=== PATIENT | male | born 1965 | race African-American/Black ===

== ENCOUNTER 2017-02-01 15:14 | Emergency (ER) | payer MEDICAID, SELFPAY | END 2017-02-01 17:58 | disposition home or self-care (01) | PROVIDERS: Emergency Provider Emergency Medicine; Family Provider Emergency Medicine; Visit Provider Emergency Medicine | DX: M12.811 Other specific arthropathies, not elsewhere classified, right shoulder (principal); E11.649 Type 2 diabetes mellitus with hypoglycemia without coma; Z79.4 Long term (current) use of insulin; I10 Essential (primary) hypertension; E78.5 Hyperlipidemia, unspecified; Z79.82 Long term (current) use of aspirin; F41.8 Other specified anxiety disorders | CPT/HCPCS: 73030; 99283 ==

== ENCOUNTER 2017-02-15 13:24 | Emergency (ER) | payer MEDICAID, SELFPAY ==
[2017-02-15 13:26] VITALS: BP 135/84; PULSE 83; RESP 18; TEMP 36.8; O2SAT 94; BMI 31.6
--- NOTE | 2017-02-15 13:28 | XR_ITS ---
XR chest portable HISTORY: ITS.REASON: weakness ORDERING PHYSICIAN: Mildred Durán MD PATIENT AGE: 51 years COMPARISON: 11/20/2016 FINDINGS: The cardiomediastinal silhouette and pulmonary vascularity are within normal limits. The lungs are clear without infiltrates, suspicious nodules, or pleural effusions. No acute bony abnormalities. IMPRESSION: Negative chest, no acute finding
--- NOTE | 2017-02-15 13:35 | HMH.EDGENADL ---
ED Disposition Clinical Impression: High blood sugar Disposition: Home, Self-Care Condition on Discharge: Good Instructions: DI for Hyperglycemia -- Adult Additional Instructions: Encourage fluids, see Dr. Rodríguez in one day for follow up. Continue insulin. - Critical Care Critical Care Time: No Attestation: On , the high probability of a clinically significant, sudden or life threatening deterioration of the following system(s) required my full and direct attention, intervention and personal management. The time I documented below is in addition to time spent performing reported procedures but includes the following listed in this critical care notation. Medical Decision Making Vital Signs: 02/15/17 13:26 02/15/17 14:28 Temperature 98.2 F Temperature Source Oral Pulse Rate [Right Brachial] 83 74 Respiratory Rate 18 18 Blood Pressure [Right Arm] 135/84 145/87 Blood Pressure Mean [Right Arm] 101 106 Blood Pressure Source [Right Arm] Automatic Cuff Automatic Cuff Blood Pressure Position [Right Arm] Supine Sitting 02 Sat by Pulse Oximetry 94 L 93 L Oxygen Delivery Method Room Air Room Air - Lab Data Lab results reviewed: Yes: I reviewed the patient's lab results. Lab Results 02/15/17 13:30: WBC 10.8, RBC 4.88, Hgb 14.7, Hct 44.3, MCV 90.8, MCH 30.2, MCHC 33.2, RDW 12.8, Plt Count 257, MPV 9.5, Neut % (Auto) 51.2, Lymph % (Auto) 35.1, [place] % (Auto) 4.7, Eos % (Auto) 8.3, Baso % (Auto) 0.6, Neut # (Auto) 5.5, Lymph # (Auto) 3.8, [place] # (Auto) 0.5, Eos # (Auto) 0.9 H, Baso # (Auto) 0.1 02/15/17 13:30: Sodium 138, Potassium 4.5, Chloride 103, Carbon Dioxide 25, Anion Gap 14.5, BUN 23 H, Creatinine 1.75 H, Estimated Creat Clear 76, Estimated GFR 41 L, Est GFR ( Amer) 50 L, Glucose 446 H*, Calcium 8.5, Total Bilirubin 0.3, AST 13 L, ALT 30, Alkaline Phosphatase 105, Troponin I < 0.02, Total Protein 7.1, Albumin 3.7, Globulin 3.4 H, Albumin/Globulin Ratio 1.1 02/15/17 13:30: Influenza Type A Ag Negative, Influenza Type B Ag Negative 02/15/17 13:47: Lactic Acid 1.4 Result diagrams: 02/15/17 13:30 02/15/17 13:30 Orders (Tests/Meds): ED MEDICATIONS Discontinued Medications Generic Name Dose Route Start Last Admin Trade Name Gerhard PRN Reason Stop Dose Admin Acetaminophen 650 mg 02/15/17 13:49 02/15/17 13:54 Acetaminophen 325mg Tab PO 02/15/17 13:50 650 mg ONCE ONE Administration Sodium Chloride 1,000 mls @ 999 mls/hr 02/15/17 13:30 02/15/17 13:56 Sod Chloride 0.9% 1000ml Bag IV 02/15/17 14:30 999 mls/hr .Q1H1M ADEN Administration ORDERS Category Date Time Status Urinalysis and Microscopic Stat Lab 02/15/17 13:28 Ordered - Radiology Data #1 Image(s): Chest Image Reviewed: Yes I reviewed the patient's radiology results, Yes I have reviewed radiologist's interpretation Preliminary Findings: Normal/NAD, No Infiltrates Seen - Clem Inquiry Pt receiving controlled substance: No General Adult HPI - General Stated complaint: dizzy, high blood sugar - History of Present Illness HPI narrative: Patient states that his blood sugar has been high over the past several days. No fever or vomiting. He did take his insulin this morning, but did not eat secondary to elevated blood sugar. He also thought his blood pressure was elevated at home on his home blood pressure cuff, but on EMS arrival they noted his blood pressure to be normal. He has felt a little bit dizzy since his blood sugar was elevated. He denies any unilateral neurological symptoms or headache. Cough or chest pain. No calf pain or shortness of breath. - Related Data Home Medications Medication Instructions Recorded Confirmed Amlodipine Besylate [Norvasc 10mg 10 mg PO DAILY 02/15/17 02/15/17 tablet] Aspirin [Aspirin 81mg chewable 81 mg PO DAILY 02/15/17 02/15/17 tab] Atorvastatin Calcium [Atorvastatin 40 mg PO DAILY 02/15/17 02/15/17 40mg Tab] Benztropine Mesylate
--- NOTE | 2017-02-15 13:38 | ED_ITS ---
ED Disposition Clinical Impression: High blood sugar Disposition: Home, Self-Care Condition on Discharge: Good Instructions: DI for Hyperglycemia -- Adult Additional Instructions: Encourage fluids, see Dr. Rodríguez in one day for follow up. Continue insulin. - Critical Care Critical Care Time: No Attestation: On , the high probability of a clinically significant, sudden or life threatening deterioration of the following system(s) required my full and direct attention, intervention and personal management. The time I documented below is in addition to time spent performing reported procedures but includes the following listed in this critical care notation. Medical Decision Making Vital Signs: 02/15/17 13:26 02/15/17 14:28 Temperature 98.2 F Temperature Source Oral Pulse Rate [Right Brachial] 83 74 Respiratory Rate 18 18 Blood Pressure [Right Arm] 135/84 145/87 Blood Pressure Mean [Right Arm] 101 106 Blood Pressure Source [Right Arm] Automatic Cuff Automatic Cuff Blood Pressure Position [Right Arm] Supine Sitting 02 Sat by Pulse Oximetry 94 L 93 L Oxygen Delivery Method Room Air Room Air - Lab Data Lab results reviewed: Yes: I reviewed the patient's lab results. Lab Results 02/15/17 13:30: WBC 10.8, RBC 4.88, Hgb 14.7, Hct 44.3, MCV 90.8, MCH 30.2, MCHC 33.2, RDW 12.8, Plt Count 257, MPV 9.5, Neut % (Auto) 51.2, Lymph % (Auto) 35.1, [place] % (Auto) 4.7, Eos % (Auto) 8.3, Baso % (Auto) 0.6, Neut # (Auto) 5.5 , Lymph # (Auto) 3.8, [place] # (Auto) 0.5, Eos # (Auto) 0.9 H, Baso # (Auto) 0.1 02/15/17 13:30: Sodium 138, Potassium 4.5, Chloride 103, Carbon Dioxide 25, Anion Gap 14.5, BUN 23 H, Creatinine 1.75 H, Estimated Creat Clear 76, Estimated GFR 41 L, Est GFR ( Amer) 50 L, Glucose 446 H*, Calcium 8.5, Total Bilirubin 0.3, AST 13 L, ALT 30, Alkaline Phosphatase 105, Troponin I < 0.02, Total Protein 7.1, Albumin 3.7, Globulin 3.4 H, Albumin/Globulin Ratio 1.1 02/15/17 13:30: Influenza Type A Ag Negative, Influenza Type B Ag Negative 02/15/17 13:47: Lactic Acid 1.4 Result diagrams: 02/15/17 13:30 02/15/17 13:30 Orders (Tests/Meds): ED MEDICATIONS Discontinued Medications Generic Name Dose Route Start Last Admin Trade Name Gerhard PRN Reason Stop Dose Admin Acetaminophen 650 mg 02/15/17 13:49 02/15/17 13:54 Acetaminophen 325mg Tab PO 02/15/17 13:50 650 mg ONCE ONE Administration Sodium Chloride 1,000 mls @ 999 mls/hr 02/15/17 13:30 02/15/17 13:56 Sod Chloride 0.9% 1000ml Bag IV 02/15/17 14:30 999 mls/hr .Q1H1M ADEN Administration ORDERS Category Date Time Status Urinalysis and Microscopic Stat Lab 02/15/17 13:28 Ordered - Radiology Data #1 Image(s): Chest Image Reviewed: Yes I reviewed the patient's radiology results, Yes I have reviewed radiologist's interpretation Preliminary Findings: Normal/NAD, No Infiltrates Seen - Clem Inquiry Pt receiving controlled substance: No General Adult HPI - General Stated complaint: dizzy, high blood sugar - History of Present Illness HPI narrative: Patient states that his blood sugar has been high over the past several days. No fever or vomiting. He did take his insulin this morning, but did not eat secondary to elevated blood sugar. He also thought his blood pressure was elevated at home on his home blood pre
[2017-02-15 13:59] LABS: Basophils # 0.1 K/mm3 (0-0.2); Basophils % 0.6 % (0.1-2.0); Eosinophils # 0.9 K/mm3 (0.0-0.4); Eosinophils % 8.3 % (0.1-12.0); Hematocrit 44.3 % (42.0-52.0); Hemoglobin 14.7 g/dL (14.1-18.0); Lymphocytes # 3.8 K/mm3 (0.7-4.5); Lymphocytes % 35.1 K/mm3 (10-50); Mean Corpuscular HGB Conc 33.2 g/dL (31.8-35.4); Mean Corpuscular Hemoglobin 30.2 pg (27.0-31.2); Mean Corpuscular Volume 90.8 fl (80-94); Mean Platelet Volume 9.5 fl (7.4-10.4); Monocytes # 0.5 K/mm3 (0.1-1.0); Monocytes % 4.7 % (1.7-9.3); Neutrophils # 5.5 K/mm3 (1.8-7.8); Neutrophils % 51.2 % (37.0-80.0); Platelet Count 257 K/mm3 (142-424); Red Blood Count 4.88 M/mm3 (4.60-6.20); Red Cell Distribution Width 12.8 % (11.5-17.5); White Blood Count 10.8 K/mm3 (4.8-10.8)
--- NOTE | 2017-02-15 14:00 | PC.NURSE ---
iv est be ems
[2017-02-15 14:18] LABS: Troponin I < 0.02 ng/ml (0.00-0.06)
[2017-02-15 14:19] LABS: Lactic Acid 1.4 mmol/L (0.4-2.0)
[2017-02-15 14:23] LABS: Alanine Aminotransferase 30 U/L (12-78); Albumin Level 3.7 gm/dL (3.4-5.0); Albumin/Globulin Ratio 1.1 (1.1-1.8); Alkaline Phosphatase 105 U/L (46-116); Anion Gap 14.5 mEq/L (5-15); Aspartate Amino Transferase 13 U/L (15-37); Bilirubin,Total 0.3 mg/dL (0.2-1.0); Blood Urea Nitrogen 23 mg/dL (7-18); Calcium 8.5 mg/dL (8.5-10.1); Carbon Dioxide 25 mmol/L (21.0-32.0); Chloride 103 mmol/L (98-107); Creatinine Clearance Estimated 76 mL/min (0-300); Creatinine,Serum 1.75 mg/dL (0.70-1.30); Estimated Glomerular Filt Rate 41 ml/min (>60); GFR (African American) 50 ML/MIN (>60); Globulin 3.4 gm/dl (1.3-3.2); Potassium 4.5 mmoL/L (3.5-5.1); Sodium 138 mmol/L (136-145); Total Protein,Serum 7.1 gm/dL (6.4-8.2)
[2017-02-15 14:28] VITALS: BP 145/87; PULSE 74; RESP 18; O2SAT 93
[2017-02-15 14:28] LABS: Glucose 446 mg/dL (74-106)
--- NOTE | 2017-02-15 14:58 | PC.NURSE ---
DR DAVISON NOTIFIED OF BLOOD GLUCOSE OF 446, CALLED FROM LAB AT 14:40
--- NOTE | 2017-02-15 14:58 | PC.NURSE ---
PT IS ATTEMPTING TO PROVIDE UA SAMPLE AT THIS TIME
[2017-02-15 15:17] VITALS: BP 128/86; PULSE 84; RESP 20; TEMP 37; O2SAT 97
[2017-02-15 15:23] LABS: Appearance,Urine SL CLOUDY (Clear); Blood, Urine Negative (Negative); Color,Urine YELLOW (Yellow); Glucose,Urine (UA) 3+ (Negative); Ketones,Urine Negative (Negative); Leukocyte Esterase,Urine Negative (Negative); Microscopic, Urine URINE MICROSCOPIC (MICROSCOPIC); Nitrate,Urine Negative (Negative); PH,Urine 5.5 (5.0-8.5); Protein,Urine Negative (Negative); Specific Gravity, Urine 1.015 (1.005-1.030); Urobilinogen,Urine 0.2 EU/dl (0.2)
[2017-02-15 15:41] LABS: Bilirubin,Urine 1+ (Negative)
[2017-02-15 15:50] VITALS: BP 134/80; PULSE 78; RESP 14; TEMP 36.9; O2SAT 98
[2017-02-15 15:52] LABS: Bacteria,Urine Trace /lpf; Squamous Epithelial Cell,Urine Occasional #/hpf (0-5); WBC,Urine Occasional #/hpf (0-3)
== END 2017-02-15 15:52 | disposition home or self-care (01) ==
PROVIDERS: Emergency Provider Emergency Medicine; Family Provider Emergency Medicine; PCP Emergency Medicine
DX: R73.9 Hyperglycemia, unspecified (principal); Z79.82 Long term (current) use of aspirin; Z79.4 Long term (current) use of insulin; Z79.899 Other long term (current) drug therapy
CPT/HCPCS: 71045; 80053; 81001; 83605; 84484; 85025; 87275; 87276; 93005; 93041; 96365; 99284

== ENCOUNTER → 2017-07-06 10:20 | Outpatient (CLI) | payer MEDICAID, SELFPAY ==
--- NOTE | 2017-07-06 10:22 | XR_ITS ---
XR shoulder RT min 2V HISTORY: ITS.REASON: right shoulder pain ORDERING PHYSICIAN: Curtis Deshpande MD PATIENT AGE: 51 years Comparison: 02/01/2017 FINDINGS: Osteoarthritic changes are present at the acromioclavicular joint and glenohumeral joint with hypertrophic changes of the AC joint and with mild subacromial stenosis overall not significant changed. No fracture or dislocation. 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
== END ==
PROVIDERS: PCP Emergency Medicine; Visit Provider Orthopaedic Surgery
DX: M75.01 Adhesive capsulitis of right shoulder (principal)
CPT/HCPCS: 73030

== ENCOUNTER → 2018-04-18 10:58 | Outpatient (CLI) | payer MEDICAID, SELFPAY ==
--- NOTE | 2018-04-18 11:02 | NM_ITS ---
History and Indications: Hypertension, diabetes, chest pain Procedure: Patient received a 0.4 mg of intravenous Lexiscan, resting heart rate was 74 bpm resting blood pressure 145/89, with Lexiscan maximum heart rate achieved was 94 bpm which is less than 85% of the maximum predicted heart rate and a blood pressure was 128/76. With Lexiscan patient denied any symptoms. Electrocardiogram: Resting electrocardiogram showed sinus rhythm, with Lexiscan less than 1.[address] segment depression noted from the baseline EKG. Occasional premature ventricular complexes seen. The EKG portion of the Lexiscan Myoview is nondiagnostic. Cardiac stress and resting SPECT images: Stress and resting SPECT images were obtained using technetium 99 Myoview 31.5 mCi stress and 10.8 mCi at rest. Gated SPECT further analysis of segmental wall motion and calculation of the ejection fraction also done. Cardiac stress and the suspect images show mild fixed defect in the inferior wall with normal contractility gated SPECT is likely secondary to soft tissue attenuation, no reversible ischemia seen. Computer derived ejection fraction 53% with no regional wall motion abnormality, right ventricle is normal size and contractility. Conclusion: 1. The EKG portion of the Lexiscan Myoview is nondiagnostic. 2. No scintigraphic evidence of reversible ischemia seen, computer derived ejection fraction 53% with no regional wall motion abnormality, right ventricle is normal size and contractility. 3. Normal Lexiscan Myoview study.
--- NOTE | 2018-04-18 12:04 | CA_ITS ---
PROCEDURE: 2-D M-mode and color Doppler study INDICATIONS FOR THE TEST: Chest pain X COPD Heart Murmur Tobacco Smoking Palpitations Fatigue Syncope Edema HypertensionXDiabetes MellitusX Rheumatic Fever SOB DOEXObesityXHyperlipidemia Family History HD Additional History CVA PATIENT INFORMATION HEIGHT: 73 WEIGHT:255 GENDER: Male B/P:117/72 2-D/M-MODE INTERPRETATION: 2-D MEASUREMENTS OBSERVED VALUES IN CMS Right Ventricular Dimension (RVDd) 2.8 Interventricular Septum (Thickness)(IVsd) 1.6 Left Ventricular Internal Dimensions(LVIDd) 4.2 Left Ventricular Posterior Wall (Thickness)(LVPWd) 1.8 Aortic Root 3.6 Aortic Cusp Separation 1.2 Left Atrial Dimensions (LAD) 3.8 2D 1. Left atrium is mildly enlarged, left ventricle is normal size, mild concentric left ventricular hypertrophy, visually estimated ejection fraction of 55% with no regional wall motion abnormality. 2. The right atrium and right ventricle are mildly enlarged with normal contractility. 3. The aortic valve is minimally thickened and fibrosed. 4. The mitral and tricuspid valve leaflets are grossly normal. 5. The pulmonic valve is poorly visualized. 6. No significant pericardial effusion noted. DOPPLER INTERROGATION: Doppler interrogation of the aortic, mitral and tricuspid valvular presence of mild mitral and tricuspid regurgitation, tricuspid regurgitation jet velocity is inadequate for calculation of the right ventricular systolic pressure, grade 1 diastolic dysfunction seen with tissue Doppler evidence of raised left atrial pressure. CONCLUSION: 1. Mildly enlarged left atrium, normal left ventricular size, mild concentric left ventricular hypertrophy, visually estimated ejection fraction 55% with no regional wall motion abnormality, grade 1 diastolic dysfunction seen with tissue Doppler evidence of raised left atrial pressure. 2. Mildly enlarged right ventricle with normal contractility. 3. Mild mitral and tricuspid regurgitation. 4. No significant pericardial effusion noted
--- NOTE | 2018-04-18 13:09 | HMH.ITSHM ---
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 []AMLODIPINE ASA ATORVASTATIN BENZTROPINE CARVEDILOL GABAPENTIN HUMILIN METFORMIN LISINOPRIL HALDOL OLANZAPINE SERTRALINE TAMSULOSIN TRAMADOL
== END ==
PROVIDERS: PCP Emergency Medicine; Visit Provider Internal Medicine
DX: R07.89 Other chest pain (principal); R06.09 Other forms of dyspnea; E11.8 Type 2 diabetes mellitus with unspecified complications; I10 Essential (primary) hypertension; I63.9 Cerebral infarction, unspecified; R42 Dizziness and giddiness; R55 Syncope and collapse; R94.31 Abnormal electrocardiogram [ECG] [EKG]; Z79.4 Long term (current) use of insulin
CPT/HCPCS: 78452; 93017; 93306; A9502; J2785

== ENCOUNTER → 2018-05-04 12:40 | Outpatient (CLI) | payer MEDICAID, SELFPAY ==
--- NOTE | 2018-05-04 12:43 | XR_ITS ---
XR hand RT min 3V HISTORY: ITS.REASON: right hand pain ORDERING PHYSICIAN: Curtis Deshpande MD PATIENT AGE: 52 years COMPARISON: None FINDINGS: No fracture or dislocation. No lytic or blastic change. There is normal mineralization.. The joint spaces are well-preserved. No significant degenerative/arthritic changes. No erosive changes evident.. IMPRESSION: Negative, no acute finding
== END ==
PROVIDERS: PCP Emergency Medicine; Visit Provider Orthopaedic Surgery
DX: M79.641 Pain in right hand (principal)
CPT/HCPCS: 73130

== ENCOUNTER 2018-05-04 14:14 | Outpatient (RCR) | payer MEDICAID, SELFPAY | END 2018-05-04 14:30 | disposition home or self-care (01) | LOC: OT 14:14 | PROVIDERS: Visit Provider Orthopaedic Surgery | DX: G56.01 Carpal tunnel syndrome, right upper limb (principal) | CPT/HCPCS: 97760 ==

== ENCOUNTER → 2018-06-19 10:33 | Outpatient (POV) | payer MEDICAID, SELFPAY | PROVIDERS: Visit Provider Specialist | DX: R20.2 Paresthesia of skin (principal) | CPT/HCPCS: 95886; 95910 ==

== ENCOUNTER → 2018-09-11 13:10 | Outpatient (CLI) | payer MEDICAID, SELFPAY ==
[2018-09-11 13:28] LABS: Basophils % 0.4 % (0.1-2.0); Eosinophils # 0.5 K/mm3 (0.0-0.4); Eosinophils % 4.8 % (0.1-12.0); Hematocrit 39.2 % (42.0-52.0); Hemoglobin 12.5 g/dL (14.1-18.0); Lymphocytes # 3.2 K/mm3 (0.7-4.5); Lymphocytes % 29.3 % (10-50); Mean Corpuscular Hemoglobin 28.2 pg (27.0-31.2); Mean Corpuscular Volume 88.3 fl (80-94); Mean Platelet Volume 8.5 fl (7.4-10.4); Monocytes # 0.5 K/mm3 (0.1-1.0); Monocytes % 4.7 % (1.7-9.3); Neutrophils # 6.6 K/mm3 (1.8-7.8); Neutrophils % 60.9 % (37.0-80.0); Platelet Count 325 K/mm3 (142-424); Red Blood Count 4.44 M/mm3 (4.60-6.20); Red Cell Distribution Width 14.5 % (11.5-17.5); White Blood Count 10.8 K/mm3 (4.8-10.8)
--- NOTE | 2018-09-11 13:29 | XR_ITS ---
XR elbow RT min 3V Ordering Physician: Curtis Deshpande MD Patient Age: 52 years: Male HISTORY: ITS.REASON: UNABLE TO EXTEND RT ARM,SURGERY 09/21 Unable to extend extremity. TECHNIQUE: 3 views right elbow COMPARISON : None FINDINGS The osseous structures intact. The joint spaces well-maintained. There is some early hypertrophic changes of coronoid process affecting mild degenerative changes. Upper normal prominence of anterior fat pad. IMPRESSION: Negative right elbow. No acute findings.
--- NOTE | 2018-09-11 13:29 | XR_ITS ---
XR chest 2V HISTORY: Nonsmoker. ITS.REASON: HTN, ORDERING PHYSICIAN: Curtis Deshpande MD PATIENT AGE: 52 years Technique: PA and lateral chest. COMPARISON: February 2017 PCXR & December 2017 PA and lateral chest FINDINGS: The lungs well expanded and clear with nothing definitely acute. Mild basilar atelectasis but overall improvement versus 1999 1815 CXR The cardiomediastinal silhouette and pulmonary vascularity are within normal limits. The lungs are clear without infiltrates, suspicious nodules, or pleural effusions. No acute bony abnormalities. IMPRESSION: Nothing definitely acute. No significant interval change.
[2018-09-11 14:47] LABS: Anion Gap 14.1 mEq/L (5-15); Blood Urea Nitrogen 13 mg/dL (7-18); Calcium 8.8 mg/dL (8.5-10.1); Carbon Dioxide 26 mmol/L (21.0-32.0); Chloride 106 mmol/L (98-107); Creatinine,Serum 1.01 mg/dL (0.70-1.30); Estimated Glomerular Filt Rate 77 ml/min (>60); GFR (African American) 93 ML/MIN (>60); Glucose 161 mg/dL (74-106); Potassium 4.1 mmoL/L (3.5-5.1); Sodium 142 mmol/L (136-145)
[2018-09-11 16:23] LABS: Hemoglobin A1C 7.5 % (0.0-7.0)
== END ==
PROVIDERS: Visit Provider Orthopaedic Surgery
DX: Z01.818 Encounter for other preprocedural examination (principal)
CPT/HCPCS: 36415; 71046; 73080; 80048; 83036; 85025; 93005

== ENCOUNTER 2019-01-21 13:31 | Inpatient (IN) ==
--- NOTE | 2019-01-21 13:10 | Emergency Department Note ---
ED Disposition Clinical Impression: Chest pain Disposition: Admitted as Observation Condition on Discharge: Serious Time of Disposition: 15:12 - Critical Care Critical Care Time: No Attestation: On , the high probability of a clinically significant, sudden or life threatening deterioration of the following system(s) required my full and direct attention, intervention and personal management. The time I documented below is in addition to time spent performing reported procedures but includes the foll owing listed in this critical care notation. Medical Decision Making - Medical Records Medical records reviewed: Yes: I reviewed the patient's medical records. - Clem Inquiry Pt receiving controlled substance: No Vital Signs: 01/21/19 13:03 01/21/19 13:04 Temperature 98.3 F Temperature Source Oral Pulse Rate [Right Brachial] 81 Pulse Rate [Right Radial] 78 Respiratory Rate 16 Blood Pressure [Right Arm] 95/62 L 95/62 L Blood Pressure Mean [Right Arm] 73 73 Blood Pressure Source [Right Arm] Automatic Cuff Blood Pressure Position [Right Arm] Sitting 02 Sat by Pulse Oximetry 97 Oxygen Delivery Method Nasal Cannula Oxygen Flow Rate (LPM) 2 - Lab Data Lab results reviewed: Yes: I reviewed the patient's lab results. Lab Results 01/21/19 12:58: WBC 11.6 H, RBC 4.31 L, Hgb 12.8 L, Hct 39.7 L, MCV 92.0, MCH 29.7, MCHC 32.3, RDW 13.9, Plt Count 249, MPV 8.7, Neut % (Auto) 56.5, Lymph % (Auto) 33.7, [place] % (Auto) 5.1, Eos % (Auto) 4.4, Baso % (Auto) 0.3, Neut # (Auto) 6.5, Lymph # (Auto) 3.9, [place] # (Auto) 0.6, Eos # (Auto) 0.5 H, Baso # (Auto) 0.0 01/21/19 12:58: Sodium 141, Potassium 4.9, Chloride 103, Carbon Dioxide 26, Anion Gap 16.9 H, BUN 37 H, Creatinine 2.17 H, Estimated Creat Clear 65, Estimated GFR 32 L, Est GFR ( Amer) 39 L, Glucose 128 H, Calcium 9.4, T roponin I < 0.02 Result diagrams: 01/21/19 12:58 01/21/19 12:58 Orders (Tests/Meds): ORDERS Category Date Time Status Troponin I Q3H Lab 01/21/19 16:15 Ordered Troponin I Q3H Lab 01/21/19 19:15 Ordered - Radiology Data #1 Image(s): Chest Image Reviewed: Yes I reviewed the patient's radiology results, Yes I reviewed the patient's radiology image Preliminary Findings: Normal/NAD - CT Data CT Scan: Head Time Received: 15:[address] Reviewed: Yes: I have viewed the radiologist's interpretation Preliminary Findings: Normal/NAD - ECG Data Tracing #1 Normal sinus rhythm at a rate of 82 bpm. ECG initial impression date: 01/21/19 ECG initial impression time: 12:59 ECG normal with no acute: arrhythmias, ischemia, conduction abnormalities, chamber hypertrophy Normal Sinus Rhythm: Yes Chest Pain HPI - General Chief Complaint: Chest Pain Stated Complaint: CP Time Seen by Provider: 01/21/19 13:31 Mode of Arrival: EMS Source of Information: Patient, EMS - History of Present Illness MD complaint: chest pain indicative of cardiac Onset (ago): hour(s) (1) Duration: constant, now resolved Activity at onset: during rest Pain location: substernal Severity: moderate Quality: aching Exacerbating factors: nothing Associated symptoms: nausea Risk Factors for CAD: Hypertension, Diabetes Treatments prior to or on arrival for Cardiac Chest Pain: aspirin, nitroglycerin - Related Data Home Medications Medication Instructions Recorded Confirmed Amlodipine Besylate [Norvasc 10mg 10 mg PO DAILY 02/15/17 01/01/19 tablet] Aspirin [Aspirin 81mg chewable 81 mg PO DAILY 02/15/17 01/01/19 tab] Atorvastatin Calcium [Atorvastatin 40 mg PO HS 02/15/17 01/01/19 40mg Tab] Benztropine Mesylate 0.5 mg PO BID 02/15/17 01/01/19 Gabapentin [Neurontin 300mg 300 mg PO TID 02/15/17 01/01/19 capsule] Ibuprofen [Ibuprofen 600mg Tab] 600 mg PO Q6HP PRN 02/15/17 01/01/19 OLANZapine [Zyprexa Zydis] 20 mg PO DAILY 02/15/17 01/01/19 Polyethylene Glycol 3350 [Miralax 17 gm PO DAILY 02/15/17 01/01/19 17gm Packet] Sertraline HCl [Zoloft 100mg 150 mg PO DAILY 02/15/17 01/01/19 tablet] Tamsulosin HCl [Flomax 0.4mg 0.4 mg PO DAILY 02/15/17 01/01/19 capsule] Tramadol HCl [Ultram 50mg 50 mg PO BID 02/15/17 01/01/19 tablet] carvediloL [Coreg 25mg Tablet] 25 mg PO BID 02/15/17 01/01/19 Finasteride [Proscar 5mg Tablet] 5 mg PO DAILY 12/21/17 01/01/19 Metformin HCl [Fortamet] 1,000 mg PO BID 12/21/17 01/01/19 haloperidol 5 mg tablet 5 mg PO TID tab 04/04/18 01/01/19 lisinopril 10 mg tablet 20 mg PO DAILY tab 04/04/18 01/01/19 insulin NPH-regular 70-30 U-100 55 unit SQ BID ml 07/07/18 01/01/19 insulin 100 unit/mL subcutaneous pen Previous Rx's Medication Instructions Recorded lancets See Dose Instructions .ROUTE 11/22/18 .MEDSUPPLY #100 each furosemide 40 mg tablet 40 mg PO DAILY #30 tab 12/04/18 Allergies Allergy/AdvReac Type Severity Reaction Status Date / Time No Known Allergies Allergy Verified 01/01/19 10:00 [facility] History - Hepatitis A Screen Drug use history?: No Attestation statement:: This patient has been screened for Hepatitis A risk factors. I have reviewed the patient's past medical history: Yes Medical History: Reports:: Cerebrovascular Accident, Diabetes Mellitus Type 2, Hypertension, Seizures, Transient Ischemic Attacks (TIA) Denies:: Cancer, Diabetes Mellitus Type 1, Internal Pacemaker, MRSA Other Medical History: Reports: Other. Denies: Blood Transfusion Reaction Comment: bipolar, schizophrenia with paranoia, obesity, chronic pain, PTSD, right sided weakness post CVA Other Surgeries: Yes: No Previous Surgery, Other. No: Pacemaker Amputation: No Fractures: No - Social History Smoking Status: Never smoker Alcohol Intake: never Substance Use Type: denies use Occupational Status: unemployed, disabled Housing: residential Household Members: other Family Hx:: Hyperlipidemia, Hypertension, Coronary Artery Disease Comment: Mother-CAD@78 ROS Obtained: Yes Systems reviewed as appropriate & no additional complaints - Constitutional Constitutional: Reports fatigue, Reports malaise - Eyes Eyes: Reports system reviewed and no additional complaints, except as docu - ENT Ears, Nose, Mouth, and Throat: Reports system reviewed and no additional complaints, except as docu - Cardiovascular Cardiovascular: Reports chest pain, Reports dyspnea - Respiratory Respiratory: Yes dyspnea - Gastrointestinal Gastrointestingal: Reports: system reviewed and no additional complaints, except as docu - Genitourinary Male Genitourinary: Reports system reviewed and no additional complaints, except as docu - Musculoskeletal Musculoskeletal: Reports system reviewed and no additional complaints, except as docu - Integumentary/Breasts Skin/Breast: Reports system reviewed and no additional complaints, except as docu - Neurologic Neurologic: Reports system reviewed and no additional complaints, except as docu - Endocrine Endocrine: Reports system reviewed and no additional complaints, except as docu - Hematologic/Lymphatic Henatologic/Lymphatic: Reports system reviewed and no additional complaints, except as docu - Allergic/Immunologic Allergic/Immunologic: Reports system reviewed and no additional complaints, except as docu Physical Exam - General General appearance: alert, in no apparent distress - Head Head exam: atraumatic, normocephalic, normal inspection - Eye Eye exam: Present: normal appearance, PERRL, EOMI - ENT ENT exam: Present: normal exam, normal oropharynx, mucous membranes moist, normal external ear exam - Neck Neck exam: Present: normal inspection, full ROM, trachea midline. Absent: meningismus, lymphadenopathy - Chest Chest inspection: Present: normal inspection, symmetric chest wall rise. Absent: tenderness - Respiratory Respiratory exam: Present: normal lung sounds bilaterally. Absent: respiratory distress - Cardiovascular Cardiovascular exam: Present: regular rate, normal rhythm, normal heart sounds. Absent: JVD - Abdominal Exam Abdominal exam: Present: soft, normal bowel sounds. Absent: distention, tenderness, guarding - Extremities Exam Extremities exam: Present: normal inspection, full ROM, normal capillary refill. Absent: calf tenderness - Back Exam Back exam: Present: normal inspection. Absent: tenderness - Neurological Exam Neurological exam: Present: alert, oriented X3, CN II-XII intact. Absent: motor sensory deficit - Psychiatric Psychiatric exam: Present: normal affect, normal mood - Skin Skin exam: Present: warm, dry, intact, normal color
[2019-01-21 13:30] LABS: Basophils % 0.3 % (0.1-2.0); Eosinophils # 0.5 K/mm3 (0.0-0.4); Eosinophils % 4.4 % (0.1-12.0); Hematocrit 39.7 % (42.0-52.0); Hemoglobin 12.8 g/dL (14.1-18.0); Lymphocytes # 3.9 K/mm3 (0.7-4.5); Lymphocytes % 33.7 % (10-50); Mean Corpuscular HGB Conc 32.3 g/dL (31.8-35.4); Mean Platelet Volume 8.7 fl (7.4-10.4); Monocytes # 0.6 K/mm3 (0.1-1.0); Monocytes % 5.1 % (1.7-9.3); Neutrophils # 6.5 K/mm3 (1.8-7.8); Neutrophils % 56.5 % (37.0-80.0); Platelet Count 249 K/mm3 (142-424); Red Blood Count 4.31 M/mm3 (4.60-6.20); Red Cell Distribution Width 13.9 % (11.5-17.5); White Blood Count 11.6 K/mm3 (4.8-10.8)
[2019-01-21 13:46] LABS: Anion Gap 16.9 mEq/L (5-15); Blood Urea Nitrogen 37 mg/dL (7-18); Calcium 9.4 mg/dL (8.5-10.1); Carbon Dioxide 26 mmol/L (21.0-32.0); Chloride 103 mmol/L (98-107); Glucose 128 mg/dL (74-106); Sodium 141 mmol/L (136-145)
[2019-01-22 06:50] LABS: Albumin Level 3.3 gm/dL (3.4-5.0); Albumin/Globulin Ratio 0.9 (1.1-1.8); Anion Gap 15.8 mEq/L (5-15); Bilirubin,Total 0.2 mg/dL (0.2-1.0); Calcium 8.8 mg/dL (8.5-10.1); Chol/HDL Ratio 4.6 (1-3.5); Globulin 3.7 gm/dl (1.3-3.2); Phosphorous 4.6 mg/dL (2.4-4.9)
[2019-01-22 07:20] LABS: Basophils % 0.3 % (0.1-2.0); Eosinophils # 0.5 K/mm3 (0.0-0.4); Eosinophils % 4.9 % (0.1-12.0); Hematocrit 36.6 % (42.0-52.0); Hemoglobin 12.1 g/dL (14.1-18.0); Lymphocytes # 3.7 K/mm3 (0.7-4.5); Lymphocytes % 34.5 % (10-50); Mean Corpuscular Volume 89.9 fl (80-94); Mean Platelet Volume 8.7 fl (7.4-10.4); Monocytes # 0.5 K/mm3 (0.1-1.0); Monocytes % 4.6 % (1.7-9.3); Neutrophils # 5.9 K/mm3 (1.8-7.8); Neutrophils % 55.7 % (37.0-80.0); Platelet Count 226 K/mm3 (142-424); Red Blood Count 4.08 M/mm3 (4.60-6.20); Red Cell Distribution Width 13.7 % (11.5-17.5); White Blood Count 10.6 K/mm3 (4.8-10.8)
--- NOTE | 2019-01-22 07:20 | Pharmacy Consult Notes ---
[facility] Pharmacy VTE Monitoring - Patient Demographics Admission date: 01/21/19 Report Date: 01/22/19 Time: 07:20 Allergies/Adverse Reactions: Patient Allergies No Known Allergies Allergy (Verified 01/21/19 18:12) Height: 1.85 m Weight: 114.929 kg Patient Problems: Current Active Problems Chest pain (Acute) - VTE Risk Labs: VTE Related Lab Results Hgb 12.8 g/dL (14.1-18.0) L 01/21/19 12:58 Hct 39.7 % (42.0-52.0) L 01/21/19 12:58 Plt Count 249 K/mm3 (142-424) 01/21/19 12:58 BUN 33 mg/dL (7-18) H 01/22/19 05:44 Creatinine 1.64 mg/dL (0.70-1.30) H D 01/22/19 05:44 Estimated Creat Clear 84 mL/min (50-200) 01/22/19 05:44 Was VTE Risk Assessment Performed: Yes VTE Score: 3 VTE Risk Level: Low Risk - Prophylaxis VTE Prophylaxis Ordered?: Yes Types of VTE Prophylaxis: TEDS Knee High Location of Applied Device: Bilateral Lower Extremeties - VTE Diagnosis Confirmed Treatment or plan recommended: Continue Current Treatment
--- NOTE | 2019-01-22 07:54 | Consult Report ---
History of Present Illness Consult date: 01/22/19 Requesting physician: Robbin Rodríguez Consult reason: chest pain Chief complaint: chest pain, dizziness/weakness Additional Medical History:: 1. DM 2. ?CAD A. LHC at per pt about 4-5 yrs ago, results unknown but pt doesn't think any stent was placed B. Echocardiogram, 04/2018, normal ejection fraction with no significant valvular heart disease. Mild right heart enlargement with normal contractility. C. Lexiscan Myoview, 04/2018, no ischemia with EF 53% 3. History of CVA x5, per patient 4. Hypertension 5. Hyperlipidemia History of present illness: 53-year-old black male resident of [facility] presented to the hospital ER for evaluation of chest pressure with exertion and weakness/dizziness with falling episodes over the last 2 weeks. Patient has a history of previous strokes and is not reliable historian. He was seen in our office earlier this year for chest pain with work-up including Lexiscan Myoview and echocardiogram, both unremarkable. Troponins normal this admission with EKG sinus and no acute changes. Cardiology consulted for evaluation and recommendations. [facility] History Medical History: Reports:: Cerebrovascular Accident, Diabetes Mellitus Type 2, Hyperlipidemia, Hypertension, Seizures, Transient Ischemic Attacks (TIA) Denies:: Cancer, Diabetes Mellitus Type 1, Internal Pacemaker, MRSA *Have you ever received a pneumonia vaccine?: No *Have you received a flu vaccine this season?: No Other Medical History: Reports: Other. Denies: Blood Transfusion Reaction Other Surgeries: Yes: No Previous Surgery, Other. No: Pacemaker Amputation: No Fractures: No - *Social History Educational Level: Completed High School Smoking Status: Never smoker Alcohol Intake: never Substance Use Type: denies use *Occupational Status:: unemployed, disabled Housing: assisted living facility Household Members: other *Travel in the last 8 weeks: None Family Hx:: Hyperlipidemia, Hypertension, Coronary Artery Disease Meds Home Medications Medication Instructions Recorded Confirmed Type Amlodipine Besylate [Norvasc 10mg 10 mg PO DAILY 02/15/17 01/21/19 History tablet] Aspirin [Aspirin 81mg chewable 81 mg PO DAILY 02/15/17 01/21/19 History tab] Atorvastatin Calcium [Atorvastatin 40 mg PO HS 02/15/17 01/21/19 History 40mg Tab] Benztropine Mesylate 0.5 mg PO BID 02/15/17 01/21/19 History Gabapentin [Neurontin 300mg 300 mg PO TID 02/15/17 01/21/19 History capsule] Ibuprofen [Ibuprofen 600mg Tab] 600 mg PO Q6HP PRN 02/15/17 01/21/19 History OLANZapine [Zyprexa Zydis] 20 mg PO DAILY 02/15/17 01/21/19 History Polyethylene Glycol 3350 [Miralax 17 gm PO DAILY 02/15/17 01/21/19 History 17gm Packet] Sertraline HCl [Zoloft 100mg 150 mg PO DAILY 02/15/17 01/21/19 History tablet] Tamsulosin HCl [Flomax 0.4mg 0.4 mg PO DAILY 02/15/17 01/21/19 History capsule] Tramadol HCl [Ultram 50mg 50 mg PO BID 02/15/17 01/21/19 History tablet] carvediloL [Coreg 25mg Tablet] 25 mg PO BID 02/15/17 01/21/19 History Finasteride [Proscar 5mg Tablet] 5 mg PO DAILY 12/21/17 01/21/19 History Metformin HCl [Fortamet] 1,000 mg PO BID 12/21/17 01/21/19 History haloperidol 5 mg tablet 5 mg PO TID tab 04/04/18 01/21/19 History lisinopril 10 mg tablet 20 mg PO DAILY tab 04/04/18 01/21/19 History insulin NPH-regular 70-30 U-100 50 unit SQ HS ml 07/07/18 01/21/19 History insulin 100 unit/mL subcutaneous pen Furosemide [Furosemide 40MG tAB] 40 mg PO DAILY 01/21/19 01/21/19 History Insulin NPH Hum/Reg Insulin Hm 40 unit SQ AC 01/21/19 01/21/19 History [Humulin 70/30 Kwikpen] Allergies Allergy/AdvReac Type Severity Reaction Status Date / Time No Known Allergies Allergy Verified 01/21/19 18:12 Review of Systems - Review of Systems Review of systems:: pertinent systems reviewed and negative unless documented below - *Cardiovascular Reports chest pain - *Respiratory Denies shortness of breath - *Gastrointestinal Denies loose stools, Denies nausea, Denies vomiting - *Musculoskeletal Denies joint pain, Denies back pain - *Neurologic Reports dizziness, Reports weakness Exam Vital signs and Labs for Last 24 Hours: Temp Pulse Resp BP Pulse Ox 98.3 F 81 18 130/82 96 01/22/19 04:00 01/22/19 04:00 01/22/19 04:00 01/22/19 04:00 01/22/19 04:00 Laboratory Results - last 24 hr 01/21/19 12:58: WBC 11.6 H, RBC 4.31 L, Hgb 12.8 L, Hct 39.7 L, MCV 92.0, MCH 29.7, MCHC 32.3, RDW 13.9, Plt Count 249, MPV 8.7, Neut % (Auto) 56.5, Lymph % (Auto) 33.7, [place] % (Auto) 5.1, Eos % (Auto) 4.4, Baso % (Auto) 0.3, Neut # (Auto) 6.5, Lymph # (Auto) 3.9, Trinity # (Auto) 0.6, Eos # (Auto) 0.5 H, Baso # (Auto) 0.0 01/21/19 12:58: Sodium 141, Potassium 4.9, Chloride 103, Carbon Dioxide 26, Anion Gap 16.9 H, BUN 37 H, Creatinine 2.17 H, Estimated Creat Clear 65, Estimated GFR 32 L, Est GFR ( Amer) 39 L, Glucose 128 H, Calcium 9.4, Troponin I < 0.02 01/21/19 16:52: POC Glucose 109 01/21/19 18:34: Troponin I < 0.02 01/21/19 20:31: POC Glucose 158 H 01/22/19 00:35: Troponin I < 0.02 01/22/19 05:44: WBC 10.6, RBC 4.08 L, Hgb 12.1 L, Hct 36.6 L, MCV 89.9, MCH 29.7, MCHC 33.0, RDW 13.7, Plt Count 226, MPV 8.7, Neut % (Auto) 55.7, Lymph % (Auto) 34.5, Trinity % (Auto) 4.6, Eos % (Auto) 4.9, Baso % (Auto) 0.3, Neut # (Auto) 5.9, Lymph # (Auto) 3.7, Trinity # (Auto) 0.5, Eos # (Auto) 0.5 H, Baso # (Auto) 0.0 01/22/19 05:44: Sodium 141, Potassium 4.8, Chloride 104, Carbon Dioxide 26, Anion Gap 15.8 H, BUN 33 H, Creatinine 1.64 H D, Estimated Creat Clear 84, Estimated GFR 44 L, Est GFR ( Amer) 53 L D, Glucose 151 H, Calcium 8.8, Phosphorus 4.6, Magnesium 1.6, Total Bilirubin 0.2, AST 5 L, ALT 18, Alkaline Phosphatase 115, Total Protein 7.0, Albumin 3.3 L, Globulin 3.7 H, Albumin/Globulin Ratio 0.9 L, Triglycerides 195, Cholesterol 123 L, LDL Cholesterol 57, VLDL Cholesterol 39, HDL Cholesterol 27, Cholesterol/HDL Ratio 4.6 H I & O for Last 24 hours: Intake & Output 01/19/19 01/20/19 01/21/19 01/22/19 11:59 11:59 11:59 11:59 Intake Total 1398 / 1398 Balance 1398 / 1398 Weight 253 lb 6 oz - *Routine HEENT Exam Head: Present: normocephalic Eye: Present: EOMI, PERRL ENT: Present: mucous membranes moist - *Routine Neck Exam Present: supple. Absent: JVD, carotid bruit - *Routine Respiratory Exam Present: CTA bilaterally. Absent: accessory muscle use, rales, rhonchi, wheezes - *Routine Cardiovascular Exam Present: RRR. Absent: murmur, gallop, rubs - *Routine Abdominal Exam Present: soft. Absent: tenderness, distended, guarding - *Routine Extremities Exam Absent: edema, calf tenderness - *Routine Neurological Exam Present: alert, oriented X3, moving all extremities Assessment and Plan (1) Chest pain Current visit: Yes Status: Acute Qualifiers: Category: Medical Code(s): R07.9 - Chest pain, unspecified (2) Dizziness Current visit: No Status: Acute Category: Medical Code(s): R42 - Dizziness and giddiness (3) DM (diabetes mellitus) Current visit: No Status: Chronic Qualifiers: Diabetes mellitus type: type 2 Diabetes mellitus ferry terminal supervisor insulin use: with ferry terminal supervisor use Diabetes mellitus complication status: without complication Qualified Code(s): E11.9 - Type 2 diabetes mellitus without complications; Z79.4 - ferry terminal supervisor (current) use of insulin Category: Medical Code(s): E11.9 - Type 2 diabetes mellitus without complications (4) HLD (hyperlipidemia) Current visit: No Status: Chronic Qualifiers: Hyperlipidemia type: mixed hyperlipidemia Qualified Code(s): E78.2 - Mixed hyperlipidemia Category: Medical Code(s): E78.5 - Hyperlipidemia, unspecified (5) HTN (hypertension) Current visit: No Status: Chronic Qualifiers: Hypertension type: essential hypertension Qualified Code(s): I10 - Essential (primary) hypertension Category: Medical Code(s): I10 - Essential (primary) hypertension - Assessment and plan all Dx Assessment and Plan for all problems:: 1. Diabetic with history of prior CVA x5 now with complaint of chest pain, pressure and weakness with falling. Despite stress test earlier this year showing no ischemia, patient has a high pretest likelihood for coronary artery disease and possible balanced ischemia on stress test giving a false impression of a negative stress test. With patient's complaint of weakness and chest discomfort, would recommend proceeding with left heart catheterization today. 2. CKD stage III, improved to stage II with IV fluids. 3. Diabetes mellitus, managed per Dr. Rodríguez 4. Further recommendations to follow pending above results.
--- NOTE | 2019-01-22 08:52 | History & Physical Report ---
*Admission Date: 01/21/19 *Chief complaint: chest pain *History of present illness: this pt had episode of chest pain at assisted - pt was seen in the ed and admitted for card eval- chest pain, dizziness/weakness Additional Medical History:: 1. DM 2. ?CAD A. LHC at per pt about 4-5 yrs ago, results unknown but pt doesn't think any stent was placed B. Echocardiogram, 04/2018, normal ejection fraction with no significant valvular heart disease. Mild right heart enlargement with normal contractility. C. Lexiscan Myoview, 04/2018, no ischemia with EF 53% 3. History of CVA x5, per patient 4. Hypertension 5. Hyperlipidemia History of present illness: 53-year-old black male resident of [facility] presented to the hospital ER for evaluation of chest pressure with exertion and weakness/dizziness with falling episodes over the last 2 weeks. Patient has a history of previous strokes and is not reliable historian. He was seen in our office earlier this year for chest pain with work-up including Lexiscan Myoview and echocardiogram, both unremarkable. Troponins normal this admission with EKG sinus and no acute changes. Cardiology consulted for evaluation and recommendations. pt had neg ct head in the ed- Diabetic with history of prior CVA x5 now with complaint of chest pain, pressure and weakness with falling. Despite stress test earlier this year showing no ischemia, patient has a high pretest likelihood for coronary artery disease and possible balanced ischemia on stress test giving a false impression of a negative stress test. With patient's complaint of weakness and chest discomfort, would recommend proceeding with left heart catheterization today. 2. CKD stage III, improved to stage II with IV fluids. 3. Diabetes mellitus, managed per Dr. Rodríguez 4. Further recommendations to follow pending above results. [facility] History I have reviewed the patient's past medical history: Yes Medical History: Reports:: Cerebrovascular Accident, Diabetes Mellitus Type 2, Hyperlipidemia, Hypertension, Seizures, Transient Ischemic Attacks (TIA) Denies:: Cancer, Diabetes Mellitus Type 1, Internal Pacemaker, MRSA *Have you ever received a pneumonia vaccine?: No *Have you received a flu vaccine this season?: No Other Medical History: Reports: Other. Denies: Blood Transfusion Reaction Other Surgeries: Yes: No Previous Surgery, Other. No: Pacemaker Amputation: No Fractures: No - *Social History Educational Level: Completed High School Smoking Status: Never smoker Alcohol Intake: never Substance Use Type: denies use *Occupational Status:: unemployed, disabled Housing: assisted living facility Household Members: other *Travel in the last 8 weeks: None Family Hx:: Hyperlipidemia, Hypertension, Coronary Artery Disease Review of Systems - Review of Systems Review of systems:: pertinent systems reviewed and negative unless documented below - Constitutional Denies fever(s) - Eyes Denies change in vision - ENT Denies sore throat - *Cardiovascular Reports chest pain at rest, Reports shortness of breath, Reports radiating jaw, neck or arm pain - *Respiratory Denies cough - *Gastrointestinal Denies abdominal pain - *Genitourinary Denies blood in urine - *Musculoskeletal Denies joint pain - Integumentary/Breasts Denies rash - *Neurologic Reports tingling/numbness/burning sensations, Reports dizziness, Reports weakness - Psychiatric Reports anxiety Meds Home Medications Medication Instructions Recorded Confirmed Type Amlodipine Besylate [Norvasc 10mg 10 mg PO DAILY 02/15/17 01/21/19 History tablet] Aspirin [Aspirin 81mg chewable 81 mg PO DAILY 02/15/17 01/21/19 History tab] Atorvastatin Calcium [Atorvastatin 40 mg PO HS 02/15/17 01/21/19 History 40mg Tab] Gabapentin [Neurontin 300mg 300 mg PO TID 02/15/17 01/21/19 History capsule] Ibuprofen [Ibuprofen 600mg Tab] 600 mg PO Q6HP PRN 02/15/17 01/21/19 History OLANZapine [Zyprexa Zydis] 20 mg PO DAILY 02/15/17 01/21/19 History Polyethylene Glycol 3350 [Miralax 17 gm PO DAILY 02/15/17 01/21/19 History 17gm Packet] Sertraline HCl [Zoloft 100mg 150 mg PO DAILY 02/15/17 01/21/19 History tablet] Tamsulosin HCl [Flomax 0.4mg 0.4 mg PO DAILY 02/15/17 01/21/19 History capsule] Tramadol HCl [Ultram 50mg 50 mg PO BID 02/15/17 01/21/19 History tablet] carvediloL [Coreg 25mg Tablet] 25 mg PO BID 02/15/17 01/21/19 History Finasteride [Proscar 5mg Tablet] 5 mg PO DAILY 12/21/17 01/21/19 History Metformin HCl [Fortamet] 1,000 mg PO BID 12/21/17 01/21/19 History haloperidol 5 mg tablet 5 mg PO TID tab 04/04/18 01/21/19 History insulin NPH-regular 70-30 U-100 50 unit SQ HS ml 07/07/18 01/21/19 History insulin 100 unit/mL subcutaneous pen Furosemide [Furosemide 40MG tAB] 40 mg PO DAILY 01/21/19 01/21/19 History Insulin NPH Hum/Reg Insulin Hm 40 unit SQ DAILY 01/21/19 01/22/19 History [Humulin 70/30 Kwikpen] Benztropine Mesylate 0.5 mg PO BID 01/22/19 01/22/19 History lisinopriL [Lisinopril 20mg Tab] 20 mg PO DAILY 01/22/19 01/22/19 History Allergies Allergy/AdvReac Type Severity Reaction Status Date / Time No Known Allergies Allergy Verified 01/21/19 18:12 Exam Vital signs and Labs for Last 24 Hours: Temp Pulse Resp BP Pulse Ox 97.5 F L 73 19 109/68 L 90 L 01/22/19 08:01 01/22/19 08:01 01/22/19 08:01 01/22/19 08:01 01/22/19 08:01 Laboratory Results - last 24 hr 01/21/19 12:58: WBC 11.6 H, RBC 4.31 L, Hgb 12.8 L, Hct 39.7 L, MCV 92.0, MCH 29.7, MCHC 32.3, RDW 13.9, Plt Count 249, MPV 8.7, Neut % (Auto) 56.5, Lymph % (Auto) 33.7, [place] % (Auto) 5.1, Eos % (Auto) 4.4, Baso % (Auto) 0.3, Neut # (Auto) 6.5, Lymph # (Auto) 3.9, [place]man # (Auto) 0.6, Eos # (Auto) 0.5 H, Baso # (Auto) 0.0 01/21/19 12:58: Sodium 141, Potassium 4.9, Chloride 103, Carbon Dioxide 26, Anion Gap 16.9 H, BUN 37 H, Creatinine 2.17 H, Estimated Creat Clear 65, Estimated GFR 32 L, Est GFR ( Amer) 39 L, Glucose 128 H, Calcium 9.4, Troponin I < 0.02 01/21/19 16:52: POC Glucose 109 01/21/19 18:34: Troponin I < 0.02 01/21/19 20:31: POC Glucose 158 H 01/22/19 00:35: Troponin I < 0.02 01/22/19 05:44: WBC 10.6, RBC 4.08 L, Hgb 12.1 L, Hct 36.6 L, MCV 89.9, MCH 29.7, MCHC 33.0, RDW 13.7, Plt Count 226, MPV 8.7, Neut % (Auto) 55.7, Lymph % (Auto) 34.5, Bowman % (Auto) 4.6, Eos % (Auto) 4.9, Baso % (Auto) 0.3, Neut # (Auto) 5.9, Lymph # (Auto) 3.7, Bowman # (Auto) 0.5, Eos # (Auto) 0.5 H, Baso # (Auto) 0.0 01/22/19 05:44: Sodium 141, Potassium 4.8, Chloride 104, Carbon Dioxide 26, Anion Gap 15.8 H, BUN 33 H, Creatinine 1.64 H D, Estimated Creat Clear 84, Estimated GFR 44 L, Est GFR ( Amer) 53 L D, Glucose 151 H, Calcium 8.8, Phosphorus 4.6, Magnesium 1.6, Total Bilirubin 0.2, AST 5 L, ALT 18, Alkaline Phosphatase 115, Total Protein 7.0, Albumin 3.3 L, Globulin 3.7 H, Albumin/Globulin Ratio 0.9 L, Triglycerides 195, Cholesterol 123 L, LDL Cholesterol 57, VLDL Cholesterol 39, HDL Cholesterol 27, Cholesterol/HDL Ratio 4.6 H I & O for Last 24 hours: Intake & Output 01/19/19 01/20/19 01/21/19 01/22/19 11:59 11:59 11:59 11:59 Intake Total 1398 / 1398 Balance 1398 / 1398 Weight 253 lb 6 oz - Constitutional no acute distress, obese - *Routine HEENT Exam Head: Present: normocephalic Eye: Present: EOMI, PERRL. Absent: conjunctival icterus ENT: Present: mucous membranes dry - *Routine Neck Exam Present: supple. Absent: JVD - *Routine Respiratory Exam Present: decreased breath sounds - *Routine Cardiovascular Exam Present: RRR, murmur, S4 - *Routine Abdominal Exam Present: soft - *Routine Extremities Exam Absent: calf tenderness - *Routine Skin Exam Present: intact - *Routine Neurological Exam Present: alert, CN II-XII intact - Routine Psychiatric Exam Present: normal affect Assessment and Plan (1) Chest pain Current visit: Yes Status: Acute Qualifiers: Category: Medical Code(s): R07.9 - Chest pain, unspecified (2) Dizziness Current visit: No Status: Acute Category: Medical Code(s): R42 - Dizziness and giddiness (3) DM (diabetes mellitus) Current visit: No Status: Chronic Qualifiers: Diabetes mellitus type: type 2 Diabetes mellitus terminal superintendent insulin use: with terminal superintendent use Diabetes mellitus complication status: without complication Qualified Code(s): E11.9 - Type 2 diabetes mellitus without complications; Z79.4 - [facility] (current) use of insulin Category: Medical Code(s): E11.9 - Type 2 diabetes mellitus without complications (4) HLD (hyperlipidemia) Current visit: No Status: Chronic Qualifiers: Hyperlipidemia type: mixed hyperlipidemia Qualified Code(s): E78.2 - Mixed hyperlipidemia Category: Medical Code(s): E78.5 - Hyperlipidemia, unspecified (5) HTN (hypertension) Current visit: No Status: Chronic Qualifiers: Hypertension type: essential hypertension Qualified Code(s): I10 - Essential (primary) hypertension Category: Medical Code(s): I10 - Essential (primary) hypertension (6) Obesity (BMI 30.0-34.9) Current visit: Yes Status: Acute Category: Medical Code(s): E66.9 - Obesity, unspecified (7) Renal insufficiency Current visit: Yes Status: Acute Category: Medical Code(s): N28.9 - Disorder of kidney and ureter, unspecified
--- NOTE | 2019-01-22 16:57 | Electrocardiograph Report ---
APPROVED REPORT Exam: Resting ECG HR:82 bpm ECG Measurements Heart Rate 82 AXES AL 180 P 43 QRSd 96 QRS 57 QT 364 T72 QTc 425 <Conclusion> Normal sinus rhythm Normal ECG Electronically signed by : Barrie Smith, 01/22/2019 16:56:31
--- NOTE | 2019-01-22 20:53 | Cardiology Report ---
APPROVED REPORT EXAM: Comprehensive 2D, Doppler, and color-flow Echocardiogram Bridge Attacher: Hiral Costello RVT Ht: 6 ft 1 in Wt: 253lbs BSA: 2.38 BP: 95/62 mmHg Indications: Chest Pain, CVA x 5, Diabetes, Obesity, Hypertension 2D Dimensions LVOT 1.66 cm (M/F) 1.5-2.5 M-Mode Dimensions LA Diam 4.20 cm (1.9-4.0)LVDd 4.06 cm (3.5-5.7) Ao Diam 3.20 cm (2.0-3.7)LVDs 1.89 cm (3.5-5.7) AV Cusp 1.70 cm (1.5-2.6)IVSd 1.45 cm (0.6-1.1) PWd 1.01 cm (0.6-1.1)EF (Teich) 84.80% FS 53.40% EDV (Teich) 72.50 mL ESV (Teich) 11.00 mL LV Diastology E/A Ratio 0.72 Mitral Valve MV A Velocity 59.00 (40-130 cm/s) Left Ventricle Technically difficult study because of the patient fact in poor acoustic windows Left atrium is mildly enlarged, left ventricle is normal size, preserved left ventricular systolic function, visually estimated ejection fraction 55 to 60% with no regional wall motion abnormality, diastolic parameters are inconclusive. Right Ventricle Right atrium and right ventricular mildly enlarged with normal contractility. Aortic Valve Aortic valve is thickened and calcified leaflet chordae display mobility. Mitral Valve Mitral valve grossly normal, there is mild mitral regurgitation. Tricuspid Valve Tricuspid valve is grossly normal, there is mild tricuspid regurgitation. Pulmonic Valve Pulmonic valve is poorly visualized. Great Vessels Aortic root is normal size. Pericardium No significant pericardial effusion noted. Conclusion 1. Technically difficult study because of the patient fact in poor acoustic windows, repeat study with Definity contrast is recommended. 2. Normal left ventricular size, mild concentric left ventricular hypertrophy, visually estimated ejection fraction 55 to 60% with no regional wall motion abnormality, there is late peaking systolic velocity seen in the left ventricular outflow tract, raising the concerns for presence of dynamic obstruction. There is no obvious systolic anterior motion of the mitral valve leaflets seen. 3. Mild mitral and tricuspid regurgitation. 4. If clinically indicated repeat study with better technique is recommended. Electronically signed by : Cuco Bryant, 01/22/2019 20:53:15
[2019-01-23 06:03] LABS: Basophils % 0.3 % (0.1-2.0); Eosinophils # 0.7 K/mm3 (0.0-0.4); Eosinophils % 5.1 % (0.1-12.0); Hematocrit 37.2 % (42.0-52.0); Lymphocytes # 2.9 K/mm3 (0.7-4.5); Lymphocytes % 22.3 % (10-50); Mean Corpuscular HGB Conc 32.3 g/dL (31.8-35.4); Mean Corpuscular Volume 90.1 fl (80-94); Mean Platelet Volume 9.4 fl (7.4-10.4); Monocytes # 0.7 K/mm3 (0.1-1.0); Monocytes % 5.2 % (1.7-9.3); Neutrophils # 8.8 K/mm3 (1.8-7.8); Neutrophils % 67.1 % (37.0-80.0); Platelet Count 234 K/mm3 (142-424); Red Blood Count 4.13 M/mm3 (4.60-6.20); Red Cell Distribution Width 13.6 % (11.5-17.5); White Blood Count 13.1 K/mm3 (4.8-10.8)
[2019-01-23 06:09] LABS: Anion Gap 14.7 mEq/L (5-15); Calcium 8.8 mg/dL (8.5-10.1)
--- NOTE | 2019-01-23 08:37 | Progress Note ---
Subjective Date: 01/23/19 Time: 08:33 Principal diagnosis: abdominal pain, vomiting Interval history: 53 yo BM in bed in NAD. Points to upper abdominal areas when asked about pain. Relates vomiting after eating breakfast this AM. States he had a BM since admission. Relates small chest pain but abdominal pain is worse. Exam Vital signs and Labs for Last 24 Hours: Temp Pulse Resp BP Pulse Ox 98.3 F 99 H 23 138/89 92 L 01/23/19 08:00 01/23/19 08:00 01/23/19 08:00 01/23/19 08:00 01/23/19 08:00 Laboratory Results - last 24 hr 01/22/19 05:59: POC Glucose 153 H 01/22/19 11:39: POC Glucose 200 H 01/22/19 16:17: POC Glucose 177 H 01/22/19 20:06: POC Glucose 182 H 01/23/19 05:50: POC Glucose 54 L 01/23/19 05:55: WBC 13.1 H, RBC 4.13 L, Hgb 12.0 L, Hct 37.2 L, MCV 90.1, MCH 29.1, MCHC 32.3, RDW 13.6, Plt Count 234, MPV 9.4, Neut % (Auto) 67.1, Lymph % (Auto) 22.3, [place] % (Auto) 5.2, Eos % (Auto) 5.1, Baso % (Auto) 0.3, Neut # (Auto) 8.8 H, Lymph # (Auto) 2.9, [place] # (Auto) 0.7, Eos # (Auto) 0.7 H, Baso # (Auto) 0.0 01/23/19 05:55: Sodium 142, Potassium 4.7, Chloride 106, Carbon Dioxide 26, Anion Gap 14.7, BUN 26 H, Creatinine 1.42 H, Estimated Creat Clear 97, Estimated GFR 52 L, Est GFR ( Amer) 63, Glucose 53 L, Calcium 8.8 01/23/19 06:09: POC Glucose 66 L 01/23/19 06:33: POC Glucose 76 I & O for Last 24 hours: Intake & Output 01/20/19 01/21/19 01/22/19 01/23/19 11:59 11:59 11:59 11:59 Intake Total 1398 / 1398 1304 / 1304 Output Total 0 / 0 Balance 1398 / 1398 1304 / 1304 Weight 253 lb 6 oz 254 lb 8 oz - *Routine Respiratory Exam Present: crackles. Absent: accessory muscle use, rales, rhonchi, wheezes - *Routine Cardiovascular Exam Present: RRR, murmur. Absent: gallop, rubs - *Routine Extremities Exam Absent: edema, calf tenderness - *Routine Neurological Exam Present: alert, oriented X3, moving all extremities Progress Note: A&P (1) Chest pain Status: Acute Current Visit: Yes (2) Dizziness Status: Acute Current Visit: No (3) DM (diabetes mellitus) Status: Chronic Current Visit: No (4) HLD (hyperlipidemia) Status: Chronic Current Visit: No (5) HTN (hypertension) Status: Chronic Current Visit: No (6) Obesity (BMI 30.0-34.9) Status: Acute Current Visit: Yes (7) Renal insufficiency Status: Acute Current Visit: Yes (8) Abdominal pain Status: Acute Current Visit: Yes (9) Vomiting Status: Acute Current Visit: Yes Assessment and Plan for All Diagnoses:: 1. CAD and HHD by cardiac cath, switched amlodipine to verapamil SR 120 mg daily. Continue ASA 81 mg daily, atorvastatin 40 mg daily, coreg 25 mg BID, lisinopril 20 mg daily and lasix 40 mg daily. Cardiac status stable for discharge. 2. Abdominal pain, defer to PCP
--- NOTE | 2019-01-23 09:45 | Progress Note ---
Internal Medicine - PN: Subj *Date: 01/23/19 *Time: 11:54 Interval history: 53 YOM sitting up in bed, he reports he has upper Abd pain and emesis after breakfast, he denies CP or SOA. He is encourgaed to be OOB. Exam Vital signs and Labs for Last 24 Hours: Temp Pulse Resp BP Pulse Ox 98.3 F 99 H 23 138/89 92 L 01/23/19 08:00 01/23/19 08:00 01/23/19 08:00 01/23/19 08:00 01/23/19 08:00 Laboratory Results - last 24 hr 01/22/19 11:39: POC Glucose 200 H 01/22/19 16:17: POC Glucose 177 H 01/22/19 20:06: POC Glucose 182 H 01/23/19 05:50: POC Glucose 54 L 01/23/19 05:55: WBC 13.1 H, RBC 4.13 L, Hgb 12.0 L, Hct 37.2 L, MCV 90.1, MCH 29.1, MCHC 32.3, RDW 13.6, Plt Count 234, MPV 9.4, Neut % (Auto) 67.1, Lymph % (Auto) 22.3, [place] % (Auto) 5.2, Eos % (Auto) 5.1, Baso % (Auto) 0.3, Neut # (Auto) 8.8 H, Lymph # (Auto) 2.9, [place] # (Auto) 0.7, Eos # (Auto) 0.7 H, Baso # (Auto) 0.0 01/23/19 05:55: Sodium 142, Potassium 4.7, Chloride 106, Carbon Dioxide 26, Anion Gap 14.7, BUN 26 H, Creatinine 1.42 H, Estimated Creat Clear 97, Estimated GFR 52 L, Est GFR ( Amer) 63, Glucose 53 L, Calcium 8.8 01/23/19 06:09: POC Glucose 66 L 01/23/19 06:33: POC Glucose 76 01/23/19 09:07: POC Glucose 141 H I & O for Last 24 hours: Intake & Output 01/20/19 01/21/19 01/22/19 01/23/19 23:59 23:59 23:59 23:59 Intake Total 620 / 860 1325 / 1325 757 / 757 Output Total 0 / 0 Balance 620 / 860 1325 / 1325 757 / 757 Weight 251 lb 1 oz 253 lb 6 oz 254 lb 8 oz - Constitutional no acute distress - *Routine HEENT Exam Head: Present: normocephalic, atraumatic. Absent: tenderness of temporal artery Eye: Present: EOMI, PERRL, normal accommodation. Absent: conjunctival icterus ENT: Present: mucous membranes dry. Absent: septal deviation - *Routine Neck Exam Present: full ROM, trachea midline. Absent: JVD, tracheal deviation - *Routine Respiratory Exam Present: crackles. Absent: accessory muscle use - *Routine Cardiovascular Exam Present: RRR, murmur - *Routine Abdominal Exam Present: soft, tenderness - Routine Back/Spine/Pelvis Exam Back/Spine: Present: full ROM. Absent: CVA tenderness - *Routine Skin Exam Present: intact. Absent: cyanosis - *Routine Neurological Exam Present: alert, oriented X3, CN II-XII intact. Absent: motor deficit, altered mental status - Routine Psychiatric Exam Present: normal affect. Absent: auditory hallucinations, visual hallucinations Assessment and Plan (1) Chest pain Current visit: Yes Status: Acute Qualifiers: Category: Medical Code(s): R07.9 - Chest pain, unspecified (2) Dizziness Current visit: No Status: Acute Category: Medical Code(s): R42 - Dizziness and giddiness (3) DM (diabetes mellitus) Current visit: No Status: Chronic Qualifiers: Diabetes mellitus type: type 2 Diabetes mellitus longterm insulin use: with oysterman use Diabetes mellitus complication status: without complication Qualified Code(s): E11.9 - Type 2 diabetes mellitus without complications; Z79.4 - alf (current) use of insulin Category: Medical Code(s): E11.9 - Type 2 diabetes mellitus without complications (4) HLD (hyperlipidemia) Current visit: No Status: Chronic Qualifiers: Hyperlipidemia type: mixed hyperlipidemia Qualified Code(s): E78.2 - Mixed hyperlipidemia Category: Medical Code(s): E78.5 - Hyperlipidemia, unspecified (5) HTN (hypertension) Current visit: No Status: Chronic Qualifiers: Hypertension type: essential hypertension Qualified Code(s): I10 - Essential (primary) hypertension Category: Medical Code(s): I10 - Essential (primary) hypertension (6) Obesity (BMI 30.0-34.9) Current visit: Yes Status: Acute Category: Medical Code(s): E66.9 - Obesity, unspecified (7) Renal insufficiency Current visit: Yes Status: Acute Category: Medical Code(s): N28.9 - Disorder of kidney and ureter, unspecified (8) Abdominal pain Current visit: Yes Status: Acute Category: Medical Code(s): R10.9 - Unspecified abdominal pain (9) Vomiting Current visit: Yes Status: Acute Category: Medical Code(s): R11.10 - Vomiting, unspecified - Assessment and plan all Dx Assessment and Plan for all problems:: Rounded w/ Dr. Rodríguez, all orders per Dr. Rodríguez 1. Abd CT 2. GB US Cards has seen and rec: 1. CAD and HHD by cardiac cath, switched amlodipine to verapamil SR 120 mg daily. Continue ASA 81 mg daily, atorvastatin 40 mg daily, coreg 25 mg BID, lisinopril 20 mg daily and lasix 40 mg daily. Cardiac status stable for discharge. 2. Abdominal pain, defer to PCP
[2019-01-23 17:11] LABS: Basophils % 0.3 % (0.1-2.0); Eosinophils # 0.4 K/mm3 (0.0-0.4); Eosinophils % 4.4 % (0.1-12.0); Hematocrit 33.8 % (42.0-52.0); Lymphocytes # 2.1 K/mm3 (0.7-4.5); Lymphocytes % 21.1 % (10-50); Mean Corpuscular HGB Conc 32.5 g/dL (31.8-35.4); Mean Corpuscular Volume 91.1 fl (80-94); Mean Platelet Volume 9.2 fl (7.4-10.4); Monocytes # 0.5 K/mm3 (0.1-1.0); Monocytes % 4.9 % (1.7-9.3); Neutrophils # 6.8 K/mm3 (1.8-7.8); Neutrophils % 69.4 % (37.0-80.0); Platelet Count 199 K/mm3 (142-424); Red Blood Count 3.72 M/mm3 (4.60-6.20); Red Cell Distribution Width 13.6 % (11.5-17.5); White Blood Count 9.8 K/mm3 (4.8-10.8)
[2019-01-23 17:15] LABS: Anion Gap 12.9 mEq/L (5-15); Calcium 8.3 mg/dL (8.5-10.1)
[2019-01-23 17:27] LABS: Microscopic, Urine URINE MICROSCOPIC (MICROSCOPIC)
[2019-01-23 17:28] LABS: Appearance,Urine CLEAR (Clear); Bilirubin,Urine Negative (Negative); Blood, Urine Negative (Negative); Color,Urine YELLOW (Yellow); Glucose,Urine (UA) Negative (Negative); Ketones,Urine Negative (Negative); Leukocyte Esterase,Urine Negative (Negative); Protein,Urine Negative (Negative); Specific Gravity, Urine 1.015 (1.005-1.030); Urobilinogen,Urine 0.2 EU/dl (0.2)
--- NOTE | 2019-01-23 17:54 | Electrocardiograph Report ---
APPROVED REPORT Exam: Resting ECG HR:78 bpm ECG Measurements Heart Rate 78 AXES OH 178 P 39 QRSd 98 QRS 34 QT 360 T74 QTc 410 <Conclusion> Normal sinus rhythm Normal ECG Electronically signed by : Barrie Smith, 01/23/2019 17:54:20
[2019-01-23 18:00] LABS: Bacteria,Urine Trace /lpf
--- NOTE | 2019-01-24 14:52 | Consult Report ---
*Admission Date: 01/21/19 *Reason for consult:: Incomplete bladder emptying *History of present illness: Patient is a 53-year-old black male with a history of BPH. He is a resident of [facility] and came to the hospital on January 21 with chest pressure and weakness, dizziness and syncope over the last couple of weeks. CT scan showed some moderate bladder distention. Nickerson catheter was placed but postvoid residual not available. I saw the patient about a year and a half ago in the office and his postvoid residual at that time noted to be 298 cc. He had been on tamsulosin at that time and finasteride was added have not seen him back for reevaluation. Patient states some baseline urinary slowing and starting and stopping. Review of his CT scan shows a moderate bladder distention and modera te constipation. His prostate does not appear to be enlarged. Looking back at the previous CT scan in 2018 his bladder appeared without evidence of distention. It is possible that at the time of CT scan the patient had a full bladder. 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 He has underwent cardiac work-up and is set for discharge today. His creatinine on admission was 2.1 and this improved to 1.7 with Nickerson management. His Nickerson catheter was removed several hours ago and he is able to void per the nursing staff. He states some occasional urinary urgency with an occasional leakage. He has not had a bowel movement since he has been in the hospital. He also has a history of diabetes. Urinalysis January 23 was normal. [facility] History Medical History: Reports:: Cerebrovascular Accident, Diabetes Mellitus Type 2, Hyperlipidemia, Hypertension, Seizures, Transient Ischemic Attacks (TIA) Denies:: Cancer, Diabetes Mellitus Type 1, Internal Pacemaker, MRSA *Have you ever received a pneumonia vaccine?: No *Have you received a flu vaccine this season?: No Other Medical History: Reports: Other. Denies: Blood Transfusion Reaction Other Surgeries: Yes: No Previous Surgery, Other. No: Pacemaker Amputation: No Fractures: No - *Social History Educational Level: Completed High School Smoking Status: Never smoker Alcohol Intake: never Substance Use Type: denies use *Occupational Status:: unemployed, disabled Housing: assisted living facility Household Members: other *Travel in the last 8 weeks: None Family Hx:: Hyperlipidemia, Hypertension, Coronary Artery Disease Review of Systems - Review of Systems Review of systems:: pertinent systems reviewed and negative unless documented below - *Neurologic Reports tingling/numbness/burning sensations, Reports dizziness, Reports weakness Meds Home Medications Medication Instructions Recorded Confirmed Type Amlodipine Besylate [Norvasc 10mg 10 mg PO DAILY 02/15/17 01/21/19 History tablet] Aspirin [Aspirin 81mg chewable 81 mg PO DAILY 02/15/17 01/21/19 History tab] Atorvastatin Calcium [Atorvastatin 40 mg PO HS 02/15/17 01/21/19 History 40mg Tab] Gabapentin [Neurontin 300mg 300 mg PO TID 02/15/17 01/21/19 History capsule] Ibuprofen [Ibuprofen 600mg Tab] 600 mg PO Q6HP PRN 02/15/17 01/21/19 History OLANZapine [Zyprexa Zydis] 20 mg PO DAILY 02/15/17 01/21/19 History Polyethylene Glycol 3350 [Miralax 17 gm PO DAILY 02/15/17 01/21/19 History 17gm Packet] Sertraline HCl [Zoloft 100mg 150 mg PO DAILY 02/15/17 01/21/19 History tablet] Tamsulosin HCl [Flomax 0.4mg 0.4 mg PO DAILY 02/15/17 01/21/19 History capsule] Tramadol HCl [Ultram 50mg 50 mg PO BID 02/15/17 01/21/19 History tablet] carvediloL [Coreg 25mg Tablet] 25 mg PO BID 02/15/17 01/21/19 History Finasteride [Proscar 5mg Tablet] 5 mg PO DAILY 12/21/17 01/21/19 History Metformin HCl [Fortamet] 1,000 mg PO BID 12/21/17 01/21/19 History haloperidol 5 mg tablet 5 mg PO TID tab 04/04/18 01/21/19 History insulin NPH-regular 70-30 U-100 50 unit SQ HS ml 07/07/18 01/21/19 History insulin 100 unit/mL subcutaneous pen Furosemide [Furosemide 40MG tAB] 40 mg PO DAILY 01/21/19 01/21/19 History Insulin NPH Hum/Reg Insulin Hm 40 unit SQ DAILY 01/21/19 01/22/19 History [Humulin 70/30 Kwikpen] Benztropine Mesylate 0.5 mg PO BID 01/22/19 01/22/19 History lisinopriL [Lisinopril 20mg Tab] 20 mg PO DAILY 01/22/19 01/22/19 History Allergies Allergy/AdvReac Type Severity Reaction Status Date / Time No Known Allergies Allergy Verified 01/21/19 18:12 Exam Vital signs and Labs for Last 24 Hours: Temp Pulse Resp BP Pulse Ox 98.7 F 85 14 116/70 95 01/24/19 12:00 01/24/19 13:52 01/24/19 12:00 01/24/19 12:00 01/24/19 12:00 Laboratory Results - last 24 hr 01/23/19 05:39: POC Glucose 49 L* 01/23/19 16:09: POC Glucose < 40 L* 01/23/19 16:14: Random Glucose 293 H 01/23/19 16:23: POC Glucose 136 H 01/23/19 16:37: POC Glucose 101 01/23/19 17:00: WBC 9.8 D, RBC 3.72 L, Hgb 11.0 L, Hct 33.8 L, MCV 91.1, MCH 29.5, MCHC 32.5, RDW 13.6, Plt Count 199, MPV 9.2, Neut % (Auto) 69.4, Lymph % (Auto) 21.1, [place] % (Auto) 4.9, Eos % (Auto) 4.4, Baso % (Auto) 0.3, Neut # (Au to) 6.8, Lymph # (Auto) 2.1, [place] # (Auto) 0.5, Eos # (Auto) 0.4, Baso # (Auto) 0.0 01/23/19 17:00: Sodium 142, Potassium 4.9, Chloride 109 H, Carbon Dioxide 25, Anion Gap 12.9, BUN 26 H, Creatinine 1.72 H D, Estimated Creat Clear 80, Estimated GFR 42 L, Est GFR ( Amer) 50 L D, Glucose 98 D, Calcium 8.3 L 01/23/19 17:00: Lactate 1.5 01/23/19 17:15: Urine Color Yellow, Urine Appearance Clear, Urine pH 6.0, Ur Specific [place] 1.015, Urine Protein Negative, Urine Glucose (UA) Negative, Urine Ketones Negative, Urine Blood Negative, Urine Nitrate Negative, Urine Bi lirubin Negative, Urine Urobilinogen 0.2, Ur Leukocyte Esterase Negative, Urine Bacteria Trace 01/23/19 17:22: POC Glucose 70 01/23/19 17:41: POC Glucose 78 01/23/19 20:26: POC Glucose 64 L 01/23/19 20:28: POC Glucose 58 L 01/23/19 20:45: POC Glucose 92 01/23/19 21:07: POC Glucose 88 01/23/19 23:01: POC Glucose 157 H 01/24/19 02:16: POC Glucose 199 H 01/24/19 05:23: POC Glucose 147 H 01/24/19 11:03: POC Glucose 252 H I & O for Last 24 hours: Intake & Output 01/21/19 01/22/19 01/23/19 01/24/19 23:59 23:59 23:59 23:59 Intake Total 620 / 860 1325 / 1325 5107 / 5107 1496 / 1496 Output Total 0 / 0 2049 / 2049 1400 / 1400 Balance 620 / 860 1325 / 1325 3057 / 3057 96 / 96 Weight 113.88 kg 114.929 kg 115.439 kg 118.047 kg Internal Medicine - CN: Reslt - Labs CBC & Chem 7: 01/23/19 17:00 01/23/19 17:00 Labs: Short CBC 01/23/19 Range/Units 17:00 WBC 9.8 D (4.8-10.8) K/mm3 Hgb 11.0 L (14.1-18.0) g/dL Hct 33.8 L (42.0-52.0) % Plt Count 199 (142-424) K/mm3 BMP 01/23/19 17:00 Sodium 142 Potassium 4.9 Chloride 109 H Carbon Dioxide 25 BUN 26 H Creatinine 1.72 H D Glucose 98 D Calcium 8.3 L Urine 01/23/19 Range/Units 17:15 Urine Color Yellow (Yellow) Urine Appearance Clear (Clear) Urine pH 6.0 (5.0-8.5) Ur Specific [place] 1.015 (1.005-1.030) Urine Protein Negative (Negative) Urine Glucose (UA) Negative (Negative) Assessment and Plan (1) Chest pain Current visit: Yes Status: Acute Qualifiers: Category: Medical Code(s): R07.9 - Chest pain, unspecified (2) Dizziness Current visit: No Status: Acute Category: Medical Code(s): R42 - Dizziness and giddiness (3) DM (diabetes mellitus) Current visit: No Status: Chronic Qualifiers: Diabetes mellitus type: type 2 Diabetes mellitus termite exterminator helper insulin use: with termite exterminator helper use Diabetes mellitus complication status: without complication Qualified Code(s): E11.9 - Type 2 diabetes mellitus without complications; Z79.4 - terminal make up operator (current) use of insulin Category: Medical Code(s): E11.9 - Type 2 diabetes mellitus without complications (4) HLD (hyperlipidemia) Current visit: No Status: Chronic Qualifiers: Hyperlipidemia type: mixed hyperlipidemia Qualified Code(s): E78.2 - Mixed hyperlipidemia Category: Medical Code(s): E78.5 - Hyperlipidemia, unspecified (5) HTN (hypertension) Current visit: No Status: Chronic Qualifiers: Hypertension type: essential hypertension Qualified Code(s): I10 - Essential (primary) hypertension Category: Medical Code(s): I10 - Essential (primary) hypertension (6) Obesity (BMI 30.0-34.9) Current visit: Yes Status: Acute Category: Medical Code(s): E66.9 - Obesity, unspecified (7) Renal insufficiency Current visit: Yes Status: Acute Category: Medical Code(s): N28.9 - D isorder of kidney and ureter, unspecified (8) Abdominal pain Current visit: Yes Status: Acute Category: Medical Code(s): R10.9 - Unspecified abdominal pain (9) Vomiting Current visit: Yes Status: Acute Category: Medical Code(s): R11.10 - Vomiting, unspecified (10) Incomplete bladder emptying Current visit: Yes Status: Acute Category: Medical Code(s): R33.9 - Retention of urine, unspecified 53-year-old black male with history of BPH. Recent CT scan show some moderate bladder distention. He has been on tamsulosin and finasteride for a year and a half. Previous bladder scan indicated a residual of 298 cc. He does have some urinary slowing and stopping and starting symptoms. His Nickerson catheter was removed several hours ago and he has been able to void. Recommend obtaining a bladder scan after his next void and documenting residual. It is possible that the CT scan was performed at the time the patient had a full bladder. He did have some associated constipation noted on the CT scan and has not had a bowel movement by report since he is been here. He is on polyethylene glycol [place] [facility] but has not been on it here. Discussed with nursing staff giving him a laxative and starting him back on his MiraLAX. Constipation can contribute to incomplete bladder emptying. The nurse reports he may go home later today that is okay as long as his residuals less than 300 cc. He is here tomorrow I will check on him.
--- NOTE | 2019-01-24 16:28 | Progress Note ---
Internal Medicine - PN: Subj *Date: 01/24/19 *Time: 08:00 Interval history: doing better with ambulation - urinary retention Exam Vital signs and Labs for Last 24 Hours: Temp Pulse Resp BP Pulse Ox 97.8 F 75 20 123/73 93 L 01/24/19 16:00 01/24/19 16:00 01/24/19 16:00 01/24/19 16:00 01/24/19 16:00 Laboratory Results - last 24 hr 01/23/19 05:39: POC Glucose 49 L* 01/23/19 16:09: POC Glucose < 40 L* 01/23/19 16:14: Random Glucose 293 H 01/23/19 16:23: POC Glucose 136 H 01/23/19 16:37: POC Glucose 101 01/23/19 17:00: WBC 9.8 D, RBC 3.72 L, Hgb 11.0 L, Hct 33.8 L, MCV 91.1, MCH 29.5, MCHC 32.5, RDW 13.6, Plt Count 199, MPV 9.2, Neut % (Auto) 69.4, Lymph % (Auto) 21.1, [place] % (Auto) 4.9, Eos % (Auto) 4.4, Baso % (Auto) 0.3, Neut # (Auto) 6.8, Lymph # (Auto) 2.1, [place] # (Auto) 0.5, Eos # (Auto) 0.4, Baso # (Auto) 0.0 01/23/19 17:00: Sodium 142, Potassium 4.9, Chloride 109 H, Carbon Dioxide 25, Anion Gap 12.9, BUN 26 H, Creatinine 1.72 H D, Estimated Creat Clear 80, Estimated GFR 42 L, Est GFR ( Amer) 50 L D, Glucose 98 D, Calcium 8.3 L 01/23/19 17:00: Lactate 1.5 01/23/19 17:15: Urine Color Yellow, Urine Appearance Clear, Urine pH 6.0, Ur Specific [place] 1.015, Urine Protein Negative, Urine Glucose (UA) Negative, Urine Ketones Negative, Urine Blood Negative, Urine Nitrate Negative, Urine Bilirubin Negative, Urine Urobilinogen 0.2, Ur Leukocyte Esterase Negative, Urine Bacteria Trace 01/23/19 17:22: POC Glucose 70 01/23/19 17:41: POC Glucose 78 01/23/19 20:26: POC Glucose 64 L 01/23/19 20:28: POC Glucose 58 L 01/23/19 20:45: POC Glucose 92 01/23/19 21:07: POC Glucose 88 01/23/19 23:01: POC Glucose 157 H 01/24/19 02:16: POC Glucose 199 H 01/24/19 05:23: POC Glucose 147 H 01/24/19 11:03: POC Glucose 252 H I & O for Last 24 hours: Intake & Output 01/22/19 01/23/19 01/24/19 01/25/19 11:59 11:59 11:59 11:59 Intake Total 1398 / 1398 1304 / 1304 5606 / 5606 240 / 240 Output Total 0 / 0 3450 / 3450 Balance 1398 / 1398 1304 / 1304 2156 / 2156 240 / 240 Weight 253 lb 6 oz 254 lb 8 oz 260 lb 4 oz - Constitutional no acute distress, obese - *Routine HEENT Exam Head: Present: hematoma Eye: Present: EOMI, PERRL ENT: Present: mucous membranes dry - *Routine Neck Exam Absent: JVD - *Routine Respiratory Exam Present: CTA bilaterally - *Routine Cardiovascular Exam Present: RRR, murmur - *Routine Abdominal Exam Present: soft - *Routine Extremities Exam Absent: calf tenderness - *Routine Skin Exam Present: intact - *Routine Neurological Exam Present: alert, CN II-XII intact. Absent: motor deficit - Routine Psychiatric Exam Absent: good insight Assessment and Plan (1) Chest pain Current visit: Yes Status: Acute Qualifiers: Category: Medical Code(s): R07.9 - Chest pain, unspecified (2) Dizziness Current visit: No Status: Acute Category: Medical Code(s): R42 - Dizziness and giddiness (3) DM (diabetes mellitus) Current visit: No Status: Chronic Qualifiers: Diabetes mellitus type: type 2 Diabetes mellitus terminal gauger insulin use: with care home use Diabetes mellitus complication status: without complication Qualified Code(s): E11.9 - Type 2 diabetes mellitus without complications; Z79.4 - assistant terminal manager (current) use of insulin Category: Medical Code(s): E11.9 - Type 2 diabetes mellitus without complications (4) HLD (hyperlipidemia) Current visit: No Status: Chronic Qualifiers: Hyperlipidemia type: mixed hyperlipidemia Qualified Code(s): E78.2 - Mixed hyperlipidemia Category: Medical Code(s): E78.5 - Hyperlipidemia, unspecified (5) HTN (hypertension) Current visit: No Status: Chronic Qualifiers: Hypertension type: essential hypertension Qualified Code(s): I10 - Essential (primary) hypertension Category: Medical Code(s): I10 - Essential (primary) hypertension (6) Obesity (BMI 30.0-34.9) Current visit: Yes Status: Acute Category: Medical Code(s): E66.9 - Obesity, unspecified (7) Renal insufficiency Current visit: Yes Status: Acute Category: Medical Code(s): N28.9 - Disorder of kidney and ureter, unspecified (8) Abdominal pain Current visit: Yes Status: Acute Category: Medical Code(s): R10.9 - Unspecified abdominal pain (9) Vomiting Current visit: Yes Status: Acute Category: Medical Code(s): R11.10 - Vomiting, unspecified (10) Incomplete bladder emptying Current visit: Yes Status: Acute Category: Medical Code(s): R33.9 - Reten tion of urine, unspecified (11) Urinary retention Current visit: Yes Status: Acute Category: Medical Code(s): R33.9 - Retention of urine, unspecified
[2019-01-25 07:25] LABS: Basophils % 0.2 % (0.1-2.0); Eosinophils # 0.5 K/mm3 (0.0-0.4); Eosinophils % 5.4 % (0.1-12.0); Hematocrit 31.7 % (42.0-52.0); Hemoglobin 10.3 g/dL (14.1-18.0); Lymphocytes # 2.8 K/mm3 (0.7-4.5); Lymphocytes % 32.6 % (10-50); Mean Corpuscular HGB Conc 32.3 g/dL (31.8-35.4); Mean Corpuscular Volume 91.5 fl (80-94); Mean Platelet Volume 8.6 fl (7.4-10.4); Monocytes # 0.5 K/mm3 (0.1-1.0); Monocytes % 5.7 % (1.7-9.3); Neutrophils # 4.8 K/mm3 (1.8-7.8); Neutrophils % 56.2 % (37.0-80.0); Platelet Count 190 K/mm3 (142-424); Red Blood Count 3.47 M/mm3 (4.60-6.20); Red Cell Distribution Width 13.7 % (11.5-17.5); White Blood Count 8.5 K/mm3 (4.8-10.8)
[2019-01-25 07:45] LABS: Anion Gap 13.4 mEq/L (5-15); Calcium 7.7 mg/dL (8.5-10.1)
--- NOTE | 2019-01-25 14:26 | Progress Note ---
Internal Medicine - PN: Subj *Date: 01/25/19 *Time: 14:21 Interval history: Patient denies any problems overnight. Nickerson catheter was replaced yesterday after bladder scan showed a 600 cc residual. The nurse reports that there was over 600 cc out after the Nickerson was replaced. Nickerson was again removed today and patient has voided over 700 cc and a repeat bladder scan shows an 842 cc residual. Exam Vital signs and Labs for Last 24 Hours: Temp Pulse Resp BP Pulse Ox 98.4 F 88 18 126/93 H 96 01/25/19 12:00 01/25/19 12:00 01/25/19 12:00 01/25/19 12:00 01/25/19 12:00 Laboratory Results - last 24 hr 01/24/19 16:39: POC Glucose 157 H 01/24/19 20:42: POC Glucose 154 H 01/25/19 06:15: POC Glucose 182 H 01/25/19 07:17: WBC 8.5, RBC 3.47 L, Hgb 10.3 L, Hct 31.7 L, MCV 91.5, MCH 29.6, MCHC 32.3, RDW 13.7, Plt Count 190, MPV 8.6, Neut % (Auto) 56.2, Lymph % (Auto) 32.6, [place] % (Auto) 5.7, Eos % (Auto) 5.4, Baso % (Auto) 0.2, Neut # (Auto) 4.8, Lymph # (Auto) 2.8, [place] # (Auto) 0.5, Eos # (Auto) 0.5 H, Baso # (Auto) 0.0 01/25/19 07:17: Sodium 142, Potassium 4.4, Chloride 109 H, Carbon Dioxide 24, Anion Gap 13.4, BUN 18 D, Creatinine 1.51 H, Estimated Creat Clear 95, Estimated GFR 48 L, Est GFR ( Amer) 59, Glucose 168 H, Calcium 7.7 L 01/25/19 11:32: POC Glucose 161 H I & O for Last 24 hours: Intake & Output 01/22/19 01/23/19 01/24/19 01/25/19 23:59 23:59 23:59 23:59 Intake Total 1325 / 1325 5257 / 5257 2971 / 3211 1605 / 1605 Output Total 0 / 0 2049 900 / 900 Balance 1325 / 1325 3207 / 3207 971 / 1211 705 / 705 Weight 114.929 kg 115.439 kg 118.047 kg 119.777 kg Narrative: Obese black male in no apparent distress Pupils equal round react light Neck symmetric Head normocephalic Normal respiratory effort Abdomen obese non-tender Alert and oriented x3 Assessment and Plan (1) Chest pain Current visit: Yes Status: Acute Qualifiers: Category: Medical Code(s): R07.9 - Chest pain, unspecified (2) Dizziness Current visit: No Status: Acute Category: Medical Code(s): R42 - Dizziness and giddiness (3) DM (diabetes mellitus) Current visit: No Status: Chronic Qualifiers: Diabetes mellitus type: type 2 Diabetes mellitus supervisor long goods insulin use: with supervisor long goods use Diabetes mellitus complication status: without complication Qualified Code(s): E11.9 - Type 2 diabetes mellitus without complications; Z79.4 - snf (current) use of insulin Category: Medical Code(s): E11.9 - Type 2 diabetes mellitus without complications (4) HLD (hyperlipidemia) Current visit: No Status: Chronic Qualifiers: Hyperlipidemia type: mixed hyperlipidemia Qualified Code(s): E78.2 - Mixed hyperlipidemia Category: Medical Code(s): E78.5 - Hyperlipidemia, unspecified (5) HTN (hypertension) Current visit: No Status: Chronic Qualifiers: Hypertension type: essential hypertension Qualified Code(s): I10 - Essential (primary) hypertension Category: Medical Code(s): I10 - Essential (primary) hypertension (6) Obesity (BMI 30.0-34.9) Current visit: Yes Status: Acute Category: Medical Code(s): E66.9 - Obesity, unspecified (7) Renal insufficiency Current visit: Yes Status: Acute Category: Medical Code(s): N28.9 - Disorder of kidney and ureter, unspecified (8) Abdominal pain Current visit: Yes Status: Acute Category: Medical Code(s): R10.9 - Unspecified abdominal pain (9) Vomiting Current visit: Yes Status: Acute Category: Medical Code(s): R11.10 - Vomiting, unspecified (10) Incomplete bladder emptying Current visit: Yes Status: Acute Category: Medical Code(s): R33.9 - Retention of urine, unspecified (11) Urinary retention Current visit: Yes Status: Acute Category: Medical Code(s): R33.9 - Retention of urine, unspecified Nickerson removed earlier today and patient has voided over 700 cc yet bladder scan indicates a residual of 842 cc. Recommend the patient a Nickerson catheter replaced may go home with the Nickerson return to my office next week for a voiding trial. He is to continue the Zosyn.
--- NOTE | 2019-01-25 18:59 | Progress Note ---
Internal Medicine - PN: Subj *Date: 01/25/19 *Time: 08:10 Interval history: 53 YOM in bed, awakens to verbal stimuli. He denies any CP, SOA, or Abd pain during night. F/C drng clr yellow uring. Exam Vital signs and Labs for Last 24 Hours: Temp Pulse Resp BP Pulse Ox 98.5 F 79 20 137/80 95 01/25/19 16:00 01/25/19 16:00 01/25/19 16:00 01/25/19 16:00 01/25/19 16:00 Laboratory Results - last 24 hr 01/24/19 20:42: POC Glucose 154 H 01/25/19 06:15: POC Glucose 182 H 01/25/19 07:17: WBC 8.5, RBC 3.47 L, Hgb 10.3 L, Hct 31.7 L, MCV 91.5, MCH 29.6, MCHC 32.3, RDW 13.7, Plt Count 190, MPV 8.6, Neut % (Auto) 56.2, Lymph % (Auto) 32.6, [place] % (Auto) 5.7, Eos % (Auto) 5.4, Baso % (Auto) 0.2, Neut # (Auto) 4.8, Lymph # (Auto) 2.8, [place] # (Auto) 0.5, Eos # (Auto) 0.5 H, Baso # (Auto) 0.0 01/25/19 07:17: Sodium 142, Potassium 4.4, Chloride 109 H, Carbon Dioxide 24, Anion Gap 13.4, BUN 18 D, Creatinine 1.51 H, Estimated Creat Clear 95, Estimated GFR 48 L, Est GFR ( Amer) 59, Glucose 168 H, Calcium 7.7 L 01/25/19 11:32: POC Glucose 161 H 01/25/19 16:39: POC Glucose 160 H I & O for Last 24 hours: Intake & Output 01/22/19 01/23/19 01/24/19 01/25/19 23:59 23:59 23:59 23:59 Intake Total 1325 / 1325 5257 / 5257 2971 / 3211 1605 / 1605 Output Total 0 / 0 2049 / 2049 1999 / 1999 1460 / 1460 Balance 1325 / 1325 3207 / 3207 971 / 1211 145 / 145 Weight 253 lb 6 oz 254 lb 8 oz 260 lb 3.985 oz 264 lb 1 oz Microbiology Reports for the Last 24 Hours: Microbiology 01/23/19 17:00 Blood Blood Culture - Preliminary NO GROWTH AFTER 48 HOURS 01/23/19 17:00 Blood Blood Culture - Preliminary NO GROWTH AFTER 48 HOURS - Constitutional no acute distress - *Routine HEENT Exam Head: Present: normocephalic, atraumatic. Absent: tenderness of temporal artery Eye: Present: EOMI, PERRL, normal accommodation. Absent: conjunctival icterus, periorbital tenderness ENT: Present: mucous membranes dry. Absent: sinus tenderness - *Routine Neck Exam Present: full ROM, trachea midline. Absent: JVD, tracheal deviation - *Routine Respiratory Exam Present: accessory muscle use, CTA bilaterally - *Routine Cardiovascular Exam Present: RRR, murmur - *Routine Abdominal Exam Present: soft, normoactive bowel sounds. Absent: tenderness, firm - *Routine Extremities Exam Present: full ROM, pulses intact. Absent: calf tenderness - Routine Back/Spine/Pelvis Exam Back/Spine: Present: full ROM. Absent: CVA tenderness - *Routine Skin Exam Present: intact. Absent: cyanosis, erythema - *Routine Neurological Exam Present: alert, CN II-XII intact. Absent: pronator drift, hemineglect - Routine Psychiatric Exam Present: normal affect. 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 Diabetes mellitus complication status: without complication Qualified Code(s): E11.9 - Type 2 diabetes mellitus without complications; Z79.4 - salvage determiner (current) use of insulin Category: Medical Code(s): E11.9 - Type 2 diabetes mellitus without complications (4) HLD (hyperlipidemia) Current visit: No Status: Chronic Qualifiers: Hyperlipidemia type: mixed hyperlipidemia Qualified Code(s): E78.2 - Mixed hyperlipidemia Category: Medical Code(s): E78.5 - Hyperlipidemia, unspecified (5) HTN (hypertension) Current visit: No Status: Chronic Qualifiers: Hypertension type: essential hypertension Qualified Code(s): I10 - Essential (primary) hypertension Category: Medical Code(s): I10 - Essential (primary) hypertension (6) Obesity (BMI 30.0-34.9) Current visit: Yes Status: Acute Category: Medical Code(s): E66.9 - Obesity, unspecified (7) Renal insufficiency Current visit: Yes Status: Acute Category: Medical Code(s): N28.9 - Disorder of kidney and ureter, unspecified (8) Abdominal pain Current visit: Yes Status: Acute Category: Medical Code(s): R10.9 - Uns pecified abdominal pain (9) Vomiting Current visit: Yes Status: Acute Category: Medical Code(s): R11.10 - Vomiting, unspecified (10) Incomplete bladder emptying Current visit: Yes Status: Acute Category: Medical Code(s): R33.9 - Retention of urine, unspecified (11) Urinary retention Current visit: Yes Status: Acute Category: Medical Code(s): R33.9 - Retention of urine, unspecified - Assessment and plan all Dx Assessment and Plan for all problems:: Rounded w/ Dr. Rodríguez, all orders per Dr. Rodríguez 1. D/C F/C and record PVR 2. Up in chair for meals and ambulating freq Urology seen and recommends: Nickerson removed earlier today and patient has voided over 700 cc yet bladder scan indicates a residual of 842 cc. Recommend the patient a Nickerson catheter replaced may go home with the Nickerson return to my office next week for a voiding trial. He is to continue the Zosyn (Per Dr. Morrow).
[2019-01-26 06:37] LABS: Anion Gap 15.2 mEq/L (5-15); Calcium 8.3 mg/dL (8.5-10.1)
[2019-01-26 06:38] LABS: Basophils % 0.3 % (0.1-2.0); Eosinophils # 0.5 K/mm3 (0.0-0.4); Eosinophils % 5.4 % (0.1-12.0); Hematocrit 32.8 % (42.0-52.0); Hemoglobin 10.8 g/dL (14.1-18.0); Lymphocytes # 2.6 K/mm3 (0.7-4.5); Lymphocytes % 27.3 % (10-50); Mean Corpuscular HGB Conc 32.8 g/dL (31.8-35.4); Mean Corpuscular Volume 89.9 fl (80-94); Monocytes # 0.5 K/mm3 (0.1-1.0); Monocytes % 5.2 % (1.7-9.3); Neutrophils # 5.8 K/mm3 (1.8-7.8); Platelet Count 212 K/mm3 (142-424); Red Blood Count 3.65 M/mm3 (4.60-6.20); Red Cell Distribution Width 13.6 % (11.5-17.5); White Blood Count 9.4 K/mm3 (4.8-10.8)
--- NOTE | 2019-01-26 09:13 | Discharge Summary ---
General - General Admission date:: 01/23/19 Discharge date: 01/26/19 HPI HPI: this pt had episode of chest pain at detention - pt was seen in the ed and admitted for card eval- chest pain, dizziness/weakness Additional Medical History:: 1. DM 2. ?CAD A. LHC at per pt about 4-5 yrs ago, results unknown but pt doesn't think any stent was placed B. Echocardiogram, 04/2018, normal ejection fraction with no significant valvular heart disease. Mild right heart enlargement with normal contractility. C. Lexiscan Myoview, 04/2018, no ischemia with EF 53% 3. History of CVA x5, per patient 4. Hypertension 5. Hyperlipidemia History of present illness: 53-year-old black male resident of [facility] presented to the hospital ER for evaluation of chest pressure with exertion and weakness/dizziness with falling episodes over the last 2 weeks. Patient has a history of previous strokes and is not reliable historian. He was seen in our office earlier this year for chest pain with work-up including Lexiscan Myoview and echocardiogram, both unremarkable. Troponins normal this admission with EKG sinus and no acute changes. Cardiology consulted for evaluation and recommendations. pt had neg ct head in the ed- Diabetic with history of prior CVA x5 now with complaint of chest pain, pressure and weakness with falling. Despite stress test earlier this year showing no ischemia, patient has a high pretest likelihood for coronary artery disease and possible balanced ischemia on stress test giving a false impression of a negative stress test. With patient's complaint of weakness and chest discomfort, would recommend proceeding with left heart catheterization today. 2. CKD stage III, improved to stage II with IV fluids. 3. Diabetes mellitus, managed per Dr. Rodríguez 4. Further recommendations to follow pending above results. Hospital Course Hospital Course: gallbladder us:IMPRESSION: Negative gallbladder ultrasound. No stones evident. Fatty liver ct abd/pelvis:IMPRESSION: 1. Bilateral lower lobe consolidation and/or atelectatic change with trace right effusion 2. Mild thickening of the distal esophagus nonspecific. 3. Thickening of the distal sigmoid colon and rectum which could be due to nondistention or proctocolitis 4. Distended urinary bladder. Urinary bladder extends to the level of the umbilicus measuring 18 cm cephalad caudad 5. Mild amount of retained colonic feces of the colon echo:Conclusion 1. Technically difficult study because of the patient fact in poor acoustic windows, repeat study with Definity contrast is recommended. 2. Normal left ventricular size, mild concentric left ventricular hypertrophy, visually estimated ejection fraction 55 to 60% with no regional wall motion abnormality, there is late peaking systolic velocity seen in the left ventricular outflow tract, raising the concerns for presence of dynamic obstruction. There is no obvious systolic anterior motion of the mitral valve leaflets seen. 3. Mild mitral and tricuspid regurgitation. 4. If clinically indicated repeat study with better technique is recommended. Chest x-ray and CT of the head with no acute findings. Patient will be discharged back to personal longterm today Nickerson will be removed with monitoring output. Follow-up with [place] in 1 week Follow-up with Dr. Del Rio in 1 week We will continue Levaquin for 5 more days Patient is to be out of bed Continue bowel regiment Objective Vital signs: Temp Pulse Resp BP Pulse Ox 97.6 F 77 17 173/88 H 96 01/26/19 08:00 01/26/19 08:00 01/26/19 08:00 01/26/19 08:00 01/26/19 08:00 no acute distress, chronically ill appearing - *Routine HEENT Exam Head: Present: normocephalic Eye: Present: PERRL ENT: Present: mucous membranes moist - *Routine Respiratory Exam Present: CTA bilaterally - *Routine Cardiovascular Exam Present: RRR - *Routine Abdominal Exam Present: soft, normoactive bowel sounds. Absent: tenderness - *Routine Extremities Exam Present: full ROM - *Routine Skin Exam Present: intact - *Routine Neurological Exam Present: alert, oriented X3 - Routine Psychiatric Exam Present: normal affect Results Labs on day of discharge: Labs from last 24 hours 01/26/19 01/26/19 01/26/19 05:52 05:52 05:39 WBC 9.4 RBC 3.65 L Hgb 10.8 L Hct 32.8 L MCV 89.9 MCH 29.5 MCHC 32.8 RDW 13.6 Plt Count 212 MPV 9.0 Neut % (Auto) 62.0 Lymph % (Auto) 27.3 [place] % (Auto) 5.2 Eos % (Auto) 5.4 Baso % (Auto) 0.3 Neut # (Auto) 5.8 Lymph # (Auto) 2.6 [place] # (Auto) 0.5 Eos # (Auto) 0.5 H Baso # (Auto) 0.0 Sodium 141 Potassium 4.2 Chloride 107 Carbon Dioxide 23 Anion Gap 15.2 H BUN 18 Creatinine 1.50 H Estimated Creat Clear 94 Estimated GFR 49 L Est GFR ( Amer) 59 Glucose 170 H POC Glucose 166 H Calcium 8.3 L 01/25/19 01/25/19 01/25/19 19:52 16:39 11:32 WBC RBC Hgb Hct MCV MCH MCHC RDW Plt Count MPV Neut % (Auto) Lymph % (Auto) [place] % (Auto) Eos % (Auto) Baso % (Auto) Neut # (Auto) Lymph # (Auto) [place] # (Auto) Eos # (Auto) Baso # (Auto) Sodium Potassium Chloride Carbon Dioxide Anion Gap BUN Creatinine Estimated Creat Clear Estimated GFR Est GFR ( Amer) Glucose POC Glucose 153 H 160 H 161 H Calcium Preliminary micro results at discharge 01/23/19 17:00 Blood Culture - Preliminary Blood NO GROWTH AFTER 48 HOURS 01/23/19 17:00 Blood Culture - Preliminary Blood NO GROWTH AFTER 48 HOURS - Additional Comments Rounded with Dr. Rodríguez all orders per Anne We will DC Nickerson and monitor while at personal longterm DS: Diagnosis - Discharge Diagnosis (1) Chest pain Status: Acute (2) Dizziness Status: Acute (3) DM (diabetes mellitus) Status: Chronic (4) HLD (hyperlipidemia) Status: Chronic (5) HTN (hypertension) Status: Chronic (6) Obesity (BMI 30.0-34.9) Status: Acute (7) Renal insufficiency Status: Acute (8) Abdominal pain Status: Acute (9) Vomiting Status: Acute (10) Incomplete bladder emptying Status: Acute (11) Urinary retention Status: Acute Discharge Plan - Patient Discharge Instructions ACTIVITY: Continue current activity DIET: continue same diet Patient Instructions: Cardiac Catheterization, DI for Cardiac Catheterization, Acute Renal Failure, DI for Surgical Site Infection, DI for Chest Pain, DI for Dizziness-Nonvertigo, Catheter-Associated Urinary Tract Infection - Follow up Plan Follow up with: Robbin Rodríguez MD [Primary Care Provider] - Keagan Del Rio MD [Staff Physician] - 02/02/19 10:30 am Vignesh Morrow MD [Staff Physician] - 1 week Disposition: Home, Self-[facility] Medications: Home Medications Medication Instructions Recorded Confirmed Type Amlodipine Besylate [Norvasc 10mg 10 mg PO DAILY 02/15/17 01/21/19 History tablet] Aspirin [Aspirin 81mg chewable 81 mg PO DAILY 02/15/17 01/21/19 History tab] Atorvastatin Calcium [Atorvastatin 40 mg PO HS 02/15/17 01/21/19 History 40mg Tab] Gabapentin [Neurontin 300mg 300 mg PO TID 02/15/17 01/21/19 History capsule] Ibuprofen [Ibuprofen 600mg 600 mg PO Q6HP PRN 02/15/17 01/21/19 History Tablet] OLANZapine [Zyprexa Zydis] 20 mg PO DAILY 02/15/17 01/21/19 History Polyethylene Glycol 3350 [Miralax 17 gm PO DAILY 02/15/17 01/21/19 History 17gm Packet] Sertraline HCl [Zoloft 100mg 150 mg PO DAILY 02/15/17 01/21/19 History tablet] Tamsulosin HCl [Flomax 0.4mg 0.4 mg PO DAILY 02/15/17 01/21/19 History capsule] Tramadol HCl [Ultram 50mg 50 mg PO BID 02/15/17 01/21/19 History tablet] carvediloL [Coreg 25mg Tablet] 25 mg PO BID 02/15/17 01/21/19 History Finasteride [Proscar 5mg Tablet] 5 mg PO DAILY 12/21/17 01/21/19 History Metformin HCl [Fortamet] 1,000 mg PO BID 12/21/17 01/21/19 History haloperidol 5 mg tablet 5 mg PO TID tab 04/04/18 01/21/19 History insulin NPH-regular 70-30 U-100 50 unit SQ HS ml 07/07/18 01/21/19 History insulin 100 unit/mL subcutaneous pen Furosemide [Furosemide 40MG tAB] 40 mg PO DAILY 01/21/19 01/21/19 History Insulin NPH Hum/Reg Insulin Hm 40 unit SQ DAILY 01/21/19 01/22/19 History [Humulin 70/30 Kwikpen] Benztropine Mesylate 0.5 mg PO BID 01/22/19 01/22/19 History lisinopriL [Lisinopril 20mg Tab] 20 mg PO DAILY 01/22/19 01/22/19 History levoFLOXacin [Levaquin 750mg 750 mg PO 1100 5 Days #5 tab 01/26/19 Rx tablet] Prescriptions/Medication Reconciliation: New levoFLOXacin [Levaquin 750mg tablet] 750 mg PO 1100 5 Days #5 tab Continued haloperidol 5 mg tablet 5 mg PO TID tab insulin NPH-regular 70-30 U-100 insulin 100 unit/mL subcutaneous pen 50 unit SQ HS ml Polyethylene Glycol 3350 [Miralax 17gm Packet] 17 gm PO DAILY Aspirin [Aspirin 81mg chewable tab] 81 mg PO DAILY carvediloL [Coreg 25mg Tablet] 25 mg PO BID Metformin HCl [Fortamet] 1,000 mg PO BID Finasteride [Proscar 5mg Tablet] 5 mg PO DAILY Insulin NPH Hum/Reg Insulin Hm [Humulin 70/30 Kwikpen] 40 unit SQ DAILY Benztropine Mesylate 0.5 mg PO BID Ibuprofen [Ibuprofen 600mg Tablet] 600 mg PO Q6HP PRN PRN Reason: Pain Amlodipine Besylate [Norvasc 10mg tablet] 10 mg PO DAILY Atorvastatin Calcium [Atorvastatin 40mg Tab] 40 mg PO HS Gabapentin [Neurontin 300mg capsule] 300 mg PO TID OLANZapine [Zyprexa Zydis] 20 mg PO DAILY Sertraline HCl [Zoloft 100mg tablet] 150 mg PO DAILY Tamsulosin HCl [Flomax 0.4mg capsule] 0.4 mg PO DAILY Tramadol HCl [Ultram 50mg tablet] 50 mg PO BID Furosemide [Furosemide 40MG tAB] 40 mg PO DAILY lisinopriL [Lisinopril 20mg Tab] 20 mg PO DAILY - Problem Reconciliation Problems Reviewed?: Yes
== END 2019-01-26 11:46 | disposition home or self-care (01) | DRG 287 ==
LOC: ER 13:31 → 2ND 13:31 → OBSVTOIN 16:27 → INTOOBSV 16:27 → 2ND 16:28
PROVIDERS: ADMIT Family Medicine; ATTEND Emergency Medicine
CPT/HCPCS: 36415; 70450; 71010; 71045; 74176; 76705; 80048; 80053; 80061; 81001; 82947; 82962; 83605; 83690; 83735; 84100; 84484; 85025; 87040; 93005; 93306; 93458; 94761; 97161; 97166; 99152; 99285; C1725; C1769; G0378; J1644; J1956; J2405; Q9967

== ENCOUNTER → 2019-02-02 10:26 | Outpatient (CLI) | payer MEDICAID, SELFPAY ==
[2019-02-02 12:28] LABS: Prostate Specific Ag Screen 0.1 ng/mL (0.0-4.0)
== END ==
PROVIDERS: Visit Provider Urology
DX: Z12.5 Encounter for screening for malignant neoplasm of prostate (principal); R33.9 Retention of urine, unspecified
CPT/HCPCS: 36415; G0103

== ENCOUNTER → 2019-03-06 19:09 | Outpatient (CLI) | payer MEDICAID, SELFPAY | PROVIDERS: PCP Emergency Medicine; Visit Provider Nurse Practitioner Family | DX: I10 Essential (primary) hypertension (principal); R06.83 Snoring; R07.9 Chest pain, unspecified; G47.33 Obstructive sleep apnea (adult) (pediatric) | CPT/HCPCS: 95810 ==

== ENCOUNTER 2019-07-02 14:05 | Inpatient (IN) | payer MEDICAID, SELFPAY ==
[2019-07-02] VITALS (16 sets, daily range): BP systolic 128–187; BP diastolic 75–101; PULSE 70–100; RESP 18–20; TEMP 36.7–38.4; O2SAT 79–100; BMI 34.0; BMI 34.2
--- NOTE | 2019-07-02 12:40 | ECG_ITS ---
APPROVED REPORT Exam: Resting ECG HR:99 bpm ECG Measurements Heart Rate 99 AXES AL 170 P 31 QRSd 94 QRS 31 QT 382 T 76 QTc 490 <Conclusion> Normal sinus rhythm Possible Left atrial enlargement Consider Lateral Ischemia Prolonged QT Abnormal ECG Electronically signed by : Barrie Smith, 07/03/2019 08:41:40
--- NOTE | 2019-07-02 12:45 | PC.NURSE ---
PT GIVEN SUBLINGUAL NITRO SPRAY IN ROUTE WITH EMS. PT REFUSED ASA IN ROUTE AND UPON ARRIVAL TO ED.
--- NOTE | 2019-07-02 12:48 | XR_ITS ---
PROCEDURE: XR CHEST PORTABLE Patient Age:53Y CLINICAL HISTORY: Chest Pain Portable slightly rotated AP CXR. COMPARISON: CT ANGIO CHEST from 02/06/2019 XR CHEST PORTABLE from 02/06/2019 XR CHEST 2V from 04/03/2019 CT CHEST WO CON from 07/02/2019 FINDINGS: Portable CXR. Slightly rotated to the left. Although not indicated on CXR, most likely upright Low lung volumes diaphragm only down to the anterior 4th rib on right. This crowds markings bilaterally but slight hazy appearance at the right base reflects overlapping ribs vascular structures and in and I believe mild bibasilar atelectasis, right greater than left. Today's CT supports most likely atelectasis The patient has had relatively poor inspiration on other chest films but vascularity appears similar no overt CHF of central vascularity upper normal likely accentuated by the less than optimal inspiration. . Heart:. Borderline-mild cardiomegaly with slight left ventricular configuration. May reflect hypertension park police leads are in place. Chest wall unremarkable. No pleural effusions IMPRESSION: 1. Low lung volumes, Suboptimal inspiration crowds markings bilateral 2. Bibasilar atelectasis most evident right lung base.. Although difficult to totally exclude scant infiltrate, favor atelectasis here based on today's CT appearance 3.Mild cardiomegaly. Stable/upper normal pulmonary vascularity likely accentuated by the less than expansion Dictated by: Douglas Shirley MD 07/02/2019 14:52 Electronically signed by Douglas Shirley MD in [place] 07/02/2019 14:52
--- NOTE | 2019-07-02 12:53 | CT_ITS ---
PROCEDURE: CT CHEST WO CON Patient Age:53Y CLINICAL INDICATION: SOB Chest Pain. 53-year-old COMPARISON: XR CHEST PORTABLE from 02/06/2019 XR CHEST 2V from 04/03/2019 XR CHEST PORTABLE from 07/02/2019 TECHNIQUE: No IV contrast utilized-. Normal creatinine 1.2; BUN 13 however no IV contrast order with this exam Helical axial images obtained with sagittal and coronal reformats. All CT scans at the facility use one or more dose reduction, viz: automated exposure control, ma/kV adjustment per patient size (including targeted exams where dose is matched to indication, i.e. head), or iterative reconstruction technique. FINDINGS: No IV contrast utilized- this decreases sensitivity particular in regards to evaluation of vascular structures. LUNGs: Bilateral dependent atelectasis most evident at dependent lower lobes and towards posterior sulcus. RLL more so than left.. Of this feature but is slightly more pronounced today than on January 2019 CT chest. Difficult to totally exclude minor early infiltrate the posterior RLL but I strongly favor merely viewing atelectasis a particularly noting the crowding of vascular markings associated and posterior lung bases. The today's P CXR and as well as this CT supervisor tan room view on suggest low lung volume as well, suboptimal inspiration.. There is also what is most likely minimal atelectasis just above the left hemidiaphragm at lingula as well Most likely benign tiny right Lung areas of density/nodules but. Small 4.5 area of nodularity RML axial image 38 appears similar to previous study and can be followed.. There is also a small flat benign appearing the nodule/density along the minor fissure axial image 36 no Airways: Central airways with borderline wall thickening.. Pulmonary vascularity upper normal this may be accentuated by the supine position and and suboptimal inspiration No pleural effusion. No pneumothorax. No pleural findings of significance . Mediastinum. No hilar or mediastinal adenopathy of significance overall no significant change. HEART: Scant coronary artery calcification.. Borderline/-mild cardiomegaly no pericardial effusion unremarkable. Normal heart size. No significant pericardial effusion. MEDIASTINAL AND HILAR STRUCTURES: No mediastinal or hilar mass evident. No dominant adenopathy. Vascular.. Stable appearance aorta no aneurysm. Lack of contrast prohibits evaluation of internal aspects of pulmonary artery and aorta BONY STRUCTURES: No acute bony abnormalities apparent. T-spine ribs intact UPPER ABDOMEN: The of moderate to generous stool throughout the visualized portions of large bowel b Streak artifact upper abdomen limits resolution.. Gallbladder unremarkable and visualized visualized portions of liver spleen and pancreas unremarkable on this noncontrast study. IMPRESSION: 1.Lower lung volumes with suboptimal inspiration. This crowds and mildly accentuates markings bilaterally 2.Bilateral dependent atelectasis-most evident at posterior lower lobes. Right > the left Strongly favor atelectasis; consider but doubt minor infiltrate here at posterior RLL No consolidation. No good evidence of pneumonia 3.. Mild cardiomegaly . Pulmonary vascularity upper normal to borderline increased. This appearance in part due to the low lung volume, but you may want consider checking BNP . no pleural effusions 4. Small vague stable lung nodules right lung appear benign and not of significant concern. Follow-up in 12-18 months adequate No IV contrast requested or utilized, thus cannot further evaluate vessels Dictated by: Douglas Shirley MD 07/02/2019 14:40 El
--- NOTE | 2019-07-02 12:58 | PC.NURSE ---
Rad at bedside
--- NOTE | 2019-07-02 13:05 | PC.NURSE ---
Pt to rad for CT.
--- NOTE | 2019-07-02 13:07 | PC.NURSE ---
PT TO CT
[2019-07-02 13:08] LABS: Chloride 103 mmol/L (98-107); Sodium 139 mmol/L (136-145)
[2019-07-02 13:09] LABS: Potassium 3.7 mmoL/L (3.5-5.1)
[2019-07-02 13:11] LABS: Blood Urea Nitrogen 13 mg/dl (9-20); Creatinine Clearance Estimated 116 mL/min (50-200); Estimated Glomerular Filt Rate 63 ml/min (>60); GFR (African American) 76 ML/MIN (>60)
[2019-07-02 13:12] LABS: Anion Gap 18.7 mEq/L (5-15); Calcium 9.6 mg/dl (8.4-10.2); Carbon Dioxide 21 mmol/L (22.0-30.0); Glucose 181 mg/dl (74-100)
[2019-07-02 13:16] LABS: Basophils # 0.2 K/mm3 (0-0.2); Basophils % 2.2 % (0.1-2.0); Eosinophils # 0.1 K/mm3 (0.0-0.4); Eosinophils % 1.2 % (0.1-12.0); Hematocrit 39.1 % (42.0-52.0); Lymphocytes # 1.8 K/mm3 (0.7-4.5); Mean Corpuscular HGB Conc 33.1 g/dL (31.8-35.4); Mean Corpuscular Hemoglobin 29.4 pg (27.0-31.2); Mean Corpuscular Volume 88.8 fl (80-94); Monocytes # 0.9 K/mm3 (0.1-1.0); Monocytes % 8.8 % (1.7-9.3); Neutrophils # 7.6 K/mm3 (1.8-7.8); Neutrophils % 70.8 % (37.0-80.0); Platelet Count 247 K/mm3 (142-424); Red Blood Count 4.41 M/mm3 (4.60-6.20); Red Cell Distribution Width 14.6 % (11.5-17.5); White Blood Count 10.7 K/mm3 (4.8-10.8)
[2019-07-02 13:26] LABS: Troponin I 0.01 ng/ml (0.00-0.034)
--- NOTE | 2019-07-02 13:27 | PC.NURSE ---
Pt returned from rad.
--- NOTE | 2019-07-02 13:28 | PC.NURSE ---
Lab at bedside collecting cultures and lactic
[2019-07-02 13:51] LABS: Adenovirus,PCR Not Detected (NotDetected); Bordetella Pertussis Not Detected (NotDetected); Chlamydophila Pneumoniae, PCR Not Detected (NotDetected); Coronavirus 229E Not Detected (NotDetected); Coronavirus NL63 Not Detected (NotDetected); Coronavirus OC43 Not Detected (NotDetected); Coronovirus HKU1,PCR Not Detected (NotDetected); Human Metapneumovirus Not Detected (NotDetected); Influenza A, PCR Not Detected (NotDetected); Influenza AH1, 2009 Not Detected (NotDetected); Influenza AH1, PCR Not Detected (NotDetected); Influenza AH3,PCR Not Detected (NotDetected); Influenza B, PCR Not Detected (NotDetected); Mycoplasma Pneumoniae, PCR Not Detected (NotDected); Parainfluenza 1, PCR Not Detected (NotDetected); Parainfluenza 2, PCR Not Detected (NotDetected); Parainfluenza 3, PCR Not Detected (NotDetected); Parainfluenza 4, PCR Not Detected (NotDetected); Respiratory Syncytial Virus Not Detected (NotDetected); Rhinovirus/Enterovirus Not Detected (NotDetected)
[2019-07-02 14:04] LABS: Lactic Acid 2.2 mmol/L (0.7-2.1)
--- NOTE | 2019-07-02 15:13 | HMH.EDCP ---
ED Disposition Clinical Impression: Costalchondritis, Sepsis, COVID-19 virus detected, Viral pneumonia, HTN (hypertension), DM (diabetes mellitus), SOB (shortness of breath) Disposition: Admitted As Inpatient Condition on Discharge: Good - Critical Care Critical Care Time: No Attestation: On 07/02/19, the high probability of a clinically significant, sudden or life threatening deterioration of the following system(s) required my full and direct attention, intervention and personal management. The time I documented below is in addition to time spent performing reported procedures but includes the following listed in this critical care notation. Medical Decision Making - Medical Records Medical records reviewed: Yes: I reviewed the patient's medical records. - Clem Inquiry Pt receiving controlled substance: No Vital Signs: 07/02/19 12:40 07/02/19 13:05 07/02/19 13:34 Temperature 101.1 F H Temperature Source Oral Pulse Rate [Right Radial] 100 H 97 H 94 H Respiratory Rate 18 Blood Pressure [Right Arm] 148/77 H 145/75 H 139/98 H Blood Pressure Mean [Right Arm] 100 98 111 Blood Pressure Source [Right Arm] Automatic Cuff Automatic Cuff Automatic Cuff Blood Pressure Position [Right Arm] Sitting Supine Sitting 02 Sat by Pulse Oximetry 89 L 93 L 93 L Oxygen Delivery Method Room Air Nasal Cannula Nasal Cannula Oxygen Flow Rate (LPM) 2 2 07/02/19 14:15 07/02/19 15:08 Temperature Temperature Source Pulse Rate [Right Radial] 90 88 Respiratory Rate 18 Blood Pressure [Right Arm] 174/95 H 187/100 H Blood Pressure Mean [Right Arm] 121 129 Blood Pressure Source [Right Arm] Automatic Cuff Blood Pressure Position [Right Arm] Supine Sitting 02 Sat by Pulse Oximetry 100 99 Oxygen Delivery Method Nasal Cannula Oxygen Flow Rate (LPM) 2 - Lab Data Lab results reviewed: Yes: I reviewed the patient's lab results. Lab Results 07/02/19 12:35: WBC 10.7, RBC 4.41 L, Hgb 13.0 L, Hct 39.1 L, MCV 88.8, MCH 29.4, MCHC 33.1, RDW 14.6, Plt Count 247, MPV 9.0, Neut % (Auto) 70.8, Lymph % (Auto) 17.0, [place] % (Auto) 8.8, Eos % (Auto) 1.2, Baso % (Auto) 2.2 H, Neut # (Auto) 7.6, Lymph # (Auto) 1.8, [place] # (Auto) 0.9, Eos # (Auto) 0.1, Baso # (Auto) 0.2 07/02/19 12:35: Sodium 139, Potassium 3.7, Chloride 103, Carbon Dioxide 21 L, Anion Gap 18.7 H, BUN 13, Creatinine 1.20, Estimated Creat Clear 116, Estimated GFR 63, Est GFR ( Amer) 76, Glucose 181 H, Calcium 9.6, Troponin I 0.01 07/02/19 13:33: Chlamy pneumoniae PCR Not detected, Adenovirus (PCR) Not detected, B. pertussis DNA (PCR) Not detected, Coronavirus OC43 (PCR) Not detected, Coronavirus HKU1 (PCR) Not detected, Coronavirus 229E (PCR) Not detected, COVID-19 PCR Detected A, Coronavirus NL63 (PCR) Not detected, Human Metapneumovir PCR Not detected, Influenza A (H1) PCR Not detected, Influ A (H1N1/09) PCR Not detected, Influenza A (H3) PCR Not detected, Influenza Type A (PCR) Not detected, Influenza Type B (PCR) Not detected, M. pneumoniae (PCR) Not detected, Parainfluenza 1 (PCR) Not detected, Parainfluenza 2 (PCR) Not detected, Parainfluenza 3 (PCR) Not detected, Parainfluenza 4 (PCR) Not detected, RSV (PCR) Not detected, Entero/Rhino (PCR) Not detected 07/02/19 13:41: Lactate 2.2 H Result diagrams: 07/02/19 12:35 07/02/19 12:35 Orders (Tests/Meds): ORDERS Category Date Time Status Troponin I Q3H Lab 07/02/19 16:00 Ordered Troponin I Q3H Lab 07/02/19 19:00 Ordered Blood Culture Stat Micro 07/02/19 13:41 Received - CT Data CT Scan: Chest Time Received: 15:13 Preliminary Findings: Abnormal (The radiologist did not comment on it but this patient has classic groundglass appearance to both lungs indicative of a viral pneumonia specifically to SARS-CoV-2 virus.) - ECG Data Tracing #1 I reviewed this ECG and interpreted as documented below: Normal Sinus Rhythm: Yes - Tissue Perfus/Sepsis Re-Eval Sepsis Re-Evaluation Performed: Yes Date Performed:
[2019-07-02 15:33] LABS: Coronavirus 19, PCR Detected (NotDetected)
[2019-07-02 16:47] LABS: Troponin I 0.03 ng/ml (0.00-0.034)
[2019-07-02 17:47] LABS: Reflex Lactic Add Lactic Reflex
[2019-07-02 18:57] LABS: Lactic Acid Follow Up (RFLX 1) 0.7 mmol/L (0.7-2.1)
[2019-07-02 18:57] LABS: Microscopic, Urine URINE MICROSCOPIC (MICROSCOPIC)
[2019-07-02 19:03] LABS: Appearance,Urine CLEAR (Clear); Bilirubin,Urine Negative (Negative); Blood, Urine Negative (Negative); Color,Urine YELLOW (Yellow); Glucose,Urine (UA) TRACE (Negative); Ketones,Urine Negative (Negative); Leukocyte Esterase,Urine Negative (Negative); Nitrate,Urine Negative (Negative); PH,Urine 6.5 (5.0-8.5); Protein,Urine Negative (Negative); Specific Gravity, Urine 1.015 (1.005-1.030)
--- NOTE | 2019-07-02 19:06 | PC.NURSE ---
Patient is not in a weigh bed and is too drowsy to stand or answer questions after receiving diluadid in the ER for pain. Passed on to Yolande Cabrera RN that I wasnt able to obtain patients weight, she states she will attempt to when patient is more alert and able to stand
[2019-07-02 19:09] LABS: Troponin I 0.04 ng/ml (0.00-0.034)
[2019-07-02 19:10] LABS: Bacteria,Urine Trace /lpf; WBC,Urine Occasional #/hpf (0-3)
[2019-07-02 20:34] LABS: POC Glucose,Bedside 178 (70-110)
--- NOTE | 2019-07-02 20:42 | PC.NURSE ---
He opens his eyes and will follow voice with his eyes but is non-verbal at this time. He is drowsy. Unable to follow commands. Being turned and repositioned. Oral care provided. Continues in 2LPM n/c.
--- NOTE | 2019-07-02 23:59 | PC.NURSE ---
He is more alert at this time. Speech is clear and appropriate. Oral care provided. Turned to his right side. He was able to take medication and drink fluids at this time.
[2019-07-03] VITALS (10 sets, daily range): BP systolic 119–176; BP diastolic 81–105; PULSE 60–90; RESP 18–22; TEMP 37.2–38.6; O2SAT 88–96; BMI 34.2
--- NOTE | 2019-07-03 03:33 | PC.NURSE ---
He is A&OX4. Continues in contact and airborne precautions. He has a non-productive cough and reports a sore throat. He received PRN medication for a fever. He is now following commands and is able to turn himself in bed.
[2019-07-03 04:36] LABS: POC Glucose,Bedside 172 (70-110)
[2019-07-03 06:42] LABS: MANUAL DIFFERENTIAL MANUAL DIFFERENTIAL (MANUAL DIFF)
--- NOTE | 2019-07-03 06:46 | SW/DCPLANNER ---
PATIENT ADMITTED TO [facility] FROM [facility] WITH A DIAGNOSIS OF COVID19... PATIENT WILL NEED DISCHARGE PLANNING ONCE MEDICALLY READY FOR A DISPOSITION FROM [facility].. WILL KEEP IN CONTACT WITH PATIENTS PERSONAL SNF TO SEE IF HE IS GOING TO BE ABLE TO RETURN BACK THERE ONCE MEDICALLY READY TO DO SO.... DISPOSITION UNCERTAIN....
[2019-07-03 06:50] LABS: Basophils # 0.2 K/mm3 (0-0.2); Basophils % 2.8 % (0.1-2.0); Eosinophils # 0.1 K/mm3 (0.0-0.4); Eosinophils % 0.9 % (0.1-12.0); Hemoglobin 13.3 g/dL (14.1-18.0); Lymphocytes # 1.4 K/mm3 (0.7-4.5); Lymphocytes % 17.1 % (10-50); Mean Corpuscular HGB Conc 34.2 g/dL (31.8-35.4); Mean Corpuscular Hemoglobin 29.7 pg (27.0-31.2); Neutrophils # 5.3 K/mm3 (1.8-7.8); Neutrophils % 67.2 % (37.0-80.0); Platelet Count 175 K/mm3 (142-424); Red Blood Count 4.48 M/mm3 (4.60-6.20); Red Cell Distribution Width 14.7 % (11.5-17.5)
--- NOTE | 2019-07-03 08:40 | PC.NURSE ---
RN aware of elevated temp.
[2019-07-03 08:58] LABS: POC Glucose,Bedside 181 (70-110)
[2019-07-03 09:50] LABS: Lymphocytes % 21 % (10-50); Monocytes % 11 % (2-9); Neutrophils % 68 % (42-76); Platelet Estimate Normal; RBC Morphology Normal; Total Cells Counted 100
[2019-07-03 10:12] LABS: Chloride 101 mmol/L (98-107); Potassium 3.9 mmoL/L (3.5-5.1); Sodium 137 mmol/L (136-145)
[2019-07-03 10:15] LABS: Alanine Aminotransferase 37 U/L (12-78); Albumin Level 3.9 g/dl (3.5-5.0); Albumin/Globulin Ratio 1.2 (1.1-1.8); Alkaline Phosphatase 139 U/L (38-126); Anion Gap 12.9 mEq/L (5-15); Aspartate Amino Transferase 43 U/L (17-59); Bilirubin,Total 0.7 mg/dl (0.2-1.3); Blood Urea Nitrogen 14 mg/dl (9-20); Calcium 8.8 mg/dl (8.4-10.2); Carbon Dioxide 27 mmol/L (22.0-30.0); Creatinine Clearance Estimated 128 mL/min (50-200); Estimated Glomerular Filt Rate 70 ml/min (>60); GFR (African American) 84 ML/MIN (>60); Globulin 3.3 g/dL (1.3-3.2); Glucose 185 mg/dl (74-100); Total Protein,Serum 7.2 g/dl (6.3-8.2)
--- NOTE | 2019-07-03 10:23 | HMH.HP ---
*Admission Date: 07/02/19 *Chief complaint: Chest Pain *History of present illness: 53-year-old pleasant gentleman presents the ED from [facility] with a one-week history of general malaise, arthralgias, sore throat, slight headache, a subjective and objective fever with a T-max of 102.5 here in the ED his fever is 101.1, a nonproductive cough and mild shortness of breath. She was also complaining about left-sided chest pain as well. Patient states that he does not have a cardiac history. Patient also states that he has really not been exposed to anyone outside the facility even though he can walk to the store but he said states to me that he has not left the facility in over 10 days. Patient also states that he feels a lot of shakes and chills presently and has an overwhelming sense of feeling bad. Patient does have several comorbidities that include uncontrolled diabetes mellitus type 2, hyperlipidemia, hypertension, patient denies any smoking but he does have a smoking history. Patient also denies any illicit drug use. Patient does have an underlying mood disorder not otherwise specified. He is on olanzapine and Haldol. Also patient does have elevated body temperature at 101.1 and a heart rate at 101 presently and this work-up thus far he does meet 2 of the sirs criteria (Per Dr. Rivera) 07/02/19 CXR: IMPRESSION: 1. Low lung volumes, Suboptimal inspiration crowds markings bilateral 2. Bibasilar atelectasis most evident right lung base.. Although difficult to totally exclude scant infiltrate, favor atelectasis here based on today's CT appearance 3.Mild cardiomegaly. Stable/upper normal pulmonary vascularity likely accentuated by the less than expansion Dictated by: Dr. Shirley, 07/02/[address]: IMPRESSION: 1.Lower lung volumes with suboptimal inspiration. This crowds and mildly accentuates markings bilaterally 2.Bilateral dependent atelectasis-most evident at posterior lower lobes. Right > the left Strongly favor atelectasis; consider but doubt minor infiltrate here at posterior RLL No consolidation. No good evidence of pneumonia 3.. Mild cardiomegaly . Pulmonary vascularity upper normal to borderline increased. This appearance in part due to the low lung volume, but you may want consider checking BNP . no pleural effusions 4. Small vague stable lung nodules right lung appear benign and not of significant concern. Follow-up in 12-18 months adequate No IV contrast requested or utilized, thus cannot further evaluate vessels Dictated by: Dr. Shirley, Patient is positive for COVID-19, virus panel negative, Trop NEG x 3. [facility] History Medical History: Reports:: Cancer, Coronary Artery Disease, Cerebrovascular Accident, Diabetes Mellitus Type 1, Hyperlipidemia, Hypertension, Internal Pacemaker, Kidney Stones, MRSA, Seizures, Transient Ischemic Attacks (TIA) Denies:: Diabetes Mellitus Type 2 *Have you ever received a pneumonia vaccine?: Yes *Have you received a flu vaccine this season?: Yes Other Medical History: Reports: Anemia, Arthritis, Blood Transfusion Reaction, Other Other Surgeries: Yes: No Previous Surgery, Cardiac Catheterization, Pacemaker, Other Amputation: No Fractures: No - *Social History Smoking Status: Never smoker Alcohol Intake: never Substance Use Type: denies use *Occupational Status:: disabled Housing: assisted living facility Household Members: other *Travel in the last 8 weeks: None Family Hx:: Unable to obtain Review of Systems - Constitutional Reports fever(s), Reports lack of energy - *Cardiovascular Reports chest pain, Reports chest pain at rest, Reports shortness of breath - *Respiratory Reports cough, Reports shortness of breath - *Gastrointestinal Denies abdominal pain, Denies loose stools - *Genitourinary Denies difficulty urinating - Integumentary/Breasts Denies yellowing of the skin, Denies new lesions - Hematologic/Ly
--- NOTE | 2019-07-03 11:24 | HMH.PHAINT ---
HOME MEDICATION RECONCILIATION COMPLETED USING LIST FROM [facility]
--- NOTE | 2019-07-03 11:35 | HMH.PHAVTE ---
[facility] Pharmacy VTE Monitoring - Patient Demographics Admission date: 07/02/19 Report Date: 07/03/19 Time: 11:35 Allergies/Adverse Reactions: Patient Allergies No Known Allergies Allergy (Verified 04/13/19 11:58) Height: 1.85 m Weight: 117.934 kg Patient Problems: Current Active Problems Costalchondritis (Acute) Sepsis (Acute) COVID-19 virus detected (Acute) Viral pneumonia (Acute) SOB (shortness of breath) (Chronic) DM (diabetes mellitus) (Chronic) HTN (hypertension) (Chronic) - VTE Risk Labs: VTE Related Lab Results Hgb 13.3 g/dL (14.1-18.0) L 07/03/19 06:00 Hct 39.0 % (42.0-52.0) L 07/03/19 06:00 Plt Count 175 K/mm3 (142-424) D 07/03/19 06:00 BUN 14 mg/dl (9-20) 07/03/19 09:30 Creatinine 1.10 mg/dl (0.66-1.25) 07/03/19 09:30 Estimated Creat Clear 128 mL/min (50-200) 07/03/19 09:30 Was VTE Risk Assessment Performed: Yes VTE Score: 3 VTE Risk Level: Low Risk Clinical Trial Participant: No - Prophylaxis VTE Prophylaxis Ordered?: Yes Types of VTE Prophylaxis: TEDS Knee High, Pharmacological Pharmacologic Type: Enoxaparin
--- NOTE | 2019-07-03 11:57 | PC.NURSE ---
RN aware of elevated bp.
[2019-07-03 12:32] LABS: POC Glucose,Bedside 185 (70-110)
[2019-07-03 17:18] LABS: POC Glucose,Bedside 88 (70-110)
[2019-07-03 20:47] LABS: POC Glucose,Bedside 88 (70-110)
[2019-07-04] VITALS (10 sets, daily range): BP systolic 144–182; BP diastolic 87–96; PULSE 67–80; RESP 16–24; TEMP 36.8–37.6; O2SAT 91–97; BMI 34.4
[2019-07-04 06:24] LABS: POC Glucose,Bedside 87 (70-110)
[2019-07-04 06:33] LABS: Chloride 103 mmol/L (98-107); Sodium 140 mmol/L (136-145)
[2019-07-04 06:34] LABS: Potassium 3.7 mmoL/L (3.5-5.1)
[2019-07-04 06:37] LABS: Anion Gap 11.7 mEq/L (5-15); Blood Urea Nitrogen 15 mg/dl (9-20); Calcium 8.9 mg/dl (8.4-10.2); Carbon Dioxide 29 mmol/L (22.0-30.0); Creatinine Clearance Estimated 128 mL/min (50-200); Estimated Glomerular Filt Rate 70 ml/min (>60); GFR (African American) 84 ML/MIN (>60); Glucose 85 mg/dl (74-100)
--- NOTE | 2019-07-04 06:46 | PC.NURSE ---
shift summary, temp has remained between 99.0 and 100.5, intermittent dry cough, on 2L NC with sats mid 90's, new IV started, previous IV discontinued. has been incontinent this shift, and has reported body aches.
[2019-07-04 07:05] LABS: Basophils # 0.3 K/mm3 (0-0.2); Basophils % 3.6 % (0.1-2.0); Eosinophils # 0.1 K/mm3 (0.0-0.4); Eosinophils % 1.3 % (0.1-12.0); Hematocrit 36.8 % (42.0-52.0); Hemoglobin 12.4 g/dL (14.1-18.0); Lymphocytes % 29.5 % (10-50); Mean Corpuscular HGB Conc 33.8 g/dL (31.8-35.4); Mean Corpuscular Hemoglobin 29.5 pg (27.0-31.2); Mean Corpuscular Volume 87.2 fl (80-94); Monocytes # 0.6 K/mm3 (0.1-1.0); Neutrophils # 3.9 K/mm3 (1.8-7.8); Neutrophils % 56.6 % (37.0-80.0); Platelet Count 181 K/mm3 (142-424); Red Blood Count 4.22 M/mm3 (4.60-6.20); Red Cell Distribution Width 14.7 % (11.5-17.5); White Blood Count 6.8 K/mm3 (4.8-10.8)
--- NOTE | 2019-07-04 09:04 | HMH.ACPN2 ---
Internal Medicine - PN: Subj *Date: 07/04/19 *Time: 09:04 Interval history: 53-year-old male patient sitting up in bed, reports he does feel a little better today compared to yesterday. Oxygen saturation 92% on 1 L per nasal cannula, temperature 100.2 overnight Exam Vital signs and Labs for Last 24 Hours: Temp Pulse Resp BP Pulse Ox 99.4 F 74 20 182/94 H 92 L 07/04/19 07:53 07/04/19 07:53 07/04/19 07:53 07/04/19 07:53 07/04/19 07:53 Laboratory Results - last 24 hr 07/03/19 06:00: Total Counted 100, Neutrophils % (Manual) 68, Lymphocytes % (Manual) 21, Monocytes % (Manual) 11 H, Platelet Estimate Normal, RBC Morphology Normal 07/03/19 09:30: Sodium 137, Potassium 3.9, Chloride 101, Carbon Dioxide 27 D, Anion Gap 12.9, BUN 14, Creatinine 1.10, Estimated Creat Clear 128, Estimated GFR 70, Est GFR ( Amer) 84, Glucose 185 H, Calcium 8.8, Total Bilirubin 0.7, AST 43, ALT 37, Alkaline Phosphatase 139 H, Total Protein 7.2, Albumin 3.9, Globulin 3.3 H, Albumin/Globulin Ratio 1.2 07/03/19 12:18: POC Glucose 185 H 07/03/19 17:09: POC Glucose 88 07/03/19 20:24: POC Glucose 88 07/04/19 05:18: POC Glucose 87 07/04/19 06:00: WBC 6.8, RBC 4.22 L, Hgb 12.4 L, Hct 36.8 L, MCV 87.2, MCH 29.5, MCHC 33.8, RDW 14.7, Plt Count 181, MPV 9.0, Neut % (Auto) 56.6, Lymph % (Auto) 29.5, [place] % (Auto) 9.0, Eos % (Auto) 1.3, Baso % (Auto) 3.6 H, Neut # (Auto) 3.9, Lymph # (Auto) 2.0, [place] # (Auto) 0.6, Eos # (Auto) 0.1, Baso # (Auto) 0.3 H 07/04/19 06:00: Sodium 140, Potassium 3.7, Chloride 103, Carbon Dioxide 29, Anion Gap 11.7, BUN 15, Creatinine 1.10, Estimated Creat Clear 128, Estimated GFR 70, Est GFR ( Amer) 84, Glucose 85 D, Calcium 8.9 I & O for Last 24 hours: Intake & Output 07/01/19 07/02/19 07/03/19 07/04/19 23:59 23:59 23:59 23:59 Intake Total 960 / 960 120 / 120 Output Total 850 / 850 Balance 110 / 110 120 / 120 Weight 260 lb 260 lb - Constitutional no acute distress - *Routine HEENT Exam Head: Present: normocephalic ENT: Present: mucous membranes dry - *Routine Neck Exam Present: full ROM, trachea midline. Absent: JVD, tracheal deviation - *Routine Respiratory Exam Present: rhonchi - *Routine Cardiovascular Exam Present: RRR, murmur - *Routine Abdominal Exam Present: soft, normoactive bowel sounds, distended. Absent: tenderness - *Routine Extremities Exam Present: pulses intact. Absent: cyanosis - *Routine Skin Exam Present: intact. Absent: jaundice - *Routine Neurological Exam Present: alert - Routine Psychiatric Exam Present: normal affect Assessment and Plan (1) COVID-19 virus detected Current visit: Yes Status: Acute Category: Medical Code(s): U07.1 - COVID-19 (2) Costalchondritis Current visit: Yes Status: Acute Category: Medical Code(s): M94.0 - Chondrocostal junction syndrome [Tietze] (3) Sepsis Current visit: Yes Status: Acute Category: Medical Code(s): A41.9 - Sepsis, unspecified organism (4) Viral pneumonia Current visit: Yes Status: Acute Category: Medical Code(s): J12.9 - Viral pneumonia, unspecified (5) DM (diabetes mellitus) Current visit: Yes Status: Chronic Qualifiers: Category: Medical Code(s): E11.9 - Type 2 diabetes mellitus without complications (6) HTN (hypertension) Current visit: Yes Status: Chronic Qualifiers: Category: Medical Code(s): I10 - Essential (primary) hypertension (7) SOB (shortness of breath) Current visit: Yes Status: Chronic Category: Medical Code(s): R06.02 - Shortness of breath (8) Chest pain Current visit: No Status: Acute Qualifiers: Category: Medical Code(s): R07.9 - Chest pain, unspecified - Assessment and plan all Dx Assessment and Plan for all problems:: Rounded with Dr. Rodríguez, all orders per Dr. Rodríguez
--- NOTE | 2019-07-04 13:18 | PC.NURSE ---
PT IS RESTING IN BED. PT'S ONLY COMPLAINT IS ( MY LEGS ARE REALLY RESTLESS). PT STATES HE FEELS BETTER TODAY THAN YESTERDAY. TOLERATED SITTING UP ON THE SOB FOR LUNCH. SKIN C/D/I. O2 SATURATION HAS MAINTAINED IN THE LOW 90'S ON 1 L NC. PT HAS BEEN DRINKING WELL BUT STATES HE STILL DOESN'T HAVE MUCH OF AN APPETITE. ALERT AND ORIENTED X4. NSR ON TELEMETRY. WILL CONTINUE TO MONITOR.
[2019-07-05] VITALS (10 sets, daily range): BP systolic 120–177; BP diastolic 78–100; PULSE 60–80; RESP 16–22; TEMP 36.7–37.6; O2SAT 87–95; BMI 31.8
--- NOTE | 2019-07-05 06:45 | PC.NURSE ---
All care provided by BRADLEY Salcido was supervised by Shaheed Yepez RN. Pt is in Airborne & Contact precautions with eye protection and all staff has maintained proper PPE t/o shift.
--- NOTE | 2019-07-05 06:45 | PC.NURSE ---
Pt has rested at intervals this shift. Pt turns self and has walked in room a few times. Pt can be slightly unsteady at times, staff assist x1 or SBA. Pt on 1L per NC with sats 91-96% this shift. Room air sat was 87%. Lungs CTA, pt denies any SOB or dyspnea. Total bed bath given to pt and full linen changed. ABD is soft, non-tender with active bowel sounds and last BM was on previous shift. TEDs refused but pt is on lovenox for VTE prophylaxis. Pt has been incontinent at times of bladder and so attends was placed on pt. VSS, call light within reach and will continue to monitor.
[2019-07-05 06:48] LABS: Basophils # 0.2 K/mm3 (0-0.2); Basophils % 2.6 % (0.1-2.0); Eosinophils # 0.1 K/mm3 (0.0-0.4); Eosinophils % 1.4 % (0.1-12.0); Hematocrit 39.8 % (42.0-52.0); Hemoglobin 13.3 g/dL (14.1-18.0); Mean Corpuscular HGB Conc 33.4 g/dL (31.8-35.4); Mean Corpuscular Hemoglobin 29.3 pg (27.0-31.2); Monocytes # 0.4 K/mm3 (0.1-1.0); Monocytes % 6.3 % (1.7-9.3); Neutrophils # 4.3 K/mm3 (1.8-7.8); Neutrophils % 60.8 % (37.0-80.0); Platelet Count 194 K/mm3 (142-424); Red Blood Count 4.53 M/mm3 (4.60-6.20); Red Cell Distribution Width 14.7 % (11.5-17.5); White Blood Count 7.1 K/mm3 (4.8-10.8)
[2019-07-05 06:57] LABS: Anion Gap 11.5 mEq/L (5-15); Blood Urea Nitrogen 14 mg/dl (9-20); Carbon Dioxide 29 mmol/L (22.0-30.0); Chloride 103 mmol/L (98-107); Creatinine Clearance Estimated 130 mL/min (50-200); Estimated Glomerular Filt Rate 78 ml/min (>60); GFR (African American) 94 ML/MIN (>60); Glucose 67 mg/dl (74-100); Potassium 3.5 mmoL/L (3.5-5.1); Sodium 140 mmol/L (136-145)
--- NOTE | 2019-07-05 08:51 | HMH.ACPN2 ---
Internal Medicine - PN: Subj *Date: 07/05/19 *Time: 08:51 Interval history: Sitting up in bed states c/o cp Exam Vital signs and Labs for Last 24 Hours: Temp Pulse Resp BP Pulse Ox 99.1 F 73 18 177/90 H 93 L 07/05/19 08:00 07/05/19 08:00 07/05/19 08:00 07/05/19 08:00 07/05/19 08:00 Laboratory Results - last 24 hr 07/05/19 05:55: WBC 7.1, RBC 4.53 L, Hgb 13.3 L, Hct 39.8 L, MCV 88.0, MCH 29.3, MCHC 33.4, RDW 14.7, Plt Count 194, MPV 9.0, Neut % (Auto) 60.8, Lymph % (Auto) 29.0, [place] % (Auto) 6.3, Eos % (Auto) 1.4, Baso % (Auto) 2.6 H, Neut # (Auto) 4.3, Lymph # (Auto) 2.0, [place] # (Auto) 0.4, Eos # (Auto) 0.1, Baso # (Auto) 0.2 07/05/19 05:55: Sodium 140, Potassium 3.5, Chloride 103, Carbon Dioxide 29, Anion Gap 11.5, BUN 14, Creatinine 1.00, Estimated Creat Clear 130, Estimated GFR 78, Est GFR ( Amer) 94, Glucose 67 L D, Calcium 9.0 I & O for Last 24 hours: Intake & Output 07/02/19 07/03/19 07/04/19 07/05/19 11:59 11:59 11:59 11:59 Intake Total 490 / 490 600 / 600 930 / 930 Output Total 250 / 250 600 / 600 500 / 500 Balance 240 / 240 0 / 0 430 / 430 Weight 260 lb 240 lb 1.75 oz Microbiology Reports for the Last 24 Hours: Microbiology 07/02/19 13:41 Blood Blood Culture - Preliminary NO GROWTH AFTER 48 HOURS 07/02/19 13:41 Blood Blood Culture - Preliminary NO GROWTH AFTER 48 HOURS - Constitutional no acute distress - *Routine HEENT Exam Head: Present: normocephalic Eye: Present: PERRL ENT: Present: mucous membranes moist - *Routine Neck Exam Present: supple. Absent: lymphadenopathy - *Routine Respiratory Exam Present: CTA bilaterally - *Routine Cardiovascular Exam Present: RRR - *Routine Abdominal Exam Present: soft, normoactive bowel sounds. Absent: tenderness - *Routine Extremities Exam Present: normal capillary refill. Absent: cyanosis, clubbing, edema - *Routine Skin Exam Present: warm. Absent: rash - *Routine Neurological Exam Present: alert, oriented X3 - Routine Psychiatric Exam Present: normal affect Assessment and Plan (1) COVID-19 virus detected Current visit: Yes Status: Acute Category: Medical Code(s): U07.1 - COVID-19 (2) Costalchondritis Current visit: Yes Status: Acute Category: Medical Code(s): M94.0 - Chondrocostal junction syndrome [Tietze] (3) Sepsis Current visit: Yes Status: Acute Category: Medical Code(s): A41.9 - Sepsis, unspecified organism (4) Viral pneumonia Current visit: Yes Status: Acute Category: Medical Code(s): J12.9 - Viral pneumonia, unspecified (5) DM (diabetes mellitus) Current visit: Yes Status: Chronic Qualifiers: Category: Medical Code(s): E11.9 - Type 2 diabetes mellitus without complications (6) HTN (hypertension) Current visit: Yes Status: Chronic Qualifiers: Category: Medical Code(s): I10 - Essential (primary) hypertension (7) SOB (shortness of breath) Current visit: Yes Status: Chronic Category: Medical Code(s): R06.02 - Shortness of breath (8) Chest pain Current visit: No Status: Acute Qualifiers: Category: Medical Code(s): R07.9 - Chest pain, unspecified - Assessment and plan all Dx Assessment and Plan for all problems:: Rounded with Dr. Rodríguez all orders per Anne
--- NOTE | 2019-07-05 09:25 | PC.NURSE ---
held morning insulin. patient glucose was 67 currently 97 but not wishing to eat much.
--- NOTE | 2019-07-05 10:57 | CA_ITS ---
APPROVED REPORT EXAM: Comprehensive 2D, Doppler, and color-flow Echocardiogram Research Leader: Larissa Singletary, RT(R) Ht: 6 ft 0 in Wt: 240lbs BSA: 2.30 BP: 167/81 mmHg Indications: CP, positive for coronavirus Echo Enhancing Agent Indication: Endocardial border delineation Agent(s) / Amount(s) Used: Definity 2 cc 2D Dimensions LVOT 2.15 cm (M/F) 1.5-2.5 M-Mode Dimensions RVDd 3.51 cm (0.9-2.6) LVDd 3.94 cm (3.5-5.7) LVDs 2.75 cm (3.5-5.7) IVSd 1.40 cm (0.6-1.1) PWd 1.02 cm (0.6-1.1) EF (Teich) 58.10% FS 30.20% EDV (Teich) 67.50 mL ESV (Teich) 28.30 mL LV Diastology E/A Ratio 0.84 Aortic Valve LVOT Max 187.00 (70-110 cm/s) LVOT VTI 30.58 cm Mitral Valve MV A Velocity 91.00 (40-130 cm/s) Left Ventricle Left atrium is mildly enlarged, left ventricle is normal size, there is asymmetrical septal hypertrophy consistent with hypertrophic cardiomyopathy, Definity contrast visualized to delineate the endocardial surfaces, there is hyperdynamic left ventricular systolic function, visually estimated ejection fraction over 65% with no regional wall motion abnormality. Right Ventricle Right atrium and right ventricle are normal size and contractility. Aortic Valve Aortic valve is minimally thickened and calcified, leaflet continue to display mobility, there is increased velocity seen in the left ventricular outflow tract resulting in a maximum gradient of 15 mmHg at rest likely secondary to dynamic obstruction aortic stenosis does not appear to be significant. There is no aortic insufficiency. Mitral Valve Mitral valve leaflets are minimally thickened, there is no mitral stenosis, there is mild mitral regurgitation. Tricuspid Valve Tricuspid valve is grossly normal, there is mild tricuspid regurgitation, tricuspid regurgitation jet velocity is inadequate for calculation of the right ventricular systolic pressure. Pulmonic Valve Pulmonic valve is poorly visualized. Great Vessels Aortic root is normal size. Pericardium No significant pericardial effusion noted. Conclusion 1. Mildly enlarged left atrium, normal left ventricular size, asymmetrical septal hypertrophy consistent with hypertrophic cardiomyopathy, the LVOT gradient was 15 mmHg. There is no obvious systolic anterior motion of the mitral valve leaflets seen. Grade 1 diastolic dysfunction seen without tissue Doppler evidence of raise left atrial pressure. There is no left ventricular thrombus seen, Definity contrast was utilized to delineate the endocardial surfaces. 2. Mild mitral and tricuspid regurgitation. 3. No significant pericardial effusion noted. Electronically signed by : Cuco Bryant, 07/06/2019 09:51:42
--- NOTE | 2019-07-05 12:39 | SW/DCPLANNER ---
Addendum entered by Muriel Frey 07/06/19 13:21: I have called and spoke with Roxann again today...Roxann stated she is not sure on answer and will have to call me back. Original Note: I have contacted Roxann with [facility] regarding requirements for this patient to admit back to [facility] once medically stable due to positive COVID-19. Roxann has stated she would need to speak with administration then contact me back.
--- NOTE | 2019-07-05 13:59 | HMH.CNCARD ---
History of Present Illness Consult date: 07/05/19 Requesting physician: Robbin Rodríguez Consult reason: chest pain Chief complaint: chest pain Additional Medical History:: 1. Coronary artery disease A. [facility], 01/2019, ANGIOGRAPHIC RESULTS The left main artery Normal The left anterior descending artery Normal The circumflex artery Large codominant and has a proximal 30 to 40% stenosis The right coronary artery Is codominant and has proximal and distal 10 to 20% stenoses The BASS ventriculogram reveals Hyperdynamic 80 to 85% The left ventricular end-diastolic pressure Elevated at 20 mmHg IMPRESSION Mild to moderate disease in the proximal codominant circumflex artery Hyperdynamic ejection fraction consistent with hypertensive heart disease Elevated LVEDP consistent with hypertensive heart disease PLAN 1. Aggressive risk factor modification 2. Treatment of severe diastolic hypertensive heart disease 3. LDL less than 55 4. Avoidance of tobacco products Electronically signed by : Keagan Del Rio, 01/22/2019 14:25:23 2. HTN/HHD/Hypertrophic Cardiomyopathy A. Echo, 01/2019, difficult study. Normal LV size, mild concentric LVH, EF 55 to 60% with no regional wall motion abnormality. There is late peaking systolic velocity seen in the LVOT raising the concerns for presence of dynamic obstruction. There is no obvious systolic anterior motion of the mitral valve leaflets. Mild MR and TR noted. B. Echo, 06/2019, confirming hypertrophic cardiomyopathy with ejection fraction greater than 65%. Again no evidence of JALEEL noted but evidence of dynamic obstruction related to asymmetric septal hypertrophy. 3. Diabetes mellitus 4. Hyperlipidemia A. LDL 57, 01/2019 5. History of multiple CVAs 6. History of seizure disorder History of present illness: 53-year-old pleasant gentleman presents the ED from [facility] with a one-week history of general malaise, arthralgias, sore throat, slight headache, a subjective and objective fever with a T-max of 102.5 here in the ED his fever is 101.1, a nonproductive cough and mild shortness of breath. She was also complaining about left-sided chest pain as well. Patient states that he does not have a cardiac history. Patient also states that he has really not been exposed to anyone outside the facility even though he can walk to the store but he said states to me that he has not left the facility in over 10 days. Patient also states that he feels a lot of shakes and chills presently and has an overwhelming sense of feeling bad. Patient does have several comorbidities that include uncontrolled diabetes mellitus type 2, hyperlipidemia, hypertension, patient denies any smoking but he does have a smoking history. Patient also denies any illicit drug use. Patient does have an underlying mood disorder not otherwise specified. He is on olanzapine and Haldol. Also patient does have elevated body temperature at 101.1 and a heart rate at 101 presently and this work-up thus far he does meet 2 of the sirs criteria. Given the fact the patient had elevated heart rate, fever, a source of infection with viral pneumonia, and a lactic of 2.2 he does meet sepsis criteria. Fluid bolus and IV antibiotics have been initiated. Patient is also SARS-CoV-2 positive. I spoke to Dr. Kothari for admission for this patient The above per Dr. Rivera Patient describes the chest pain as a throbbing sensation that has been ongoing for several days. Cardiology was consulted due to elevated troponins in the setting of COVID-19 positive. Recent cardiac catheterization and January 2019 showed only mild to moderate coronary artery disease with hyperdynamic ejection fraction. Echocardiogram today with Definity contrast again shows normal LV size but with evidence of hypertrophic cardiomyopathy. [facility] History Medical History: Reports:: Coronary Artery Disease, Cerebrovascular Accident, Diabetes Mellitus Ty
--- NOTE | 2019-07-05 17:16 | PC.NURSE ---
patient has had a good day. remains on 1 l o2. has had no complaints. been incontinent of urine. has sat on side of bed at times. not eating a lot. fsbs has remained <100 even with out giving morning insulin. will continue to monitor this. vitals have been stable.
[2019-07-06] VITALS (11 sets, daily range): BP systolic 135–170; BP diastolic 79–93; PULSE 68–80; RESP 14–22; TEMP 36.7–37.8; O2SAT 85–95; BMI 31.8
--- NOTE | 2019-07-06 00:46 | PC.NURSE ---
PT. FEBRILE THIS SHIFT, ADMINISTERED TYLENOL PER APR AND INITIATED ACTIVE COOLING MEASURES. 0000 AXILLARY TEMP 99.9. 0020- MD DINORAH NOTIFIED. NEW ORDERS: RECHECK TEMP IN 30 MIN., IF ABOVE 100.4, ADMINISTER TYLENOL 650 MG PO X1, CONTINUE WITH Q6H PRN SCHEDULE.
--- NOTE | 2019-07-06 03:17 | PC.NURSE ---
NONPRODUCTIVE INTERMITTENT COUGH NOTED WITH L LOBE EXPIRATORY RHONCHI. WHILE AWAKE RA O2 SAT 90-93%; WHILE ASLEEP RA O2 SAT 86-88% AND 90-95% ON 0.5L NC. PT. HAS NOT C/O SOA, N/V/D, OR DIZZINESS THIS SHIFT.
[2019-07-06 05:54] LABS: Anion Gap 10.4 mEq/L (5-15); Blood Urea Nitrogen 14 mg/dl (9-20); Calcium 8.3 mg/dl (8.4-10.2); Carbon Dioxide 26 mmol/L (22.0-30.0); Chloride 105 mmol/L (98-107); Creatinine Clearance Estimated 144 mL/min (50-200); Estimated Glomerular Filt Rate 88 ml/min (>60); GFR (African American) 106 ML/MIN (>60); Glucose 106 mg/dl (74-100); Potassium 3.4 mmoL/L (3.5-5.1); Sodium 138 mmol/L (136-145)
[2019-07-06 06:19] LABS: Basophils # 0.1 K/mm3 (0-0.2); Basophils % 0.9 % (0.1-2.0); Eosinophils # 0.1 K/mm3 (0.0-0.4); Eosinophils % 1.4 % (0.1-12.0); Hematocrit 34.9 % (42.0-52.0); Lymphocytes # 1.6 K/mm3 (0.7-4.5); Lymphocytes % 26.9 % (10-50); Mean Corpuscular HGB Conc 34.3 g/dL (31.8-35.4); Mean Corpuscular Hemoglobin 29.5 pg (27.0-31.2); Mean Corpuscular Volume 85.9 fl (80-94); Mean Platelet Volume 8.8 fl (7.4-10.4); Monocytes # 0.4 K/mm3 (0.1-1.0); Monocytes % 5.7 % (1.7-9.3); Neutrophils # 3.9 K/mm3 (1.8-7.8); Platelet Count 164 K/mm3 (142-424); Red Blood Count 4.07 M/mm3 (4.60-6.20); Red Cell Distribution Width 14.8 % (11.5-17.5)
--- NOTE | 2019-07-06 08:54 | P.PN_ITS ---
Internal Medicine - PN: Subj *Date: 07/06/19 *Time: 08:54 Interval history: Patient states chest pain continues Exam Vital signs and Labs for Last 24 Hours: Temp Pulse Resp BP Pulse Ox 100.0 F H 72 20 143/88 H 93 L 07/06/19 04:00 07/06/19 04:00 07/06/19 04:00 07/06/19 04:00 07/06/19 04:00 Laboratory Results - last 24 hr 07/06/19 05:10: WBC 6.0, RBC 4.07 L, Hgb 12.0 L, Hct 34.9 L, MCV 85.9, MCH 29.5, MCHC 34.3, RDW 14.8, Plt Count 164, MPV 8.8, Neut % (Auto) 65.0, Lymph % (Auto) 26.9, [place] % (Auto) 5.7, Eos % (Auto) 1.4, Baso % (Auto) 0.9, Neut # (Auto) 3.9, Lymph # (Auto) 1.6, [place] # (Auto) 0.4, Eos # (Auto) 0.1, Baso # (Auto) 0.1 07/06/19 05:10: Sodium 138, Potassium 3.4 L, Chloride 105, Carbon Dioxide 26, Anion Gap 10.4, BUN 14, Creatinine 0.90, Estimated Creat Clear 144, Estimated GFR 88, Est GFR ( Amer) 106, Glucose 106 H D, Calcium 8.3 L I & O for Last 24 hours: Intake & Output 07/03/19 07/04/19 07/05/19 07/06/19 11:59 11:59 11:59 11:59 Intake Total 490 / 490 600 / 600 930 / 930 600 / 600 Output Total 250 / 250 600 / 600 500 / 500 Balance 240 / 240 0 / 0 430 / 430 600 / 600 Weight 260 lb 240 lb 1.75 oz 240 lb - Constitutional no acute distress, obese - *Routine HEENT Exam Head: Present: normocephalic Eye: Present: PERRL ENT: Present: mucous membranes moist - *Routine Neck Exam Present: supple. Absent: lymphadenopathy - *Routine Respiratory Exam Present: CTA bilaterally - *Routine Cardiovascular Exam Present: RRR - *Routine Abdominal Exam Present: soft, normoactive bowel sounds. Absent: tenderness - *Routine Extremities Exam Present: normal capillary refill. Absent: cyanosis, clubbing, edema - *Routine Skin Exam Present: dry, warm. Absent: rash - *Routine Neurological Exam Present: alert - Routine Psychiatric Exam Present: normal affect Assessment and Plan (1) COVID-19 virus detected Current visit: Yes Status: Acute Category: Medical Code(s): U07.1 - COVID- 19 (2) Costalchondritis Current visit: Yes Status: Acute Category: Medical Code(s): M94.0 - Chondrocostal junction syndrome [Tietze] (3) Sepsis Current visit: Yes Status: Acute Category: Medical Code(s): A41.9 - Sepsis, unspecified organism (4) Viral pneumonia Current visit: Yes Status: Acute Category: Medical Code(s): J12.9 - Viral pneumonia, unspecified (5) DM (diabetes mellitus) Current visit: Yes Status: Chronic Qualifiers: Category: Medical Code(s): E11.9 - Type 2 diabetes mellitus without complications (6) HTN (hypertension) Current visit: Yes Status: Chronic Qualifiers: Category: Medical Code(s): I10 - Essential (primary) hypertension (7) SOB (shortness of breath) Current visit: Yes Status: Chronic Category: Medical Code(s): R06.02 - Shortness of breath (8) Chest pain Current visit: No Status: Acute Qualifiers: Category: Medical Code(s): R07.9 - Chest pain, unspecified - Assessment and plan all Dx Assessment and Plan for all problems:: Rounded with Dr. Rodríguez all orders per Anne Continue cardiology consult chest pain
--- NOTE | 2019-07-06 09:21 | HMH.PNCARD ---
Subjective Date: 07/06/19 Time: 09:21 Principal diagnosis: elevated troponins, COVID-19 positive Interval history: 53-year-old black male lying in bed in reverse isolation room in no acute distress. When asked about chest pain patient does confirm it but states it is reproducible with breathing and also upon palpation of his chest. Patient mistakenly thought his TV remote control was a financial aid counselor. Exam Vital signs and Labs for Last 24 Hours: Temp Pulse Resp BP Pulse Ox 100.0 F H 72 20 143/88 H 95 07/06/19 04:00 07/06/19 04:00 07/06/19 04:00 07/06/19 04:00 07/06/19 08:00 Laboratory Results - last 24 hr 07/06/19 05:10: WBC 6.0, RBC 4.07 L, Hgb 12.0 L, Hct 34.9 L, MCV 85.9, MCH 29.5, MCHC 34.3, RDW 14.8, Plt Count 164, MPV 8.8, Neut % (Auto) 65.0, Lymph % (Auto) 26.9, [place] % (Auto) 5.7, Eos % (Auto) 1.4, Baso % (Auto) 0.9, Neut # (Auto) 3.9, Lymph # (Auto) 1.6, [place] # (Auto) 0.4, Eos # (Auto) 0.1, Baso # (Auto) 0.1 07/06/19 05:10: Sodium 138, Potassium 3.4 L, Chloride 105, Carbon Dioxide 26, Anion Gap 10.4, BUN 14, Creatinine 0.90, Estimated Creat Clear 144, Estimated GFR 88, Est GFR ( Amer) 106, Glucose 106 H D, Calcium 8.3 L I & O for Last 24 hours: Intake & Output 07/03/19 07/04/19 07/05/19 07/06/19 11:59 11:59 11:59 11:59 Intake Total 490 / 490 600 / 600 930 / 930 600 / 600 Output Total 250 / 250 600 / 600 500 / 500 Balance 240 / 240 0 / 0 430 / 430 600 / 600 Weight 260 lb 240 lb 1.75 oz 240 lb - *Routine HEENT Exam Head: Present: normocephalic Eye: Present: EOMI, PERRL ENT: Present: mucous membranes moist - *Routine Respiratory Exam Present: rhonchi, diminished air movement. Absent: accessory muscle use, rales, wheezes - *Routine Cardiovascular Exam Present: RRR. Absent: murmur, gallop, rubs - *Routine Neurological Exam Present: alert, moving all extremities Progress Note: A&P (1) COVID-19 virus detected Status: Acute Current Visit: Yes (2) Costalchondritis Status: Acute Current Visit: Yes (3) Sepsis Status: Acute Current Visit: Yes (4) Viral pneumonia Status: Acute Current Visit: Yes (5) DM (diabetes mellitus) Status: Chronic Current Visit: Yes (6) HTN (hypertension) Status: Chronic Current Visit: Yes (7) SOB (shortness of breath) Status: Chronic Current Visit: Yes (8) Chest pain Status: Acute Current Visit: No Assessment and Plan for All Diagnoses:: 1. Chest pain, multifactorial (costochondritis, possible pleurisy related to pneumonia and possible myocarditis related to COVID-19 infection). No pericardial friction rub on exam. Will give a dose of toradol to see if symptoms improve. 2. Non-flow limiting (mild to moderate) CAD by cath, 01/2019. Continue ASA, metoprolol, verapamil, isosorbide and ARB therapy. 3. Hypertrophic cardiomyopathy, continue metoprolol and verapamil. 4. COVID 19 infection, only requiring minimal supplemental oxygen 5. DM, per Dr. Rodríguez 6. History of CVA's and seizure disorder. 7. Hypokalemia, will supplement today. Nothing further to add. Will see as needed.
[2019-07-06 11:20] LABS: POC Glucose,Bedside 111 (70-110)
[2019-07-06 11:20] LABS: POC Glucose,Bedside 67 (70-110)
[2019-07-06 11:20] LABS: POC Glucose,Bedside 93 (70-110)
[2019-07-06 11:20] LABS: POC Glucose,Bedside 174 (70-110)
[2019-07-06 11:20] LABS: POC Glucose,Bedside 177 (70-110)
[2019-07-06 11:20] LABS: POC Glucose,Bedside 104 (70-110)
[2019-07-06 11:20] LABS: POC Glucose,Bedside 104 (70-110)
[2019-07-06 11:20] LABS: POC Glucose,Bedside 90 (70-110)
[2019-07-06 11:20] LABS: POC Glucose,Bedside 100 (70-110)
[2019-07-06 11:24] LABS: POC Glucose,Bedside 176 (70-110)
--- NOTE | 2019-07-06 11:33 | P.PN_ITS ---
Internal Medicine - PN: Subj *Date: 07/06/19 *Time: 11:33 Exam Vital signs and Labs for Last 24 Hours: Temp Pulse Resp BP Pulse Ox 98.6 F 75 15 152/88 H 95 07/06/19 11:32 07/06/19 11:32 07/06/19 11:32 07/06/19 11:32 07/06/19 11:33 Laboratory Results - last 24 hr 07/04/19 11:01: POC Glucose 111 H 07/04/19 15:58: POC Glucose 177 H 07/04/19 20:52: POC Glucose 174 H 07/05/19 05:58: POC Glucose 67 L 07/05/19 09:18: POC Glucose 93 07/05/19 10:46: POC Glucose 90 07/05/19 17:13: POC Glucose 100 07/05/19 20:08: POC Glucose 104 07/06/19 05:10: WBC 6.0, RBC 4.07 L, Hgb 12.0 L, Hct 34.9 L, MCV 85.9, MCH 29.5, MCHC 34.3, RDW 14.8, Plt Count 164, MPV 8.8, Neut % (Auto) 65.0, Lymph % (Auto) 26.9, [place] % (Auto) 5.7, Eos % (Auto) 1.4, Baso % (Auto) 0.9, Neut # (Auto) 3.9, Lymph # (Auto) 1.6, [place] # (Auto) 0.4, Eos # (Auto) 0.1, Baso # (Auto) 0.1 07/06/19 05:10: Sodium 138, Potassium 3.4 L, Chloride 105, Carbon Dioxide 26, Anion Gap 10.4, BUN 14, Creatinine 0.90, Estimated Creat Clear 144, Estimated GFR 88, Est GFR ( Amer) 106, Glucose 106 H D, Calcium 8.3 L 07/06/19 06:30: POC Glucose 104 07/06/19 11:17: POC Glucose 176 H I & O for Last 24 hours: Intake & Output 07/03/19 07/04/19 07/05/19 07/06/19 23:59 23:59 23:59 23:59 Intake Total 960 / 960 750 / 750 900 / 900 Output Total 850 / 850 500 / 500 Balance 110 / 110 250 / 250 900 / 900 Weight 117.934 kg 118 kg 108.912 kg 108.862 kg Assessment and Plan (1) COVID-19 virus detected Current visit: Yes Status: Acute Category: Medical Code(s): U07.1 - COVID- 19 (2) Costalchondritis Current visit: Yes Status: Acute Category: Medical Code(s): M94.0 - Chondrocostal junction syndrome [Tietze] (3) Sepsis Current visit: Yes Status: Acute Category: Medical Code(s): A41.9 - Sepsis, unspecified organism (4) Viral pneumonia Current visit: Yes Status: Acute Category: Medical Code(s): J12.9 - Viral pneumonia, unspecified (5) DM (diabetes mellitus) Current visit: Yes Status: Chronic Qualifiers: Category: Medical Code(s): E11.9 - Type 2 diabetes mellitus without complica tions (6) HTN (hypertension) Current visit: Yes Status: Chronic Qualifiers: Category: Medical Code(s): I10 - Essential (primary) hypertension (7) SOB (shortness of breath) Current visit: Yes Status: Chronic Category: Medical Code(s): R06.02 - Shortness of breath (8) Chest pain Current visit: No Status: Acute Qualifiers: Category: Medical Code(s): R07.9 - Chest pain, unspecified The patient's infection will respond to the chosen ABx?: Yes Is the patient receiving the right drug, dose, and route?: Yes Could a more targeted ABx be ordered?: No
--- NOTE | 2019-07-06 12:19 | PC.NURSE ---
PATIENT WAS ENCOURAGED TO SIT ON THE SIDE OF THE BED FOR LUNCH. HE STATES HE DOESNT FEEL GOOD AND IS TOO TIRED TO EAT RIGHT NOW. WILL CONTINUE TO MONITOR
--- NOTE | 2019-07-06 15:31 | DIET.NUTRFU ---
Intakes ~25%, weight is stable, BG have been mostly wnl with some highs <200 and one instance of am hypoglycemia. Continuing to monitor closely and reevaluate need for diabetic diet as indicated.
[2019-07-06 17:33] LABS: POC Glucose,Bedside 144 (70-110)
--- NOTE | 2019-07-06 19:11 | PC.NURSE ---
PATIENT IS CURRENTLY RESTING IN BED WITH EYES CLOSED. HE HAS DENIED PAIN T/O SHIFT. HAD TO BE PUT ON 2LNC AROUND LUNCH TIME DUE TO DESAT TO LOWER 80S. ONCE HE WOKE UP AROUND 2PM HE WAS A&OX4 AND WAS ABLE TO COME OFF OF THE NC. CALL LIGHT WITHIN REACH. WILL CONTINUE TO MONITOR.
[2019-07-07] VITALS: BP 162/80; PULSE 80; PULSE 81; RESP 20; TEMP 36.7; O2SAT 94
[2019-07-07 01:51] LABS: POC Glucose,Bedside 175 (70-110)
--- NOTE | 2019-07-07 02:22 | PC.NURSE ---
patient has required several linens changes throughout shift for incontinence of urine. has been impulse attempting to get out of bed on multiple occasions. will continue to monitor.
[2019-07-07 04:00] VITALS: BP 169/79; PULSE 81; PULSE 84; RESP 20; TEMP 37.2; O2SAT 92
[2019-07-07 05:40] LABS: Basophils # 0.1 K/mm3 (0-0.2); Basophils % 0.9 % (0.1-2.0); Eosinophils # 0.1 K/mm3 (0.0-0.4); Eosinophils % 1.6 % (0.1-12.0); Hematocrit 39.7 % (42.0-52.0); Lymphocytes # 1.4 K/mm3 (0.7-4.5); Lymphocytes % 21.8 % (10-50); Mean Corpuscular HGB Conc 33.4 g/dL (31.8-35.4); Mean Corpuscular Hemoglobin 29.3 pg (27.0-31.2); Mean Corpuscular Volume 87.9 fl (80-94); Mean Platelet Volume 8.8 fl (7.4-10.4); Monocytes # 0.3 K/mm3 (0.1-1.0); Monocytes % 4.3 % (1.7-9.3); Neutrophils # 4.6 K/mm3 (1.8-7.8); Neutrophils % 71.3 % (37.0-80.0); Platelet Count 196 K/mm3 (142-424); Red Blood Count 4.52 M/mm3 (4.60-6.20); Red Cell Distribution Width 14.7 % (11.5-17.5); White Blood Count 6.5 K/mm3 (4.8-10.8)
[2019-07-07 05:44] LABS: Hemoglobin 13.3 g/dL (14.1-18.0)
[2019-07-07 05:49] LABS: Blood Urea Nitrogen 16 mg/dl (9-20); Calcium 9.1 mg/dl (8.4-10.2); Carbon Dioxide 25 mmol/L (22.0-30.0); Chloride 103 mmol/L (98-107); Creatinine Clearance Estimated 144 mL/min (50-200); Estimated Glomerular Filt Rate 88 ml/min (>60); GFR (African American) 106 ML/MIN (>60); Sodium 139 mmol/L (136-145)
[2019-07-07 05:59] LABS: Glucose 183 mg/dl (74-100)
[2019-07-07 08:00] VITALS: BP 160/85; PULSE 80; PULSE 84; RESP 18; RESP 20; TEMP 38.3; O2SAT 90; O2SAT 92
--- NOTE | 2019-07-07 09:13 | HMH.ACPN2 ---
Internal Medicine - PN: Subj *Date: 07/09/19 *Time: 10:51 Interval history: doing better - low grade temp - sidney diet -oob Exam Vital signs and Labs for Last 24 Hours: Temp Pulse Resp BP Pulse Ox 100.9 F H 80 20 160/85 H 92 L 07/07/19 08:00 07/07/19 08:00 07/07/19 08:00 07/07/19 08:00 07/07/19 08:00 Laboratory Results - last 24 hr 07/04/19 11:01: POC Glucose 111 H 07/04/19 15:58: POC Glucose 177 H 07/04/19 20:52: POC Glucose 174 H 07/05/19 05:58: POC Glucose 67 L 07/05/19 09:18: POC Glucose 93 07/05/19 10:46: POC Glucose 90 07/05/19 17:13: POC Glucose 100 07/05/19 20:08: POC Glucose 104 07/06/19 06:30: POC Glucose 104 07/06/19 11:17: POC Glucose 176 H 07/06/19 17:01: POC Glucose 144 H 07/06/19 20:03: POC Glucose 175 H 07/07/19 04:21: WBC 6.5, RBC 4.52 L, Hgb 13.3 L D, Hct 39.7 L, MCV 87.9, MCH 29.3, MCHC 33.4, RDW 14.7, Plt Count 196, MPV 8.8, Neut % (Auto) 71.3, Lymph % (Auto) 21.8, [place] % (Auto) 4.3, Eos % (Auto) 1.6, Baso % (Auto) 0.9, Neut # (Auto) 4.6, Lymph # (Auto) 1.4, [place] # (Auto) 0.3, Eos # (Auto) 0.1, Baso # (Auto) 0.1 07/07/19 04:21: Sodium 139, Potassium 4.0, Chloride 103, Carbon Dioxide 25, Anion Gap 15.0, BUN 16, Creatinine 0.90, Estimated Creat Clear 144, Estimated GFR 88, Est GFR ( Amer) 106, Glucose 183 H D, Calcium 9.1 I & O for Last 24 hours: Intake & Output 05/2707/05/19 07/06/19 07/07/19 11:59 11:59 11:59 11:59 Intake Total 600 / 600 930 / 930 600 / 600 1010 / 1010 Output Total 600 / 600 500 / 500 Balance 0 / 0 430 / 430 600 / 600 1010 / 1010 Weight 240 lb 1.75 oz 240 lb - Constitutional no acute distress, obese - *Routine HEENT Exam Head: Present: normocephalic Eye: Present: EOMI, PERRL ENT: Present: mucous membranes dry - *Routine Neck Exam Absent: JVD - *Routine Respiratory Exam Present: decreased breath sounds - *Routine Cardiovascular Exam Present: RRR, murmur - *Routine Abdominal Exam Present: soft. Absent: tenderness - *Routine Extremities Exam Absent: calf tenderness - *Routine Skin Exam Present: intact - *Routine Neurological Exam Present: alert, CN II-XII intact - Routine Psychiatric Exam Present: normal affect Assessment and Plan (1) COVID-19 virus detected Current visit: Yes Status: Acute Category: Medical Code(s): U07.1 - COVID-19 (2) Costalchondritis Current visit: Yes Status: Acute Category: Medical Code(s): M94.0 - Chondrocostal junction syndrome [Tietze] (3) Sepsis Current visit: Yes Status: Acute Category: Medical Code(s): A41.9 - Sepsis, unspecified organism (4) Viral pneumonia Current visit: Yes Status: Acute Category: Medical Code(s): J12.9 - Viral pneumonia, unspecified (5) DM (diabetes mellitus) Current visit: Yes Status: Chronic Qualifiers: Category: Medical Code(s): E11.9 - Type 2 diabetes mellitus without complications (6) HTN (hypertension) Current visit: Yes Status: Chronic Qualifiers: Category: Medical Code(s): I10 - Essential (primary) hypertension (7) SOB (shortness of breath) Current visit: Yes Status: Chronic Category: Medical Code(s): R06.02 - Shortness of breath (8) Chest pain Current visit: No Status: Acute Qualifiers: Category: Medical Code(s): R07.9 - Chest pain, unspecified (9) Obesity (BMI 30.0-34.9) Current visit: No Status: Acute Category: Medical Code(s): E66.9 - Obesity, unspecified (10) Pneumonia due to COVID-19 virus Current visit: Yes Status: Acute Category: Medical Code(s): U07.1 - COVID-19; J12.89 - Other viral pneumonia (11) Hypertrophic cardiomyopathy Current visit: Yes Status: Acute Category: Medical Code(s): I42.2 - Other hypertrophic cardiomyopathy
[2019-07-07 12:00] VITALS: BP 163/82; PULSE 70; PULSE 74; RESP 20; TEMP 37.1; O2SAT 94
[2019-07-07 12:15] LABS: POC Glucose,Bedside 213 (70-110)
[2019-07-07 16:00] VITALS: BP 142/69; PULSE 70; PULSE 77; RESP 18; TEMP 37.1; O2SAT 96
--- NOTE | 2019-07-07 17:34 | PC.NURSE ---
No acute changes noted this shift, patient has remained on RA this shift, denies any SOA or difficulty breathing, pt has been up to chair this shift for approximately two hours, had to be redirected multiple times to stay in chair and not to get up without calling out for assistance, appetite fair, vss, no s/s of distress noted, will continue to monitor for changes.
[2019-07-07 17:39] LABS: POC Glucose,Bedside 125 (70-110)
[2019-07-07 20:00] VITALS: BP 159/74; PULSE 79; PULSE 80; RESP 18; TEMP 37.7; O2SAT 92
[2019-07-07 23:17] LABS: POC Glucose,Bedside 177 (70-110)
[2019-07-08] VITALS (7 sets, daily range): BP systolic 150–165; BP diastolic 60–84; PULSE 70–80; RESP 17–24; TEMP 36.6–37.3; O2SAT 90–97; BMI 34.4
--- NOTE | 2019-07-08 02:47 | PC.NURSE ---
Pt has been in bed, sleeping with no objective s/s of pain or respiratory distress, remains on room air. Pt is slow to follow directions. Temp 99.8 at 2000, 99.1 at midnight. Thus far pt has been resting in bed, no attempts to get oob unassisted. Incontinent of urine, bathed with linen change r/t incontinence. Nothing acute this shift, NSR read on tele, no c/o pain or difficulty breathing. Presently sleeping with no objective s/s of pain or difficulty breathing noted, monitoring continues.
[2019-07-08 07:25] LABS: Basophils # 0.1 K/mm3 (0-0.2); Basophils % 1.9 % (0.1-2.0); Eosinophils % 0.4 % (0.1-12.0); Hematocrit 41.9 % (42.0-52.0); Lymphocytes # 1.6 K/mm3 (0.7-4.5); Lymphocytes % 25.5 % (10-50); Mean Corpuscular HGB Conc 33.5 g/dL (31.8-35.4); Mean Corpuscular Hemoglobin 29.8 pg (27.0-31.2); Mean Corpuscular Volume 89.1 fl (80-94); Mean Platelet Volume 9.1 fl (7.4-10.4); Monocytes # 0.3 K/mm3 (0.1-1.0); Monocytes % 4.6 % (1.7-9.3); Neutrophils # 4.3 K/mm3 (1.8-7.8); Neutrophils % 67.6 % (37.0-80.0); Platelet Count 173 K/mm3 (142-424); Red Cell Distribution Width 14.8 % (11.5-17.5); White Blood Count 6.3 K/mm3 (4.8-10.8)
[2019-07-08 07:27] LABS: Chloride 106 mmol/L (98-107); Potassium 3.8 mmoL/L (3.5-5.1); Sodium 140 mmol/L (136-145)
[2019-07-08 07:30] LABS: Anion Gap 11.8 mEq/L (5-15); Blood Urea Nitrogen 15 mg/dl (9-20); Calcium 9.3 mg/dl (8.4-10.2); Carbon Dioxide 26 mmol/L (22.0-30.0); Creatinine Clearance Estimated 157 mL/min (50-200); Estimated Glomerular Filt Rate 88 ml/min (>60); GFR (African American) 106 ML/MIN (>60); Glucose 70 mg/dl (74-100)
[2019-07-08 08:54] LABS: POC Glucose,Bedside 108 (70-110)
[2019-07-08 11:06] LABS: POC Glucose,Bedside 94 (70-110)
[2019-07-08 15:45] LABS: POC Glucose,Bedside 91 (70-110)
--- NOTE | 2019-07-08 16:12 | HMH.ACPN2 ---
Internal Medicine - PN: Subj *Date: 07/09/19 *Time: 10:58 Interval history: more alert oob in chair Exam Vital signs and Labs for Last 24 Hours: Temp Pulse Resp BP Pulse Ox 98.2 F 77 20 165/73 H 92 L 07/08/19 12:00 07/08/19 12:00 07/08/19 12:00 07/08/19 12:00 07/08/19 12:00 Laboratory Results - last 24 hr 07/07/19 16:11: POC Glucose 125 H 07/07/19 21:17: POC Glucose 177 H 07/08/19 06:00: WBC 6.3, RBC 4.70, Hgb 14.0 L, Hct 41.9 L, MCV 89.1, MCH 29.8, MCHC 33.5, RDW 14.8, Plt Count 173, MPV 9.1, Neut % (Auto) 67.6, Lymph % (Auto) 25.5, [place] % (Auto) 4.6, Eos % (Auto) 0.4, Baso % (Auto) 1.9, Neut # (Auto) 4.3, Lymph # (Auto) 1.6, [place] # (Auto) 0.3, Eos # (Auto) 0.0, Baso # (Auto) 0.1 07/08/19 06:00: Sodium 140, Potassium 3.8, Chloride 106, Carbon Dioxide 26, Anion Gap 11.8, BUN 15, Creatinine 0.90, Estimated Creat Clear 157, Estimated GFR 88, Est GFR ( Amer) 106, Glucose 70 L, Calcium 9.3 07/08/19 08:47: POC Glucose 108 07/08/19 10:58: POC Glucose 94 07/08/19 15:35: POC Glucose 91 I & O for Last 24 hours: Intake & Output 07/06/19 07/07/19 07/08/19 07/09/19 11:59 11:59 11:59 11:59 Intake Total 600 / 600 1250 / 1370 1020 / 1020 Output Total 500 / 500 Balance 600 / 600 1250 / 1370 520 / 520 Weight 240 lb 260 lb Microbiology Reports for the Last 24 Hours: Microbiology 07/02/19 13:41 Blood Blood Culture - Final NO GROWTH AFTER 5 DAYS 07/02/19 13:41 Blood Blood Culture - Final NO GROWTH AFTER 5 DAYS - Constitutional no acute distress, obese - *Routine HEENT Exam Head: Present: normocephalic Eye: Present: EOMI, PERRL ENT: Present: mucous membranes dry - *Routine Neck Exam Present: supple - *Routine Respiratory Exam Absent: decreased breath sounds - *Routine Cardiovascular Exam Present: RRR, murmur - *Routine Abdominal Exam Present: soft - *Routine Extremities Exam Absent: calf tenderness - *Routine Skin Exam Present: intact - *Routine Neurological Exam Present: alert, CN II-XII intact - Routine Psychiatric Exam Present: normal affect Assessment and Plan (1) COVID-19 virus detected Current visit: Yes Status: Acute Category: Medical Code(s): U07.1 - COVID-19 (2) Costalchondritis Current visit: Yes Status: Acute Category: Medical Code(s): M94.0 - Chondrocostal junction syndrome [Tietze] (3) Sepsis Current visit: Yes Status: Acute Category: Medical Code(s): A41.9 - Sepsis, unspecified organism (4) Viral pneumonia Current visit: Yes Status: Acute Category: Medical Code(s): J12.9 - Viral pneumonia, unspecified (5) DM (diabetes mellitus) Current visit: Yes Status: Chronic Qualifiers: Category: Medical Code(s): E11.9 - Type 2 diabetes mellitus without complications (6) HTN (hypertension) Current visit: Yes Status: Chronic Qualifiers: Category: Medical Code(s): I10 - Essential (primary) hypertension (7) SOB (shortness of breath) Current visit: Yes Status: Chronic Category: Medical Code(s): R06.02 - Shortness of breath (8) Chest pain Current visit: No Status: Acute Qualifiers: Category: Medical Code(s): R07.9 - Chest pain, unspecified (9) Hypertrophic cardiomyopathy Current visit: Yes Status: Acute Category: Medical Code(s): I42.2 - Other hypertrophic cardiomyopathy (10) Pneumonia due to COVID-19 virus Current visit: Yes Status: Acute Category: Medical Code(s): U07.1 - COVID-19; J12.89 - Other viral pneumonia
[2019-07-08 21:29] LABS: POC Glucose,Bedside 98 (70-110)
[2019-07-09] VITALS: BP 143/68; PULSE 84; RESP 18; TEMP 37.7; O2SAT 94
[2019-07-09 04:00] VITALS: BP 142/73; PULSE 79; RESP 20; TEMP 36.2; O2SAT 94
[2019-07-09 05:00] VITALS: BMI 30.4
--- NOTE | 2019-07-09 05:09 | PC.NURSE ---
Pt is only alert to self and has be reoriented on place multiple times during this shift. Pt educated on ringing for assistance to get up to chair, needs reinforcement.Pt is incontinent of bladder, no BM this shift. Linens changed. 2LNC remains in place although pt removes NC often, sats in mid-to-low 90's. No complaints reported from pt. PO intake has been encouraged often but is poor. Will continue to monitor.
[2019-07-09 05:49] LABS: POC Glucose,Bedside 53 (70-110)
[2019-07-09 05:54] LABS: Basophils # 0.1 K/mm3 (0-0.2); Basophils % 0.6 % (0.1-2.0); Eosinophils % 0.2 % (0.1-12.0); Lymphocytes # 1.9 K/mm3 (0.7-4.5); Lymphocytes % 25.1 % (10-50); Mean Corpuscular HGB Conc 32.7 g/dL (31.8-35.4); Mean Corpuscular Hemoglobin 29.5 pg (27.0-31.2); Mean Corpuscular Volume 90.2 fl (80-94); Mean Platelet Volume 8.4 fl (7.4-10.4); Monocytes # 0.4 K/mm3 (0.1-1.0); Monocytes % 4.9 % (1.7-9.3); Neutrophils # 5.2 K/mm3 (1.8-7.8); Neutrophils % 69.2 % (37.0-80.0); Platelet Count 177 K/mm3 (142-424); Red Blood Count 4.22 M/mm3 (4.60-6.20); White Blood Count 7.5 K/mm3 (4.8-10.8)
[2019-07-09 05:57] LABS: Hemoglobin 12.4 g/dL (14.1-18.0)
[2019-07-09 06:17] LABS: Chloride 105 mmol/L (98-107); Potassium 3.7 mmoL/L (3.5-5.1); Sodium 138 mmol/L (136-145)
[2019-07-09 06:20] LABS: Blood Urea Nitrogen 17 mg/dl (9-20); Creatinine Clearance Estimated 125 mL/min (50-200); Estimated Glomerular Filt Rate 78 ml/min (>60); GFR (African American) 94 ML/MIN (>60)
[2019-07-09 06:21] LABS: Anion Gap 8.7 mEq/L (5-15); Calcium 8.9 mg/dl (8.4-10.2); Carbon Dioxide 28 mmol/L (22.0-30.0)
[2019-07-09 06:36] LABS: Glucose 49 mg/dl (74-100)
--- NOTE | 2019-07-09 06:40 | PC.NURSE ---
Pt 0600 FS was 53. Pt is A&O to baseline at this time. Pt given 12oz of orange juice w/ a packet of sugar added. Glucose at 0631 was 61. Critical blood glucose of 49 reported to MD Sarkis at 0640. Orders given to this RN to d/c insulin.
[2019-07-09 06:41] LABS: POC Glucose,Bedside 61 (70-110)
[2019-07-09 07:47] LABS: POC Glucose,Bedside 61 (70-110)
[2019-07-09 08:00] VITALS: BP 137/75; PULSE 76; RESP 20; TEMP 37.7; O2SAT 93; O2SAT 95
--- NOTE | 2019-07-09 09:23 | XR_ITS ---
PROCEDURE: XR ACUTE ABDOMEN SERIES CLINICAL INDICATION: abd pain Covid 19 COMPARISON: CT CHEST WO CON from 07/02/2019 XR CHEST PORTABLE from 07/02/2019 FINDINGS: Frontal view of the chest shows cardiomegaly without failure. Patchy density is present in the right upper and right lower lobe. There are mild atelectatic changes in the left midlung. There are low lung volumes. Upright and supine views of the abdomen show moderate amount of retained colonic feces. No intestinal obstruction or free air. There is mild amount of gas in the stomach. No acute bony anomalies or abnormal calcifications. IMPRESSION: Low lung volumes with patchy density in the right upper and right lower lobe and in the left midlung. Atypical pneumonia/COVID 19 is considered Moderate amount of retained colonic feces Dictated by: Zach Rodriguez MD 07/09/2019 10:40 Electronically signed by Zach Rodriguez MD in [place] 07/09/2019 10:40
[2019-07-09 12:00] VITALS: BP 127/76; PULSE 77; RESP 16; TEMP 37.5; O2SAT 91
--- NOTE | 2019-07-09 12:45 | HMH.ACPN2 ---
Internal Medicine - PN: Subj *Date: 07/09/19 *Time: 09:15 Interval history: pt laying in bed states he was up in chair yesterday. Pt states he has chest wall pain Exam Vital signs and Labs for Last 24 Hours: Temp Pulse Resp BP Pulse Ox 99.5 F 77 16 127/76 91 L 07/09/19 12:00 07/09/19 12:00 07/09/19 12:00 07/09/19 12:00 07/09/19 12:00 Laboratory Results - last 24 hr 07/08/19 15:35: POC Glucose 91 07/08/19 20:25: POC Glucose 98 07/09/19 05:00: WBC 7.5, RBC 4.22 L, Hgb 12.4 L D, Hct 38.0 L, MCV 90.2, MCH 29.5, MCHC 32.7, RDW 15.0, Plt Count 177, MPV 8.4, Neut % (Auto) 69.2, Lymph % (Auto) 25.1, [place] % (Auto) 4.9, Eos % (Auto) 0.2, Baso % (Auto) 0.6, Neut # (Auto) 5.2, Lymph # (Auto) 1.9, [place] # (Auto) 0.4, Eos # (Auto) 0.0, Baso # (Auto) 0.1 07/09/19 05:00: Sodium 138, Potassium 3.7, Chloride 105, Carbon Dioxide 28, Anion Gap 8.7, BUN 17, Creatinine 1.00, Estimated Creat Clear 125, Estimated GFR 78, Est GFR ( Amer) 94, Glucose 49 L D, Calcium 8.9 07/09/19 05:26: POC Glucose 53 L 07/09/19 06:31: POC Glucose 61 L 07/09/19 07:39: POC Glucose 61 L I & O for Last 24 hours: Intake & Output 07/07/19 07/08/19 07/09/19 07/10/19 11:59 11:59 11:59 11:59 Intake Total 1250 / 1370 1020 / 1020 694 / 694 Output Total 500 / 500 Balance 1250 / 1370 520 / 520 694 / 694 Weight 260 lb 230 lb - Constitutional no acute distress, obese - *Routine HEENT Exam Head: Present: normocephalic Eye: Present: PERRL ENT: Present: mucous membranes moist - *Routine Neck Exam Present: supple. Absent: lymphadenopathy - *Routine Respiratory Exam Present: decreased breath sounds, CTA bilaterally - *Routine Cardiovascular Exam Present: RRR - *Routine Abdominal Exam Present: soft, normoactive bowel sounds, distended. Absent: tenderness - *Routine Extremities Exam Present: normal capillary refill. Absent: cyanosis, clubbing, edema - *Routine Skin Exam Present: warm. Absent: rash - *Routine Neurological Exam Present: alert - Routine Psychiatric Exam Present: normal affect Assessment and Plan (1) COVID-19 virus detected Current visit: Yes Status: Acute Category: Medical Code(s): U07.1 - COVID-19 (2) Costalchondritis Current visit: Yes Status: Acute Category: Medical Code(s): M94.0 - Chondrocostal junction syndrome [Tietze] (3) Sepsis Current visit: Yes Status: Acute Category: Medical Code(s): A41.9 - Sepsis, unspecified organism (4) Viral pneumonia Current visit: Yes Status: Acute Category: Medical Code(s): J12.9 - Viral pneumonia, unspecified (5) DM (diabetes mellitus) Current visit: Yes Status: Chronic Qualifiers: Category: Medical Code(s): E11.9 - Type 2 diabetes mellitus without complications (6) HTN (hypertension) Current visit: Yes Status: Chronic Qualifiers: Category: Medical Code(s): I10 - Essential (primary) hypertension (7) SOB (shortness of breath) Current visit: Yes Status: Chronic Category: Medical Code(s): R06.02 - Shortness of breath (8) Chest pain Current visit: No Status: Acute Qualifiers: Category: Medical Code(s): R07.9 - Chest pain, unspecified (9) Hypertrophic cardiomyopathy Current visit: Yes Status: Acute Category: Medical Code(s): I42.2 - Other hypertrophic cardiomyopathy (10) Pneumonia due to COVID-19 virus Current visit: Yes Status: Acute Category: Medical Code(s): U07.1 - COVID-19; J12.89 - Other viral pneumonia - Assessment and plan all Dx Assessment and Plan for all problems:: all orders per Dr Rodríguez- he will round later today retest for covid if neg dc back to [facility] abd distention- aas
--- NOTE | 2019-07-09 12:59 | HMH.PTEV ---
Physical Therapy Evaluation Rehab PT IP Evaluation Start: 07/09/19 09:25 Freq: ONCE Status: Active Protocol: Document 07/09/19 12:54 PWILLIAMS (Rec: 07/09/19 12:59 PWILLIAMS [id number]) Subjective/History History History This is the initial IP PT evalaution for Chino Ely. Pt is a 53 y/o male admitted to [facility] thru ER for weakness and COVID Subjective Subjective Pt is very confused and answers the same questions differently Rehab PT IP Eval Objective Appearance Patient Behavior Passive,Fatigued,Uncooperative ,Resistive to Care Patient Orientation Person Difficulty following instructions moderate Speech Pattern Mumbled Ambulation Patient Able to Ambulate Yes Ambulation Observation IP General Gait Pattern Observation Ataxic Gait,Shuffling Step, Trunk Posterior to NATAN Ambulation Distance (feet) 3 Ambulation Assistive Device None Ambulation Ability Maximum x 1 (75% assist), Maximum x 2 (75% assist) Balance Ability to Arise Unable Sitting Balance Steady, safe Standing Balance Unsteady Dynamic Sitting Balance Ability Poor Dynamic Standing Balance Ability Zero Transfers Bed Transfer Ability Minimal x 1 (25% assist) Chair Transfer Ability Minimal x 1 (25% assist) Sit to Stand Bed Transfer Ability Moderate x 2 (50% assist) Sit to Stand Chair Transfer Ability Moderate x 2 (50% assist) Rehab PT IP prob,goals,plan Problems Date of Evaluation: 07/09/19 PT IP Problems Bed Mobility,Transfers,Gait Rehab Potential Rehab Potential Poor Equipment Needs Assistive Devices None / NA Plan PT Intervention Plan Bed Mobility,Transfers,Gait, Therapeutic Exercise PT Plan Frequency BID Duration LOS Discharge Goals Bed Transfer Ability Minimal x 1 (25% assist) Sit to Stand Chair Transfer Ability Moderate x 2 (50% assist) Ambulation Assistive Device None Discharge Plan PT Discharge Plan Pt to return to home once medically stable - pt is close to baseline in ability G -code Required No Eval Complexity Eval Charge Codes 57698 - High Complexity PHYSICIAN CERTIFICATION: I certify the specified therapy services for Chino Decker are required, authorized, and reviewed every 30 days.
--- NOTE | 2019-07-09 13:55 | HMH.OTEV ---
OT Inpatient Evaluation Rehab OT IP Evaluation Start: 07/09/19 09:25 Freq: ONCE Status: Complete Protocol: Document 07/09/19 13:49 [facility] (Rec: 07/09/19 13:55 [facility] [id number]) Rehab OT IP Assessment Subjective History Pt was oriented to self on arrival; and agreeable to engage in therapy evaluation. Pt is very confused and unable to provide a lot of information about his functional abilities. Pt claims he was able to dress and shower himself. However, he also told therapists he is unable to walk and stays in a wheelchair at all times. Therapist assumes he is dependent upon staff to complete IADL's; poor historian. Pt was admitted via ED on 07/02/19 with a medical history of DM type 2, hyperlipidemia, HTN, PA, CVA, MRSA, Seizures, TIA's, and CA. Subjective I don't walk. Objective Patient Orientation Person Upper Extremity Gross ROM Min Limitation <25% Bed Mobility bed mobility-scooting,bed mobility - supine/sit,bed mobility - rolling Assist Level Moderate x 2 (50% assist) Transfer Training Sit/Stand Transfer Assist Level Maximum x 2 (75% assist) Chair Transfer Ability Maximum x 2 (75% assist) Chair Transfer Technique Sit to/from Ambulatory Rehab OT IP prob,goals,plan Problems Date of Evaluation: 07/09/19 OT IP Problems Bed Mobility,Transfers,Gait, Balance,Self care,Safety Rehab Potential Rehab Potential Good Equipment Needs Assistive Devices Rolling / Wheeled Walker, Wheelchair Plan OT intervention Plan Bed Mobility,Transfers,Gait, Balance,Self care,Safety, Therapeutic Exercise OT Plan Frequency Daily Duration LOS Discharge Goals Bed Mobility Ability Assistance x1 Sit to Stand Chair Transfer Ability Moderate x 2 (50% assist) Chair Transfer Ability Moderate x 2 (50% assist) Chair Transfer Technique Sit to/from Ambulatory Chair Transfer Assistive Devices Rolling Walker Feeding Ability
--- NOTE | 2019-07-09 14:14 | HMH.SLDYSPHA ---
Speech & Language Evaluation Speech/Language Dysphagia Evaluation Start: 07/09/19 11:32 Freq: ONCE Status: Active Protocol: Document 07/09/19 13:58 NAMAN (Rec: 07/09/19 14:14 NAMAN [id number]) Dysphagia Assess/Goals/Plan Assessment Date of Evaluation: 07/09/19 Evaluation Type Initial Certification Assessment/Problems Rule out aspiration Does Patient Qualify for Service No Qualify/Failure Comment At this time, Mr. Chandler does not meet criteria for speech therapy for dysphagia, however due to his poor dentition it is recommended that he be placed on mechanical chopped diet with thin liquids. Plan Pt/Guardian verbally ack understanding Yes of dx/prognosis/goals G -code Required No Speech & Language HPI Language Primary Language Spanish General Information General Current Food Consistancy Regular,Thin Liquids Dentition Lower Only Oxygen Status Nasal Cannula Facial Symmetry Symmetrical Patient Orientation Person,Place Ability to Follow Directions Good Dysphagia:Food Presentation Evaluation Food Type Pureed,Mechanical Soft,Regular ,Liquid,Pudding Dysphagia Evaluation Summary Mr. Ely was given the following consistencies: thins via straw and open cup, pudding, pureed, mechanical soft, and regular. At this time, it is recommended he be placed on mechanical chopped diet with thin liquids. When he returns to home, he can proceed with his normal diet. Speech therapy is not recommended but he will be monitored. Stroke Dysphagia Assessment PHYSICIAN CERTIFICATION: I certify the specified therapy services for Chino Decker are required, authorized, and reviewed every 30 days.
--- NOTE | 2019-07-09 14:19 | SW/DCPLANNER ---
Addendum entered by Muriel Fairview 07/10/19 10:02: I have spoke with Operations Research Group Manager (Wally Robles) this morning regarding this patient. Wally Robles has stated that MD has made medication changes for this patient and PT worked with patient this morning and he ambulated 90 ft. I have called [facility] to inform her. Roxann has stated that they will take this patient back but I will need to set up transportation. I will speak with MD regarding transportation. Patient will discharge back to [facility] today. I will also inform Naomy dowling [facility] that patient will NOT be coming due to becoming more alert and ambulatory. Addendum entered by Muriel Fairview 07/09/19 16:38: PASSR form will be completed for this patient. Addendum entered by Muriel Fairview 07/09/19 16:35: Naomy from [facility] has stated that she will accept this patient as Medicaid pending once TWO NEGATIVE COVID-19 test are resulted. Original Note: Patient is a resident at [facility] prior to [facility] admission. Patient was admitted for positive COVID-19. Prior to admission per [facility]ox[facility] Mckeon patient was ambulatory independently. Roxann stated that patient does have a cane but does not use it. Patient could need placement at time of discharge: I have spoke with Naomy at [facility] and she is going to review referral. Naomy [facility] has stated that patient will need TWO negative COVID test prior to admission to their facility.
[2019-07-09 17:18] LABS: POC Glucose,Bedside 170 (70-110)
[2019-07-09 17:23] VITALS: BP 131/77; PULSE 76; RESP 20
--- NOTE | 2019-07-09 17:53 | PC.NURSE ---
pt has done well today. has been afebrile. sat up in chair for most of shift. is incontinent of bladder. x1 assist. vss. will cont. to monitor.
[2019-07-09 18:08] LABS: Coronavirus 19 IgG Antibody Negative (Negative); Coronavirus 19 IgM Antibody Negative (Negative)
[2019-07-09 19:47] VITALS: BP 138/79; PULSE 87; RESP 24; TEMP 37.3; O2SAT 93
[2019-07-09 19:55] LABS: POC Glucose,Bedside 305 (70-110)
[2019-07-10] VITALS: BP 146/71; PULSE 78; RESP 20; TEMP 36.8; O2SAT 91
--- NOTE | 2019-07-10 03:26 | PC.NURSE ---
PT. INCONTINENT OF URINE. HAS BECOME INCREASINGLY CONFUSED AND AGITATED T/O THE NIGHT. TOLERATING RA WITH O2 SAT 90-92%. INTERMITTENT NON PRODUCTIVE COUGH NOTED WITH DIMINISHED LUNG SOUNDS.
[2019-07-10 03:58] VITALS: BP 160/90; PULSE 70; RESP 20; TEMP 37.5; O2SAT 93
--- NOTE | 2019-07-10 06:00 | XR_ITS ---
PROCEDURE: XR CHEST AP CLINICAL HISTORY: covid Pneumonia follow-up COMPARISON: XR CHEST PORTABLE from 02/06/2019 XR CHEST 2V from 04/03/2019 CT CHEST WO CON from 07/02/2019 XR CHEST PORTABLE from 07/02/2019 FINDINGS: The cardiomediastinal silhouette and pulmonary vascularity are within normal limits. There is poor inspiration with low lung volumes. There is increasing consolidation in the right upper and right lower lobe and in the left midlung. This in part could be due to poor inspiration. No obvious effusions. No acute bony abnormalities. IMPRESSION: Persistent bilateral pneumonia which appears slightly worse Dictated by: Zach Rodriguez MD 07/10/2019 06:58 Electronically signed by Zach Rodriguez MD in [place] 07/10/2019 06:58
[2019-07-10 07:13] LABS: Basophils # 0.1 K/mm3 (0-0.2); Basophils % 0.5 % (0.1-2.0); Eosinophils % 0.1 % (0.1-12.0); Hematocrit 32.6 % (42.0-52.0); Hemoglobin 10.8 g/dL (14.1-18.0); Lymphocytes # 1.3 K/mm3 (0.7-4.5); Lymphocytes % 14.6 % (10-50); Mean Corpuscular HGB Conc 33.1 g/dL (31.8-35.4); Mean Corpuscular Hemoglobin 29.3 pg (27.0-31.2); Mean Corpuscular Volume 88.7 fl (80-94); Mean Platelet Volume 9.3 fl (7.4-10.4); Monocytes # 0.6 K/mm3 (0.1-1.0); Monocytes % 7.1 % (1.7-9.3); Neutrophils # 6.7 K/mm3 (1.8-7.8); Neutrophils % 77.7 % (37.0-80.0); Platelet Count 173 K/mm3 (142-424); Red Blood Count 3.67 M/mm3 (4.60-6.20); Red Cell Distribution Width 14.9 % (11.5-17.5); White Blood Count 8.6 K/mm3 (4.8-10.8)
[2019-07-10 07:16] LABS: Chloride 109 mmol/L (98-107); Sodium 134 mmol/L (136-145)
[2019-07-10 07:17] VITALS: BMI 34.4
[2019-07-10 07:17] LABS: Potassium 3.9 mmoL/L (3.5-5.1)
[2019-07-10 07:19] LABS: Blood Urea Nitrogen 20 mg/dl (9-20); Creatinine Clearance Estimated 176 mL/min (50-200); Estimated Glomerular Filt Rate 101 ml/min (>60); GFR (African American) 122 ML/MIN (>60)
[2019-07-10 07:20] LABS: Anion Gap 6.9 mEq/L (5-15); Carbon Dioxide 22 mmol/L (22.0-30.0); Glucose 278 mg/dl (74-100)
[2019-07-10 07:23] LABS: POC Glucose,Bedside 277 (70-110)
[2019-07-10 08:00] VITALS: BP 139/79; PULSE 78; RESP 20; TEMP 36.9; O2SAT 95
--- NOTE | 2019-07-10 10:55 | HMH.DCSUM ---
General - General Admission date:: 07/02/19 HPI HPI: 53-year-old pleasant gentleman presents the ED from [facility] with a one-week history of general malaise, arthralgias, sore throat, slight headache, a subjective and objective fever with a T-max of 102.5 here in the ED his fever is 101.1, a nonproductive cough and mild shortness of breath. She was also complaining about left-sided chest pain as well. Patient states that he does not have a cardiac history. Patient also states that he has really not been exposed to anyone outside the facility even though he can walk to the store but he said states to me that he has not left the facility in over 10 days. Patient also states that he feels a lot of shakes and chills presently and has an overwhelming sense of feeling bad. Patient does have several comorbidities that include uncontrolled diabetes mellitus type 2, hyperlipidemia, hypertension, patient denies any smoking but he does have a smoking history. Patient also denies any illicit drug use. Patient does have an underlying mood disorder not otherwise specified. He is on olanzapine and Haldol. Also patient does have elevated body temperature at 101.1 and a heart rate at 101 presently and this work-up thus far he does meet 2 of the sirs criteria (Per Dr. Rivera) 07/02/19 CXR: IMPRESSION: 1. Low lung volumes, Suboptimal inspiration crowds markings bilateral 2. Bibasilar atelectasis most evident right lung base.. Although difficult to totally exclude scant infiltrate, favor atelectasis here based on today's CT appearance 3.Mild cardiomegaly. Stable/upper normal pulmonary vascularity likely accentuated by the less than expansion Dictated by: Dr. Shirley, 07/02/[address]: IMPRESSION: 1.Lower lung volumes with suboptimal inspiration. This crowds and mildly accentuates markings bilaterally 2.Bilateral dependent atelectasis-most evident at posterior lower lobes. Right > the left Strongly favor atelectasis; consider but doubt minor infiltrate here at posterior RLL No consolidation. No good evidence of pneumonia 3.. Mild cardiomegaly . Pulmonary vascularity upper normal to borderline increased. This appearance in part due to the low lung volume, but you may want consider checking BNP . no pleural effusions 4. Small vague stable lung nodules right lung appear benign and not of significant concern. Follow-up in 12-18 months adequate No IV contrast requested or utilized, thus cannot further evaluate vessels Dictated by: Dr. Shirley, Patient is positive for COVID-19, virus panel negative, Trop NEG x 3. Hospital Course Hospital Course: 53-year-old pleasant gentleman presents the ED from [facility] with a one-week history of general malaise, arthralgias, sore throat, slight headache, a subjective and objective fever with a T-max of 102.5 here in the ED his fever is 101.1, a nonproductive cough and mild shortness of breath. She was also complaining about left-sided chest pain as well. Patient states that he does not have a cardiac history. Patient also states that he has really not been exposed to anyone outside the facility even though he can walk to the store but he said states to me that he has not left the facility in over 10 days. Patient also states that he feels a lot of shakes and chills presently and has an overwhelming sense of feeling bad. Patient does have several comorbidities that include uncontrolled diabetes mellitus type 2, hyperlipidemia, hypertension, patient denies any smoking but he does have a smoking history. Patient also denies any illicit drug use. Patient does have an underlying mood disorder not otherwise specified. He is on olanzapine and Haldol. Also patient does have elevated body temperature at 101.1 and a heart rate at 101 presently and this work-up thus far he does meet 2 of the sirs criteria (Per Dr. Rivera) 07/02/19 CXR
[2019-07-11 08:40] LABS: Covid-19 Nasal PCR Sendout Lex DETECTED
== END 2019-07-10 12:15 | disposition home or self-care (01) | DRG 177 ==
LOC: ER 14:13 → ICU 16:26
PROVIDERS: Internal Medicine Adolescent Medicine; Nurse Practitioner Family; Admitting Provider Family Medicine; Emergency Provider Family Medicine; PCP Emergency Medicine; Visit Provider Emergency Medicine
DX: U07.1 COVID-19; J12.9 Viral pneumonia, unspecified; I42.8 Other cardiomyopathies; M94.0 Chondrocostal junction syndrome [Tietze]; E11.9 Type 2 diabetes mellitus without complications; Z79.4 Long term (current) use of insulin; Z95.0 Presence of cardiac pacemaker; I10 Essential (primary) hypertension; I25.10 Atherosclerotic heart disease of native coronary artery without angina pectoris; Z79.899 Other long term (current) drug therapy; Z87.891 Personal history of nicotine dependence
CPT/HCPCS: 36415; 71045; 71250; 74021; 80048; 80053; 81001; 82962; 83605; 84484; 85007; 85014; 85018; 85025; 85048; 85049; 86328; 87040; 87581; 87633; 87798; 92610; 93005; 93306; 94761; 96365; 96367; 97110; 97163; 97167; 97530; 99285; J0456; Q9957; U0004

== ENCOUNTER 2019-07-12 10:37 | Inpatient (IN) | payer MEDICAID, SELFPAY ==
[2019-07-12] VITALS (8 sets, daily range): BP systolic 115–169; BP diastolic 65–84; PULSE 78–87; RESP 18–22; TEMP 36.7–37.9; O2SAT 85–98; BMI 33.0; BMI 29.0; BMI 33.5
--- NOTE | 2019-07-12 10:43 | XR_ITS ---
PROCEDURE: XR CHEST PORTABLE CLINICAL HISTORY: soa Shortness of air, COVID pneumonia COMPARISON: XR CHEST 2V from 04/03/2019 CT CHEST WO CON from 07/02/2019 XR CHEST PORTABLE from 07/02/2019 XR CHEST AP from 07/10/2019 FINDINGS: The cardiomediastinal silhouette and pulmonary vascularity are within normal limits. There remains patchy density in the right lower lobe consistent with pneumonia slightly worse. There is also slight increased density in the left lower lobe. There are low lung volumes in this could may in part be related to poor inspiration with soft tissue attenuation. Underlying pneumonia is also considered. No acute bony abnormalities. IMPRESSION: Persistent right lower lobe pneumonia with possible left lower lobe pneumonia Dictated by: Zach Rodriguez MD 07/12/2019 11:34 Electronically signed by Zach Rodriguez MD in [place] 07/12/2019 11:34
[2019-07-12 11:02] LABS: ABG HCO3 20.9 mmhg (22.0-26.0); ABG Oxygen Saturation 92 % (90-100); ABG PCO2 30.6 mmhg (35.0-45.0); ABG PH 7.45 mmol/L (7.35-7.45); ABG PO2 63.8 mmhg (80-100); ABG TCO2 21.9 mmhg (23-27)
[2019-07-12 11:04] LABS: Allen's Test Patient Unable; Oxygen 2LPM NC %; Source Left Radial
[2019-07-12 11:08] LABS: Chloride 103 mmol/L (98-107); Potassium 3.5 mmoL/L (3.5-5.1); Sodium 138 mmol/L (136-145)
[2019-07-12 11:09] LABS: Basophils # 0.1 K/mm3 (0-0.2); Basophils % 0.5 % (0.1-2.0); Eosinophils % 0.2 % (0.1-12.0); Hematocrit 34.1 % (42.0-52.0); Hemoglobin 11.5 g/dL (14.1-18.0); Lymphocytes # 1.8 K/mm3 (0.7-4.5); Lymphocytes % 12.8 % (10-50); Mean Corpuscular HGB Conc 33.7 g/dL (31.8-35.4); Mean Corpuscular Hemoglobin 29.5 pg (27.0-31.2); Mean Corpuscular Volume 87.7 fl (80-94); Mean Platelet Volume 8.7 fl (7.4-10.4); Monocytes # 0.7 K/mm3 (0.1-1.0); Monocytes % 4.8 % (1.7-9.3); Neutrophils # 11.4 K/mm3 (1.8-7.8); Neutrophils % 81.9 % (37.0-80.0); Platelet Count 257 K/mm3 (142-424); Red Blood Count 3.89 M/mm3 (4.60-6.20); Red Cell Distribution Width 14.6 % (11.5-17.5); White Blood Count 13.9 K/mm3 (4.8-10.8)
[2019-07-12 11:11] LABS: Anion Gap 14.5 mEq/L (5-15); Blood Urea Nitrogen 22 mg/dl (9-20); Calcium 8.7 mg/dl (8.4-10.2); Carbon Dioxide 24 mmol/L (22.0-30.0); Creatinine Clearance Estimated 119 mL/min (50-200); Estimated Glomerular Filt Rate 78 ml/min (>60); GFR (African American) 94 ML/MIN (>60); Glucose 165 mg/dl (74-100); Lactic Acid 0.6 mmol/L (0.7-2.1)
[2019-07-12 11:18] LABS: Alanine Aminotransferase 55 U/L (12-78); Albumin Level 3.7 g/dl (3.5-5.0); Alkaline Phosphatase 128 U/L (38-126); Aspartate Amino Transferase 85 U/L (17-59); Bilirubin,Direct 0.3 mg/dl (0.0-0.4); Bilirubin,Indirect 0.5 mg/dL (0.0-0.9); Bilirubin,Total 0.8 mg/dl (0.2-1.3); Bilirubin,Unconjugated 0.5 mg/dL (0.0-1.1); Total Protein,Serum 7.2 g/dl (6.3-8.2)
[2019-07-12 11:24] LABS: C-Reactive Protein 219.3 mg/L (0-4); Troponin I 0.04 ng/ml (0.00-0.034)
--- NOTE | 2019-07-12 11:29 | HMH.EDGENADL ---
ED Disposition Clinical Impression: Healthcare-associated pneumonia, COVID-19 Respiratory failure with hypoxia Qualifiers: Chronicity: acute Qualified Code(s): J96.01 - Acute respiratory failure with hypoxia Disposition: Admitted As Inpatient Condition on Discharge: Serious Referrals: Robbin Rodríguez MD [Primary Care Provider] - - Critical Care Critical Care Time: Yes Attestation: On 07/12/19, the high probability of a clinically significant, sudden or life threatening deterioration of the following system(s) required my full and direct attention, intervention and personal management. The time I documented below is in addition to time spent performing reported procedures but includes the following listed in this critical care notation. Total Critical Care Time: 30 Vital system(s) involved:: Respiratory Failure My critical care processes included: Assessment & monitoring of V/S, Initial and Re-exams, Data Review/Interpretation, Coordinating Care, Medication Orders and management, Documentation Medical Decision Making - Clem Inquiry Pt receiving controlled substance: No Vital Signs: 07/12/19 10:38 07/12/19 11:34 Temperature 100.3 F H Temperature Source Rectal Pulse Rate [Right] 86 86 Respiratory Rate 20 18 Blood Pressure [Right Arm] 123/65 115/65 Blood Pressure Mean [Right Arm] 84 81 Blood Pressure Source [Right Arm] Automatic Cuff Blood Pressure Position [Right Arm] Sitting 02 Sat by Pulse Oximetry 85 L 92 L Oxygen Delivery Method Room Air Nasal Cannula - Lab Data Lab Results 07/12/19 10:43: WBC 13.9 H D, RBC 3.89 L, Hgb 11.5 L, Hct 34.1 L, MCV 87.7, MCH 29.5, MCHC 33.7, RDW 14.6, Plt Count 257 D, MPV 8.7, Neut % (Auto) 81.9 H, Lymph % (Auto) 12.8, [place] % (Auto) 4.8, Eos % (Auto) 0.2, Baso % (Auto) 0.5, Neut # (Auto) 11.4 H, Lymph # (Auto) 1.8, [place] # (Auto) 0.7, Eos # (Auto) 0.0, Baso # (Auto) 0.1 07/12/19 10:43: Sodium 138, Potassium 3.5, Chloride 103, Carbon Dioxide 24, Anion Gap 14.5, BUN 22 H, Creatinine 1.00 D, Estimated Creat Clear 119, Estimated GFR 78, Est GFR ( Amer) 94 D, Glucose 165 H, Calcium 8.7, Troponin I 0.04 H 07/12/19 10:43: Lactate 0.6 L 07/12/19 10:43: SARS-CoV-2 IgG Ab (Rapid) Negative, SARS-CoV-2 IgM Ab (Rapid) Negative 07/12/19 10:43: Total Bilirubin 0.8, Direct Bilirubin 0.3, Conjugated Bilirubin 0.0, Indirect Bilirubin 0.5, Unconjugated Bilirubin 0.5, AST 85 H, ALT 55, Alkaline Phosphatase 128 H, C-Reactive Protein 219.3 H, Total Protein 7.2, Albumin 3.7 07/12/19 10:45: Specimen Source Left radial, O2 % 2lpm nc, ABG pH 7.45, ABG pCO2 30.6 L, ABG pO2 63.8 L, ABG HCO3 20.9 L, ABG Total CO2 21.9 L, ABG O2 Saturation 92, ABG Base Excess -3.0 L, Zach Test Patient unable Result diagrams: 07/12/19 10:43 07/12/19 10:43 Orders (Tests/Meds): ED MEDICATIONS Discontinued Medications Generic Name Dose Route Start Last Admin Trade Name Freq PRN Reason Stop Dose Admin Albuterol Sulfate 2.5 mg 07/12/19 10:45 07/12/19 11:02 Albuterol 0.083% 2.5mg/3ml Neb IH 07/12/19 10:46 Not Given ONCE ONE Sodium Chloride 1,000 mls @ 999 mls/hr 07/12/19 10:45 07/12/19 11:33 Sod Chlor 0.9% 1000ml Bag IV 07/12/19 11:45 999 mls/hr .Q1H1M ADEN Administration ORDERS Category Date Time Status Erythrocyte Sedimentation Rate Stat Lab 07/12/19 10:43 Received SARS-CoV-2, YANN Stat Lab 07/12/19 11:20 Received Troponin I Q3H Lab 07/12/19 13:45 Ordered Troponin I Q3H Lab 07/12/19 16:45 Ordered Blood Culture Stat Micro 07/12/19 10:43 Received - Radiology Data #1 Image(s): Chest Image Reviewed: Yes I reviewed the patient's radiology image, Yes I discussed the image results w/the radiologist Groundglass infiltrate right lower lobe, worse than on 07/10/2019, possible infiltrates also in the left lower lobe. - Physician Consults Physician Consulted: Ernesto Villa NP for Dr. Rodríguez Time: 12:09 Reason -: Admission Comment/Response: Agrees to admit the
[2019-07-12 11:34] LABS: Coronavirus 19 IgG Antibody Negative (Negative); Coronavirus 19 IgM Antibody Negative (Negative)
--- NOTE | 2019-07-12 12:02 | PC.NURSE ---
speaking to Ernesto
--- NOTE | 2019-07-12 12:13 | PC.NURSE ---
called and got bed assignment and spoke with care management
[2019-07-12 12:54] LABS: Erythrocyte Sedimentation Rate 90 mm/hr (0-20)
--- NOTE | 2019-07-12 14:23 | PC.NURSE ---
report called to floor
[2019-07-12 15:04] LABS: Troponin I 0.03 ng/ml (0.00-0.034)
--- NOTE | 2019-07-12 15:26 | HMH.PTEV ---
Physical Therapy Evaluation Rehab PT IP Evaluation Start: 07/12/19 15:16 Freq: ONCE Status: Active Protocol: Document 07/12/19 15:16 PWDANIEL (Rec: 07/12/19 15:25 PWDANIEL [id number]) Subjective/History History History This is the initial IP PT evalaution for Chino Decker. Pt is a 53 y/o male admitted through ER for pneumonia. Pt is a resident of [facility] and was dc' d from [facility] ~ 2 days ago. Pt was COVID+. Pt is a re-admit. Pt seems very sedated compared to day of DC from [facility] . Subjective Subjective Pt reports he feels weak and SOA Rehab PT IP Eval Objective Appearance Patient Behavior Cooperative,Sedated,Fatigued, Confused Patient Orientation Person Difficulty following instructions mild Speech Pattern Soft-Spoken,Mumbled Ambulation Patient Able to Ambulate Yes Ambulation Observation IP General Gait Pattern Observation Shuffling Step,Trunk Posterior to NATAN Ambulation Distance (feet) 10 Ambulation Assistive Device None Ambulation Ability Contact Guard/Hand Hold Balance Ability to Arise Able, uses arms to help Sitting Balance Leans or slides in chair Standing Balance Unsteady Dynamic Sitting Balance Ability Poor Dynamic Standing Balance Ability Poor Transfers Bed Transfer Ability Contact Guard/Hand Hold Chair Transfer Ability Contact Guard/Hand Hold Sit to Stand Bed Transfer Ability Contact Guard/Hand Hold, Minimal x 1 (25% assist) Sit to Stand Chair Transfer Ability Contact Guard/Hand Hold, Minimal x 1 (25% assist) Rehab PT IP prob,goals,plan Problems Date of Evaluation: 07/12/19 PT IP Problems Bed Mobility,Transfers,Gait, Balance Rehab Potential Rehab Potential Fair Equipment Needs Assistive Devices None / NA Plan PT Intervention Plan Bed Mobility,Transfers,Gait, Therapeutic Exercise PT Plan Frequency BID Duration LOS Discharge Goals Bed Transfer Ability Contact Guard/Hand Hold Sit to Stand Chair Transfer Ability Contact Guard/Hand Hold Ambulation Assistive Device None Ambulation Distance (feet) 30 Discharge Plan PT Discharge Plan Pt has a
--- NOTE | 2019-07-12 15:37 | HMH.PTEV ---
Physical Therapy Evaluation Rehab PT IP Evaluation Start: 07/12/19 15:28 Freq: .once Status: Active Protocol: Document 07/12/19 15:31 PWDANIEL (Rec: 07/12/19 15:37 PWDANIEL [id number]) Subjective/History History History THis is the initial IP PT evaluation for Adrien Ely. Pt is a 53 y/o male admitted to [facility] thru ER for [facility] pneumonia. Pt was dc'd from [facility] 2 days ago and returned to [facility] home. Pt was COVID+ . Pt seems more sedated than upon his dc from [facility] Subjective Subjective Pt reports SOA and weakness Rehab PT IP Eval Objective Appearance Patient Behavior Cooperative,Sedated,Confused Patient Orientation Person Difficulty following instructions mild Speech Pattern Delayed,Mumbled Ambulation Patient Able to Ambulate Yes Ambulation Observation IP General Gait Pattern Observation Shuffling Step,Trunk Posterior to NATAN Ambulation Distance (feet) 10 Ambulation Assistive Device None Ambulation Ability Contact Guard/Hand Hold Balance Ability to Arise Unable Sitting Balance Leans or slides in chair Standing Balance Unsteady Dynamic Sitting Balance Ability Poor Dynamic Standing Balance Ability Poor Transfers Bed Transfer Ability Contact Guard/Hand Hold Chair Transfer Ability Contact Guard/Hand Hold Sit to Stand Bed Transfer Ability Contact Guard/Hand Hold Sit to Stand Chair Transfer Ability Contact Guard/Hand Hold Rehab PT IP prob,goals,plan Problems Date of Evaluation: 07/12/19 PT IP Problems Bed Mobility,Transfers,Gait, Balance,Self care Rehab Potential Rehab Potential Fair Equipment Needs Assistive Devices None / NA Plan PT Intervention Plan Bed Mobility,Transfers,Gait, Balance,Therapeutic Exercise PT Plan Frequency BID Duration LOS Discharge Goals Bed Transfer Ability Contact Guard/Hand Hold Sit to Stand Chair Transfer Ability Contact Guard/Hand Hold Ambulation Assistive Device None Ambulation Distance (feet) 30 Discharge Plan PT Discharge Plan Pt seems to have a medication induced decrease in function. If pt responds as he did previously to medication dosing adjustment he will be
--- NOTE | 2019-07-12 15:44 | HMH.PHACONS ---
- Pharmacy Consult Date: 07/12/19 Time: 15:44 Referring provider: DR. RUIZ Reason for Consult:: VANCOMYCIN DOSING Allergies and ADEs:: Allergies Allergy/AdvReac Type Severity Reaction Status Date / Time No Known Allergies Allergy Verified 04/13/19 11:58 Home Medications:: Home Medications Medication Instructions Recorded Confirmed Type Aspirin [Aspirin 81mg chewable 81 mg PO DAILY 02/15/17 07/12/19 History tab] Atorvastatin Calcium [Atorvastatin 40 mg PO HS 02/15/17 07/12/19 History 40mg Tab] Sertraline HCl [Zoloft 100mg 150 mg PO DAILY 02/15/17 07/12/19 History tablet] Tamsulosin HCl [Flomax 0.4mg 0.4 mg PO DAILY 02/15/17 07/12/19 History capsule] Finasteride [Proscar 5mg Tablet] 5 mg PO DAILY 12/21/17 07/12/19 History Multivitamin [Multivitamins] 1 each PO DAILY 01/31/19 07/12/19 History Amlodipine Besylate [Amlodipine 10 mg PO DAILY 07/02/19 07/12/19 History 10mg Tab] Gabapentin [Gabapentin 100mg Cap] 100 mg PO TID 07/02/19 07/12/19 History Isosorbide Mononitrate [Imdur 30mg 30 mg PO HS 07/02/19 07/12/19 History ER tablet] Losartan Potassium [Cozaar 50mg 50 mg PO DAILY 07/02/19 07/12/19 History Tablets] Omeprazole 40 mg PO DAILY 07/02/19 07/12/19 History Tramadol HCl [Tramadol 50mg 50 mg PO BID PRN 07/02/19 07/12/19 History Tab] polyethylene glycoL 3350 [Miralax 17 gm PO NEEDED PRN 07/02/19 07/12/19 History 17gm Packet] Benztropine Mesylate [Cogentin 1mg 1 mg PO BID 07/03/19 07/12/19 History tablet] Metoprolol Succinate [Metoprolol 150 mg PO DAILY 07/03/19 07/12/19 History Succinate 50mg Tablet*] OLANZapine [Olanzapine] 20 mg PO DAILY 07/03/19 07/12/19 History Insulin NPH Hum/Reg Insulin Hm 20 unit SQ DAILY #1 07/10/19 07/12/19 Rx [Humulin 70/30 Kwikpen] Insulin NPH Hum/Reg Insulin Hm 25 unit SQ HS #1 07/10/19 07/12/19 Rx [Humulin 70/30 Kwikpen] haloperidoL [Haldol 5mg tablet] 5 mg PO TID 07/12/19 07/12/19 History Height: 1.85 m Weight: 99.79 kg Laboratory Results:: Laboratory Results - last 24 hr 07/12/19 10:43: WBC 13.9 H D, RBC 3.89 L, Hgb 11.5 L, Hct 34.1 L, MCV 87.7, MCH 29.5, MCHC 33.7, RDW 14.6, Plt Count 257 D, MPV 8.7, Neut % (Auto) 81.9 H, Lymph % (Auto) 12.8, [place] % (Auto) 4.8, Eos % (Auto) 0.2, Baso % (Auto) 0.5, Neut # (Auto) 11.4 H, Lymph # (Auto) 1.8, [place] # (Auto) 0.7, Eos # (Auto) 0.0, Baso # (Auto) 0.1 07/12/19 10:43: Sodium 138, Potassium 3.5, Chloride 103, Carbon Dioxide 24, Anion Gap 14.5, BUN 22 H, Creatinine 1.00 D, Estimated Creat Clear 119, Estimated GFR 78, Est GFR ( Amer) 94 D, Glucose 165 H, Calcium 8.7, Troponin I 0.04 H 07/12/19 10:43: Lactate 0.6 L 07/12/19 10:43: SARS-CoV-2 IgG Ab (Rapid) Negative, SARS-CoV-2 IgM Ab (Rapid) Negative 07/12/19 10:43: Total Bilirubin 0.8, Direct Bilirubin 0.3, Conjugated Bilirubin 0.0, Indirect Bilirubin 0.5, Unconjugated Bilirubin 0.5, AST 85 H, ALT 55, Alkaline Phosphatase 128 H, C-Reactive Protein 219.3 H, Total Protein 7.2, Albumin 3.7 07/12/19 10:43: ESR 90 H 07/12/19 10:45: Specimen Source Left radial, O2 % 2lpm nc, ABG pH 7.45, ABG pCO2 30.6 L, ABG pO2 63.8 L, ABG HCO3 20.9 L, ABG Total CO2 21.9 L, ABG O2 Saturation 92, ABG Base Excess -3.0 L, Zach Test Patient unable 07/12/19 14:05: Troponin I 0.03 Medical History: Reports:: Cancer, Coronary Artery Disease, Cerebrovascular Accident, Diabetes Mellitus Type 1, Hyperlipidemia, Hypertension, Internal Pacemaker, Kidney Stones, MRSA, Seizures, Transient Ischemic Attacks (TIA) Denies:: Diabetes Mellitus Type 2 Assessment and Plan - Assessment and plan all Dx Assessment and Plan for all problems:: BASED ON PATIENT'S FACTORS, RECOMMEND STARTING WITH VANCOMYCIN 2000 MG Q12H AT THIS TIME. PHARMACY WILL FOLLOW DAILY AND ADJUST APPROPRIATE.
--- NOTE | 2019-07-12 15:44 | HMH.PHAVTE ---
[facility] Pharmacy VTE Monitoring - Patient Demographics Admission date: 07/12/19 Report Date: 07/12/19 Time: 15:45 Allergies/Adverse Reactions: Patient Allergies No Known Allergies Allergy (Verified 04/13/19 11:58) Height: 1.85 m Weight: 99.79 kg Patient Problems: Current Active Problems Healthcare-associated pneumonia (Acute) COVID-19 (Acute) Respiratory failure with hypoxia (Acute) - VTE Risk Labs: VTE Related Lab Results Hgb 11.5 g/dL (14.1-18.0) L 07/12/19 10:43 Hct 34.1 % (42.0-52.0) L 07/12/19 10:43 Plt Count 257 K/mm3 (142-424) D 07/12/19 10:43 BUN 22 mg/dl (9-20) H 07/12/19 10:43 Creatinine 1.00 mg/dl (0.66-1.25) D 07/12/19 10:43 Estimated Creat Clear 119 mL/min (50-200) 07/12/19 10:43 - Prophylaxis VTE Prophylaxis Ordered?: Yes Types of VTE Prophylaxis: TEDS Knee High, Pharmacological Location of Applied Device: Bilateral Lower Extremeties Pharmacologic Type: Enoxaparin
[2019-07-12 15:56] LABS: POC Glucose,Bedside 175 (70-110)
--- NOTE | 2019-07-12 17:46 | PC.NURSE ---
pt is resting in bed. no complaints of discomfort. pt states he does not have any appetite at all right now. no complaints of soa. o2 saturation 92-96% on 2 l nc. pt has not had a fever since arriving to the unit. lung sounds have scattered rhonchi. bowel sounds normal. will continue to monitor.
[2019-07-13] VITALS: BP 158/84; PULSE 76; RESP 24; TEMP 37.2; O2SAT 90
[2019-07-13 03:41] LABS: POC Glucose,Bedside 142 (70-110)
[2019-07-13 04:00] VITALS: BP 133/74; PULSE 78; RESP 22; TEMP 37.1; O2SAT 92
[2019-07-13 05:00] VITALS: BMI 33.3
[2019-07-13 05:44] LABS: POC Glucose,Bedside 152 (70-110)
--- NOTE | 2019-07-13 07:28 | PC.NURSE ---
No acute changes. Pt slept well this shift. Complaint of generalized pain x1 was treated w/ tylenol per APR w/ relief. Nickerson to bedside drain draining clear, dark jairo urine. No BM this shift. PO intake has been poor, will continue to encourage. Pt unable to comprehend use of IS. VSS.
[2019-07-13 08:00] VITALS: BP 152/85; PULSE 74; RESP 20; TEMP 36.6; O2SAT 97
--- NOTE | 2019-07-13 08:32 | HMH.HP ---
*Admission Date: 07/12/19 *Chief complaint: soa *History of present illness: 53 yr old male pt Brought in by ambulance from [facility]. Just recently discharged from this facility for an admission for pneumonia, COVID-19. Reported to have shortness of breath, fever, lethargy, low oxygen saturation. Patient readmitted for complications of pneumonia/ covid [facility] History I have reviewed the patient's past medical history: Yes Medical History: Reports:: Cancer, Coronary Artery Disease, Cerebrovascular Accident, Diabetes Mellitus Type 1, Diabetes Mellitus Type 2, Hyperlipidemia, Hypertension, Internal Pacemaker, Kidney Stones, MRSA, Seizures, Transient Ischemic Attacks (TIA) *Have you ever received a pneumonia vaccine?: Yes *Have you received a flu vaccine this season?: Yes Other Medical History: Reports: Anemia, Arthritis, Blood Transfusion Reaction, Other Other Surgeries: Yes: No Previous Surgery, Cardiac Catheterization, Pacemaker, Other Amputation: No Fractures: No - *Social History Educational Level: Completed High School Smoking Status: Current every day smoker # Packs/Day (cigarettes): 1 Alcohol Intake: never Substance Use Type: denies use *Occupational Status:: disabled Housing: assisted living facility Household Members: other *Travel in the last 8 weeks: None Family Hx:: No significant family history Review of Systems - Review of Systems Review of systems:: pertinent systems reviewed and negative unless documented below - Constitutional Reports body ache(s), Reports fever(s), Reports weakness - Eyes Denies pain - ENT Denies sore throat, Denies dizziness - *Cardiovascular Reports shortness of breath with activity, Denies chest pain at rest - *Respiratory Reports shortness of breath, Reports shortness of breath with activity - *Gastrointestinal Denies nausea, Denies vomiting - *Genitourinary Denies urinary frequency - *Musculoskeletal Reports muscle weakness - Integumentary/Breasts Denies rash, Denies breast swelling - *Neurologic Reports weakness, Denies dizziness, Denies tremor(s) - Psychiatric Denies anxiety - Endocrine Denies excessive sweating - Hematologic/Lymphatic Denies easy bruising - Allergic/Immunologic Denies itchy eyes Meds Home Medications Medication Instructions Recorded Confirmed Type Aspirin [Aspirin 81mg chewable 81 mg PO DAILY 02/15/17 07/12/19 History tab] Atorvastatin Calcium [Atorvastatin 40 mg PO HS 02/15/17 07/12/19 History 40mg Tab] Sertraline HCl [Zoloft 100mg 150 mg PO DAILY 02/15/17 07/12/19 History tablet] Tamsulosin HCl [Flomax 0.4mg 0.4 mg PO DAILY 02/15/17 07/12/19 History capsule] Finasteride [Proscar 5mg Tablet] 5 mg PO DAILY 12/21/17 07/12/19 History Multivitamin [Multivitamins] 1 each PO DAILY 01/31/19 07/12/19 History Amlodipine Besylate [Amlodipine 10 mg PO DAILY 07/02/19 07/12/19 History 10mg Tab] Gabapentin [Gabapentin 100mg Cap] 100 mg PO TID 07/02/19 07/12/19 History Isosorbide Mononitrate [Imdur 30mg 30 mg PO HS 07/02/19 07/12/19 History ER tablet] Losartan Potassium [Cozaar 50mg 50 mg PO DAILY 07/02/19 07/12/19 History Tablets] Omeprazole 40 mg PO DAILY 07/02/19 07/12/19 History Tramadol HCl [Tramadol 50mg 50 mg PO BID PRN 07/02/19 07/12/19 History Tab] polyethylene glycoL 3350 [Miralax 17 gm PO NEEDED PRN 07/02/19 07/12/19 History 17gm Packet] Benztropine Mesylate [Cogentin 1mg 1 mg PO BID 07/03/19 07/12/19 History tablet] Metoprolol Succinate [Metoprolol 150 mg PO DAILY 07/03/19 07/12/19 History Succinate 50mg Tablet*] OLANZapine [Olanzapine] 20 mg PO DAILY 07/03/19 07/12/19 History Insulin NPH Hum/Reg Insulin Hm 20 unit SQ DAILY #1 07/10/19 07/12/19 Rx [Humulin 70/30 Kwikpen] Insulin NPH Hum/Reg Insulin Hm 25 unit SQ HS #1 07/10/19 07/12/19 Rx [Humulin 70/30 Kwikpen] haloperidoL [Haldol 5mg tablet] 5 mg PO TID 07/12/19 07/12/19 History Aller
--- NOTE | 2019-07-13 10:23 | SW/DCPLANNER ---
Addendum entered by Muriel Frey 07/13/19 16:06: Brandie with admissions has called back stating that due to patient have [facility] they are out of network at [place] [facility] but are trying to work around this issue. Brandie with [facility] will continue to follow up with me regarding this patient. Original Note: This patient currently resides at [facility]. Isidro from [facility] has called and stated that [facility] has a COVID Unit and is working closely with [facility] residents. I have spoke with Brandie in Admissions and she has stated she is willing to review this patients referral. Brandie has stated that each patient referral is a case by case basis. I will continue to follow up with Brandie regarding this patient. Brandie phone: Brandie fax:
[2019-07-13 11:44] LABS: POC Glucose,Bedside 198 (70-110)
[2019-07-13 12:00] VITALS: BP 174/87; PULSE 77; RESP 20; TEMP 36.6; O2SAT 98
[2019-07-13 14:43] LABS: Covid-19 Nasal PCR Sendout Lex DETECTED
[2019-07-13 16:00] VITALS: BP 164/84; PULSE 82; RESP 22; TEMP 36.8; O2SAT 88
[2019-07-13 16:48] LABS: POC Glucose,Bedside 185 (70-110)
--- NOTE | 2019-07-13 17:25 | PC.NURSE ---
PATIENT HAS BEEN UP TO THE CHAIR TODAY FOR SEVERAL HOURS. HE IS CURRENTLY SITTING UP IN BED EATING DINNER. PATIENT WALKED TO THE UNIT BATHROOM AND HAD A BM TODAY. HIS SMITH WAS REMOVED AND HE TOLERATED WELL. HE IS ALERT AND ORIENTED TO EVERYTHING EXCEPT TIME. CALL LIGHT WITHIN REACH WILL CONTINUE TO MONITOR.
[2019-07-13 20:00] VITALS: BP 183/86; PULSE 84; RESP 17; TEMP 36.3; O2SAT 91
[2019-07-13 23:46] LABS: POC Glucose,Bedside 113 (70-110)
--- NOTE | 2019-07-14 03:21 | PC.NURSE ---
No acute changes noted. Pt has been awake most of shift. No complaints stated. He has remained on 2L O2 NC. Has ambulated to BR with assistance. Some exertion noted afterwards. BP elevated eaarly in shift.. Has remained afebrile. Call light within reach. Safety measures in place. No other concerns at this time. Will continue to monitor.
[2019-07-14 04:00] VITALS: BP 159/90; PULSE 90; RESP 17; TEMP 36.8; O2SAT 90
[2019-07-14 04:51] LABS: Adenovirus,PCR Not Detected (NotDetected); Bordetella Pertussis Not Detected (NotDetected); Chlamydophila Pneumoniae, PCR Not Detected (NotDetected); Coronavirus 229E Not Detected (NotDetected); Coronavirus NL63 Not Detected (NotDetected); Coronavirus OC43 Not Detected (NotDetected); Coronovirus HKU1,PCR Not Detected (NotDetected); Human Metapneumovirus Not Detected (NotDetected); Influenza A, PCR Not Detected (NotDetected); Influenza AH1, 2009 Not Detected (NotDetected); Influenza AH1, PCR Not Detected (NotDetected); Influenza AH3,PCR Not Detected (NotDetected); Influenza B, PCR Not Detected (NotDetected); Mycoplasma Pneumoniae, PCR Not Detected (NotDected); Parainfluenza 1, PCR Not Detected (NotDetected); Parainfluenza 2, PCR Not Detected (NotDetected); Parainfluenza 3, PCR Not Detected (NotDetected); Parainfluenza 4, PCR Not Detected (NotDetected); Respiratory Syncytial Virus Not Detected (NotDetected); Rhinovirus/Enterovirus Not Detected (NotDetected)
[2019-07-14 05:02] LABS: Basophils % 0.4 % (0.1-2.0); Eosinophils # 0.2 K/mm3 (0.0-0.4); Eosinophils % 2.1 % (0.1-12.0); Hematocrit 31.3 % (42.0-52.0); Hemoglobin 10.3 g/dL (14.1-18.0); Lymphocytes # 1.7 K/mm3 (0.7-4.5); Lymphocytes % 16.7 % (10-50); Mean Corpuscular Hemoglobin 29.1 pg (27.0-31.2); Mean Corpuscular Volume 88.2 fl (80-94); Mean Platelet Volume 8.2 fl (7.4-10.4); Monocytes # 0.7 K/mm3 (0.1-1.0); Neutrophils # 7.6 K/mm3 (1.8-7.8); Neutrophils % 73.8 % (37.0-80.0); Platelet Count 286 K/mm3 (142-424); Red Blood Count 3.55 M/mm3 (4.60-6.20); Red Cell Distribution Width 14.7 % (11.5-17.5); White Blood Count 10.2 K/mm3 (4.8-10.8)
[2019-07-14 05:18] LABS: Anion Gap 12.3 mEq/L (5-15); Blood Urea Nitrogen 16 mg/dl (9-20); Calcium 8.7 mg/dl (8.4-10.2); Carbon Dioxide 22 mmol/L (22.0-30.0); Chloride 106 mmol/L (98-107); Creatinine Clearance Estimated 167 mL/min (50-200); Estimated Glomerular Filt Rate 101 ml/min (>60); GFR (African American) 122 ML/MIN (>60); Glucose 176 mg/dl (74-100); Potassium 3.3 mmoL/L (3.5-5.1); Sodium 137 mmol/L (136-145)
[2019-07-14 06:00] VITALS: BMI 33.3
--- NOTE | 2019-07-14 06:00 | XR_ITS ---
PROCEDURE: XR CHEST PORTABLE Patient Age:53Y CLINICAL HISTORY: covid/pnemonia COMPARISON: CT CHEST WO CON from 07/02/2019 XR CHEST PORTABLE from 07/02/2019 XR CHEST AP from 07/10/2019 XR CHEST PORTABLE from 07/12/2019 FINDINGS: Today's the AP portable upright chest is compared to portable CXR and, 2019, 07/02/2019 Left lung: Clear progression of low-density infiltrate left mid lung and left lung base. This infiltrate extends peripherally from left girish with wedge like distribution of extending throughout the left mid lung and towards the left lung base left lower lobe only partially obscuring the left hemidiaphragm near CP angle. Otherwise CP angle is sharp with no pleural effusion. Right lung.. The minimal infiltrate and atelectasis at the right infrahilar region appears slightly less dense but we do see slight additional airspace disease atelectasis just above the right hemidiaphragm RLL. Overall I believe there has been improvement when compared back to 07/10/2019 here at the right base. Are however we do see slightly evident scattered small very subtle foci of infiltrate along the periphery right mid lung and towards right upper lobe. May reflect the slowly dissipating more central infiltrate Of ribs unremarkable heart normal size normal pulmonary vascularity IMPRESSION: Left lung: progression of low-density infiltrate of throughout periphery left mid lung and to left base since 07/12/2019 and 07/10/2019 Right lung: Minimal residual infiltrate and atelectasis right base right infrahilar region overall I believe incrementally improved since 07/10/2019 and 07/12/2019. However there is suggestion slightly more evident subtle patchy small foci of infiltrate along the the periphery of the right mid and upper lung, seen today. Findings warrant ongoing follow-up. Dictated by: Douglas Shirley MD 07/14/2019 09:08 Electronically signed by Douglas Shirley MD in [place] 07/14/2019 09:08
[2019-07-14 06:10] LABS: POC Glucose,Bedside 169 (70-110)
[2019-07-14 08:00] VITALS: BP 157/85; PULSE 91; RESP 20; TEMP 36.5; O2SAT 88
--- NOTE | 2019-07-14 09:14 | P.PN_ITS ---
Internal Medicine - PN: Subj *Date: 07/15/19 *Time: 09:59 Interval history: doing better more alert and active and no specific c/o Exam Vital signs and Labs for Last 24 Hours: Temp Pulse Resp BP Pulse Ox 97.7 F 91 H 20 157/85 H 88 L 07/14/19 08:00 07/14/19 08:00 07/14/19 08:00 07/14/19 08:00 07/14/19 08:00 Laboratory Results - last 24 hr 07/12/19 11:20: SARS-CoV-2 (PCR) Detected 07/13/19 11:28: POC Glucose 198 H 07/13/19 16:28: POC Glucose 185 H 07/13/19 20:03: POC Glucose 113 H 07/14/19 04:35: WBC 10.2 D, RBC 3.55 L, Hgb 10.3 L, Hct 31.3 L, MCV 88.2, MCH 29.1, MCHC 33.0, RDW 14.7, Plt Count 286, MPV 8.2, Neut % (Auto) 73.8, Lymph % (Auto) 16.7, [place] % (Auto) 7.0, Eos % (Auto) 2.1, Baso % (Auto) 0.4, Neut # (Auto) 7.6, Lymph # (Auto) 1.7, [place] # (Auto) 0.7, Eos # (Auto) 0.2, Baso # (Auto) 0.0 07/14/19 04:35: Sodium 137, Potassium 3.3 L, Chloride 106, Carbon Dioxide 22, Anion Gap 12.3, BUN 16 D, Creatinine 0.80, Estimated Creat Clear 167, Estimated GFR 101, Est GFR ( Amer) 122 D, Glucose 176 H, Calcium 8.7 07/14/19 05:09: POC Glucose 169 H I & O for Last 24 hours: Intake & Output 07/11/19 07/12/19 07/13/19 07/14/19 11:59 11:59 11:59 11:59 Intake Total 2660 / 2660 1170 / 1170 Output Total 1450 / 1450 Balance 1210 / 1210 1170 / 1170 Weight 220 lb 246 lb 1 oz 245 lb 8 oz - Constitutional no acute distress, obese - *Routine HEENT Exam Head: Present: normocephalic Eye: Present: EOMI, PERRL ENT: Present: mucous membranes dry - *Routine Neck Exam Present: supple - *Routine Respiratory Exam Present: decreased breath sounds - *Routine Cardiovascular Exam Present: RRR - *Routine Abdominal Exam Present: soft - *Routine Extremities Exam Absent: calf tenderness - *Routine Skin Exam Present: intact - *Routine Neurological Exam Present: alert, CN II-XII intact - Routine Psychiatric Exam Present: cooperative. Absent: good insight Assessment and Plan (1) COVID-19 Current visit: Yes Status: Acute Category: Medical Code(s): U07.1 - COVID- 19 (2) Healthcare-associated pneumonia Current visit: Yes Status: Acute Category: Medical Code(s): J18.9 - Pneumonia, unspecified organism (3) Respiratory failure with hypoxia Current visit: Yes Status: Acute Qualifiers: Chronicity: acute Qualified Code(s): J96.01 - Acute respiratory failure with hypoxia Category: Medical Code(s): J96.91 - Respiratory failure, unspecified with hypoxia (4) COVID-19 virus detected Current visit: No Status: Acute Category: Medical Code(s): U07.1 - COVID- 19 (5) Obesity (BMI 30.0-34.9) Current visit: No Status: Acute Category: Medical Code(s): E66.9 - Obesity, unspecified (6) Pneumonia due to COVID-19 virus Current visit: No Status: Acute Category: Medical Code(s): U07.1 - COVID- 19; J12.89 - Other viral pneumonia
[2019-07-14 10:19] LABS: Coronavirus 19, PCR Detected (NotDetected)
[2019-07-14 11:29] LABS: POC Glucose,Bedside 254 (70-110)
[2019-07-14 16:00] VITALS: BP 159/71; PULSE 80; RESP 19; TEMP 36.6; O2SAT 91
[2019-07-14 17:22] LABS: Vancomycin,Trough 12.8 ug/mL (5.0-10.0)
[2019-07-14 17:26] LABS: POC Glucose,Bedside 141 (70-110)
--- NOTE | 2019-07-14 18:04 | PC.NURSE ---
pt has done well today. ambulates in room independently. no complaints voiced today. vss. will cont. to monitor. MICHAEL dixon, stated to give the 1700 vanc dose.
[2019-07-14 20:00] VITALS: BP 169/65; PULSE 88; RESP 22; TEMP 36.7; O2SAT 92
--- NOTE | 2019-07-14 20:20 | PC.NURSE ---
INCREASED PT'S O2 TO 3LNC AT THIS TIME DUE TO DECREASE IN SATS, NOTED AT 88% ON 2LNC. NO RESPIRATORY DISTRESS NOTED. O2 SATS NOW AT 93% ON 3LNC. WILL CONTINUE TO MONITOR.
[2019-07-14 21:40] LABS: POC Glucose,Bedside 122 (70-110)
[2019-07-15] VITALS (8 sets, daily range): BP systolic 119–182; BP diastolic 74–93; PULSE 80–100; RESP 18–22; TEMP 36.3–37.4; O2SAT 2–95; BMI 33.2
--- NOTE | 2019-07-15 01:56 | PC.NURSE ---
Addendum entered by Destini Bullock RN 07/15/19 01:57: NO NEW ORDERS. Original Note: MICHELLE INIGUEZ PREMIUM SERVICE REPRESENTATIVE NOTIFIED OF PT'S FALL AT THIS TIME. PT FELL WALKING IN HIS ROOM. VSS. NO C/O PAIN. PT HELPED BACK TO BED PER STAFF. BED ALARM ON AND FUNCTIONING.
--- NOTE | 2019-07-15 04:12 | PC.NURSE ---
A&O X3, UNABLE TO STATE YEAR/MONTH. PT AWAKE FOR MOST OF THE SHIFT, LYING RESTLESS IN BED. PT STATES HE IS NOT REALLY TIRED WHEN ASKED. BILATERAL LUNGS NOTED CLEAR T/O UPON AUSCULTATION ON INITIAL ASSESSMENT. TOLERATED 3LNC WELL WITH NO C/O SOA. O2 SATS >90% WITH 3LNC. WILL ATTEMPT TO WEAN O2 THIS AM. PT NOTED WITH A DRY NONPRODUCTIVE COUGH INTERMITTENTLY. ENCOURAGED USE OF INCENTIVE SPIROMETER THIS SHIFT WHILE AWAKE. PT DEMONSTRATED APPROPRIATE USE TO THIS RN. BSC AT BEDSIDE AND URINAL FOR USE WITH ASSIST X1. VSS. REMAINS SAFE WITH BED ALARM INTACT AND FUNCTIONING FOR PT SAFETY DUE TO PREVIOUS FALL THIS SHIFT. CALL LIGHT WITHIN REACH. WILL CONTINUE TO MONITOR.
--- NOTE | 2019-07-15 06:00 | XR_ITS ---
PROCEDURE: XR CHEST PORTABLE CLINICAL HISTORY: covid/pnemonia COMPARISON: CT CHEST WO CON from 07/02/2019 XR CHEST AP from 07/10/2019 XR CHEST PORTABLE from 07/12/2019 XR CHEST PORTABLE from 07/14/2019 FINDINGS: This is a poor inspiratory effort. Diffuse bilateral patchy ill-defined pneumonic infiltrates are again seen. The multiplicity of the infiltrates makes evaluation of possible changes difficult but I suspect there has been some interval improvement in the infiltrate left mid lung field with further clearing of the left upper lobe. The infiltrates at the left base and throughout the right lung are stable and show little or no improvement. IMPRESSION: Bilateral diffuse pneumonic infiltrate showing possibly slight interval improvement left midlung field Dictated by: Dr. Marlon Santiago MD 07/15/2019 10:[address] Marlon Santiago MD in [place] 07/15/2019 10:06
[2019-07-15 06:18] LABS: POC Glucose,Bedside 143 (70-110)
--- NOTE | 2019-07-15 06:25 | PC.NURSE ---
weaned pt down to 2 lnc this am. o2 sats noted at 96% on 2lnc at this time. will continue to monitor.
--- NOTE | 2019-07-15 09:50 | PC.NURSE ---
Pt was resistant this am to take meds. Pt has a hx of pocketing medications in mouth. Meds crushed and pt did spit some of am meds out. Explained need for medications and pt continued to spit some of meds out. Pt is now resting at this time in room. VSS. Continues on 2 L NC and is satting 93%. Will cont to mx this shift. Remains afebrile.
--- NOTE | 2019-07-15 10:00 | HMH.ACPN2 ---
Internal Medicine - PN: Subj *Date: 07/16/19 *Time: 07:32 Interval history: doing ok this am - still on o2 Exam Vital signs and Labs for Last 24 Hours: Temp Pulse Resp BP Pulse Ox 97.4 F L 89 20 146/82 H 95 07/15/19 07:54 07/15/19 07:54 07/15/19 07:54 07/15/19 07:54 07/15/19 08:00 Laboratory Results - last 24 hr 07/14/19 04:35: Chlamy pneumoniae PCR Not detected, Adenovirus (PCR) Not detected, B. pertussis DNA (PCR) Not detected, Coronavirus OC43 (PCR) Not detected, Coronavirus HKU1 (PCR) Not detected, Coronavirus 229E (PCR) Not detected, COVID-19 PCR Detected A, Coronavirus NL63 (PCR) Not detected, Human Metapneumovir PCR Not detected, Influenza A (H1) PCR Not detected, Influ A (H1N1/09) PCR Not detected, Influenza A (H3) PCR Not detected, Influenza Type A (PCR) Not detected, Influenza Type B (PCR) Not detected, M. pneumoniae (PCR) Not detected, Parainfluenza 1 (PCR) Not detected, Parainfluenza 2 (PCR) Not detected, Parainfluenza 3 (PCR) Not detected, Parainfluenza 4 (PCR) Not detected, RSV (PCR) Not detected, Entero/Rhino (PCR) Not detected 07/14/19 11:05: POC Glucose 254 H 07/14/19 16:25: POC Glucose 141 H 07/14/19 16:30: Vancomycin Trough 12.8 H 07/14/19 20:29: POC Glucose 122 H 07/15/19 05:29: POC Glucose 143 H I & O for Last 24 hours: Intake & Output 07/12/19 07/13/19 07/14/19 07/15/19 11:59 11:59 11:59 11:59 Intake Total 2660 / 2660 1320 / 1320 500 / 500 Output Total 1450 / 1450 400 / 400 Balance 1210 / 1210 1320 / 1320 100 / 100 Weight 220 lb 246 lb 1 oz 245 lb 8 oz 245 lb 6 oz Microbiology Reports for the Last 24 Hours: Microbiology 07/12/19 10:43 Blood Blood Culture - Preliminary NO GROWTH AFTER 48 HOURS 07/12/19 10:43 Blood Blood Culture - Preliminary NO GROWTH AFTER 48 HOURS - Constitutional no acute distress, obese - *Routine HEENT Exam Head: Present: normocephalic Eye: Present: EOMI, PERRL ENT: Present: mucous membranes dry - *Routine Neck Exam Present: supple - *Routine Respiratory Exam Absent: respiratory distress - *Routine Cardiovascular Exam Present: RRR - *Routine Abdominal Exam Present: soft - *Routine Extremities Exam Absent: pulses intact - *Routine Skin Exam Present: intact - *Routine Neurological Exam Present: alert, CN II-XII intact - Routine Psychiatric Exam Present: normal affect Assessment and Plan (1) COVID-19 Current visit: Yes Status: Acute Category: Medical Code(s): U07.1 - COVID-19 (2) Healthcare-associated pneumonia Current visit: Yes Status: Acute Category: Medical Code(s): J18.9 - Pneumonia, unspecified organism (3) Respiratory failure with hypoxia Current visit: Yes Status: Acute Qualifiers: Chronicity: acute Qualified Code(s): J96.01 - Acute respiratory failure with hypoxia Category: Medical Code(s): J96.91 - Respiratory failure, unspecified with hypoxia (4) COVID-19 virus detected Current visit: No Status: Acute Category: Medical Code(s): U07.1 - COVID-19 (5) Obesity (BMI 30.0-34.9) Current visit: No Status: Acute Category: Medical Code(s): E66.9 - Obesity, unspecified (6) Pneumonia due to COVID-19 virus Current visit: No Status: Acute Category: Medical Code(s): U07.1 - COVID-19; J12.89 - Other viral pneumonia
[2019-07-15 10:49] LABS: POC Glucose,Bedside 202 (70-110)
--- NOTE | 2019-07-15 10:58 | HMH.PHACONS ---
- Pharmacy Consult Date: 07/15/19 Time: 10:58 Referring provider: DR. RUIZ Reason for Consult:: VANCOMYCIN TROUGH LEVEL Allergies and ADEs:: Allergies Allergy/AdvReac Type Severity Reaction Status Date / Time No Known Allergies Allergy Verified 04/13/19 11:58 Home Medications:: Home Medications Medication Instructions Recorded Confirmed Type Aspirin [Aspirin 81mg chewable 81 mg PO DAILY 02/15/17 07/12/19 History tab] Atorvastatin Calcium [Atorvastatin 40 mg PO HS 02/15/17 07/12/19 History 40mg Tab] Sertraline HCl [Zoloft 100mg 150 mg PO DAILY 02/15/17 07/12/19 History tablet] Tamsulosin HCl [Flomax 0.4mg 0.4 mg PO DAILY 02/15/17 07/12/19 History capsule] Finasteride [Proscar 5mg Tablet] 5 mg PO DAILY 12/21/17 07/12/19 History Multivitamin [Multivitamins] 1 each PO DAILY 01/31/19 07/12/19 History Amlodipine Besylate [Amlodipine 10 mg PO DAILY 07/02/19 07/12/19 History 10mg Tab] Gabapentin [Gabapentin 100mg Cap] 100 mg PO TID 07/02/19 07/12/19 History Isosorbide Mononitrate [Imdur 30mg 30 mg PO HS 07/02/19 07/12/19 History ER tablet] Losartan Potassium [Cozaar 50mg 50 mg PO DAILY 07/02/19 07/12/19 History Tablets] Omeprazole 40 mg PO DAILY 07/02/19 07/12/19 History Tramadol HCl [Tramadol 50mg 50 mg PO BID PRN 07/02/19 07/12/19 History Tab] polyethylene glycoL 3350 [Miralax 17 gm PO NEEDED PRN 07/02/19 07/12/19 History 17gm Packet] Benztropine Mesylate [Cogentin 1mg 1 mg PO BID 07/03/19 07/12/19 History tablet] Metoprolol Succinate [Metoprolol 150 mg PO DAILY 07/03/19 07/12/19 History Succinate 50mg Tablet*] OLANZapine [Olanzapine] 20 mg PO DAILY 07/03/19 07/12/19 History Insulin NPH Hum/Reg Insulin Hm 20 unit SQ DAILY #1 07/10/19 07/12/19 Rx [Humulin 70/30 Kwikpen] Insulin NPH Hum/Reg Insulin Hm 25 unit SQ HS #1 07/10/19 07/12/19 Rx [Humulin 70/30 Kwikpen] haloperidoL [Haldol 5mg tablet] 5 mg PO TID 07/12/19 07/12/19 History Height: 1.83 m Weight: 111.3 kg Laboratory Results:: Laboratory Results - last 24 hr 07/14/19 11:05: POC Glucose 254 H 07/14/19 16:25: POC Glucose 141 H 07/14/19 16:30: Vancomycin Trough 12.8 H 07/14/19 20:29: POC Glucose 122 H 07/15/19 05:29: POC Glucose 143 H 07/15/19 10:37: POC Glucose 202 H Medical History: Reports:: Cancer, Coronary Artery Disease, Cerebrovascular Accident, Diabetes Mellitus Type 1, Diabetes Mellitus Type 2, Hyperlipidemia, Hypertension, Internal Pacemaker, Kidney Stones, MRSA, Seizures, Transient Ischemic Attacks (TIA) Assessment and Plan (1) COVID-19 Current visit: Yes Status: Acute Category: Medical Code(s): U07.1 - COVID-19 (2) Healthcare-associated pneumonia Current visit: Yes Status: Acute Category: Medical Code(s): J18.9 - Pneumonia, unspecified organism (3) Respiratory failure with hypoxia Current visit: Yes Status: Acute Qualifiers: Chronicity: acute Qualified Code(s): J96.01 - Acute respiratory failure with hypoxia Category: Medical Code(s): J96.91 - Respiratory failure, unspecified with hypoxia (4) COVID-19 virus detected Current visit: No Status: Acute Category: Medical Code(s): U07.1 - COVID-19 (5) Obesity (BMI 30.0-34.9) Current visit: No Status: Acute Category: Medical Code(s): E66.9 - Obesity, unspecified (6) Pneumonia due to COVID-19 virus Current visit: No Status: Acute Category: Medical Code(s): U07.1 - COVID-19; J12.89 - Other viral pneumonia - Assessment and plan all Dx Assessment and Plan for all problems:: BASED ON PATIENT FACTORS AND VANCOMYCIN TROUGH LEVEL, RECOMMEND CONTINUING VANCOMYCIN 2 GM IV Q12H. PHARMACY WILL CONTINUE TO MONITOR DAILY AND ADJUST APPROPRIATE.
--- NOTE | 2019-07-15 11:06 | PC.NURSE ---
VERBAL ORDER FOR HALDOL 2.5MG PO BID. ORDER BEING FAXED TO PHARMACY.
--- NOTE | 2019-07-15 11:56 | P.PN_ITS ---
Internal Medicine - PN: Subj *Date: 07/15/19 *Time: 11:56 Exam Vital signs and Labs for Last 24 Hours: Temp Pulse Resp BP Pulse Ox 97.4 F L 89 20 146/82 H 95 07/15/19 07:54 07/15/19 07:54 07/15/19 07:54 07/15/19 07:54 07/15/19 08:00 Laboratory Results - last 24 hr 07/14/19 16:25: POC Glucose 141 H 07/14/19 16:30: Vancomycin Trough 12.8 H 07/14/19 20:29: POC Glucose 122 H 07/15/19 05:29: POC Glucose 143 H 07/15/19 10:37: POC Glucose 202 H I & O for Last 24 hours: Intake & Output 07/12/19 07/13/19 07/14/19 07/15/19 23:59 23:59 23:59 23:59 Intake Total 1483 / 1483 2257 / 2257 760 / 760 130 / 130 Output Total 800 / 800 650 / 650 400 / 400 Balance 683 / 683 1607 / 1607 760 / 760 -270 / -270 Weight 112.066 kg 111.612 kg 111.357 kg 111.3 kg Microbiology Reports for the Last 24 Hours: Microbiology 07/12/19 10:43 Blood Blood Culture - Preliminary NO GROWTH AFTER 48 HOURS 07/12/19 10:43 Blood Blood Culture - Preliminary NO GROWTH AFTER 48 HOURS Assessment and Plan (1) COVID-19 Current visit: Yes Status: Acute Category: Medical Code(s): U07.1 - COVID- 19 (2) Healthcare-associated pneumonia Current visit: Yes Status: Acute Category: Medical Code(s): J18.9 - Pneumonia, unspecified organism (3) Respiratory failure with hypoxia Current visit: Yes Status: Acute Qualifiers: Chronicity: acute Qualified Code(s): J96.01 - Acute respiratory failure with hypoxia Category: Medical Code(s): J96.91 - Respiratory failure, unspecified with hypoxia (4) COVID-19 virus detected Current visit: No Status: Acute Category: Medical Code(s): U07.1 - COVID- 19 (5) Obesity (BMI 30.0-34.9) Current visit: No Status: Acute Category: Medical Code(s): E66.9 - Obesity, unspecified (6) Pneumonia due to COVID-19 virus Current visit: No Status: Acute Category: Medical Code(s): U07.1 - COVID- 19; J12.89 - Other viral pneumonia The patient's infection will respond to the chosen ABx?: Yes Is the patient receiving the right drug, dose, and route?: Yes Could a more targeted ABx be ordered?: No (AWAITING CULTURES)
[2019-07-15 16:55] LABS: POC Glucose,Bedside 134 (70-110)
[2019-07-15 23:52] LABS: Covid-19 Nasal PCR Sendout UK DETECTED
[2019-07-16] VITALS: BP 156/70; PULSE 86; RESP 20; TEMP 37.3; O2SAT 91
[2019-07-16 01:32] LABS: POC Glucose,Bedside 147 (70-110)
[2019-07-16 04:00] VITALS: BP 123/78; PULSE 80; RESP 18; TEMP 37.1; O2SAT 90
[2019-07-16 05:29] VITALS: BMI 33.0
[2019-07-16 05:44] LABS: POC Glucose,Bedside 157 (70-110)
--- NOTE | 2019-07-16 06:00 | XR_ITS ---
PROCEDURE: XR CHEST PORTABLE CLINICAL HISTORY: covid/pnemonia COMPARISON: CT CHEST WO CON from 07/02/2019 XR CHEST PORTABLE from 07/12/2019 XR CHEST PORTABLE from 07/14/2019 XR CHEST PORTABLE from 07/15/2019 FINDINGS: The cardiomediastinal silhouette and pulmonary vascularity are within normal limits. Patchy infiltrates are present in the right upper and right lower lobe and left perihilar region in the left lower lobe which do not appear significantly changed on the left and slightly improved on the right No acute bony abnormalities. IMPRESSION: Bilateral pneumonia which may be slightly improved in the right lung base Dictated by: Zach Rodriguez MD 07/16/2019 06:47 Electronically signed by Zach Rodriguez MD in [facility] 07/16/2019 06:47
--- NOTE | 2019-07-16 06:05 | PC.NURSE ---
Pt slept t/o the night. Pt was educated on the importance of using the call light when wanting to get up to the BSC. Pt still got up to the BSC w/o ringing the call light. Pt was re-educated again and pt responded yes ma'am I understand . Pt had incontinence x1 during shift. Pt is currently on 2 L NC with a 90% o2 sat. Hyperactive bowel sounds in all 4 quadrants. VSS. Call light is within reach, and all safety measures are in place. No complaints at this time, will continue to monitor for any changes.
[2019-07-16 08:00] VITALS: BP 156/85; PULSE 82; RESP 18; TEMP 36.8; O2SAT 94
--- NOTE | 2019-07-16 09:47 | SW/DCPLANNER ---
Updated patient information has been faxed to Chela at [facility].
[2019-07-16 11:03] LABS: POC Glucose,Bedside 126 (70-110)
[2019-07-16 11:03] LABS: POC Glucose,Bedside > 600 (70-110)
--- NOTE | 2019-07-16 11:41 | P.PN_ITS ---
Internal Medicine - PN: Subj *Date: 07/16/19 *Time: 11:41 Exam Vital signs and Labs for Last 24 Hours: Temp Pulse Resp BP Pulse Ox 98.3 F 82 18 156/85 H 94 L 07/16/19 08:00 07/16/19 08:00 07/16/19 08:00 07/16/19 08:00 07/16/19 08:00 Laboratory Results - last 24 hr 07/14/19 05:07: POC Glucose > 600 H* 07/15/19 05:15: SARS-CoV-2 (PCR) Detected 07/15/19 16:30: POC Glucose 134 H 07/15/19 20:19: POC Glucose 147 H 07/16/19 05:11: POC Glucose 157 H 07/16/19 10:44: POC Glucose 126 H I & O for Last 24 hours: Intake & Output 07/13/19 07/14/19 07/15/19 07/16/19 23:59 23:59 23:59 23:59 Intake Total 2257 / 2257 760 / 760 810 / 810 240 / 240 Output Total 650 / 650 1300 / 1300 250 / 250 Balance 1607 / 1607 760 / 760 -490 / -490 -10 / -10 Weight 111.612 kg 111.357 kg 111.3 kg 110.677 kg Assessment and Plan (1) COVID-19 Current visit: Yes Status: Acute Category: Medical Code(s): U07.1 - COVID- 19 (2) Healthcare-associated pneumonia Current visit: Yes Status: Acute Category: Medical Code(s): J18.9 - Pneumonia, unspecified organism (3) Respiratory failure with hypoxia Current visit: Yes Status: Acute Qualifiers: Chronicity: acute Qualified Code(s): J96.01 - Acute respiratory failure with hypoxia Category: Medical Code(s): J96.91 - Respiratory failure, unspecified with hypoxia (4) COVID-19 virus detected Current visit: No Status: Acute Category: Medical Code(s): U07.1 - COVID- 19 (5) Obesity (BMI 30.0-34.9) Current visit: No Status: Acute Category: Medical Code(s): E66.9 - Obesity, unspecified (6) Pneumonia due to COVID-19 virus Current visit: No Status: Acute Category: Medical Code(s): U07.1 - COVID- 19; J12.89 - Other viral pneumonia The patient's infection will respond to the chosen ABx?: Yes Is the patient receiving the right drug, dose, and route?: Yes Could a more targeted ABx be ordered?: No (WBC WNL, NO GROWTH IN BLOOD CULTURES, AFEBRILE.)
--- NOTE | 2019-07-16 15:51 | DIET.NUTRFU ---
Pt with 0% PO intake for majority of the weekend, 25% of lunch. Glucerna added to diet order. Weight is stable, BG moderate- ~150. Continuing to monitor.
[2019-07-16 16:00] VITALS: BP 158/84; PULSE 78; RESP 14; TEMP 36.6; O2SAT 92
[2019-07-16 17:12] LABS: Chloride 108 mmol/L (98-107); Sodium 139 mmol/L (136-145)
[2019-07-16 17:13] LABS: Potassium 3.3 mmoL/L (3.5-5.1)
[2019-07-16 17:15] LABS: Blood Urea Nitrogen 13 mg/dl (9-20); Creatinine Clearance Estimated 165 mL/min (50-200); Estimated Glomerular Filt Rate 101 ml/min (>60); GFR (African American) 122 ML/MIN (>60)
[2019-07-16 17:16] LABS: Anion Gap 12.3 mEq/L (5-15); Calcium 8.7 mg/dl (8.4-10.2); Carbon Dioxide 22 mmol/L (22.0-30.0); Glucose 154 mg/dl (74-100)
[2019-07-16 17:24] LABS: Vancomycin,Trough 19.7 ug/mL (5.0-10.0)
[2019-07-16 17:35] LABS: POC Glucose,Bedside 158 (70-110)
--- NOTE | 2019-07-16 18:01 | PC.NURSE ---
Pt has been pleasant and somewhat cooperative this shift. A&O X4. No complaints of pain or SOA. Pt is a stand-by assist when ambulating and uses the BSC. Pt has had 2 large BM's today. Appetite is poor and pt has been offered frequent snacks through out the shift for supplement. Pt continues to wear O2 via NC @ 2 LPM with sats. >90%. 20 G peripheral IV located in the RT AC is patent and SL. Pt received total linen change this shift although, he refused a bath. Pt also refused to get up to the chair this shift, but he did sit up on the side of the bed for a couple of hours. FSBS results have been 126 and 158. VSS. Call light within reach. Will continue to monitor.
[2019-07-16 20:00] VITALS: BP 160/73; PULSE 73; PULSE 87; RESP 18; TEMP 36.4; O2SAT 89; O2SAT 92
--- NOTE | 2019-07-16 20:10 | P.PN_ITS ---
Internal Medicine - PN: Subj *Date: 07/17/19 *Time: 06:32 Interval history: doing better - off o2 at this time Exam Vital signs and Labs for Last 24 Hours: Temp Pulse Resp BP Pulse Ox 97.8 F 78 14 158/84 H 92 L 07/16/19 16:00 07/16/19 16:00 07/16/19 16:00 07/16/19 16:00 07/16/19 16:00 Laboratory Results - last 24 hr 07/14/19 05:07: POC Glucose > 600 H* 07/15/19 05:15: SARS-CoV-2 (PCR) Detected 07/15/19 20:19: POC Glucose 147 H 07/16/19 05:11: POC Glucose 157 H 07/16/19 10:44: POC Glucose 126 H 07/16/19 16:32: POC Glucose 158 H 07/16/19 16:45: Sodium 139, Potassium 3.3 L, Chloride 108 H, Carbon Dioxide 22, Anion Gap 12.3, BUN 13, Creatinine 0.80, Estimated Creat Clear 165, Estimated GFR 101, Est GFR ( Amer) 122, Glucose 154 H, Calcium 8.7 07/16/19 16:45: Vancomycin Trough 19.7 H I & O for Last 24 hours: Intake & Output 07/14/19 07/15/19 07/16/19 07/17/19 11:59 11:59 11:59 11:59 Intake Total 1320 / 1320 650 / 650 920 / 920 980 / 980 Output Total 400 / 400 1150 / 1150 Balance 1320 / 1320 250 / 250 -230 / -230 980 / 980 Weight 245 lb 8 oz 245 lb 6 oz 244 lb - Constitutional no acute distress, obese - *Routine HEENT Exam Head: Present: normocephalic Eye: Present: EOMI, PERRL ENT: Present: mucous membranes dry - *Routine Neck Exam Present: supple - *Routine Respiratory Exam Present: decreased breath sounds - *Routine Cardiovascular Exam Present: RRR - *Routine Abdominal Exam Present: soft - *Routine Extremities Exam Absent: calf tenderness - *Routine Skin Exam Present: intact - *Routine Neurological Exam Present: alert, CN II-XII intact - Routine Psychiatric Exam Present: normal affect Assessment and Plan (1) COVID-19 Current visit: Yes Status: Acute Category: Medical Code(s): U07.1 - COVID- 19 (2) Healthcare-associated pneumonia Current visit: Yes Status: Acute Category: Medical Code(s): J18.9 - Pneumonia, unspecified organism (3) Respiratory failure with hypoxia Current visit: Yes Status: Acute Qualifiers: Chronicity: acute Qualified Code(s): J96.01 - Acute respiratory failure with hypoxia Category: Medical Code(s): J96.91 - Respiratory failure, unspecified with hypoxia (4) COVID-19 virus detected Current visit: No Status: Acute Category: Medical Code(s): U07.1 - COVID- 19 (5) Obesity (BMI 30.0-34.9) Current visit: No Status: Acute Category: Medical Code(s): E66.9 - Obesity, unspecified (6) Pneumonia due to COVID-19 virus Current visit: No Status: Acute Category: Medical Code(s): U07.1 - COVID- 19; J12.89 - Other viral pneumonia
[2019-07-16 20:46] LABS: POC Glucose,Bedside 104 (70-110)
[2019-07-16 23:34] VITALS: BP 115/63; PULSE 83; RESP 16; TEMP 37.1; O2SAT 91
--- NOTE | 2019-07-17 03:26 | PC.NURSE ---
Pt is A&Ox3 and has ambulated in room 2x this shift. Pt denies any pain, N/V/D, or dyspnea. Diminished lung sounds noted on auscultation. Pt continues on NC at 2L/min with sats 90-94% thus far. Pt has rested well during the night. Pt denies any dizziness. ABD is soft with active bowel sounds and pt passed 2 hard BM's on previous shift. Pt denies any dysuria or trouble voiding, no retention noted this shift. Pt utilizes the urinal or brief as he episodes of incontinence. VSS, call light within reach, will continue to monitor.
[2019-07-17 04:00] VITALS: BP 100/68; PULSE 87; RESP 18; TEMP 36.6; O2SAT 92
[2019-07-17 06:00] VITALS: BMI 32.3
--- NOTE | 2019-07-17 06:00 | XR_ITS ---
PROCEDURE: XR CHEST PORTABLE CLINICAL HISTORY: covid/pnemonia COMPARISON: CT CHEST WO CON from 07/02/2019 XR CHEST PORTABLE from 07/14/2019 XR CHEST PORTABLE from 07/15/2019 XR CHEST PORTABLE from 07/16/2019 FINDINGS: There are low lung volumes with cardiomegaly. Increasing consolidation noted in both lower lobes. This may in part be due to the poor inspiration. No obvious effusion. No acute bony abnormalities. IMPRESSION: Increasing consolidation in both lower lobes which may be due to worsening pneumonia and/or poor inspiration Dictated by: Zach Rodriguez MD 07/17/2019 07:22 Electronically signed by Zach Rodriguez MD in [facility] 07/17/2019 07:22
[2019-07-17 06:22] LABS: POC Glucose,Bedside 170 (70-110)
[2019-07-17 08:00] VITALS: BP 168/94; PULSE 93; RESP 20; TEMP 37.8; O2SAT 92; O2SAT 93
--- NOTE | 2019-07-17 10:02 | HMH.ACPN2 ---
Internal Medicine - PN: Subj *Date: 07/17/19 *Time: 18:21 Interval history: 53-year-old male patient laying in bed quietly, awakens to verbal stimuli. Afebrile during the night currently oxygen saturations 92% on 2 L per nasal cannula. He denies any concerns/needs at the present. Exam Vital signs and Labs for Last 24 Hours: Temp Pulse Resp BP Pulse Ox 100.1 F H 93 H 20 168/94 H 93 L 07/17/19 08:00 07/17/19 08:00 07/17/19 08:00 07/17/19 08:00 07/17/19 08:00 Laboratory Results - last 24 hr 07/14/19 05:07: POC Glucose > 600 H* 07/16/19 10:44: POC Glucose 126 H 07/16/19 16:32: POC Glucose 158 H 07/16/19 16:45: Sodium 139, Potassium 3.3 L, Chloride 108 H, Carbon Dioxide 22, Anion Gap 12.3, BUN 13, Creatinine 0.80, Estimated Creat Clear 165, Estimated GFR 101, Est GFR ( Amer) 122, Glucose 154 H, Calcium 8.7 07/16/19 16:45: Vancomycin Trough 19.7 H 07/16/19 20:28: POC Glucose 104 07/17/19 05:10: POC Glucose 170 H I & O for Last 24 hours: Intake & Output 07/14/19 07/15/19 07/16/19 07/17/19 23:59 23:59 23:59 23:59 Intake Total 760 / 760 810 / 810 1700 / 1950 1440 / 1440 Output Total 1300 / 1300 250 / 250 500 / 500 Balance 760 / 760 -490 / -490 1450 / 1700 940 / 940 Weight 245 lb 8 oz 245 lb 6 oz 244 lb 239 lb - Constitutional no acute distress - *Routine HEENT Exam Head: Present: normocephalic. Absent: scalp tenderness Eye: Absent: PERRL ENT: Present: mucous membranes moist. Absent: sinus tenderness - *Routine Neck Exam Present: full ROM, trachea midline. Absent: JVD, tracheal deviation - *Routine Respiratory Exam Present: accessory muscle use, decreased breath sounds, wheezes - *Routine Cardiovascular Exam Present: RRR, murmur - *Routine Abdominal Exam Present: soft, normoactive bowel sounds. Absent: tenderness, rigid - *Routine Extremities Exam Absent: cyanosis, clubbing, pulses intact, calf tenderness - *Routine Skin Exam Present: intact, warm. Absent: cyanosis, erythema - *Routine Neurological Exam Present: alert, altered mental status - Routine Psychiatric Exam Present: unable to assess Assessment and Plan (1) COVID-19 Current visit: Yes Status: Acute Category: Medical Code(s): U07.1 - COVID-19 (2) Healthcare-associated pneumonia Current visit: Yes Status: Acute Category: Medical Code(s): J18.9 - Pneumonia, unspecified organism (3) Respiratory failure with hypoxia Current visit: Yes Status: Acute Qualifiers: Chronicity: acute Qualified Code(s): J96.01 - Acute respiratory failure with hypoxia Category: Medical Code(s): J96.91 - Respiratory failure, unspecified with hypoxia (4) COVID-19 virus detected Current visit: No Status: Acute Category: Medical Code(s): U07.1 - COVID-19 (5) Obesity (BMI 30.0-34.9) Current visit: No Status: Acute Category: Medical Code(s): E66.9 - Obesity, unspecified (6) Pneumonia due to COVID-19 virus Current visit: No Status: Acute Category: Medical Code(s): U07.1 - COVID-19; J12.89 - Other viral pneumonia - Assessment and plan all Dx Assessment and Plan for all problems:: Rounded with Dr. Rodríguez, orders per Dr. Rodríguez: 1. We will continue to monitor The patient's infection will respond to the chosen ABx?: Yes Is the patient receiving the right drug, dose, and route?: Yes
--- NOTE | 2019-07-17 11:23 | HMH.PHACONS ---
- Pharmacy Consult Date: 07/17/19 Time: 11:23 Referring provider: DR. RUIZ Reason for Consult:: VANCOMYCIN TROUGH LEVEL Allergies and ADEs:: Allergies Allergy/AdvReac Type Severity Reaction Status Date / Time No Known Allergies Allergy Verified 04/13/19 11:58 Home Medications:: Home Medications Medication Instructions Recorded Confirmed Type Aspirin [Aspirin 81mg chewable 81 mg PO DAILY 02/15/17 07/12/19 History tab] Atorvastatin Calcium [Atorvastatin 40 mg PO HS 02/15/17 07/12/19 History 40mg Tab] Sertraline HCl [Zoloft 100mg 150 mg PO DAILY 02/15/17 07/12/19 History tablet] Tamsulosin HCl [Flomax 0.4mg 0.4 mg PO DAILY 02/15/17 07/12/19 History capsule] Finasteride [Proscar 5mg Tablet] 5 mg PO DAILY 12/21/17 07/12/19 History Multivitamin [Multivitamins] 1 each PO DAILY 01/31/19 07/12/19 History Amlodipine Besylate [Amlodipine 10 mg PO DAILY 07/02/19 07/12/19 History 10mg Tab] Gabapentin [Gabapentin 100mg Cap] 100 mg PO TID 07/02/19 07/12/19 History Isosorbide Mononitrate [Imdur 30mg 30 mg PO HS 07/02/19 07/12/19 History ER tablet] Losartan Potassium [Cozaar 50mg 50 mg PO DAILY 07/02/19 07/12/19 History Tablets] Omeprazole 40 mg PO DAILY 07/02/19 07/12/19 History Tramadol HCl [Tramadol 50mg 50 mg PO BID PRN 07/02/19 07/12/19 History Tab] polyethylene glycoL 3350 [Miralax 17 gm PO NEEDED PRN 07/02/19 07/12/19 History 17gm Packet] Benztropine Mesylate [Cogentin 1mg 1 mg PO BID 07/03/19 07/12/19 History tablet] Metoprolol Succinate [Metoprolol 150 mg PO DAILY 07/03/19 07/12/19 History Succinate 50mg Tablet*] OLANZapine [Olanzapine] 20 mg PO DAILY 07/03/19 07/12/19 History Insulin NPH Hum/Reg Insulin Hm 20 unit SQ DAILY #1 07/10/19 07/12/19 Rx [Humulin 70/30 Kwikpen] Insulin NPH Hum/Reg Insulin Hm 25 unit SQ HS #1 07/10/19 07/12/19 Rx [Humulin 70/30 Kwikpen] haloperidoL [Haldol 5mg tablet] 5 mg PO TID 07/12/19 07/12/19 History Height: 1.83 m Weight: 108.409 kg Laboratory Results:: Laboratory Results - last 24 hr 07/16/19 16:32: POC Glucose 158 H 07/16/19 16:45: Sodium 139, Potassium 3.3 L, Chloride 108 H, Carbon Dioxide 22, Anion Gap 12.3, BUN 13, Creatinine 0.80, Estimated Creat Clear 165, Estimated GFR 101, Est GFR ( Amer) 122, Glucose 154 H, Calcium 8.7 07/16/19 16:45: Vancomycin Trough 19.7 H 07/16/19 20:28: POC Glucose 104 07/17/19 05:10: POC Glucose 170 H Medical History: Reports:: Cancer, Coronary Artery Disease, Cerebrovascular Accident, Diabetes Mellitus Type 1, Diabetes Mellitus Type 2, Hyperlipidemia, Hypertension, Internal Pacemaker, Kidney Stones, MRSA, Seizures, Transient Ischemic Attacks (TIA) Assessment and Plan (1) COVID-19 Current visit: Yes Status: Acute Category: Medical Code(s): U07.1 - COVID-19 (2) Healthcare-associated pneumonia Current visit: Yes Status: Acute Category: Medical Code(s): J18.9 - Pneumonia, unspecified organism (3) Respiratory failure with hypoxia Current visit: Yes Status: Acute Qualifiers: Chronicity: acute Qualified Code(s): J96.01 - Acute respiratory failure with hypoxia Category: Medical Code(s): J96.91 - Respiratory failure, unspecified with hypoxia (4) COVID-19 virus detected Current visit: No Status: Acute Category: Medical Code(s): U07.1 - COVID-19 (5) Obesity (BMI 30.0-34.9) Current visit: No Status: Acute Category: Medical Code(s): E66.9 - Obesity, unspecified (6) Pneumonia due to COVID-19 virus Current visit: No Status: Acute Category: Medical Code(s): U07.1 - COVID-19; J12.89 - Other viral pneumonia - Assessment and plan all Dx Assessment and Plan for all problems:: BASED ON PATIENT FACTORS AND VANCOMYCIN TROUGH LEVEL, RECOMMEND DECREASING DOSE TO VANCOMYCIN 1750 MG IV Q12H. PHARMACY WILL CONTINUE TO MONITOR DAILY AND ADJUST APPROPRIATE.
--- NOTE | 2019-07-17 11:25 | SW/DCPLANNER ---
Addendum entered by Muriel Frey 07/17/19 14:31: Naomy with [facility] has stated that they can accept this patient once patient has TWO NEGATIVE COVID test. Addendum entered by Muriel Frey 07/17/19 12:43: Patient information has been faxed to Naomy at [facility]. Naomy will contact me once patient information is reviewed. Patient will require TWO NEGATIVE COVID test prior to discharge from [facility] to [facility] if accepted. Original Note: Melody at [facility] has stated that she can not accept this patient due to [facility] with [facility] not wanting to allow patient to change to LTC insurance for [facility] pending placement. [facility] has also refused to accept this patient back at this time. I am currently waiting for Laurel from [facility] to return my phone call to discuss placement vs returning to [facility] for this patient.
[2019-07-17 12:33] LABS: POC Glucose,Bedside 181 (70-110)
--- NOTE | 2019-07-17 14:47 | PC.NURSE ---
PT IS RESTING IN BED. TOLERATED WORKING WITH PHYSICAL THERAPY THIS SHIFT. ALERT AND ORIENTED X4. THIS MORNING PT WAS REALLY UPSET. WHILE GIVING PT HIS MEDS HE STATED I'M SICK AND TIRED OF TAKING THIS SHIT ALL THE TIME . PT DID HAVE A MILD TEMP OF 100.1. MEDICATED WITH TYLENOL. PT IS NOT WANTING TO EAT ANYTHING BUT HAS BEEN DRINKING WELL. VSS. O2 SATURATION 94-97% ON 2 L NC. LUNG SOUNDS HAVE SCATTERED RHONCHI. BOWEL SOUNDS NORMAL. WILL CONTINUE TO MONITOR.
[2019-07-17 15:17] LABS: Covid-19 Nasal PCR Sendout Lex DETECTED
[2019-07-17 16:00] VITALS: BP 141/78; PULSE 82; RESP 18; TEMP 36.7; O2SAT 95
[2019-07-17 16:34] LABS: POC Glucose,Bedside 171 (70-110)
[2019-07-17 20:00] VITALS: BP 160/83; PULSE 88; RESP 18; RESP 20; TEMP 36.7; O2SAT 90; O2SAT 92
[2019-07-17 21:39] LABS: POC Glucose,Bedside 161 (70-110)
[2019-07-18] VITALS (7 sets, daily range): BP systolic 115–159; BP diastolic 60–93; PULSE 69–83; RESP 16–22; TEMP 36.5–37.3; O2SAT 84–95; BMI 32.9
--- NOTE | 2019-07-18 04:48 | PC.NURSE ---
Pt has rested intermittently, tossing and turning most of the shift. Pt ambulated independently to the C 2x this shift and tolerated well. Pt has has continued on 1L O2 per NC this shift, sats 89-93% and a room air sat of 84%. Diminished lung sounds noted with scattered rhonchi. ABD is soft, non-tender, and active BS. Pt denies any N/V/D. Pt c/o pain to right flank at the beginning of the shift, medicated per MAR with good relief on reassessment. Lovenox for VTE. Pt has had 1 episodes of urinary incontinence in the floor this shift. Safety measures in place. Pt has called out several occasions and requested to speak with this RN. Upon entering room, pt denies any need and just wants to chat and states I feel lonely . Encouraged pt to use IS more and offered repositioning or snack before bed, pt refused. Call light within reach, will continue to monitor.
[2019-07-18 07:02] LABS: POC Glucose,Bedside 129 (70-110)
[2019-07-18 07:15] LABS: Basophils # 0.1 K/mm3 (0-0.2); Basophils % 0.6 % (0.1-2.0); Eosinophils # 0.2 K/mm3 (0.0-0.4); Eosinophils % 2.6 % (0.1-12.0); Hemoglobin 10.4 g/dL (14.1-18.0); Lymphocytes # 1.7 K/mm3 (0.7-4.5); Lymphocytes % 20.1 % (10-50); Mean Corpuscular HGB Conc 33.4 g/dL (31.8-35.4); Mean Platelet Volume 8.2 fl (7.4-10.4); Monocytes # 0.7 K/mm3 (0.1-1.0); Monocytes % 8.8 % (1.7-9.3); Neutrophils # 5.7 K/mm3 (1.8-7.8); Neutrophils % 67.8 % (37.0-80.0); Platelet Count 355 K/mm3 (142-424); Red Blood Count 3.57 M/mm3 (4.60-6.20); Red Cell Distribution Width 14.8 % (11.5-17.5); White Blood Count 8.4 K/mm3 (4.8-10.8)
[2019-07-18 07:23] LABS: Chloride 105 mmol/L (98-107); Potassium 3.4 mmoL/L (3.5-5.1); Sodium 136 mmol/L (136-145)
[2019-07-18 07:26] LABS: Anion Gap 10.4 mEq/L (5-15); Blood Urea Nitrogen 12 mg/dl (9-20); Calcium 8.2 mg/dl (8.4-10.2); Carbon Dioxide 24 mmol/L (22.0-30.0); Creatinine Clearance Estimated 146 mL/min (50-200); Estimated Glomerular Filt Rate 88 ml/min (>60); GFR (African American) 106 ML/MIN (>60); Glucose 195 mg/dl (74-100)
[2019-07-18 11:21] LABS: POC Glucose,Bedside 194 (70-110)
[2019-07-18 11:40] LABS: Coronavirus 19 IgG Antibody Positive (Negative); Coronavirus 19 IgM Antibody Negative (Negative)
--- NOTE | 2019-07-18 12:29 | HMH.ACPN2 ---
Internal Medicine - PN: Subj *Date: 07/18/19 *Time: 12:29 Interval history: 53-year-old male patient lying in bed resting quietly, awakens to verbal stimuli. Denies any concerns or needs at present. T-max overnight for 100.1, he is SARS-COV IgG positive, IgM negative Exam Vital signs and Labs for Last 24 Hours: Temp Pulse Resp BP Pulse Ox 98.7 F 69 16 143/78 H 90 L 07/18/19 08:00 07/18/19 08:00 07/18/19 08:00 07/18/19 08:00 07/18/19 08:00 Laboratory Results - last 24 hr 07/16/19 05:25: SARS-CoV-2 (PCR) Detected 07/17/19 12:09: POC Glucose 181 H 07/17/19 16:28: POC Glucose 171 H 07/17/19 20:34: POC Glucose 161 H 07/18/19 06:45: WBC 8.4, RBC 3.57 L, Hgb 10.4 L, Hct 31.0 L, MCV 87.0, MCH 29.0, MCHC 33.4, RDW 14.8, Plt Count 355, MPV 8.2, Neut % (Auto) 67.8, Lymph % (Auto) 20.1, Elliott % (Auto) 8.8, Eos % (Auto) 2.6, Baso % (Auto) 0.6, Neut # (Auto) 5.7, Lymph # (Auto) 1.7, Elliott # (Auto) 0.7, Eos # (Auto) 0.2, Baso # (Auto) 0.1 07/18/19 06:45: Sodium 136, Potassium 3.4 L, Chloride 105, Carbon Dioxide 24, Anion Gap 10.4, BUN 12, Creatinine 0.90, Estimated Creat Clear 146, Estimated GFR 88, Est GFR ( Amer) 106, Glucose 195 H, Calcium 8.2 L 07/18/19 06:45: POC Glucose 129 H 07/18/19 06:45: SARS-CoV-2 IgG Ab (Rapid) Positive A, SARS-CoV-2 IgM Ab (Rapid) Negative 07/18/19 10:53: POC Glucose 194 H I & O for Last 24 hours: Intake & Output 06/07/07/16/19 07/17/19 07/18/19 23:59 23:59 23:59 23:59 Intake Total 810 / 810 1850 / 2100 2320 / 2320 0 / 0 Output Total 1300 / 1300 250 / 250 500 / 500 Balance -490 / -490 1600 / 1850 1820 / 1820 0 / 0 Weight 245 lb 6 oz 244 lb 239 lb 243 lb 2 oz Microbiology Reports for the Last 24 Hours: Microbiology 07/12/19 10:43 Blood Blood Culture - Final NO GROWTH AFTER 5 DAYS 07/12/19 10:43 Blood Blood Culture - Final NO GROWTH AFTER 5 DAYS - Constitutional no acute distress - *Routine HEENT Exam Head: Present: normocephalic ENT: Present: mucous membranes moist - *Routine Neck Exam Present: trachea midline. Absent: JVD, tracheal deviation - *Routine Respiratory Exam Present: decreased breath sounds. Absent: accessory muscle use - *Routine Cardiovascular Exam Present: RRR, murmur - *Routine Abdominal Exam Present: soft, normoactive bowel sounds. Absent: tenderness - *Routine Extremities Exam Present: full ROM, pulses intact. Absent: calf tenderness - *Routine Skin Exam Present: intact, dry, warm - *Routine Neurological Exam Present: alert - Routine Psychiatric Exam Present: normal affect Assessment and Plan (1) COVID-19 Current visit: Yes Status: Acute Category: Medical Code(s): U07.1 - COVID-19 (2) Healthcare-associated pneumonia Current visit: Yes Status: Acute Category: Medical Code(s): J18.9 - Pneumonia, unspecified organism (3) Respiratory failure with hypoxia Current visit: Yes Status: Acute Qualifiers: Chronicity: acute Qualified Code(s): J96.01 - Acute respiratory failure with hypoxia Category: Medical Code(s): J96.91 - Respiratory failure, unspecified with hypoxia (4) COVID-19 virus detected Current visit: No Status: Acute Category: Medical Code(s): U07.1 - COVID-19 (5) Obesity (BMI 30.0-34.9) Current visit: No Status: Acute Category: Medical Code(s): E66.9 - Obesity, unspecified (6) Pneumonia due to COVID-19 virus Current visit: No Status: Acute Category: Medical Code(s): U07.1 - COVID-19; J12.89 - Other viral pneumonia - Assessment and plan all Dx Assessment and Plan for all problems:: Rounded with Dr. Rodríguez, all orders per Dr. Rodríguez: 1. We will continue to monitor
--- NOTE | 2019-07-18 14:22 | PC.NURSE ---
PT UNABLE TO PRODUCE SPUTUM SAMPLE AT THIS TIME
[2019-07-18 16:24] LABS: POC Glucose,Bedside 156 (70-110)
--- NOTE | 2019-07-18 18:19 | PC.NURSE ---
ALERT AND ORIENTED X3. PT UP TO CHAIR FOR MEALS. O2 SATURATION IN LOW-MID 90'S ON 1LNC. NO DISTRESS NOTED. LUNGS DIMINISHED THROUGHOUT. POOR APPETITE. NO BM THIS SHIFT. PT DENIES PAIN. NO COMPLAINTS VOICED. SAFETTY MEASURES IN PLACE, WILL CONTINUE TO MONITOR
[2019-07-18 20:40] LABS: POC Glucose,Bedside 169 (70-110)
--- NOTE | 2019-07-18 20:43 | PC.NURSE ---
He is A&Ox4. Continues in contact and airborne precautions. Reports pain on left side of abdomen. Reports SOA. Continues on 1LPM n.c. Afebrile at this time
[2019-07-19] VITALS (7 sets, daily range): BP systolic 124–168; BP diastolic 65–83; PULSE 66–82; RESP 18–19; TEMP 36.4–36.9; O2SAT 87–95; BMI 32.7
[2019-07-19 04:57] LABS: POC Glucose,Bedside 176 (70-110)
[2019-07-19 05:25] LABS: Chloride 107 mmol/L (98-107)
[2019-07-19 05:26] LABS: Potassium 3.6 mmoL/L (3.5-5.1); Sodium 139 mmol/L (136-145)
[2019-07-19 05:28] LABS: Blood Urea Nitrogen 13 mg/dl (9-20); Creatinine Clearance Estimated 145 mL/min (50-200); Estimated Glomerular Filt Rate 88 ml/min (>60); GFR (African American) 106 ML/MIN (>60)
[2019-07-19 05:29] LABS: Anion Gap 10.6 mEq/L (5-15); Calcium 8.7 mg/dl (8.4-10.2); Carbon Dioxide 25 mmol/L (22.0-30.0); Glucose 184 mg/dl (74-100)
[2019-07-19 06:08] LABS: Hematocrit 34.6 % (42.0-52.0); Hemoglobin 11.2 g/dL (14.1-18.0); Mean Corpuscular HGB Conc 32.5 g/dL (31.8-35.4); Mean Corpuscular Hemoglobin 28.5 pg (27.0-31.2); Mean Corpuscular Volume 87.6 fl (80-94); Mean Platelet Volume 7.8 fl (7.4-10.4); Platelet Count 427 K/mm3 (142-424); Red Blood Count 3.95 M/mm3 (4.60-6.20); Red Cell Distribution Width 14.6 % (11.5-17.5); White Blood Count 12.6 K/mm3 (4.8-10.8)
[2019-07-19 06:09] LABS: Basophils # 0.1 K/mm3 (0-0.2); Basophils % 0.8 % (0.1-2.0); Eosinophils # 0.2 K/mm3 (0.0-0.4); Eosinophils % 1.5 % (0.1-12.0); Lymphocytes # 2.3 K/mm3 (0.7-4.5); Lymphocytes % 18.4 % (10-50); Monocytes # 0.9 K/mm3 (0.1-1.0); Monocytes % 6.8 % (1.7-9.3); Neutrophils # 9.2 K/mm3 (1.8-7.8); Neutrophils % 72.6 % (37.0-80.0)
[2019-07-19 06:53] LABS: Covid-19 Nasal PCR Sendout Lex NOT DETECTED
--- NOTE | 2019-07-19 07:58 | HMH.DCSUM ---
General - General Admission date:: 07/12/19 Discharge date: 07/19/19 HPI HPI: 53 yr old male pt Brought in by ambulance from [facility]. Just recently discharged from this facility for an admission for pneumonia, COVID-19. Reported to have shortness of breath, fever, lethargy, low oxygen saturation. Patient readmitted for complications of pneumonia/ covid Hospital Course Hospital Course: 3-year-old male patient lying in bed resting quietly with eyes closed, awakens easily to verbal stimuli. [facility], he is agreeable to this 53 yr old male pt Brought in by ambulance from [facility]. Just recently discharged from this facility for an admission for pneumonia, COVID-19. Reported to have shortness of breath, fever, lethargy, low oxygen saturation. Patient readmitted for complications of pneumonia/ covid 07/12/19 CXR: IMPRESSION: Persistent right lower lobe pneumonia with possible left lower lobe pneumonia Dictated by: Dr. Rodriguez 07/17/19 CXR: IMPRESSION: Increasing consolidation in both lower lobes which may be due to worsening pneumonia and/or poor inspiration Dictated by: Dr. Rodriguez SARS-COV-2 nasal swab negative, SARS-COV-2 IgG positive, SARS-COV-2 IgM negative. He is received cefepime and levofloxacin IV during his stay here Patient was discharged from [facility] on 07/09/2021 [place]. He was readmitted 07/12/19 due to [place] being unable to provide for his increased oxygen requirements. During his stay here he has been on 2 to 3 L per nasal cannula. On discharge he is on 1 L per nasal cannula with oxygen saturations of 93%. He also has been incontinent of urine during his stay, he was requiring a higher level of care upon discharge Objective Vital signs: Temp Pulse Resp BP Pulse Ox 98.5 F 82 18 154/65 H 87 L 07/19/19 04:00 07/19/19 04:00 07/19/19 04:00 07/19/19 04:00 07/19/19 06:25 no acute distress - *Routine HEENT Exam Head: Present: normocephalic ENT: Present: mucous membranes moist. Absent: sinus tenderness - *Routine Neck Exam Present: trachea midline. Absent: JVD, tracheal deviation - *Routine Respiratory Exam Present: wheezes - *Routine Cardiovascular Exam Present: RRR, murmur - *Routine Abdominal Exam Present: soft, normoactive bowel sounds. Absent: tenderness - *Routine Extremities Exam Present: full ROM, pulses intact. Absent: calf tenderness - *Routine Skin Exam Present: intact, dry, warm. Absent: jaundice - *Routine Neurological Exam Present: alert - Routine Psychiatric Exam Present: normal affect Results Labs on day of discharge: Labs from last 24 hours 07/19/19 07/19/19 07/19/19 04:49 04:49 04:48 WBC 12.6 H D RBC 3.95 L Hgb 11.2 L Hct 34.6 L MCV 87.6 MCH 28.5 MCHC 32.5 RDW 14.6 Plt Count 427 H MPV 7.8 Neut % (Auto) 72.6 Lymph % (Auto) 18.4 Brooks % (Auto) 6.8 Eos % (Auto) 1.5 Baso % (Auto) 0.8 Neut # (Auto) 9.2 H Lymph # (Auto) 2.3 Brooks # (Auto) 0.9 Eos # (Auto) 0.2 Baso # (Auto) 0.1 Sodium 139 Potassium 3.6 Chloride 107 Carbon Dioxide 25 Anion Gap 10.6 BUN 13 Creatinine 0.90 Estimated Creat Clear 145 Estimated GFR 88 Est GFR ( Amer) 106 Glucose 184 H POC Glucose 176 H Calcium 8.7 SARS-CoV-2 (PCR) SARS-CoV-2 IgG Ab (Rapid) SARS-CoV-2 IgM Ab (Rapid) 07/18/19 07/18/19 07/18/19 20:30 16:15 10:53 WBC RBC Hgb Hct MCV MCH MCHC RDW Plt Count MPV Neut % (Auto) Lymph % (Auto) Brooks % (Auto) Eos % (Auto) Baso % (Auto) Neut # (Auto) Lymph # (Auto) Brooks # (Auto) Eos # (Auto) Baso # (Auto) Sodium Potassium Chloride Carbon Dioxide Anion Gap BUN Creatinine Estimated Creat Clear Estimated GFR Est GFR ( Amer) Glucose POC Glucose 1
[2019-07-19 09:06] LABS: Coronavirus 19 IgG Antibody Positive (Negative); Coronavirus 19 IgM Antibody Negative (Negative)
--- NOTE | 2019-07-19 09:12 | SW/DCPLANNER ---
Addendum entered by Beverly Eason 07/20/19 08:55: ATTEMPTED TO SEND THIS PATIENT TO [facility] YESTERDAY () AND FACILITY REFUSED TO TAKE HIM STATING HE IS NOT WELL ENOUGH R/T HIGH WHITE COUNT. DR ALLRED IS SEEING THIS PATIENT R/T DR RUIZ OUT OF TOWN AND DR ALLRED STATED HE IS READY FOR DISCHARGE.. I HAVE SENT UPDATED INFORMATION AND IF THIS IS ENOUGH TO SUFFICE HE WILL DISCHARGE THERE TODAY.... Original Note: PER DR RUIZ PATIENT IS MEDICALLY BEEN CLEARED FOR DISCHARGE TO [facility]....I HAVE TEXTED HEIDE AND SENT UPDATED INFORMATION FOR HER TO REVIEW... IF EVERYTHING IS A GO, HE WILL DISCHARGE THERE TODAY...
--- NOTE | 2019-07-19 10:43 | PC.NURSE ---
case management stated patient could not be discharged to longterm today. so order canceled.
--- NOTE | 2019-07-19 11:46 | CA_ITS ---
APPROVED REPORT EXAM: Comprehensive 2D, Doppler, and color-flow Echocardiogram Videographer: Kyara Khalil CRT Ht: 6 ft 0 in Wt: 241lbs BSA: 2.31 BP: 154/65 mmHg Indications: PNEUMONIA CAD Left Ventricle Left atrium is mildly enlarged, left ventricle is normal size, mild concentric left ventricular hypertrophy, visually estimated ejection fraction 55 to 60% with no regional wall motion abnormality. Right Ventricle Right atrium and right ventricular normal size and contractility. Aortic Valve Aortic valve is minimally thickened and fibrosed. Mitral Valve Mitral valve is grossly normal. Tricuspid Valve Tricuspid valve is grossly normal. Pulmonic Valve Pulmonic valve is poorly visualized Great Vessels Aortic root is normal size. Pericardium No significant pericardial effusion noted. Conclusion 1. Limited study was performed to evaluate left ventricular systolic function. 2. Normal left ventricular size, mild concentric left ventricular hypertrophy, visually estimated ejection fraction 55 to 60% with no regional wall motion abnormality. 3. No significant pericardial effusion noted. Electronically signed by : Cuco Bryant, 07/19/2019 14:14:54
[2019-07-19 11:56] LABS: POC Glucose,Bedside 173 (70-110)
--- NOTE | 2019-07-19 13:48 | PC.NURSE ---
patient has done okay this shift. was slightly inappropriate at beginning of shift but was easily redirected has sat on side of bed to use urinal. refused morning pt but participated in afternoon pt. has refused to eat this shift stating i don't know how to eat attempted to direct patient who still refused. insulin held since he has been refusing to eat. encouraged glucerna which he also refused. he did drin some gatorade. has remained on 1 L o2 with sat low 90s. vitals have remained stable will continue to monitor.
[2019-07-19 16:36] LABS: POC Glucose,Bedside 159 (70-110)
--- NOTE | 2019-07-19 16:41 | PC.NURSE ---
after speaking with case management earlier in shift they stated patient could not be discharged today.
--- NOTE | 2019-07-19 18:07 | PC.NURSE ---
patient appetite better this evening requesting salad and has eaten two oranges
[2019-07-19 22:29] LABS: POC Glucose,Bedside 184 (70-110)
[2019-07-20] VITALS: BP 119/80; PULSE 85; RESP 24; TEMP 36.3; O2SAT 91
[2019-07-20 04:00] VITALS: BP 114/55; PULSE 75; RESP 18; TEMP 36.6; O2SAT 92
[2019-07-20 04:08] VITALS: O2SAT 87
[2019-07-20 04:37] VITALS: BMI 31.8
--- NOTE | 2019-07-20 05:17 | PC.NURSE ---
No acute changes. Pt's appetite has been better this shift. 1LNC remains at this time w/ sats in low 90's. Pt c/o abdominal pain early into shift, treated per APR w/ relief. IS encouraged often but pt uninterested, will continue to reinforce. Voiding via urinal independently w/o issues. Pt received basin bath this shift. Pt unable to produce sputum sample. VSS.
[2019-07-20 06:36] LABS: POC Glucose,Bedside 216 (70-110)
[2019-07-20 06:54] LABS: Basophils # 0.1 K/mm3 (0-0.2); Basophils % 0.8 % (0.1-2.0); Eosinophils # 0.2 K/mm3 (0.0-0.4); Eosinophils % 2.2 % (0.1-12.0); Hematocrit 33.4 % (42.0-52.0); Hemoglobin 11.1 g/dL (14.1-18.0); Lymphocytes # 2.5 K/mm3 (0.7-4.5); Lymphocytes % 24.9 % (10-50); Mean Corpuscular HGB Conc 33.2 g/dL (31.8-35.4); Mean Corpuscular Volume 87.5 fl (80-94); Mean Platelet Volume 7.7 fl (7.4-10.4); Monocytes # 0.6 K/mm3 (0.1-1.0); Monocytes % 5.4 % (1.7-9.3); Neutrophils # 6.7 K/mm3 (1.8-7.8); Neutrophils % 66.6 % (37.0-80.0); Platelet Count 435 K/mm3 (142-424); Red Blood Count 3.81 M/mm3 (4.60-6.20); Red Cell Distribution Width 14.9 % (11.5-17.5); White Blood Count 10.1 K/mm3 (4.8-10.8)
[2019-07-20 07:17] LABS: Chloride 104 mmol/L (98-107); Potassium 3.3 mmoL/L (3.5-5.1); Sodium 138 mmol/L (136-145)
[2019-07-20 07:20] LABS: Anion Gap 9.3 mEq/L (5-15); Blood Urea Nitrogen 13 mg/dl (9-20); Calcium 8.7 mg/dl (8.4-10.2); Carbon Dioxide 28 mmol/L (22.0-30.0); Creatinine Clearance Estimated 142 mL/min (50-200); Estimated Glomerular Filt Rate 88 ml/min (>60); GFR (African American) 106 ML/MIN (>60); Glucose 219 mg/dl (74-100)
[2019-07-20 08:00] VITALS: BP 135/64; PULSE 75; RESP 18; TEMP 36.8; O2SAT 91; O2SAT 98
--- NOTE | 2019-07-20 08:26 | HMH.DCSUM ---
General - General Admission date:: 07/12/19 Discharge date: 07/20/19 HPI HPI: 53 yr old male pt Brought in by ambulance from [facility]. Just recently discharged from this facility for an admission for pneumonia, COVID-19. Reported to have shortness of breath, fever, lethargy, low oxygen saturation. Patient readmitted for complications of pneumonia/ covid Hospital Course Hospital Course: Patient was admitted, placed on broad-spectrum IV antibiotics. Please see H&P from his primary service for details. Patient was placed in COVID isolation unit, had improving status throughout his hospital stay. Given his worsening respiratory status, worsening functional status, his personal retirement declined to readmit him to their services. As a result skilled care bed was found at the [facility]. Patient was established to have cleared his COVID 19 infection with negative PCR swab and antibody testing transitioning to chronic positive testing with IgG positive but negative IgM testing. This morning physical exam was fairly innocuous. [facility] Please note he will be on Levaquin 500 mg daily for 5 more days p.o. Please note that we will adjust his Haldol down from his baseline dose given his improved status here in the hospital on slightly lower dose of Haldol. Please note he will need PT/OT evaluation. Please note that he will need CBC/BMP drawn on 07/24/2019-please have this copied to Dr. Rodríguez's office as Dr. Rodríguez will be his attending physician at the [facility]. He had been scheduled to be discharged yesterday by his primary service but he had increasing leukocytosis and worsening chest x-ray. I had ordered echocardiogram yesterday which revealed 60% ejection fraction and Lasix which resolved his fluid overload symptoms and his white count this morning has normalized. He has had no fever for 3 days. Objective Vital signs: Temp Pulse Resp BP Pulse Ox 98.3 F 75 18 135/64 91 L 07/20/19 08:00 07/20/19 08:00 07/20/19 08:00 07/20/19 08:00 07/20/19 08:00 no acute distress - *Routine HEENT Exam Head: Present: normocephalic Eye: Present: EOMI, PERRL ENT: Present: mucous membranes moist - *Routine Neck Exam Present: supple - *Routine Respiratory Exam Present: CTA bilaterally - *Routine Cardiovascular Exam Present: RRR - *Routine Abdominal Exam Present: soft, normoactive bowel sounds. Absent: tenderness - *Routine Extremities Exam Absent: cyanosis, clubbing, edema - *Routine Skin Exam Present: warm. Absent: rash - *Routine Neurological Exam Present: alert His prior schizoaffective disorder he is somewhat fuzzy about the date but very pleasant. - Detailed Eye Exam Eyelids: Bilateral normal inspection Results Labs on day of discharge: Labs from last 24 hours 07/20/19 07/20/19 07/20/19 06:00 06:00 05:47 WBC 10.1 RBC 3.81 L Hgb 11.1 L Hct 33.4 L MCV 87.5 MCH 29.0 MCHC 33.2 RDW 14.9 Plt Count 435 H MPV 7.7 Neut % (Auto) 66.6 Lymph % (Auto) 24.9 Sharp % (Auto) 5.4 Eos % (Auto) 2.2 Baso % (Auto) 0.8 Neut # (Auto) 6.7 Lymph # (Auto) 2.5 Sharp # (Auto) 0.6 Eos # (Auto) 0.2 Baso # (Auto) 0.1 Sodium 138 Potassium 3.3 L Chloride 104 Carbon Dioxide 28 Anion Gap 9.3 BUN 13 Creatinine 0.90 Estimated Creat Clear 142 Estimated GFR 88 Est GFR ( Amer) 106 Glucose 219 H POC Glucose 216 H Calcium 8.7 SARS-CoV-2 IgG Ab (Rapid) SARS-CoV-2 IgM Ab (Rapid) 07/19/19 07/19/19 07/19/19 21:14 16:16 11:21 WBC RBC Hgb Hct MCV MCH MCHC RDW Plt Count MPV Neut % (Auto) Lymph % (Auto) Sharp % (Auto) Eos % (Auto) Baso % (Auto) Neut # (Auto) Lymph # (Auto) Sharp # (Auto) Eos # (Auto) Baso # (Auto) Sodium P
== END 2019-07-20 12:47 | DRG 177 ==
LOC: ER 12:10 → ICU 13:02
PROVIDERS: Nurse Practitioner Family; Admitting Provider Emergency Medicine; Emergency Provider Emergency Medicine; PCP Emergency Medicine; Visit Provider Emergency Medicine
DX: U07.1 COVID-19 (principal); J12.9 Viral pneumonia, unspecified; I50.30 Unspecified diastolic (congestive) heart failure; I42.8 Other cardiomyopathies; I11.0 Hypertensive heart disease with heart failure; E11.9 Type 2 diabetes mellitus without complications; Z79.4 Long term (current) use of insulin; Z95.0 Presence of cardiac pacemaker; I25.10 Atherosclerotic heart disease of native coronary artery without angina pectoris; Z79.899 Other long term (current) drug therapy; Z87.891 Personal history of nicotine dependence
CPT/HCPCS: 36415; 71045; 80048; 80076; 80202; 82803; 82962; 83605; 84484; 85025; 85651; 86140; 86328; 87040; 87581; 87633; 87798; 93306; 93308; 94761; 96365; 96367; 97110; 97116; 97162; 97530; 99285; J1956; J3370; U0003; U0004

== ENCOUNTER 2019-08-24 23:55 | Emergency (ER) | payer MEDICAID, SELFPAY ==
--- NOTE | 2019-08-24 23:49 | ECG_ITS ---
APPROVED REPORT Exam: Resting ECG HR:72 bpm ECG Measurements Heart Rate 72 AXES IN 168 P 47 QRSd 100 QRS 80 QT 402 T 42 QTc 440 <Conclusion> Normal sinus rhythm Normal ECG Electronically signed by : Pascual Storey, 08/25/2019 16:52:01
[2019-08-24 23:56] VITALS: BP 139/76; PULSE 74; RESP 15; TEMP 36.7; O2SAT 93; BMI 29.8
[2019-08-25] VITALS (7 sets, daily range): BP systolic 129–159; BP diastolic 71–100; PULSE 62–75; RESP 16–18; TEMP 36.7; O2SAT 92–96
--- NOTE | 2019-08-25 00:03 | XR_ITS ---
PROCEDURE: XR CHEST 2V CLINICAL INDICATION: chest pain Right-sided chest pain COMPARISON: CT CHEST WO CON from 07/02/2019 XR CHEST PORTABLE from 07/15/2019 XR CHEST PORTABLE from 07/16/2019 XR CHEST PORTABLE from 07/17/2019 FINDINGS: Unremarkable cardiovascular structures. Patchy density present in the right lung base suggesting an area of atelectasis or infiltrate.. The bilateral pneumonia has shown some improvement compared to the previous exam. No effusions. IMPRESSION: Right lower lobe atelectasis or infiltrate. Dictated by: Zach Rodriguez MD 08/25/2019 09:39 Electronically signed by Zach Rodriguez MD in [place] 08/25/2019 09:39
[2019-08-25 00:22] LABS: Basophils # 0.1 K/mm3 (0-0.2); Basophils % 0.5 % (0.1-2.0); Eosinophils # 0.3 K/mm3 (0.0-0.4); Eosinophils % 3.2 % (0.1-12.0); Hematocrit 39.5 % (42.0-52.0); Hemoglobin 13.2 g/dL (14.1-18.0); Lymphocytes # 3.3 K/mm3 (0.7-4.5); Lymphocytes % 30.8 % (10-50); Mean Corpuscular HGB Conc 33.3 g/dL (31.8-35.4); Mean Corpuscular Hemoglobin 29.2 pg (27.0-31.2); Mean Corpuscular Volume 87.9 fl (80-94); Mean Platelet Volume 8.4 fl (7.4-10.4); Monocytes # 0.5 K/mm3 (0.1-1.0); Monocytes % 4.4 % (1.7-9.3); Neutrophils # 6.5 K/mm3 (1.8-7.8); Neutrophils % 61.2 % (37.0-80.0); Platelet Count 308 K/mm3 (142-424); Red Cell Distribution Width 15.1 % (11.5-17.5); White Blood Count 10.7 K/mm3 (4.8-10.8)
[2019-08-25 00:37] LABS: Alanine Aminotransferase 17 U/L (12-78); Albumin Level 4.2 g/dl (3.5-5.0); Albumin/Globulin Ratio 1.2 (1.1-1.8); Alkaline Phosphatase 115 U/L (38-126); Anion Gap 10.5 mEq/L (5-15); Aspartate Amino Transferase 20 U/L (17-59); Bilirubin,Total 0.4 mg/dl (0.2-1.3); Blood Urea Nitrogen 9 mg/dl (9-20); Calcium 9.6 mg/dl (8.4-10.2); Carbon Dioxide 27 mmol/L (22.0-30.0); Chloride 109 mmol/L (98-107); Creatinine Clearance Estimated 132 mL/min (50-200); Estimated Glomerular Filt Rate 88 ml/min (>60); GFR (African American) 106 ML/MIN (>60); Globulin 3.6 g/dL (1.3-3.2); Glucose 69 mg/dl (74-100); Potassium 3.5 mmoL/L (3.5-5.1); Sodium 143 mmol/L (136-145); Total Protein,Serum 7.8 g/dl (6.3-8.2)
[2019-08-25 01:00] LABS: Troponin I < 0.01 ng/ml (0.00-0.034)
--- NOTE | 2019-08-25 02:27 | HMH.EDCP ---
ED Disposition Clinical Impression: Chest pain Qualifiers: Chest pain type: precordial pain Qualified Code(s): R07.2 - Precordial pain Disposition: Home, Self-Care Condition on Discharge: Good Instructions: DI for Atypical Chest Pain Additional Instructions: see pcp for follow up Referrals: Robbin Rodríguez MD [Primary Care Provider] - - Critical Care Critical Care Time: No Attestation: On 08/24/19, the high probability of a clinically significant, sudden or life threatening deterioration of the following system(s) required my full and direct attention, intervention and personal management. The time I documented below is in addition to time spent performing reported procedures but includes the following listed in this critical care notation. Medical Decision Making - Medical Records Medical records reviewed: Yes: I reviewed the patient's medical records. - Clem Inquiry Pt receiving controlled substance: No Vital Signs: 08/24/19 23:56 08/25/19 00:00 08/25/19 00:30 Temperature 98.0 F Temperature Source Oral Pulse Rate [Right Brachial] 74 74 75 Respiratory Rate 15 18 18 Blood Pressure [Right Arm] 139/76 139/76 145/78 H Blood Pressure Mean [Right Arm] 97 97 100 Blood Pressure Source [Right Arm] Automatic Cuff Automatic Cuff Automatic Cuff Blood Pressure Position [Right Arm] Sitting Supine Supine 02 Sat by Pulse Oximetry 93 L 95 92 L Oxygen Delivery Method Room Air Room Air Room Air 08/25/19 01:40 08/25/19 02:39 08/25/19 04:05 Temperature Temperature Source Pulse Rate [Right Brachial] 70 65 62 Respiratory Rate 17 16 16 Blood Pressure [Right Arm] 143/80 H 140/83 129/71 Blood Pressure Mean [Right Arm] 101 102 90 Blood Pressure Source [Right Arm] Automatic Cuff Automatic Cuff Automatic Cuff Blood Pressure Position [Right Arm] Sitting Sitting Sitting 02 Sat by Pulse Oximetry 94 L 95 95 Oxygen Delivery Method Room Air Room Air Room Air 08/25/19 05:27 Temperature Temperature Source Pulse Rate [Right Brachial] 63 Respiratory Rate Blood Pressure [Right Arm] 145/87 H Blood Pressure Mean [Right Arm] 106 Blood Pressure Source [Right Arm] Automatic Cuff Blood Pressure Position [Right Arm] Sitting 02 Sat by Pulse Oximetry 94 L Oxygen Delivery Method Room Air - Lab Data Lab results reviewed: Yes: I reviewed the patient's lab results. Lab Results 08/25/19 00:01: Troponin I < 0.01 08/25/19 00:01: WBC 10.7, RBC 4.50 L, Hgb 13.2 L, Hct 39.5 L, MCV 87.9, MCH 29.2, MCHC 33.3, RDW 15.1, Plt Count 308, MPV 8.4, Neut % (Auto) 61.2, Lymph % (Auto) 30.8, [place] % (Auto) 4.4, Eos % (Auto) 3.2, Baso % (Auto) 0.5, Neut # (Auto) 6.5, Lymph # (Auto) 3.3, [place] # (Auto) 0.5, Eos # (Auto) 0.3, Baso # (Auto) 0.1 08/25/19 00:01: Sodium 143, Potassium 3.5, Chloride 109 H, Carbon Dioxide 27, Anion Gap 10.5, BUN 9, Creatinine 0.90, Estimated Creat Clear 132, Estimated GFR 88, Est GFR ( Amer) 106, Glucose 69 L, Calcium 9.6, Total Bilirubin 0.4, AST 20, ALT 17, Alkaline Phosphatase 115, Total Protein 7.8, Albumin 4.2, Globulin 3.6 H, Albumin/Globulin Ratio 1.2 08/25/19 03:30: Troponin I < 0.01 Result diagrams: 08/25/19 00:01 08/25/19 00:01 Orders (Tests/Meds): ED MEDICATIONS Discontinued Medications Generic Name Dose Route Start Last Admin Trade Name Freq PRN Reason Stop Dose Admin Furosemide 40 mg 08/25/19 02:09 08/25/19 02:11 Lasix 40mg/4ml Vial IV 08/25/19 02:10 40 mg ONCE ONE Administration ORDERS Category Date Time Status XR chest 2V Stat Exams 08/25/19 00:03 Taken - Radiology Data #1 Image(s): Chest Image Reviewed: Yes I reviewed the patient's radiology image Preliminary Findings: Abnormal (mild chf) - ECG Data Tracing #1 Normal Sinus Rhythm: Yes Ischemic changes: non-specific ST-T wave changes Chest Pain HPI - General Chief Complaint: Chest Pain Stated Complaint: Chest pain Time Seen by Provider: 08/25/19 00:15 Mode of Arrival: EMS Sour
[2019-08-25 04:23] LABS: Troponin I < 0.01 ng/ml (0.00-0.034)
== END 2019-08-25 06:23 | disposition home or self-care (01) ==
PROVIDERS: Emergency Provider Emergency Medicine; PCP Emergency Medicine
DX: R07.2 Precordial pain (principal); E11.649 Type 2 diabetes mellitus with hypoglycemia without coma; Z79.84 Long term (current) use of oral hypoglycemic drugs; Z96.41 Presence of insulin pump (external) (internal); I25.10 Atherosclerotic heart disease of native coronary artery without angina pectoris; I10 Essential (primary) hypertension; E78.5 Hyperlipidemia, unspecified; Z95.0 Presence of cardiac pacemaker; Z86.73 Personal history of transient ischemic attack (TIA), and cerebral infarction without residual deficits; F17.210 Nicotine dependence, cigarettes, uncomplicated; Z79.899 Other long term (current) drug therapy; Z87.442 Personal history of urinary calculi
CPT/HCPCS: 36415; 71046; 80053; 84484; 85025; 93005; 96374; 99284

== ENCOUNTER 2019-09-12 00:15 | Emergency (ER) | payer MEDICAID, SELFPAY ==
[2019-09-12 00:21] VITALS: BP 156/89; PULSE 72; RESP 18; TEMP 36.5; O2SAT 97; BMI 33.9
--- NOTE | 2019-09-12 00:32 | CT_ITS ---
PROCEDURE: CT HEAD/BRAIN WO CON CLINICAL INDICATION: pain on right side Headache, right-sided weakness COMPARISON: CT CT HEAD/BRAIN WO CON from 01/21/2019 TECHNIQUE: Axial images obtained. All CT scans at the facility use one or more dose reduction, viz: automated exposure control, ma/kV adjustment per patient size (including targeted exams where dose is matched to indication, i.e. head), or iterative reconstruction technique. FINDINGS: No midline shift, mass effect, intracranial hemorrhage, hydrocephalus, or extra-axial fluid collection is evident. Encephalomalacia changes are present in the right cerebellar hemisphere. There is generalized atrophy. Coarse calcification involves the falx anteriorly. There is a 2 cm cystic area in the right lateral ventricle posteriorly in the region of the trigone the right lateral ventricle and may represent a stable choroid plexus cyst. There is some minimal prominence of the occipital horn of the right lateral ventricle which is not significantly changed. The calvarium has an unremarkable appearance. No mastoid effusion. No sinus air-fluid level. IMPRESSION: 1. No change with no acute intracranial findings. 2. 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
--- NOTE | 2019-09-12 00:37 | HMH.EDGENADL ---
ED Disposition Clinical Impression: Right sided weakness, Dysarthria Disposition: Home, Self-Care Condition on Discharge: Good Additional Instructions: Dr. Arboleda and Dr. Rodríguez to follow-up with patient for outpatient work-up. Return to the emergency room if symptoms worsen. Referrals: Robbin Rodríguez MD [Primary Care Provider] - - Critical Care Critical Care Time: No Attestation: On 09/12/19, the high probability of a clinically significant, sudden or life threatening deterioration of the following system(s) required my full and direct attention, intervention and personal management. The time I documented below is in addition to time spent performing reported procedures but includes the following listed in this critical care notation. Medical Decision Making - Medical Records Medical records reviewed: Yes: I reviewed the patient's medical records. - Clem Inquiry Pt receiving controlled substance: No Vital Signs: 09/12/19 00:21 09/12/19 01:24 09/12/19 01:33 Temperature 97.7 F Temperature Source Oral Pulse Rate Pulse Rate [Left Brachial] 72 70 69 Respiratory Rate 18 17 16 Blood Pressure Blood Pressure [Left Arm] 156/89 H 174/96 H 167/87 H Blood Pressure Mean [Left Arm] 111 122 113 Blood Pressure Source Blood Pressure Source [Left Arm] Automatic Cuff Automatic Cuff Automatic Cuff Blood Pressure Position Blood Pressure Position [Left Arm] Sitting Sitting Sitting 02 Sat by Pulse Oximetry 97 96 97 Oxygen Delivery Method Room Air Room Air Room Air 09/12/19 01:42 09/12/19 01:53 Temperature 97.9 F Temperature Source Oral Pulse Rate 73 Pulse Rate [Left Brachial] 73 Respiratory Rate 17 16 Blood Pressure 160/92 H Blood Pressure [Left Arm] 162/87 H Blood Pressure Mean [Left Arm] 112 Blood Pressure Source Automatic Cuff Blood Pressure Source [Left Arm] Automatic Cuff Blood Pressure Position Sitting Blood Pressure Position [Left Arm] Sitting 02 Sat by Pulse Oximetry 97 Oxygen Delivery Method Room Air Room Air - Lab Data Lab results reviewed: Yes: I reviewed the patient's lab results. Lab Results 09/12/19 00:30: WBC 11.8 H, RBC 4.67, Hgb 14.2, Hct 40.7 L, MCV 87.1, MCH 30.5, MCHC 35.0, RDW 14.9, Plt Count 220, MPV 8.2, Neut % (Auto) 65.6, Lymph % (Auto) 26.3, [place] % (Auto) 4.5, Eos % (Auto) 3.1, Baso % (Auto) 0.4, Neut # (Auto) 7.7, Lymph # (Auto) 3.1, [place] # (Auto) 0.5, Eos # (Auto) 0.4, Baso # (Auto) 0.0 09/12/19 00:30: Sodium 141, Potassium 4.1, Chloride 106, Carbon Dioxide 24, Anion Gap 15.1 H, BUN 14, Creatinine 0.90, Estimated Creat Clear 150, Estimated GFR 88, Est GFR ( Amer) 106, Glucose 209 H, Calcium 9.6, Total Bilirubin 0.4, AST 26, ALT 24, Alkaline Phosphatase 97, Total Protein 7.7, Albumin 4.2, Globulin 3.5 H, Albumin/Globulin Ratio 1.2 Result diagrams: 09/12/19 00:30 09/12/19 00:30 Orders (Tests/Meds): ED MEDICATIONS Discontinued Medications Generic Name Dose Route Start Last Admin Trade Name Freq PRN Reason Stop Dose Admin Acetaminophen 1,000 mg 09/12/19 01:43 09/12/19 01:49 Tylenol 500mg Tablet PO 09/12/19 01:44 1,000 mg ONCE ONE Administration ORDERS Category Date Time Status CT head/brain wo con Stat Cat Scan 09/12/19 00:32 Taken - CT Data CT Scan: Head Time Received: 01:23 ([facility] fax) ED CT Reviewed: Yes: I have viewed the radiologist's interpretation Findings Narrative: No acute intracranial abnormality. 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 Atrophy and chronic small vessel ischemic change. No hemorrhage. No mass-effect or midline shift. - Physician Consults Physician Consulted: Brittani Rodríguez Time: 01:38 Reason -: Pt condition Comment/Response: Patient symptoms have been present for 3 days. He feels patient can be further worked up as an outpatient. - Reevaluation(s) Time: 01:43 Reevaluation #1: No change in his symptoms. Moving his right side, unchanged since arrival. Dis
[2019-09-12 00:42] LABS: Basophils % 0.4 % (0.1-2.0); Eosinophils # 0.4 K/mm3 (0.0-0.4); Eosinophils % 3.1 % (0.1-12.0); Hematocrit 40.7 % (42.0-52.0); Hemoglobin 14.2 g/dL (14.1-18.0); Lymphocytes # 3.1 K/mm3 (0.7-4.5); Lymphocytes % 26.3 % (10-50); Mean Corpuscular Hemoglobin 30.5 pg (27.0-31.2); Mean Corpuscular Volume 87.1 fl (80-94); Mean Platelet Volume 8.2 fl (7.4-10.4); Monocytes # 0.5 K/mm3 (0.1-1.0); Monocytes % 4.5 % (1.7-9.3); Neutrophils # 7.7 K/mm3 (1.8-7.8); Neutrophils % 65.6 % (37.0-80.0); Platelet Count 220 K/mm3 (142-424); Red Blood Count 4.67 M/mm3 (4.60-6.20); Red Cell Distribution Width 14.9 % (11.5-17.5); White Blood Count 11.8 K/mm3 (4.8-10.8)
[2019-09-12 00:47] LABS: Chloride 106 mmol/L (98-107)
[2019-09-12 00:48] LABS: Potassium 4.1 mmoL/L (3.5-5.1); Sodium 141 mmol/L (136-145)
[2019-09-12 00:50] LABS: Alanine Aminotransferase 24 U/L (12-78); Albumin Level 4.2 g/dl (3.5-5.0); Albumin/Globulin Ratio 1.2 (1.1-1.8); Alkaline Phosphatase 97 U/L (38-126); Anion Gap 15.1 mEq/L (5-15); Aspartate Amino Transferase 26 U/L (17-59); Bilirubin,Total 0.4 mg/dl (0.2-1.3); Blood Urea Nitrogen 14 mg/dl (9-20); Carbon Dioxide 24 mmol/L (22.0-30.0); Creatinine Clearance Estimated 150 mL/min (50-200); Estimated Glomerular Filt Rate 88 ml/min (>60); GFR (African American) 106 ML/MIN (>60); Globulin 3.5 g/dL (1.3-3.2); Total Protein,Serum 7.7 g/dl (6.3-8.2)
[2019-09-12 00:51] LABS: Calcium 9.6 mg/dl (8.4-10.2); Glucose 209 mg/dl (74-100)
[2019-09-12 01:24] VITALS: BP 174/96; PULSE 70; RESP 17; O2SAT 96
[2019-09-12 01:33] VITALS: BP 167/87; PULSE 69; RESP 16; O2SAT 97
[2019-09-12 01:42] VITALS: BP 162/87; PULSE 73; RESP 17; O2SAT 97
[2019-09-12 01:53] VITALS: BP 160/92; PULSE 73; RESP 16; TEMP 36.6; O2SAT 97
== END 2019-09-12 02:08 | disposition home or self-care (01) ==
PROVIDERS: Emergency Provider Emergency Medicine; PCP Emergency Medicine
DX: R47.1 Dysarthria and anarthria (principal); R53.1 Weakness; Z86.73 Personal history of transient ischemic attack (TIA), and cerebral infarction without residual deficits; E11.9 Type 2 diabetes mellitus without complications; I25.10 Atherosclerotic heart disease of native coronary artery without angina pectoris; E78.5 Hyperlipidemia, unspecified; I10 Essential (primary) hypertension; G40.909 Epilepsy, unspecified, not intractable, without status epilepticus; Z95.0 Presence of cardiac pacemaker; F17.210 Nicotine dependence, cigarettes, uncomplicated; Z79.899 Other long term (current) drug therapy; Z79.84 Long term (current) use of oral hypoglycemic drugs
CPT/HCPCS: 70450; 80053; 85025; 99283

== ENCOUNTER 2019-10-24 21:28 | Emergency (ER) | payer MEDICAID, SELFPAY ==
[2019-10-24 21:30] VITALS: BP 131/81; PULSE 76; RESP 17; TEMP 36.6; O2SAT 95; BMI 33.3
--- NOTE | 2019-10-24 21:35 | XR_ITS ---
PROCEDURE: XR CHEST AP CLINICAL HISTORY: fall Pain COMPARISON: CT CT CHEST WO CON from 07/02/2019 CR XR CHEST PORTABLE from 07/16/2019 CR XR CHEST PORTABLE from 07/17/2019 CR XR CHEST 2V from 08/25/2019 FINDINGS: Mild cardiomegaly without failure. There is poor inspiration with low lung volumes. The lungs are clear without infiltrates, suspicious nodules, or pleural effusions. No acute bony abnormalities. IMPRESSION: No acute findings. Dictated by: Zach Rodriguez MD 10/25/2019 05:02 Zach Rodriguez MD in [facility] 10/25/2019 05:02
--- NOTE | 2019-10-24 21:36 | CT_ITS ---
PROCEDURE: CT CERVICAL SPINE WO CON CLINICAL INDICATION: fall Neck injury with pain, contusion/abrasion or hematoma, cervical sprain/strain the COMPARISON: CT SPCERVWO CT cervical spine wo con from 12/21/2017 TECHNIQUE: Axial images obtained with sagittal and coronal reformats. All CT scans at the facility use one or more dose reduction, viz: automated exposure control, ma/kV adjustment per patient size (including targeted exams where dose is matched to indication, i.e. head), or iterative reconstruction technique. Axial spiral CT scanning performed of the cervical spine beginning at the base of the skull and continuing to the upper T-spine. 3-D multiplanar reconstruction with 3-D manipulation of volumetric data set in image rendering was completed by the radiologist and/or technologist with the supervision of the radiologist on independent workstation. FINDINGS: Normal alignment. No fracture or dislocation. There is degenerative disc disease at C6-C7 with borderline narrowing of the canal. Patchy density noted in the right apex anteriorly and left apex posteriorly nonspecific. IMPRESSION: No acute fracture. Dictated by: Zach Rodriguez MD 10/25/2019 05:29 Zach Rodriguez MD in [facility] 10/25/2019 05:29
--- NOTE | 2019-10-24 21:36 | XR_ITS ---
PROCEDURE: XR PELVIS 1-2V CLINICAL INDICATION: fall Posttraumatic pain COMPARISON: No exams were available for comparison TECHNIQUE: XR Pelvis AP View FINDINGS: No fracture or dislocation is evident. Mild osteoarthritic changes of the hips. No lytic or blastic change. IMPRESSION: No acute findings. Dictated by: Zach Rodriguez MD 10/25/2019 05:02 Zach Rodriguez MD in [facility] 10/25/2019 05:02
--- NOTE | 2019-10-24 21:36 | CT_ITS ---
PROCEDURE: CT HEAD/BRAIN WO CON CLINICAL INDICATION: fall Head injury with headache/pain, contusion, abrasion or hematoma COMPARISON: CT CT HEAD/BRAIN WO CON from 09/12/2019 TECHNIQUE: Axial images obtained. All CT scans at the facility use one or more dose reduction, viz: automated exposure control, ma/kV adjustment per patient size (including targeted exams where dose is matched to indication, i.e. head), or iterative reconstruction technique. FINDINGS: No midline shift, mass effect, intracranial hemorrhage, hydrocephalus, or extra-axial fluid collection is evident. Chronic right cerebellar infarct. Mild atrophy. Choroid plexus cyst once again noted in the right lateral ventricle posterior horn unchanged. Dense calcification noted of the anterior falx unchanged. The calvarium has an unremarkable appearance. No mastoid effusion. No sinus air-fluid level. IMPRESSION: No change with no acute finding Dictated by: Zach Rodriguez MD 10/25/2019 05:20 Zach Rodriguez MD in [facility] 10/25/2019 05:20
--- NOTE | 2019-10-24 21:39 | XR_ITS ---
PROCEDURE: XR SHOULDER RT MIN 2V CLINICAL INDICATION: fall Posttraumatic pain COMPARISON: CR SHOU3R [id number] VIEWS from 01/04/2017 CR SHOU3R [id number] VIEWS from 01/08/2017 CR SHOU3R [id number] VIEWS from 02/01/2017 CR SHOULDCMRT XR shoulder RT min 2V from 07/06/2017 FINDINGS: Osteoarthritic changes are present involving the acromioclavicular joint and glenohumeral joint with high-riding humeral head and subacromial stenosis. No fracture or dislocation. Other findings:None. IMPRESSION: Osteoarthritis with high-riding humeral head with moderate to severe subacromial stenosis which may be seen with rotator cuff tears and may be better evaluated with MRI if clinically warranted Dictated by: Zach Rodriguez MD 10/25/2019 04:57 Zach Rodriguez MD in [facility] 10/25/2019 04:57
--- NOTE | 2019-10-24 21:39 | XR_ITS ---
PROCEDURE: XR KNEE RT 3V CLINICAL INDICATION: fall Posttraumatic pain COMPARISON: CR [id number] XR knee RT 3V from 09/06/2017 FINDINGS: No displaced fracture or dislocation. Mild tricompartmental osteoarthritis with 4 mm lateral subluxation of the tibia. Minimal cortical irregularity of the articular surface of the medial femoral condyle possibly due to developing osteochondral defect. Cannot exclude the possibility of a nondisplaced fracture. CT may provide further evaluation. . Not readily apparent on 09/06/2017 IMPRESSION: Mild osteoarthritis. Minimal cortical irregularity of the articular surface of the medial femoral condyle possibly due to developing osteochondral defect. Cannot exclude the possibility of a nondisplaced fracture. CT may provide further evaluation. Dictated by: Zach Rodriguez MD 10/25/2019 04:56 Zach Rodriguez MD in [facility] 10/25/2019 04:56
--- NOTE | 2019-10-24 21:39 | XR_ITS ---
PROCEDURE: XR KNEE LT 3V CLINICAL INDICATION: fall Pain COMPARISON: CR [id number] XR knee RT 3V from 09/06/2017 FINDINGS: No fracture or dislocation. No lytic or blastic change. There is normal mineralization. There are mild osteoarthritic changes involving all 3 compartments. Patella mic is noted. Lucency is present along the inferior aspect of the patella which is well-circumscribed and may represent old injury versus enthesophytes or ununited ossification center. Please correlate with patient's area of pain and tenderness. Other findings:None. IMPRESSION: No definite acute fracture. Lucencies are present along the inferior aspect of the patella which is well-circumscribed and may represent old injury versus enthesophytes or ununited ossification center. Please correlate with patient's area of pain and tenderness. Osteoarthritis Dictated by: Zach Rodriguez MD 10/25/2019 05:00 Zach Rodriguez MD in [facility] 10/25/2019 05:00
--- NOTE | 2019-10-24 22:28 | HMH.EDFALL ---
ED Disposition Clinical Impression: Fall Qualifiers: Encounter type: initial encounter Qualified Code(s): W19.XXXA - Unspecified fall, initial encounter Head contusion Qualifiers: Encounter type: initial encounter Contusion of head detail: scalp Qualified Code(s): S00.03XA - Contusion of scalp, initial encounter Knee contusion Qualifiers: Encounter type: initial encounter Laterality: unspecified laterality Qualified Code(s): S80.00XA - Contusion of unspecified knee, initial encounter Sprain of shoulder, left Qualifiers: Encounter type: initial encounter Shoulder sprain type: unspecified sprain Qualified Code(s): S43.402A - Unspecified sprain of left shoulder joint, initial encounter Disposition: Home, Self-Care Condition on Discharge: Good Instructions: How to Prevent Falls Additional Instructions: resume prev orders Referrals: PCP,No [Non-Staff] - - Critical Care Critical Care Time: No Attestation: On 10/24/19, the high probability of a clinically significant, sudden or life threatening deterioration of the following system(s) required my full and direct attention, intervention and personal management. The time I documented below is in addition to time spent performing reported procedures but includes the following listed in this critical care notation. Medical Decision Making - Medical Records Medical records reviewed: Yes: I reviewed the patient's medical records. - Clem Inquiry Pt receiving controlled substance: No Vital Signs: 10/24/19 21:30 Temperature 97.8 F Temperature Source Oral Pulse Rate [Right Brachial] 76 Respiratory Rate 17 Blood Pressure [Right Arm] 131/81 Blood Pressure Mean [Right Arm] 97 Blood Pressure Source [Right Arm] Automatic Cuff Blood Pressure Position [Right Arm] Sitting 02 Sat by Pulse Oximetry 95 Oxygen Delivery Method Room Air - Lab Data Lab results reviewed: Yes: I reviewed the patient's lab results. Orders (Tests/Meds): ORDERS Category Date Time Status CT cervical spine wo con Stat Cat Scan 10/24/19 21:[address] head/brain wo con Stat Cat Scan 10/24/19 21:36 Taken Knee XR right 3 views [XR knee RT 3V] Stat Exams 10/24/19 21:39 Taken XR chest AP Stat Exams 10/24/19 21:35 Taken XR knee LT 3V Stat Exams 10/24/19 21:39 Taken XR pelvis 1-2V Stat Exams 10/24/19 21:36 Taken XR shoulder RT min 2V Stat Exams 10/24/19 21:39 Taken - Radiology Data #1 Image(s): Chest, Shoulder, Pelvis, Knee Image Reviewed: Yes I reviewed the patient's radiology image Preliminary Findings: No Fracture Seen - CT Data CT Scan: Head, C-Spine Time Received: 22:[address] Reviewed: Yes: I have viewed the radiologist's interpretation Preliminary Findings: No Fracture Seen Fall HPI - General Chief Complaint: Fall Stated Complaint: Fall Time Seen by Provider: 10/24/19 21:40 Mode of Arrival: EMS Source of Information: Patient, EMS, Medical Record Limitations: No Limitations Description of Symptoms (Recalled from ER Triage Doc. by RN): Patient reports he rolled out of bed and landed on his right side. patient reports right shoulder pain, bi lateral knee pain and a headache. - History of Present Illness HPI Narrative: fell oob tonight with knee and shoulder pain w/o loc MD complaint: fall Onset (ago): hour(s) Fall from: out of bed Fall witnessed: no Place fall occurred: other (shelter ) Loss of consciousness: none Prolonged down time: no Symptoms prior to fall: none Location of injury: head Location of injury - extremities: Left: shoulder, Bilateral: knee Severity: moderate Associated symptoms (after fall): denies - Related Data Home Medications Medication Instructions Recorded Confirmed Aspirin [Aspirin 81mg chewable 81 mg PO DAILY 02/15/17 10/24/19 tab] Atorvastatin Calcium [Lipitor 40mg 40 mg PO HS 02/15/17 10/24/19 Tab] Sertraline HCl [Zoloft 100mg 150 mg PO DAILY 02/15/17 10/24/19 tablet] Tamsulosin HCl [Floma
[2019-10-24 22:44] VITALS: BP 170/100; PULSE 70; RESP 17; TEMP 36.6; O2SAT 93
== END 2019-10-24 23:10 | disposition home or self-care (01) ==
PROVIDERS: Emergency Provider Emergency Medicine; PCP Emergency Medicine
DX: S00.03XA Contusion of scalp, initial encounter (principal); S80.01XA Contusion of right knee, initial encounter; S43.402A Unspecified sprain of left shoulder joint, initial encounter; W06.XXXA Fall from bed, initial encounter; Y92.013 Bedroom of single-family (private) house as the place of occurrence of the external cause; F20.0 Paranoid schizophrenia; I10 Essential (primary) hypertension; I25.10 Atherosclerotic heart disease of native coronary artery without angina pectoris; E11.9 Type 2 diabetes mellitus without complications; E78.5 Hyperlipidemia, unspecified; Z86.73 Personal history of transient ischemic attack (TIA), and cerebral infarction without residual deficits; Z87.442 Personal history of urinary calculi; Z95.0 Presence of cardiac pacemaker; F17.210 Nicotine dependence, cigarettes, uncomplicated; Z79.899 Other long term (current) drug therapy
CPT/HCPCS: 70450; 71045; 72125; 72170; 73030; 73562; 99282

== ENCOUNTER 2019-10-26 13:10 | Emergency (ER) | payer MEDICAID, SELFPAY ==
[2019-10-26] VITALS (7 sets, daily range): BP systolic 127–156; BP diastolic 71–88; PULSE 67–77; RESP 16; TEMP 36.6–36.9; O2SAT 95–98; BMI 31.6
--- NOTE | 2019-10-26 13:16 | CT_ITS ---
PROCEDURE: CT HEAD/BRAIN WO CON CLINICAL INDICATION: FALL HEAD INJURY Head injury with headache/pain, contusion, abrasion or hematoma COMPARISON: CT CT HEAD/BRAIN WO CON from 10/24/2019 TECHNIQUE: Axial images obtained. All CT scans at the facility use one or more dose reduction, viz: automated exposure control, ma/kV adjustment per patient size (including targeted exams where dose is matched to indication, i.e. head), or iterative reconstruction technique. FINDINGS: No midline shift, mass effect, intracranial hemorrhage, hydrocephalus, or extra-axial fluid collection is evident. . There are encephalomalacia changes in the right cerebellar hemisphere. The calvarium has an unremarkable appearance. No mastoid effusion. No sinus air-fluid level. There is generalized atrophy with hypoattenuation of the periventricular white matter consistent with microangiopathic changes.. There are encephalomalacia changes in the right cerebellar hemisphere. The cystic changes are present in the right choroid plexus IMPRESSION: No change with no acute finding Dictated by: Zach Rodriguez MD 10/26/2019 14:35 Zach Rodriguez MD in [facility] 10/26/2019 14:35
--- NOTE | 2019-10-26 13:32 | CT_ITS ---
PROCEDURE: CT CERVICAL SPINE WO CON CLINICAL INDICATION: trauma Neck injury with pain, contusion/abrasion or hematoma, cervical sprain/strain the COMPARISON: CT CT CERVICAL SPINE WO CON from 10/24/2019 TECHNIQUE: Axial images obtained with sagittal and coronal reformats. All CT scans at the facility use one or more dose reduction, viz: automated exposure control, ma/kV adjustment per patient size (including targeted exams where dose is matched to indication, i.e. head), or iterative reconstruction technique. Axial spiral CT scanning performed of the cervical spine beginning at the base of the skull and continuing to the upper T-spine. 3-D multiplanar reconstruction with 3-D manipulation of volumetric data set in image rendering was completed by the radiologist and/or technologist with the supervision of the radiologist on independent workstation. FINDINGS: There is normal alignment. No fracture or dislocation is evident. Patient's head is somewhat rotated toward the right. Anterior osteophytes are present. There is degenerative disc disease at C6-C7 with endplate hypertrophic changes. Lung apices are clear. IMPRESSION: No acute fracture. Dictated by: Zach Rodriguez MD 10/26/2019 14:39 Zach Rodriguez MD in [facility] 10/26/2019 14:39
--- NOTE | 2019-10-26 13:32 | XR_ITS ---
PROCEDURE: XR PELVIS 1-2V CLINICAL INDICATION: trauma Posttraumatic pain COMPARISON: CR XR PELVIS 1-2V from 10/24/2019 TECHNIQUE: XR Pelvis AP View FINDINGS: No fracture or dislocation is evident. Mild osteoarthritic change of the hips Mild amount of retained colonic feces in the colon IMPRESSION: No acute findings. Dictated by: Zach Rodriguez MD 10/26/2019 14:59 Zach Rodriguez MD in [facility] 10/26/2019 14:59
--- NOTE | 2019-10-26 13:55 | PC.NURSE ---
pt to rad
--- NOTE | 2019-10-26 14:00 | HMH.EDFALL ---
ED Disposition Clinical Impression: Closed head injury Qualifiers: Encounter type: initial encounter Qualified Code(s): S09.90XA - Unspecified injury of head, initial encounter Accidental fall Qualifiers: Encounter type: initial encounter Qualified Code(s): W19.XXXA - Unspecified fall, initial encounter Disposition: Home, Self-Care Condition on Discharge: Good Instructions: How to Prevent Falls Referrals: Robbin Rodríguez MD [Primary Care Provider] - - Critical Care Critical Care Time: No Attestation: On 10/26/19, the high probability of a clinically significant, sudden or life threatening deterioration of the following system(s) required my full and direct attention, intervention and personal management. The time I documented below is in addition to time spent performing reported procedures but includes the following listed in this critical care notation. Medical Decision Making - Medical Records Medical records reviewed: Yes: I reviewed the patient's medical records. - Clem Inquiry Pt receiving controlled substance: No Vital Signs: 10/26/19 13:10 10/26/19 13:17 10/26/19 14:29 Temperature 98.5 F Temperature Source Oral Pulse Rate [Left Radial] 77 75 69 Respiratory Rate 16 Blood Pressure [Right Arm] 148/84 H 148/84 H 156/88 H Blood Pressure Mean [Right Arm] 105 105 110 Blood Pressure Source [Right Arm] Automatic Cuff Automatic Cuff Blood Pressure Position [Right Arm] Sitting Sitting Supine 02 Sat by Pulse Oximetry 98 96 98 Oxygen Delivery Method Room Air Room Air Room Air 10/26/19 14:44 Temperature Temperature Source Pulse Rate [Left Radial] 68 Respiratory Rate Blood Pressure [Right Arm] 156/88 H Blood Pressure Mean [Right Arm] 110 Blood Pressure Source [Right Arm] Automatic Cuff Blood Pressure Position [Right Arm] Sitting 02 Sat by Pulse Oximetry 97 Oxygen Delivery Method Room Air - Lab Data Lab Results 10/26/19 13:54: WBC 11.5 H, RBC 4.75, Hgb 14.3, Hct 42.5, MCV 89.5, MCH 30.2, MCHC 33.7, RDW 14.9, Plt Count 232, MPV 8.7, Neut % (Auto) 66.2, Lymph % (Auto) 25.8, [place] % (Auto) 5.4, Eos % (Auto) 2.1, Baso % (Auto) 0.6, Neut # (Auto) 7.6, Lymph # (Auto) 2.8, [place] # (Auto) 0.6, Eos # (Auto) 0.2, Baso # (Auto) 0.1 10/26/19 13:54: Sodium 142, Potassium 3.7, Chloride 106, Carbon Dioxide 29, Anion Gap 10.7, BUN 25 H, Creatinine 1.40 H, Estimated Creat Clear 93, Estimated GFR 53 L, Est GFR ( Amer) 64, Glucose 134 H, Calcium 9.9, Total Bilirubin 0.5, AST 30, ALT 37, Alkaline Phosphatase 132 H, Total Protein 8.1, Albumin 4.4, Globulin 3.7 H, Albumin/Globulin Ratio 1.2 Result diagrams: 10/26/19 13:54 10/26/19 13:54 Orders (Tests/Meds): ORDERS Category Date Time Status Pelvis XR 1-2 views [XR pelvis 1-2V] Stat Exams 10/26/19 13:32 Taken Urinalysis and Microscopic Stat Lab 10/26/19 13:17 Ordered - CT Data CT Scan: Head, C-Spine Time Received: 14:[address] Reviewed: Yes: I have reviewed the patient's CT results, I have viewed the radiologist's interpretation Preliminary Findings: Normal/NAD, No Fracture Seen - Reevaluation(s) Time: 14:55 Reevaluation #1: On reevaluation, the patient is feeling better. There is no evidence of intracranial or C-spine abnormality. Patient is feeling better. Patient be discharged back facility. Given strict return precautions. Verbalized understanding. Medical Decision Narrative: 53-year-old male presented to the emergency department after a fall. Patient meets imaging criteria for the head and cervical spine. Work-up initiated. Fall HPI - General Chief Complaint: Fall Stated Complaint: WEAKNESS Time Seen by Provider: 10/26/19 13:15 Mode of Arrival: EMS Limitations: No Limitations Description of Symptoms (Recalled from ER Triage Doc. by RN): TO ED PER SQUAD WITH C/O GENERALIZED WEAKNESS REPORT FROM [place] PT FELL 10/23 HITTING HEAD ON CONCRETE WALL PT HAS HAD AN UNSTEADY GAIT AND HEADACHE SINCE FALL. PT STATES HE FELL AGAIN TO
[2019-10-26 14:13] LABS: Alanine Aminotransferase 37 U/L (12-78); Albumin Level 4.4 g/dl (3.5-5.0); Albumin/Globulin Ratio 1.2 (1.1-1.8); Alkaline Phosphatase 132 U/L (38-126); Anion Gap 10.7 mEq/L (5-15); Aspartate Amino Transferase 30 U/L (17-59); Bilirubin,Total 0.5 mg/dl (0.2-1.3); Blood Urea Nitrogen 25 mg/dl (9-20); Calcium 9.9 mg/dl (8.4-10.2); Carbon Dioxide 29 mmol/L (22.0-30.0); Chloride 106 mmol/L (98-107); Creatinine Clearance Estimated 93 mL/min (50-200); Estimated Glomerular Filt Rate 53 ml/min (>60); GFR (African American) 64 ML/MIN (>60); Globulin 3.7 g/dL (1.3-3.2); Glucose 134 mg/dl (74-100); Potassium 3.7 mmoL/L (3.5-5.1); Sodium 142 mmol/L (136-145); Total Protein,Serum 8.1 g/dl (6.3-8.2)
[2019-10-26 14:39] LABS: Hematocrit 42.5 % (42.0-52.0); Hemoglobin 14.3 g/dL (14.1-18.0); Mean Corpuscular HGB Conc 33.7 g/dL (31.8-35.4); Mean Corpuscular Hemoglobin 30.2 pg (27.0-31.2); Mean Corpuscular Volume 89.5 fl (80-94); Red Blood Count 4.75 M/mm3 (4.60-6.20); Red Cell Distribution Width 14.9 % (11.5-17.5); White Blood Count 11.5 K/mm3 (4.8-10.8)
[2019-10-26 14:40] LABS: Basophils # 0.1 K/mm3 (0-0.2); Basophils % 0.6 % (0.1-2.0); Eosinophils # 0.2 K/mm3 (0.0-0.4); Eosinophils % 2.1 % (0.1-12.0); Lymphocytes # 2.8 K/mm3 (0.7-4.5); Lymphocytes % 25.8 % (10-50); Mean Platelet Volume 8.7 fl (7.4-10.4); Monocytes # 0.6 K/mm3 (0.1-1.0); Monocytes % 5.4 % (1.7-9.3); Neutrophils # 7.6 K/mm3 (1.8-7.8); Neutrophils % 66.2 % (37.0-80.0); Platelet Count 232 K/mm3 (142-424)
[2019-10-26 15:02] LABS: Microscopic, Urine URINE MICROSCOPIC (MICROSCOPIC)
[2019-10-26 15:25] LABS: Appearance,Urine CLEAR (Clear); Bilirubin,Urine Negative (Negative); Blood, Urine Negative (Negative); Color,Urine YELLOW (Yellow); Glucose,Urine (UA) 1+ (Negative); Ketones,Urine Negative (Negative); Leukocyte Esterase,Urine Negative (Negative); Nitrate,Urine Negative (Negative); Protein,Urine Negative (Negative); Specific Gravity, Urine 1.025 (1.005-1.030); Urobilinogen,Urine 0.2 EU/dl (0.2)
[2019-10-26 15:47] LABS: Bacteria,Urine Trace /lpf
== END 2019-10-26 17:14 | disposition home or self-care (01) ==
PROVIDERS: Emergency Provider Emergency Medicine; PCP Emergency Medicine
DX: S09.90XA Unspecified injury of head, initial encounter (principal); W01.0XXA Fall on same level from slipping, tripping and stumbling without subsequent striking against object, initial encounter; Y92.129 Unspecified place in nursing home as the place of occurrence of the external cause; I25.10 Atherosclerotic heart disease of native coronary artery without angina pectoris; I10 Essential (primary) hypertension; E78.5 Hyperlipidemia, unspecified; E11.9 Type 2 diabetes mellitus without complications; Z95.0 Presence of cardiac pacemaker; F20.0 Paranoid schizophrenia; Z79.899 Other long term (current) drug therapy
CPT/HCPCS: 36415; 70450; 72125; 72170; 80053; 81001; 85025; 99284

== ENCOUNTER 2020-04-08 21:33 | Observation (INO) | payer BC, SELFPAY ==
[2020-04-08 21:33] VITALS: BP 159/95; PULSE 77; RESP 14; TEMP 36.6; O2SAT 97; BMI 35.5
[2020-04-08 21:35] VITALS: BMI 29.0
--- NOTE | 2020-04-08 21:35 | ECG_ITS ---
APPROVED REPORT Exam: Resting ECG HR:76 bpm ECG Measurements Heart Rate 76 AXES TX 176 P 46 QRSd 104 QRS 41 QT 392 T 103 QTc 441 Conclusion Normal sinus rhythm ST & T wave abnormality, consider lateral ischemia Abnormal ECG Electronically signed by : Pascual Storey, 04/09/2020 10:18:28
--- NOTE | 2020-04-08 21:35 | XR_ITS ---
PROCEDURE: XR CHEST PORTABLE CLINICAL HISTORY: pain Chest pain COMPARISON: CT CT CHEST WO CON from 07/02/2019 CR XR CHEST PORTABLE from 07/17/2019 CR XR CHEST 2V from 08/25/2019 CR XR CHEST AP from 10/24/2019 FINDINGS: The cardiomediastinal silhouette and pulmonary vascularity are within normal limits. The lungs are clear without infiltrates, suspicious nodules, or pleural effusions. No acute bony abnormalities. IMPRESSION: No acute findings. Dictated by: Zach Rodriguez MD 04/09/2020 06:02 Zach Rodriguez MD in [facility] 04/09/2020 06:02
--- NOTE | 2020-04-08 21:51 | HMH.EDCP ---
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 transplanted heart: [place] heart Associated angina: with unstable angina Qualified Code(s): I25.110 - Atherosclerotic heart disease of [place] coronary artery with unstable angina pectoris Schizophrenia Qualifiers: Schizophrenia type: unspecified Qualified Code(s): F20.9 - Schizophrenia, unspecified HTN (hypertension) Qualifiers: Hypertension type: essential hypertension Qualified Code(s): I10 - Essential (primary) hypertension BPH (benign prostatic hyperplasia) Qualifiers: Lower urinary tract symptom detail: unspecified Disposition: Admitted as Observation Condition on Discharge: Good Referrals: Robbin Rodríguez MD [Primary Care Provider] - - Critical Care Critical Care Time: No Attestation: On 04/08/20, the high probability of a clinically significant, sudden or life threatening deterioration of the following system(s) required my full and direct attention, intervention and personal management. The time I documented below is in addition to time spent performing reported procedures but includes the following listed in this critical care notation. Medical Decision Making - Medical Records Medical records reviewed: Yes: I reviewed the patient's medical records. - Clem Inquiry Pt receiving controlled substance: No Vital Signs: 04/08/20 21:33 04/08/20 22:00 04/08/20 22:30 Temperature 97.8 F Temperature Source Oral Pulse Rate [Right] 77 76 80 Respiratory Rate 14 16 17 Blood Pressure [Right Arm] 159/95 H 144/88 H 129/86 Blood Pressure Mean [Right Arm] 116 106 100 Blood Pressure Source [Right Arm] Automatic Cuff Automatic Cuff Blood Pressure Position [Right Arm] Supine Supine 02 Sat by Pulse Oximetry 97 94 L 96 Oxygen Delivery Method Room Air Room Air Room Air 04/08/20 23:00 Temperature Temperature Source Pulse Rate [Right] 75 Respiratory Rate 17 Blood Pressure [Right Arm] 150/93 H Blood Pressure Mean [Right Arm] 112 Blood Pressure Source [Right Arm] Automatic Cuff Blood Pressure Position [Right Arm] Supine 02 Sat by Pulse Oximetry 95 Oxygen Delivery Method Room Air - Lab Data Lab results reviewed: Yes: I reviewed the patient's lab results. Lab Results 04/08/20 21:35: WBC 14.1 H, RBC 4.57 L, Hgb 13.6 L, Hct 42.0, MCV 92.0, MCH 29.8, MCHC 32.4, RDW 13.9, Plt Count 204, MPV 9.4, Neut % (Auto) 67.7, Lymph % (Auto) 26.6, [place] % (Auto) 3.8, Eos % (Auto) 1.6, Baso % (Auto) 0.3, Neut # (Auto) 9.6 H, Lymph # (Auto) 3.8, [place] # (Auto) 0.5, Eos # (Auto) 0.2, Baso # (Auto) 0.1 04/08/20 21:35: Sodium 135 L, Potassium 4.1, Chloride 105, Carbon Dioxide 25, Anion Gap 9.1, BUN 11, Creatinine 1.00, Estimated Creat Clear 118, Estimated GFR 78, Est GFR ( Amer) 94, Glucose 475 H*, Calcium 9.1, Troponin I < 0.01, C-Reactive Protein 27.2 H 04/08/20 21:35: ESR 50 H 04/08/20 21:35: Procalcitonin 0.072 Result diagrams: 04/08/20 21:35 04/08/20 21:35 Orders (Tests/Meds): ED MEDICATIONS Discontinued Medications Generic Name Dose Route Start Last Admin Trade Name Gibsonq PRN Reason Stop Dose Admin Aspirin 324 mg 04/08/20 21:53 04/08/20 21:54 Aspirin 81mg Chewable Tablet PO 04/08/20 21:54 324 mg ONCE ONE Administration ORDERS Category Date Time Status Chest XR -- portable [XR chest portable] Stat Exams 04/08/20 21:35 Taken Covid-19 Nasal PCR ([facility]) Routine Lab 04/08/20 21:56 Received Troponin I Q3H Lab 04/09/20 00:45 Ordered Troponin I Q3H Lab 04/09/20 03:45 Ordered - Radiology Data #1 Image(s): Chest Image Reviewed: Yes I reviewed the patient's radiology image Preliminary Findings: Abnormal (cm) - ECG Data Tracing #1 Normal Sinus Rhy
[2020-04-08 21:54] LABS: Basophils # 0.1 K/mm3 (0-0.2); Basophils % 0.3 % (0.1-2.0); Eosinophils # 0.2 K/mm3 (0.0-0.4); Eosinophils % 1.6 % (0.1-12.0); Hemoglobin 13.6 g/dL (14.1-18.0); Lymphocytes # 3.8 K/mm3 (0.7-4.5); Lymphocytes % 26.6 % (10-50); Mean Corpuscular HGB Conc 32.4 g/dL (31.8-35.4); Mean Corpuscular Hemoglobin 29.8 pg (27.0-31.2); Mean Platelet Volume 9.4 fl (7.4-10.4); Monocytes # 0.5 K/mm3 (0.1-1.0); Monocytes % 3.8 % (1.7-9.3); Neutrophils # 9.6 K/mm3 (1.8-7.8); Neutrophils % 67.7 % (37.0-80.0); Platelet Count 204 K/mm3 (142-424); Red Blood Count 4.57 M/mm3 (4.60-6.20); Red Cell Distribution Width 13.9 % (11.5-17.5); White Blood Count 14.1 K/mm3 (4.8-10.8)
[2020-04-08 21:59] LABS: Anion Gap 9.1 mEq/L (5-15); Blood Urea Nitrogen 11 mg/dl (9-20); Calcium 9.1 mg/dl (8.4-10.2); Carbon Dioxide 25 mmol/L (22.0-30.0); Chloride 105 mmol/L (98-107); Creatinine Clearance Estimated 118 mL/min (50-200); Estimated Glomerular Filt Rate 78 ml/min (>60); GFR (African American) 94 ML/MIN (>60); Potassium 4.1 mmoL/L (3.5-5.1); Sodium 135 mmol/L (136-145)
[2020-04-08 22:00] VITALS: BP 144/88; PULSE 76; RESP 16; O2SAT 94
[2020-04-08 22:03] LABS: C-Reactive Protein 27.2 mg/L (0-4)
[2020-04-08 22:05] LABS: Glucose 475 mg/dl (74-100)
[2020-04-08 22:17] LABS: Procalcitonin 0.072 ng/mL (0.0-2.0)
[2020-04-08 22:28] LABS: Troponin I < 0.01 ng/ml (0.00-0.034)
[2020-04-08 22:30] VITALS: BP 129/86; PULSE 80; RESP 17; O2SAT 96
[2020-04-08 22:47] LABS: Erythrocyte Sedimentation Rate 50 mm/hr (0-20)
[2020-04-08 23:00] VITALS: BP 150/93; PULSE 75; RESP 17; O2SAT 95
[2020-04-08 23:30] VITALS: BP 147/89; PULSE 76; RESP 17; O2SAT 98
[2020-04-09] VITALS (25 sets, daily range): BP systolic 122–168; BP diastolic 55–99; PULSE 60–80; RESP 13–20; TEMP 36.4–36.8; O2SAT 90–97; BMI 32.4; BMI 32.5
--- NOTE | 2020-04-09 | IR_ITS ---
APPROVED REPORT Patient Location: Inpatient [facility] Operator: RIZWAN Saunders RT (R) PROCEDURES Left heart catheterization Left ventriculogram Selective coronary angiogram Drug-eluting stent deployment to the distal dominant right coronary INDICATION Coronary disease, Unstable angina Informed consent was obtained prior to the procedure. COMPLICATIONS None Estimated Blood Loss: Less than 10 mls TECHNIQUE One percent lidocaine used to anesthetize the right anterior aspect of the wrist. The right radial artery was accessed via the Seldinger technique. A 6 [place] sheath was placed in the right radial artery. 2.5 mg of verapamil, 800 mcg of nitroglycerin, 1mg Lidocaine and 5000 U Heparin were given through the arterial sheath. The trap catheter was also used to perform left heart catheterization, left ventriculogram and selective coronary angiogram. At the end of the diagnostic angiogram therapeutic heparin was administered giving a therapeutic ACT. And I Shabnam right guide catheter was placed in the right coronary artery and a BMW wire was placed distally. A 3 mm x 22 mm resolute marychuy stent was deployed at 20 naif reducing the severe stenosis to 0%. At the end of the procedure the apparatus was removed the sheath was removed and hemostasis was achieved using TR banding patient was transferred to the postop holding in stable condition. FLORENCIA-3 flow was present before and after the procedure ANGIOGRAPHIC RESULTS The left main artery Normal The left anterior descending artery Has a proximal smooth 20 to 30% stenosis with mid vessel 10% luminal irregularities The circumflex artery Nondominant with mild 10% luminal irregularities The right coronary artery Is a dominant vessel and has a distal hazy concentric 70% stenosis The BASS ventriculogram reveals Dilated ventricle with preserved ejection fraction 55% The left ventricular end-diastolic pressure 30 mm Hg IMPRESSION Severe single-vessel disease as described above Successful stenting of the distal dominant right coronary artery hazy 70% stenosis reduced to 0% with 1 drug-eluting stent Dilated ventricle with preserved ejection fraction accompanied by severely elevated LVEDP consistent with diastolic dysfunction PLAN 1. Dual antiplatelet therapy 2. Treatment of underlying moderate to severe diastolic dysfunction 3. Cardiac rehabilitation 4. Avoidance of tobacco products 5. LDL less than 55 6. Risk factor modification Electronically signed by : Keagan Del Rio, 04/09/2020 12:38:09
[2020-04-09 00:59] LABS: Troponin I < 0.01 ng/ml (0.00-0.034)
--- NOTE | 2020-04-09 01:01 | PC.NURSE ---
patient up to floor via wheelchair.
--- NOTE | 2020-04-09 01:31 | PC.WOUNDNOTE ---
Wound Location: bilateral lower legs Length: Width: Depth: Undermining Y/N: Tunneling cm: Granulation %: Slough/necrotic tissue %: Inflammation/swelling Y/N: Pain and/or tenderness Y/N: Color: scaly Consistency: Thick Thin Amount: None Scant Small Moderate Large Odor Y/N:
--- NOTE | 2020-04-09 01:33 | PC.WOUNDNOTE ---
Wound Location: right forearm Length: Width: Depth: Undermining Y/N: Tunneling cm: Granulation %: Slough/necrotic tissue %: Inflammation/swelling Y/N: Pain and/or tenderness Y/N: Exudate: Serosanguinous Sanguinous Serosanguinous Seropurulent Purulent Color: Clear Karen Cloudy/milky [place] Red Green Yellow Brown Garcia Blue Consistency: Thick Thin Amount: None Scant Small Moderate Large Odor Y/N:
[2020-04-09 04:21] LABS: Basophils % 0.4 % (0.1-2.0); Eosinophils # 0.3 K/mm3 (0.0-0.4); Eosinophils % 2.5 % (0.1-12.0); Hematocrit 39.2 % (42.0-52.0); Hemoglobin 12.7 g/dL (14.1-18.0); Lymphocytes # 3.6 K/mm3 (0.7-4.5); Lymphocytes % 30.6 % (10-50); Mean Corpuscular HGB Conc 32.4 g/dL (31.8-35.4); Mean Corpuscular Hemoglobin 29.4 pg (27.0-31.2); Mean Corpuscular Volume 90.6 fl (80-94); Monocytes # 0.5 K/mm3 (0.1-1.0); Monocytes % 4.5 % (1.7-9.3); Neutrophils # 7.3 K/mm3 (1.8-7.8); Platelet Count 195 K/mm3 (142-424); Red Blood Count 4.32 M/mm3 (4.60-6.20); Red Cell Distribution Width 13.8 % (11.5-17.5); White Blood Count 11.7 K/mm3 (4.8-10.8)
[2020-04-09 04:22] LABS: Chloride 108 mmol/L (98-107)
[2020-04-09 04:23] LABS: Sodium 137 mmol/L (136-145)
[2020-04-09 04:25] LABS: Blood Urea Nitrogen 13 mg/dl (9-20); Creatinine Clearance Estimated 150 mL/min (50-200); Estimated Glomerular Filt Rate 88 ml/min (>60); GFR (African American) 106 ML/MIN (>60)
[2020-04-09 04:26] LABS: Calcium 9.2 mg/dl (8.4-10.2); Carbon Dioxide 24 mmol/L (22.0-30.0); Chol/HDL Ratio 4.1 (1-3.5); Cholesterol 124 mg/dl (140-200); Glucose 354 mg/dl (74-100); HDL Cholesterol 30 mg/dl (40-60); Magnesium 1.7 mg/dl (1.6-2.3); Triglycerides 237 mg/dl (30-150); VLDL Cholesterol 47 mg/dL (0-40)
[2020-04-09 04:31] LABS: Troponin I < 0.01 ng/ml (0.00-0.034)
[2020-04-09 04:37] LABS: Direct LDL Cholesterol 62.29 mg/dL (100-129)
--- NOTE | 2020-04-09 05:15 | PC.NURSE ---
NO ACUTE CHANGES OVERNIGHT. PT NSR ON TELE, NO C/O OF PAIN OR DISCOMFORT. PT NPO SINCE MIDNIGHT. ABLE TO AMBULATE WITH STAND BY ASSIST. LUNGS CTA, ON RA. BOWEL SOUNDS X4, ABD ROUND, SOFT AND NONTENDER. VSS, CALL LIGHT IN REACH, NO CONCERNS AT THIS TIME.
[2020-04-09 05:32] LABS: POC Glucose,Bedside 285 (70-110)
--- NOTE | 2020-04-09 08:18 | HMH.PHAVTE ---
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
--- NOTE | 2020-04-09 09:06 | HMH.PHAINT ---
MEDICATION RECONCILIATION COMPLETED ON PATIENT USING MAR FROM [facility]. -BOO AKINS, LLOYDD
--- NOTE | 2020-04-09 09:54 | HMH.CNCARD ---
History of Present Illness Consult date: 04/09/20 Requesting physician: Robbin Rodríguez Consult reason: chest pain Chief complaint: chest pain History of present illness: 54-year-old -[place] gentleman presented to [facility] with midsternal chest pain. Patient states for the past few hours prior to arriving to the ER he began having a heaviness in the center of his chest. He states this was nonradiating. The chest pain or heaviness was accompanied with increased shortness of breath. She is a non-smoker. Patient states he does have history of coronary artery disease. 2019 last catheterization revealed mild to moderate CAD. During this assessment patient stated the chest heaviness has eased some. States his heaviness is a 6 out of 10 on the pain scale. Patient states shortness of breath has resolved. Patient denies dizziness or palpitations. Last echocardiogram (07/27) revealed EF 55 to 60% with no wall motion abnormality. Patient does have history of diabetes which is uncontrolled. History of hyperlipidemia and high blood pressure. Patient has had multiple strokes in the past. Patient does have limited ability of the right upper and lower extremities due to these multiple strokes. Patient is a resident of [place]. Patient states he is noncompliant with his medications. Initial work-up was performed in the ED. Initial EKG was interpreted as normal sinus rhythm with a heart rate of 63 bpm. Chest x-ray was performed. Chest x-ray revealed no acute findings. Serial troponins were negative. LDL 62. Renal function stable. ESR 50 and C-reactive protein 27.2. These were both elevated. Will defer to PCP. Discussed plan of care with Dr. Del Rio and PCP. Due to chest heaviness, uncontrolled diabetes and in spite being on 2 antianginals, patient will be set up for a left heart catheterization today. Preliminary echocardiogram results revealed thick appearance of the mitral valve and aortic valve. Mild regurgitation of the mitral valve and tricuspid valve. EF greater than 55%. Official reading is still pending. Pending on the results of the left heart catheterization and echocardiogram, medication and treatment therapy may be recommended. Please continue to monitor patient. Please notify cardiology of any changes in patient status. Thank you for allowing cardiology to participate in the care of this patient. [facility] History I have reviewed the patient's past medical history: Yes Medical History: Reports:: Cancer, Cardiomyopathy, Coronary Artery Disease, Cerebrovascular Accident, Diabetes Mellitus Type 1, Diabetes Mellitus Type 2, Hyperlipidemia, Hypertension, Internal Pacemaker, Kidney Stones, MRSA, Seizures, Transient Ischemic Attacks (TIA) *Have you ever received a pneumonia vaccine?: No *Have you received a flu vaccine this season?: Yes Other Medical History: Reports: Anemia, Arthritis, Blood Transfusion Reaction, Other Other Surgeries: Yes: No Previous Surgery, Cardiac Catheterization, Pacemaker, Other Amputation: No Fractures: Yes (rt arm) - *Social History Smoking Status: Current every day smoker Tobacco Type: cigarettes # Packs/Day (cigarettes): 1 Alcohol Intake: never Substance Use Type: denies use *Occupational Status:: disabled Housing: assisted living facility Household Members: other *Travel in the last 8 weeks: None Family Hx:: Coronary Artery Disease Meds Home Medications Medication Instructions Recorded Confirmed Type Aspirin [Aspirin 81mg chewable 81 mg PO DAILY 02/15/17 04/09/20 History tab] Atorvastatin Calcium [Lipitor 40mg 40 mg PO HS 02/15/17 04/09/20 History Tab] Sertraline HCl [Zoloft 100mg 150 mg PO DAILY 02/15/17 04/09/20 History tablet] Tamsulosin HCl [Flomax 0.4mg 0.4 mg PO DAILY 02/15/17 04/09/20 History capsule] Finasteride [Proscar 5mg Tablet] 5 mg PO DAILY 12/21/17 04/09/20 History Amlodipine Besylate [Amlodipine 10 mg PO DAILY 07/02/1904/09/
--- NOTE | 2020-04-09 10:42 | SW/DCPLANNER ---
Addendum entered by Muriel Mikana 04/10/20 13:17: Isidro has called back stating that she thought Roxann had already evaluated this patient and patient could return today. I will contact [facility] for transport back to [facility] today. I have made patients nurse (Kobe) aware of situation. Addendum entered by [facility] 04/10/20 12:47: Multiple attempts made by me since discharge order to [facility] regarding discharge of this patient. No answer from [facility] at this time. [facility] staff member stated patient can not return until [facility] evaluate this patient. I will continue to call [facility]. Addendum entered by Muriel Mikana 04/10/20 09:33: I have notified Misty with [facility] that this patient will be ready for discharge today. [facility] have stated that patient will NOT need an additional COVID swab due to being swabbed on 04/08. PT/OT has been ordered for this morning. [facility] has stated that they will come evaluate this patient regarding returning to [facility] this morning. Original Note: This patient currently resides at [facility]: I have informed Clara that this patient will have a heart cath today. I will follow up with Clara once heart cath is complete regarding discharge plans.
--- NOTE | 2020-04-09 12:45 | HMH.HP ---
*Admission Date: 04/09/20 *Chief complaint: Chest Pain *History of present illness: 54-year-old male patient presented to the emergency department with complaints of midsternal chest pain. He reports chest pain began earlier in the day and he describes it as a heaviness in the center of his chest, he denies radiation but does report shortness of breath during episode. He does have a history of coronary artery disease, schizophrenia, hypertension, BPH. Chest x-ray revealed no acute findings Troponins negative x3 Patient sitting up in bed this morning, he denies any shortness of breath or chest pain during the night. Oxygen saturation 93% on room air. Discussed with patient possible testing today including stress test and cardiac catheterization patient is agreeable to these. Awaiting cardiology recommendations [facility] History I have reviewed the patient's past medical history: Yes Medical History: Reports:: Cancer, Cardiomyopathy, Coronary Artery Disease, Cerebrovascular Accident, Diabetes Mellitus Type 1, Diabetes Mellitus Type 2, Hyperlipidemia, Hypertension, Internal Pacemaker, Kidney Stones, MRSA, Seizures, Transient Ischemic Attacks (TIA) *Have you ever received a pneumonia vaccine?: No *Have you received a flu vaccine this season?: Yes Other Medical History: Reports: Anemia, Arthritis, Blood Transfusion Reaction, Other Other Surgeries: Yes: No Previous Surgery, Cardiac Catheterization, Pacemaker, Other Amputation: No Fractures: Yes (rt arm) - *Social History Smoking Status: Current every day smoker Tobacco Type: cigarettes # Packs/Day (cigarettes): 1 Alcohol Intake: never Substance Use Type: denies use *Occupational Status:: disabled Housing: assisted living facility Household Members: other *Travel in the last 8 weeks: None Family Hx:: Coronary Artery Disease Review of Systems - Review of Systems Review of systems:: pertinent systems reviewed and negative unless documented below - Constitutional Reports fatigue, Reports malaise, Denies body ache(s), Denies weight loss - Eyes Denies blind spots, Denies double vision - ENT Denies dizziness, Denies dry mouth - *Cardiovascular Reports chest pain, Reports chest pain at rest, Denies shortness of breath - *Respiratory Denies chest congestion, Denies shortness of breath - *Gastrointestinal Denies abdominal pain, Denies constipation - *Musculoskeletal Reports abnormal walking, Denies body aches, Denies neck pain - Integumentary/Breasts Denies hair loss, Denies change in skin color - *Neurologic Reports abnormal walking, Denies localized weakness, Denies headache(s), Denies seizure-like activity - Psychiatric Denies anxiety, Denies change in appetite - Endocrine Denies heat intolerance, Denies increased thirst - Hematologic/Lymphatic Reports easy bleeding, Reports enlarged lymph nodes - Allergic/Immunologic Denies throat swelling, Denies tongue swelling Meds Home Medications Medication Instructions Recorded Confirmed Type Aspirin [Aspirin 81mg chewable 81 mg PO DAILY 02/15/17 04/09/20 History tab] Atorvastatin Calcium [Lipitor 40mg 40 mg PO HS 02/15/17 04/09/20 History Tab] Sertraline HCl [Zoloft 100mg 150 mg PO DAILY 02/15/17 04/09/20 History tablet] Tamsulosin HCl [Flomax 0.4mg 0.4 mg PO DAILY 02/15/17 04/09/20 History capsule] Finasteride [Proscar 5mg Tablet] 5 mg PO DAILY 12/21/17 04/09/20 History Amlodipine Besylate [Amlodipine 10 mg PO DAILY 07/02/19 04/09/20 History 10mg Tab] Isosorbide Mononitrate [Imdur 30mg 30 mg PO HS 07/02/19 04/09/20 History ER tablet] Losartan Potassium [Cozaar 50mg 50 mg PO DAILY 07/02/19 04/09/20 History Tablets] Omeprazole 40 mg PO DAILY 07/02/19 04/09/20 History polyethylene glycoL 3350 [Miralax 17 gm PO DIRECTED PRN 07/02/19 04/09/20 History 17gm Packet] Benztropine Mesylate [Cogentin 1mg 1 mg PO BID 07/03/19 04/09/20 History tablet] Metoprolol
[2020-04-09 12:58] LABS: CATHL Activated Clotting Time 287 SEC (74-125)
--- NOTE | 2020-04-09 15:20 | PC.NURSE ---
HE IS AOX4 BUT DOES HAVE SOME DELAY AT TIMES, AT PRESENT PT HAD HEART CATH PROCEDURE TODAY WITH STENT PLACEMENT TO THE DISTAL RCA, HE DENIES CHEST PAIN SINCE ARRIVING TO FLOOR FOLLOWING PROCEDURE, HE DOES NOT REQUIRE O2 SUPPORT, HE TOLERATED DIET WELL, HE HAS BEEN FULLY ALERT SINCE RETURNING TO THE FLOOR FROM THE [employer], HE DENIES N/V/D, RADIAL BAND STILL IN PLACE AT TIME OF WRITING, NO EVIDENCE OF BLEEDING NOTED, FINGERS DISTAL ARE WARM WITH CAP REFILL <3 SECONDS, NONEEDS AT THIS TIME, WILL CONTINUE TO MONITOR.
[2020-04-09 17:46] LABS: POC Glucose,Bedside 294 (70-110)
[2020-04-09 17:46] LABS: POC Glucose,Bedside 293 (70-110)
[2020-04-09 20:42] LABS: POC Glucose,Bedside 372 (70-110)
[2020-04-10] VITALS: BP 162/70; PULSE 65; PULSE 76; RESP 17; TEMP 36.4; O2SAT 94
--- NOTE | 2020-04-10 02:55 | PC.NURSE ---
PT IS RESTING IN BED. NO COMPLAINTS OF CHEST PAIN OR SOA. PT HAS AMBULATED TO THE BATHROOM WITH 1 ASSIST. DRESSING NOTED TO THE RT RADIAL. LUNG SOUNDS CLEAR. ABDOMEN SOFT/NON TENDER WITH ACTIVE BOWEL SOUNDS. PT HAD A BOWEL MOVEMENT THIS SHIFT. NSR ON THE MONITOR. WILL CONTINUE TO MONITOR.
[2020-04-10 03:57] VITALS: BP 174/99; PULSE 76; RESP 22; TEMP 36.6; O2SAT 94
[2020-04-10 04:00] VITALS: PULSE 70
[2020-04-10 04:46] VITALS: BP 138/90
[2020-04-10 05:48] VITALS: BMI 32.3
[2020-04-10 06:33] LABS: POC Glucose,Bedside 416 (70-110)
[2020-04-10 07:00] LABS: Basophils % 0.4 % (0.1-2.0); Eosinophils # 0.3 K/mm3 (0.0-0.4); Eosinophils % 2.9 % (0.1-12.0); Hematocrit 40.6 % (42.0-52.0); Hemoglobin 13.1 g/dL (14.1-18.0); Lymphocytes # 2.5 K/mm3 (0.7-4.5); Lymphocytes % 28.3 % (10-50); Mean Corpuscular HGB Conc 32.3 g/dL (31.8-35.4); Mean Corpuscular Hemoglobin 29.2 pg (27.0-31.2); Mean Corpuscular Volume 90.5 fl (80-94); Mean Platelet Volume 9.6 fl (7.4-10.4); Monocytes # 0.5 K/mm3 (0.1-1.0); Monocytes % 5.1 % (1.7-9.3); Neutrophils # 5.6 K/mm3 (1.8-7.8); Neutrophils % 63.3 % (37.0-80.0); Platelet Count 196 K/mm3 (142-424); Red Blood Count 4.48 M/mm3 (4.60-6.20); White Blood Count 8.9 K/mm3 (4.8-10.8)
[2020-04-10 07:08] LABS: Anion Gap 11.3 mEq/L (5-15); Blood Urea Nitrogen 13 mg/dl (9-20); Calcium 9.3 mg/dl (8.4-10.2); Carbon Dioxide 24 mmol/L (22.0-30.0); Chloride 104 mmol/L (98-107); Creatinine Clearance Estimated 150 mL/min (50-200); Estimated Glomerular Filt Rate 88 ml/min (>60); GFR (African American) 106 ML/MIN (>60); Potassium 4.3 mmoL/L (3.5-5.1); Sodium 135 mmol/L (136-145)
[2020-04-10 07:28] LABS: Glucose 434 mg/dl (74-100)
--- NOTE | 2020-04-10 07:48 | PC.NURSE ---
SPOKE WITH DR RUIZ REGARDING CRITICAL GLUCOSE, STATED HE WOULD BE HERE TO ROUND SHORTLY.
[2020-04-10 08:00] VITALS: BP 149/80; PULSE 60; PULSE 76; RESP 18; TEMP 36.7; O2SAT 95
--- NOTE | 2020-04-10 09:09 | HMH.DCSUM ---
General - General Admission date:: 04/09/20 Discharge date: 04/10/20 HPI HPI: 54-year-old male patient presented to the emergency department with complaints of midsternal chest pain. He reports chest pain began earlier in the day and he describes it as a heaviness in the center of his chest, he denies radiation but does report shortness of breath during episode. He does have a history of coronary artery disease, schizophrenia, hypertension, BPH. Chest x-ray revealed no acute findings Troponins negative x3 Patient sitting up in bed this morning, he denies any shortness of breath or chest pain during the night. Oxygen saturation 93% on room air. Discussed with patient possible testing today including stress test and cardiac catheterization patient is agreeable to these. Awaiting cardiology recommendations Hospital Course Hospital Course: Laboratory Tests 04/08/20 04/08/20 04/08/20 21:35 21:35 21:35 WBC 14.1 H RBC 4.57 L Hgb 13.6 L Hct 42.0 MCV 92.0 MCH 29.8 MCHC 32.4 RDW 13.9 Plt Count 204 MPV 9.4 Neut % (Auto) 67.7 Lymph % (Auto) 26.6 [place] % (Auto) 3.8 Eos % (Auto) 1.6 Baso % (Auto) 0.3 Neut # (Auto) 9.6 H Lymph # (Auto) 3.8 [place] # (Auto) 0.5 Eos # (Auto) 0.2 Baso # (Auto) 0.1 ESR 50 H Activated Clotting Time Sodium 135 L Potassium 4.1 Chloride 105 Carbon Dioxide 25 Anion Gap 9.1 BUN 11 Creatinine 1.00 Estimated Creat Clear 118 Estimated GFR 78 Est GFR ( Amer) 94 Glucose 475 H* POC Glucose Calcium 9.1 Magnesium Troponin I < 0.01 C-Reactive Protein 27.2 H Triglycerides Cholesterol LDL Cholesterol Direct VLDL Cholesterol HDL Cholesterol Cholesterol/HDL Ratio Procalcitonin 04/08/20 04/09/20 04/09/20 21:35 00:15 03:50 WBC RBC Hgb Hct MCV MCH MCHC RDW Plt Count MPV Neut % (Auto) Lymph % (Auto) [place] % (Auto) Eos % (Auto) Baso % (Auto) Neut # (Auto) Lymph # (Auto) [place] # (Auto) Eos # (Auto) Baso # (Auto) ESR Activated Clotting Time Sodium Potassium Chloride Carbon Dioxide Anion Gap BUN Creatinine Estimated Creat Clear Estimated GFR Est GFR ( Amer) Glucose POC Glucose Calcium Magnesium Troponin I < 0.01 < 0.01 C-Reactive Protein Triglycerides Cholesterol LDL Cholesterol Direct VLDL Cholesterol HDL Cholesterol Cholesterol/HDL Ratio Procalcitonin 0.072 04/09/20 04/09/20 04/09/20 03:50 03:50 05:25 WBC 11.7 H RBC 4.32 L Hgb 12.7 L Hct 39.2 L MCV 90.6 MCH 29.4 MCHC 32.4 RDW 13.8 Plt Count 195 MPV 9.0 Neut % (Auto) 62.0 Lymph % (Auto) 30.6 [place] % (Auto) 4.5 Eos % (Auto) 2.5 Baso % (Auto) 0.4 Neut # (Auto) 7.3 Lymph # (Auto) 3.6 [place] # (Auto) 0.5 Eos # (Auto) 0.3 Baso # (Auto) 0.0 ESR Activated Clotting Time Sodium 137 Potassium 4.0 Chloride 108 H Carbon Dioxide 24 Anion Gap 9.0 BUN 13 Creatinine 0.90 Estimated Creat Clear 150 Estimated GFR 88 Est GFR ( Amer) 106 Glucose 354 H D POC Glucose 285 H Calcium 9.2 Magnesium 1.7 Troponin I C-Reactive Protein Triglycerides 237 H Cholesterol 124 L LDL Cholesterol Direct 62.29 L VLDL Cholesterol 47 H HDL Cholesterol 30 L Cholesterol/HDL Ratio 4.1 H Procalcitonin 04/09/20 04/09/20 04/09/20 11:28 13:31 17:39 WBC RBC Hgb Hct MCV MCH MCHC RDW Plt Count MPV Neut % (Auto) Lymph % (Auto) [place] % (Auto) Eos % (Auto) Baso % (Auto) Neut # (Auto) Lymph # (Auto) [place] # (Auto) Eos # (Auto) Baso # (Auto) ESR Activated Clotting Time 287 H* Sodium Potassium Chloride Carbon Dioxide An
--- NOTE | 2020-04-10 09:16 | HMH.PNCARD ---
Subjective Date: 04/10/20 Time: 09:00 Principal diagnosis: CAD Interval history: This is a 54-year-old -Indian gentleman who presented to [facility] with complaints of chest pain. He underwent left cardiac catheterization yesterday and had stenting to the distal dominant right coronary artery with 1 drug-eluting stent. The patient will remain on dual antiplatelet therapy with Brilinta and aspirin. He also had a severely elevated LVEDP at 30 mmHg. Patient has been started on diuretics for this. This morning he states that he still has a little pressure in the central aspect of his chest that is associated with shortness of breath. He does state that it is better than it was prior to getting the stenting but has noticed a few episodes of the chest pain. This is most likely from his severely elevated LVEDP. The patient will need continued diuresis. He denies any fever, chills, nausea, vomiting, diarrhea, PND orthopnea. Exam Vital signs and Labs for Last 24 Hours: Temp Pulse Resp BP Pulse Ox 98.1 F 76 18 149/80 H 95 04/10/20 08:00 04/10/20 08:00 04/10/20 08:00 04/10/20 08:00 04/10/20 08:00 Laboratory Results - last 24 hr 04/09/20 11:28: POC Glucose 294 H 04/09/20 13:31: Activated Clotting Time 287 H* 04/09/20 17:39: POC Glucose 293 H 04/09/20 20:28: POC Glucose 372 H* 04/10/20 05:50: WBC 8.9, RBC 4.48 L, Hgb 13.1 L, Hct 40.6 L, MCV 90.5, MCH 29.2, MCHC 32.3, RDW 14.0, Plt Count 196, MPV 9.6, Neut % (Auto) 63.3, Lymph % (Auto) 28.3, [place] % (Auto) 5.1, Eos % (Auto) 2.9, Baso % (Auto) 0.4, Neut # (Auto) 5.6, Lymph # (Auto) 2.5, [place] # (Auto) 0.5, Eos # (Auto) 0.3, Baso # (Auto) 0.0 04/10/20 05:50: Sodium 135 L, Potassium 4.3, Chloride 104, Carbon Dioxide 24, Anion Gap 11.3, BUN 13, Creatinine 0.90, Estimated Creat Clear 150, Estimated GFR 88, Est GFR ( Amer) 106, Glucose 434 H*, Calcium 9.3 04/10/20 06:27: POC Glucose 416 H* I & O for Last 24 hours: Intake & Output 04/07/20 04/08/20 04/09/20 04/10/20 23:59 23:59 23:59 23:59 Intake Total 840 / 840 0 / 0 Output Total 650 / 1025 375 / 375 Balance 190 / -185 -375 / -375 Weight 220 lb 253 lb 8.505 oz 251 lb 9 oz Narrative: Telemetry strip is sinus rhythm - Constitutional no acute distress, obese - *Routine HEENT Exam Head: Present: normocephalic, atraumatic Eye: Present: EOMI, PERRL ENT: Present: mucous membranes moist - *Routine Neck Exam Present: supple, full ROM, normal carotid upstroke. Absent: JVD, carotid bruit, lymphadenopathy - *Routine Respiratory Exam Present: CTA bilaterally - *Routine Cardiovascular Exam Present: RRR, Normal S1, Normal S2. Absent: murmur - *Routine Abdominal Exam Present: soft, normoactive bowel sounds. Absent: tenderness, distended - *Routine Extremities Exam Present: full ROM, pulses intact, normal capillary refill. Absent: cyanosis, clubbing, edema - *Routine Skin Exam Present: intact, warm. Absent: erythema, rash - *Routine Neurological Exam Present: alert, oriented X3, CN II-XII intact. 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 Patient was admitted to the hospital and underwent stenting to his right coronary artery. He will be on done supportive therapy with Brilinta and aspirin. 2. Blood pressure is acceptable. 3. Coronary artery disease is likely stable. 4. LDL goal is less than 55. His LDL is currently 82. On a statin. 5. Patient is still having a few episod
--- NOTE | 2020-04-10 11:14 | HMH.OTEV ---
OT Inpatient Evaluation Rehab OT IP Evaluation Start: 04/10/20 08:19 Freq: ONCE Status: Complete Protocol: Document 04/10/20 11:09 JENISE (Rec: 04/10/20 11:14 [facility] [id number]) Rehab OT IP Assessment Subjective History Pt oriented x 3 on arrival. Pt agreeable to engage in therapy evaluation. Pt was admitted via ED on 04/09/20 due to chest pain. Pt underwent cardiac cath and required a stent to distal dominant R coronary artery on 04/09/20. Pt has a past medical history of CA, cardiomyopathy, CAD, CVA, DM type 2, Hyperlipidemia, HTN, Internal Pacemaker, MRSA, Seizures, and TIA. Pt reports he lived at [place] prior to being admitted to the hospital. Pt claims he was independent with all ADL's and was depenent upon staff members to complete IADLs. Subjective I am fine I think. Objective Patient Orientation Person,Place,Birthday Upper Extremity Gross ROM WFL Bed Mobility bed mobility-scooting,bed mobility - supine/sit,bed mobility - rolling Assist Level Supervision/Stand by Transfer Training Sit/Stand Transfer Assist Level Supervision/Stand by Chair Transfer Ability Supervision/Stand by Chair Transfer Technique Sit to/from Ambulatory Chair Transfer Assistive Devices None Lower Body Dressing Ability Standby Assistance Overall Commode/Toilet Transfer Ability Standby Assistance Commode/Toilet Transfer Technique Sit to/from Ambulatory Rehab OT IP prob,goals,plan Problems Date of Evaluation: 04/10/20 Rehab Potential Rehab Potential Innapropriate for Skilled Therapy Discharge Plan OT Discharge Plan Pt appears to be at baseline at this time; no further tx required. Eval Complexity Eval Charge Codes 91193 - Moderate Complexity G Codes G -code Required No PHYSICIAN CERTIFICATION: I certify the specified therapy services for Chino Decker are required, authorized, and reviewed every 30 days.
--- NOTE | 2020-04-10 11:17 | HMH.PTEV ---
Physical Therapy Evaluation Rehab PT IP Evaluation Start: 04/10/20 08:19 Freq: ONCE Status: Complete Protocol: Document 04/10/20 11:14 MYRANDA (Rec: 04/10/20 11:17 VISHNUDANIEL [id number]) Subjective/History History History This is the initial IP PT evaluation for Chino Ely. Pt is a 54 y/o male admitted to [facility] thru ED for c/o chest pain. Pt is a resident of local home. Subjective Subjective Pt reports no c/o pain - did state he had that shot and it made hime sick - pt was referring to COVID shot Rehab PT IP Eval Objective Appearance Patient Behavior Cooperative Patient Orientation Person,Place Difficulty following instructions none Speech Pattern Clear Ambulation Patient Able to Ambulate Yes Ambulation Observation IP General Gait Pattern Observation No Deviations/Normal Ambulation Distance (feet) 50 Ambulation Assistive Device None Ambulation Ability Independent Balance Ability to Arise Able, w/o using arms Sitting Balance Steady, safe Standing Balance Narrow stance w/o support Dynamic Sitting Balance Ability Normal Dynamic Standing Balance Ability Good Transfers Bed Transfer Ability Independent Chair Transfer Ability Independent Sit to Stand Bed Transfer Ability Independent Sit to Stand Chair Transfer Ability Independent ROM All Extremities PT ROM Status WFL MMT All Extremities PT MMT WFL Rehab PT IP prob,goals,plan Problems Date of Evaluation: 04/10/20 Rehab Potential Rehab Potential Innapropriate for Skilled Therapy Equipment Needs Assistive Devices None / NA Discharge Plan PT Discharge Plan pt to dc to home once medically stable G -code Required Yes Eval Complexity Eval Charge Codes 40216 - Low Complexity G Codes PT Current Status Mobility PT Current Status Modifier CH-0% impaired, limited or restricted PT Goal Status Mobility PT Goal Status Modifer CI-At least 1% but less than 20% impaired, limited or restricted PHYSICIAN CERTIFICATION: I certify the specified therapy services for Chino Decker are required, authorized, and reviewed every 30 days.
[2020-04-10 11:49] LABS: POC Glucose,Bedside 209 (70-110)
== END 2020-04-10 15:42 | disposition home or self-care (01) ==
LOC: ER 21:55 → 2ND 23:51
PROVIDERS: Internal Medicine; Admitting Provider Emergency Medicine; Emergency Provider Emergency Medicine; PCP Emergency Medicine; Visit Provider Emergency Medicine
DX: R07.9 Chest pain, unspecified (principal); Z79.4 Long term (current) use of insulin; I11.0 Hypertensive heart disease with heart failure; I50.32 Chronic diastolic (congestive) heart failure; Z95.0 Presence of cardiac pacemaker; I42.9 Cardiomyopathy, unspecified; E11.51 Type 2 diabetes mellitus with diabetic peripheral angiopathy without gangrene; E11.65 Type 2 diabetes mellitus with hyperglycemia; I70.209 Unspecified atherosclerosis of native arteries of extremities, unspecified extremity; F25.9 Schizoaffective disorder, unspecified; Z72.0 Tobacco use; I69.351 Hemiplegia and hemiparesis following cerebral infarction affecting right dominant side; Z79.899 Other long term (current) drug therapy
CPT/HCPCS: 36415; 71045; 80048; 80061; 82962; 83735; 84145; 84484; 85025; 85347; 85651; 86140; 92928; 93005; 93306; 93458; 96372; 97161; 97166; 99152; 99153; 99284; C1725; C1769; C1876; C9600; G0378; J1644; Q9967; U0003

== ENCOUNTER 2020-04-23 10:14 | Observation (INO) | payer BC, SELFPAY ==
[2020-04-23] VITALS (20 sets, daily range): BP systolic 108–163; BP diastolic 76–96; PULSE 67–86; RESP 16–24; TEMP 36.4–36.8; O2SAT 90–100; BMI 31.6; BMI 33.1
--- NOTE | 2020-04-23 10:12 | ECG_ITS ---
APPROVED REPORT Exam: Resting ECG HR:84 bpm ECG Measurements Heart Rate 84 AXES WA 176 P 51 QRSd 102 QRS 38 QT 386 T 109 QTc 456 Conclusion Normal sinus rhythm ST & T wave abnormality, consider lateral ischemia Abnormal ECG Electronically signed by : Pascual Storey, 04/23/2020 17:56:00
--- NOTE | 2020-04-23 10:26 | XR_ITS ---
PROCEDURE: XR CHEST PORTABLE CLINICAL HISTORY: cp Chest pain COMPARISON: CT CT CHEST WO CON from 07/02/2019 CR XR CHEST 2V from 08/25/2019 CR XR CHEST AP from 10/24/2019 CR XR CHEST PORTABLE from 04/08/2020 FINDINGS: The cardiomediastinal silhouette and pulmonary vascularity are within normal limits. The lungs are clear without infiltrates, suspicious nodules, or pleural effusions. No acute bony abnormalities. IMPRESSION: No acute findings. Dictated by: Zach Rodriguez MD 04/23/2020 10:56 Zach Rodriguez MD in [place] 04/23/2020 10:56
--- NOTE | 2020-04-23 10:26 | HMH.EDGENADL ---
ED Disposition Clinical Impression: Hyperglycemia due to type 2 diabetes mellitus Qualifiers: Diabetes mellitus snf insulin use: with snf use Qualified Code(s): E11.65 - Type 2 diabetes mellitus with hyperglycemia; Z79.4 - snf (current) use of insulin Chest pain Qualifiers: Chest pain type: unspecified Qualified Code(s): R07.9 - Chest pain, unspecified Disposition: Admitted as Observation Condition on Discharge: Good Referrals: Robbin Rodríguez MD [Primary Care Provider] - Time of Disposition: 12:13 - Critical Care Critical Care Time: No Attestation: On , the high probability of a clinically significant, sudden or life threatening deterioration of the following system(s) required my full and direct attention, intervention and personal management. The time I documented below is in addition to time spent performing reported procedures but includes the following listed in this critical care notation. Medical Decision Making - Medical Records Medical records reviewed: Yes: I reviewed the patient's medical records. - Clem Inquiry Pt receiving controlled substance: No Vital Signs: 04/23/20 10:15 04/23/20 10:36 04/23/20 10:45 Temperature 98.3 F Temperature Source Oral Pulse Rate 86 83 Pulse Rate [Right] 84 Respiratory Rate 16 20 22 Blood Pressure Blood Pressure [Right Arm] 163/81 H Blood Pressure Mean Blood Pressure Mean [Right Arm] 108 02 Sat by Pulse Oximetry 98 97 96 Oxygen Delivery Method Room Air 04/23/20 11:00 04/23/20 11:15 04/23/20 11:30 Temperature Temperature Source Pulse Rate 68 80 Pulse Rate [Right] Respiratory Rate 22 22 20 Blood Pressure 135/77 135/86 Blood Pressure [Right Arm] Blood Pressure Mean 96 101 Blood Pressure Mean [Right Arm] 02 Sat by Pulse Oximetry 95 95 Oxygen Delivery Method 04/23/20 11:45 Temperature Temperature Source Pulse Rate 79 Pulse Rate [Right] Respiratory Rate 22 Blood Pressure Blood Pressure [Right Arm] Blood Pressure Mean Blood Pressure Mean [Right Arm] 02 Sat by Pulse Oximetry 90 L Oxygen Delivery Method - Lab Data Lab results reviewed: Yes: I reviewed the patient's lab results. Lab Results 04/23/20 10:12: WBC 11.2 H, RBC 4.69, Hgb 14.0 L, Hct 42.5, MCV 90.6, MCH 29.8, MCHC 32.9, RDW 13.9, Plt Count 237, MPV 9.1, Neut % (Auto) 63.0, Lymph % (Auto) 30.5, [place] % (Auto) 4.3, Eos % (Auto) 1.7, Baso % (Auto) 0.5, Neut # (Auto) 7.1, Lymph # (Auto) 3.4, [place] # (Auto) 0.5, Eos # (Auto) 0.2, Baso # (Auto) 0.1 04/23/20 10:12: Sodium 137, Potassium 4.2, Chloride 106, Carbon Dioxide 21 L, Anion Gap 14.2, BUN 17, Creatinine 1.00, Estimated Creat Clear 129, Estimated GFR 78, Est GFR ( Amer) 94, Glucose 560 H*, Calcium 9.4, Total Bilirubin 0.4, AST 28, ALT 25, Alkaline Phosphatase 134 H, Troponin I < 0.01, Total Protein 7.5, Albumin 4.2, Globulin 3.3 H, Albumin/Globulin Ratio 1.3 04/23/20 10:12: Acetone Level None detected 04/23/20 10:12: NT-Pro-B Natriuret Pep 59.5 04/23/20 10:19: POC Glucose 569 H* 04/23/20 10:26: VBG pH 7.39, VBG pCO2 32.6 L, VBG pO2 73.7 H, VBG HCO3 19.2 L, VBG Total CO2 20.2 L, VBG O2 Saturation 95.2 H, VBG Base Excess -5.8 L Result diagrams: 04/23/20 10:12 04/23/20 10:12 Orders (Tests/Meds): ED MEDICATIONS Discontinued Medications Generic Name Dose Route Start Last Admin Trade Name Freq PRN Reason Stop Dose Admin Lactated Ringer's 1,000 mls @ 999 mls/hr 04/23/20 10:45 04/23/20 10:45 Lactated Ringer's 1000 Ml Bag IV 04/23/20 11:45 999 mls/hr .Q1H1M ADEN Administration ORDERS Category Date Time Status Full Resp Panel w/COVID ([facility]) Routine Lab 04/23/20 10:15 Received Troponin I Q3H Lab 04/23/20 13:30 Ordered Troponin I Q3H Lab 04/23/20 16:30 Ordered UA [Urinalysis and Microscopic] Stat Lab 04/23/20 10:26 Ordered - Radiology Data #1 Image(s): Chest Image Reviewed: Yes I have reviewed radiologist's interpretation Pre
[2020-04-23 10:27] LABS: POC Glucose,Bedside 569 (70-110)
[2020-04-23 10:51] LABS: Adenovirus,PCR Not Detected (NotDetected); Bordetella Pertussis Not Detected (NotDetected); Chlamydophila Pneumoniae, PCR Not Detected (NotDetected); Coronavirus 19, PCR Not Detected (NotDetected); Coronavirus 229E Not Detected (NotDetected); Coronavirus NL63 Not Detected (NotDetected); Coronavirus OC43 Not Detected (NotDetected); Coronovirus HKU1,PCR Not Detected (NotDetected); Human Metapneumovirus Not Detected (NotDetected); Influenza A, PCR Not Detected (NotDetected); Influenza AH1, 2009 Not Detected (NotDetected); Influenza AH1, PCR Not Detected (NotDetected); Influenza AH3,PCR Not Detected (NotDetected); Influenza B, PCR Not Detected (NotDetected); Mycoplasma Pneumoniae, PCR Not Detected (NotDetected); Parainfluenza 1, PCR Not Detected (NotDetected); Parainfluenza 2, PCR Not Detected (NotDetected); Parainfluenza 3, PCR Not Detected (NotDetected); Parainfluenza 4, PCR Not Detected (NotDetected); Respiratory Syncytial Virus Not Detected (NotDetected); Rhinovirus/Enterovirus Not Detected (NotDetected)
[2020-04-23 10:58] LABS: Basophils # 0.1 K/mm3 (0-0.2); Basophils % 0.5 % (0.1-2.0); Eosinophils # 0.2 K/mm3 (0.0-0.4); Eosinophils % 1.7 % (0.1-12.0); Hematocrit 42.5 % (42.0-52.0); Lymphocytes # 3.4 K/mm3 (0.7-4.5); Lymphocytes % 30.5 % (10-50); Mean Corpuscular HGB Conc 32.9 g/dL (31.8-35.4); Mean Corpuscular Hemoglobin 29.8 pg (27.0-31.2); Mean Corpuscular Volume 90.6 fl (80-94); Mean Platelet Volume 9.1 fl (7.4-10.4); Monocytes # 0.5 K/mm3 (0.1-1.0); Monocytes % 4.3 % (1.7-9.3); Neutrophils # 7.1 K/mm3 (1.8-7.8); Platelet Count 237 K/mm3 (142-424); Red Blood Count 4.69 M/mm3 (4.60-6.20); Red Cell Distribution Width 13.9 % (11.5-17.5); White Blood Count 11.2 K/mm3 (4.8-10.8)
[2020-04-23 11:00] LABS: Chloride 106 mmol/L (98-107)
[2020-04-23 11:01] LABS: Potassium 4.2 mmoL/L (3.5-5.1); Sodium 137 mmol/L (136-145)
[2020-04-23 11:03] LABS: Alanine Aminotransferase 25 U/L (12-78); Alkaline Phosphatase 134 U/L (38-126); Aspartate Amino Transferase 28 U/L (17-59); Bilirubin,Total 0.4 mg/dl (0.2-1.3); Blood Urea Nitrogen 17 mg/dl (9-20); Creatinine Clearance Estimated 129 mL/min (50-200); Estimated Glomerular Filt Rate 78 ml/min (>60); GFR (African American) 94 ML/MIN (>60)
[2020-04-23 11:04] LABS: Albumin Level 4.2 g/dl (3.5-5.0); Albumin/Globulin Ratio 1.3 (1.1-1.8); Anion Gap 14.2 mEq/L (5-15); Calcium 9.4 mg/dl (8.4-10.2); Carbon Dioxide 21 mmol/L (22.0-30.0); Globulin 3.3 g/dL (1.3-3.2); Total Protein,Serum 7.5 g/dl (6.3-8.2)
[2020-04-23 11:07] LABS: Glucose 560 mg/dl (74-100)
[2020-04-23 11:11] LABS: Acetone, Serum (Rapid) None Detected (None Detect)
[2020-04-23 11:13] LABS: NT Pro Brain Natriuretic Pep. 59.5 pg/mL (0-125)
[2020-04-23 11:16] LABS: Troponin I < 0.01 ng/ml (0.00-0.034)
[2020-04-23 11:54] LABS: VBG Base Excess -5.8 mmol/L (-2.4-2.3); VBG HCO3 19.2 mmol/L (23-30); VBG Oxygen Saturation 95.2 % (50-70); VBG PCO2 32.6 mmol/L (35-51); VBG PH 7.39 mmol/L (7.31-7.41); VBG PO2 73.7 mmol/L (28-40); VBG Total CO2 20.2 mmol/L (23-27)
[2020-04-23 12:59] LABS: Microscopic, Urine URINE MICROSCOPIC (MICROSCOPIC)
[2020-04-23 13:01] LABS: Appearance,Urine CLEAR (Clear); Bilirubin,Urine Negative (Negative); Blood, Urine Negative (Negative); Color,Urine YELLOW (Yellow); Glucose,Urine (UA) 3+ (Negative); Ketones,Urine Negative (Negative); Leukocyte Esterase,Urine Negative (Negative); Nitrate,Urine Negative (Negative); Protein,Urine Negative (Negative)
--- NOTE | 2020-04-23 13:05 | PC.NURSE ---
Attempted to contact social media designer for patient report, states she will call back in a few minutes.
[2020-04-23 13:07] LABS: Squamous Epithelial Cell,Urine Occasional #/hpf (0-5)
--- NOTE | 2020-04-23 13:37 | PC.NURSE ---
alida verified with dr kaplan to do both sliding scale insulin and the humulin 70/30. reported that current fsbs was 498 stated to give the 15 units now. this was done with message relay per jasmyne burdick in office.
[2020-04-23 14:14] LABS: POC Glucose,Bedside 498 (70-110)
--- NOTE | 2020-04-23 14:33 | HMH.HP ---
*Admission Date: 04/23/20 *Chief complaint: weakness *History of present illness: [facility] weakness and dec po intake with chest pain and elevated glu- he was seen in the ed -yo M with past medical history significant for uncontrolled diabetes, CAD status post cardiac stenting presents the emergency department secondary to uncontrolled diabetes and chest pain. He states his pain is subxiphoid. Is been ongoing for 3 days. Is been progressively worsening. He endorses shortness of breath and nausea. Denies radiation of pain. Reports taking his medications as directed but they are not improving his blood sugars. Symptoms are not worsened by exertion. pt was admitted for eval and treatment [facility] History I have reviewed the patient's past medical history: Yes Medical History: Reports:: Cancer, Cardiomyopathy, Coronary Artery Disease, Cerebrovascular Accident, Diabetes Mellitus Type 1, Diabetes Mellitus Type 2, Hyperlipidemia, Hypertension, Internal Pacemaker, Kidney Stones, MRSA, Seizures, Transient Ischemic Attacks (TIA) *Have you ever received a pneumonia vaccine?: No *Have you received a flu vaccine this season?: Yes Other Medical History: Reports: Anemia, Arthritis, Blood Transfusion Reaction, Other Other Surgeries: Yes: No Previous Surgery, Cardiac Catheterization, Pacemaker, Other Amputation: No Fractures: Yes (rt arm) - *Social History Smoking Status: Current every day smoker Tobacco Type: cigarettes # Packs/Day (cigarettes): 1 Alcohol Intake: never Substance Use Type: denies use *Occupational Status:: disabled Housing: assisted living facility Household Members: other *Travel in the last 8 weeks: None Family Hx:: Coronary Artery Disease Review of Systems - Review of Systems Review of systems:: pertinent systems reviewed and negative unless documented below - Constitutional Reports weakness, Denies fever(s) - Eyes Denies change in vision - ENT Denies sore throat - *Cardiovascular Reports chest pain, Denies shortness of breath with activity - *Respiratory Denies cough, Denies shortness of breath - *Gastrointestinal Denies abdominal pain - *Genitourinary Denies blood in urine - *Musculoskeletal Denies joint pain - Integumentary/Breasts Denies rash - *Neurologic Denies localized weakness, Denies headache(s), Denies seizure-like activity - Psychiatric Denies anxiety Meds Home Medications Medication Instructions Recorded Confirmed Type Sertraline HCl [Zoloft 100mg 100 mg PO DAILY 02/15/17 04/23/20 History tablet] Tamsulosin HCl [Flomax 0.4mg 0.4 mg PO DAILY 02/15/17 04/23/20 History capsule] Isosorbide Mononitrate [Imdur 30mg 30 mg PO HS 07/02/19 04/23/20 History ER tablet] Losartan Potassium [Cozaar 50mg 50 mg PO DAILY 07/02/19 04/23/20 History Tablets] Omeprazole 40 mg PO DAILY 07/02/19 04/23/20 History polyethylene glycoL 3350 [Miralax 17 gm PO DIRECTED PRN 07/02/19 04/23/20 History 17gm Packet] Metoprolol Succinate [Metoprolol 150 mg PO DAILY 07/03/19 04/23/20 History Succinate 50mg Tablet*] OLANZapine [Olanzapine] 20 mg PO DAILY 07/03/19 04/23/20 History tramadol 50 mg tablet 50 mg PO BID PRN #60 tab 01/08/20 04/23/20 Rx Insulin NPH Hum/Reg Insulin Hm 30 unit SQ BID 04/08/20 04/23/20 History [Humulin 70/30 Kwikpen] Acetaminophen [Tylenol Extra 500 mg PO Q6HP PRN 04/09/20 04/23/20 History Strength] Multivitamin 1 each PO DAILY 04/09/20 04/23/20 History Amlodipine Besylate [Amlodipine 10 mg PO DAILY 04/23/20 04/23/20 History 10mg Tab] Aspirin [Aspirin 81mg chewable 81 mg PO DAILY 04/23/20 04/23/20 History tab] Atorvastatin Calcium [Lipitor 40mg 40 mg PO HS 04/23/20 04/23/20 History Tab] Benztropine Mesylate [Cogentin 1mg 1 mg PO BID 04/23/20 04/23/20 History tablet] Brimonidine Tartrate [Alphagan P] 1 drp EYE-BOTH BID 04/23/20 04/23/20 History Dutasteride 0.5 mg PO DAILY 04/23/2004/07
[2020-04-23 14:47] LABS: Troponin I < 0.01 ng/ml (0.00-0.034)
--- NOTE | 2020-04-23 15:06 | P.CONPHA_ITS ---
[facility] Pharmacy VTE Monitoring - Patient Demographics Admission date: 04/23/20 Report Date: 04/23/20 Time: 15:06 Allergies/Adverse Reactions: Patient Allergies No Known Allergies Allergy (Verified 10/24/19 21:40) Height: 1.85 m Weight: 113.852 kg Patient Problems: Current Active Problems Hyperglycemia due to type 2 diabetes mellitus (Acute) Chest pain (Acute) - VTE Risk Labs: VTE Related Lab Results Hgb 14.0 g/dL (14.1-18.0) L 04/23/20 10:12 Hct 42.5 % (42.0-52.0) 04/23/20 10:12 Plt Count 237 K/mm3 (142-424) 04/23/20 10:12 BUN 17 mg/dl (9-20) 04/23/20 10:12 Creatinine 1.00 mg/dl (0.66-1.25) 04/23/20 10:12 Estimated Creat Clear 129 mL/min (50-200) 04/23/20 10:12 Was VTE Risk Assessment Performed: Yes VTE Score: 4 VTE Risk Level: Low Risk Clinical Trial Participant: No - Prophylaxis VTE Prophylaxis Ordered?: Yes Types of VTE Prophylaxis: IPCS Knee High, Pharmacological Pharmacologic Type: Enoxaparin
[2020-04-23 17:30] LABS: POC Glucose,Bedside 388 (70-110)
--- NOTE | 2020-04-23 17:50 | PC.NURSE ---
since patient has arrived to floor he has done well no complaints. rings out as needed. tolerating diet well. fsbs is coming down.
[2020-04-23 17:59] LABS: Troponin I 0.03 ng/ml (0.00-0.034)
[2020-04-23 21:20] LABS: POC Glucose,Bedside 256 (70-110)
[2020-04-24] VITALS (9 sets, daily range): BP systolic 110–160; BP diastolic 62–95; PULSE 60–79; RESP 17–18; TEMP 36.5–36.9; O2SAT 92–99; BMI 33.2
[2020-04-24 06:22] LABS: POC Glucose,Bedside 323 (70-110)
[2020-04-24 06:46] LABS: Basophils # 0.1 K/mm3 (0-0.2); Basophils % 0.4 % (0.1-2.0); Eosinophils # 0.2 K/mm3 (0.0-0.4); Eosinophils % 1.9 % (0.1-12.0); Hematocrit 40.5 % (42.0-52.0); Hemoglobin 13.1 g/dL (14.1-18.0); Lymphocytes # 3.4 K/mm3 (0.7-4.5); Lymphocytes % 27.7 % (10-50); Mean Corpuscular HGB Conc 32.4 g/dL (31.8-35.4); Mean Corpuscular Hemoglobin 29.1 pg (27.0-31.2); Mean Platelet Volume 9.1 fl (7.4-10.4); Monocytes # 0.5 K/mm3 (0.1-1.0); Monocytes % 3.7 % (1.7-9.3); Neutrophils # 8.2 K/mm3 (1.8-7.8); Neutrophils % 66.2 % (37.0-80.0); Platelet Count 213 K/mm3 (142-424); Red Cell Distribution Width 13.9 % (11.5-17.5); White Blood Count 12.4 K/mm3 (4.8-10.8)
[2020-04-24 06:56] LABS: Anion Gap 12.3 mEq/L (5-15); Blood Urea Nitrogen 15 mg/dl (9-20); Calcium 9.1 mg/dl (8.4-10.2); Carbon Dioxide 22 mmol/L (22.0-30.0); Chloride 105 mmol/L (98-107); Creatinine Clearance Estimated 168 mL/min (50-200); Estimated Glomerular Filt Rate 100 ml/min (>60); GFR (African American) 121 ML/MIN (>60); Glucose 334 mg/dl (74-100); Potassium 4.3 mmoL/L (3.5-5.1); Sodium 135 mmol/L (136-145)
--- NOTE | 2020-04-24 07:41 | PC.NURSE ---
Pt is A&Ox4 and has ambulated and tolerated well. Pt has no complaints this shift. NSR on tele. NS infusing to PIV. New IV placed to R hand. Pt unhooked his own IV to walk the hallway. Pt was not instructed to do this by staff, stated I saw you all do it . Pt educated on not removing IV from IVF, and how to call for help or plug/unplug IV pole if needed to ambulated, pt stated his understanding and did not remove for the remainder of the shift.
--- NOTE | 2020-04-24 10:15 | HMH.CNCARD ---
History of Present Illness Consult date: 04/24/20 Requesting physician: Robbin Rodríguez Chief complaint: chest pain History of present illness: This is a 54-year-old -[place] gentleman who was admitted to the hospital with chest pain and elevated glucose levels. The patient's glucose levels are in the 500s. He states his chest pain started about 2 or 3 days ago. He states that this is a pressure sensation in the center of his chest. He states that it radiates across his entire chest. It is associated with shortness of breath and nausea. He states that this pain has been severe and just continuing to worsen over the last 2 to 3 days. He states that nothing really helps to improve the pain and it does worsen with exertion. He states that he has been taking his medications as prescribed. The patient was in the hospital and underwent left cardiac catheterization on April 092020. He had a stent to his right coronary artery and was also found to have a severely elevated LVEDP. The patient was started on diuretics but it does not appear that he has been taking his diuretics since being discharged. The patient needs diuresis as his angina is most likely from his severely elevated LVEDP. He denies any fever, chills, vomiting, diarrhea, PND or orthopnea. He has ruled out for an AL. [facility] History I have reviewed the patient's past medical history: Yes Medical History: Reports:: Cancer, Cardiomyopathy, Coronary Artery Disease, Cerebrovascular Accident, Diabetes Mellitus Type 1, Diabetes Mellitus Type 2, Hyperlipidemia, Hypertension, Internal Pacemaker, Kidney Stones, MRSA, Seizures, Transient Ischemic Attacks (TIA) *Have you ever received a pneumonia vaccine?: Yes *Have you received a flu vaccine this season?: Yes Other Medical History: Reports: Anemia, Arthritis, Blood Transfusion Reaction, Other Other Surgeries: Yes: No Previous Surgery, Cardiac Catheterization, Pacemaker, Other Amputation: No Fractures: Yes (rt arm) - *Social History Smoking Status: Never smoker Tobacco Type: cigarettes # Packs/Day (cigarettes): 1 Alcohol Intake: never Substance Use Type: denies use *Occupational Status:: disabled Housing: assisted living facility Household Members: other *Travel in the last 8 weeks: None Family Hx:: No significant family history Meds Home Medications Medication Instructions Recorded Confirmed Type Sertraline HCl [Zoloft 100mg 100 mg PO DAILY 02/15/17 04/23/20 History tablet] Tamsulosin HCl [Flomax 0.4mg 0.4 mg PO DAILY 02/15/17 04/23/20 History capsule] Isosorbide Mononitrate [Imdur 30mg 30 mg PO HS 07/02/19 04/23/20 History ER tablet] Losartan Potassium [Cozaar 50mg 50 mg PO DAILY 07/02/19 04/23/20 History Tablets] Omeprazole 40 mg PO DAILY 07/02/19 04/23/20 History polyethylene glycoL 3350 [Miralax 17 gm PO DIRECTED PRN 07/02/19 04/23/20 History 17gm Packet] Metoprolol Succinate [Metoprolol 150 mg PO DAILY 07/03/19 04/23/20 History Succinate 50mg Tablet*] OLANZapine [Olanzapine] 20 mg PO DAILY 07/03/19 04/23/20 History tramadol 50 mg tablet 50 mg PO BID PRN #60 tab 01/08/20 04/23/20 Rx Insulin NPH Hum/Reg Insulin Hm 30 unit SQ BID 04/08/20 04/23/20 History [Humulin 70/30 Kwikpen] Acetaminophen [Tylenol Extra 500 mg PO Q6HP PRN 04/09/20 04/23/20 History Strength] Multivitamin 1 each PO DAILY 04/09/20 04/23/20 History Amlodipine Besylate [Amlodipine 10 mg PO DAILY 04/23/20 04/23/20 History 10mg Tab] Aspirin [Aspirin 81mg chewable 81 mg PO DAILY 04/23/20 04/23/20 History tab] Atorvastatin Calcium [Lipitor 40mg 40 mg PO HS 04/23/20 04/23/20 History Tab] Benztropine Mesylate [Cogentin 1mg 1 mg PO BID 04/23/20 04/23/20 History tablet] Brimonidine Tartrate [Alphagan P] 1 drp EYE-BOTH BID 04/23/20 04/23/20 History Dutasteride 0.5 mg PO DAILY 04/23/20 04/23/20 History Gabapentin [Gabapentin 100mg Cap] 100 mg PO TID 04/23/20 04/23/20 History Sertraline HCl [Zo
--- NOTE | 2020-04-24 10:43 | SW/DCPLANNER ---
Addendum entered by Muriel Frey 04/28/20 10:54: I have set up [facility] [employer] for this patient. Addendum entered by Muriel [place] 04/28/20 09:36: I have spoke with Roxann/Isidro at [facility] today: patient will discharge back. Roxann has stated that patient will NOT need another COVID swab. I will set up [facility] once patient is ready for discharge. Addendum entered by Muriel Frey 04/25/20 09:17: I have informed Roxann/Isidro that patient will start new PO medication today and if tolerates well then will discharge back tomorrow. [facility] will need to be arranged tomorrow if stable for discharge. Original Note: This patient currently resides at [facility]. I have spoke with Roxann from [facility] and she has stated that patient can return pending medication changes and pt documentation. Patient is not medically stable for discharge today but possibly tomorrow. I will contact Roxann from [facility] tomorrow morning.
[2020-04-24 13:11] LABS: POC Glucose,Bedside 316 (70-110)
--- NOTE | 2020-04-24 16:09 | HMH.ACPN2 ---
Internal Medicine - PN: Subj *Date: 04/24/20 *Time: 18:45 Interval history: Patient is resting comfortably in the bed. He is awake and alert. He does relay some vague fleeting chest pain. No active chest pressure, no radiation of the neck nausea or diaphoresis. A C-peptide was drawn and is pending. Venipuncture blood sugars 334. Exam Vital signs and Labs for Last 24 Hours: Temp Pulse Resp BP Pulse Ox 97.7 F 76 18 127/80 99 04/24/20 12:00 04/24/20 12:00 04/24/20 12:00 04/24/20 12:00 04/24/20 12:00 Laboratory Results - last 24 hr 04/23/20 17:07: POC Glucose 388 H* 04/23/20 17:10: Troponin I 0.03 04/23/20 21:11: POC Glucose 256 H 04/24/20 06:03: POC Glucose 323 H* 04/24/20 06:05: WBC 12.4 H, RBC 4.50 L, Hgb 13.1 L, Hct 40.5 L, MCV 90.0, MCH 29.1, MCHC 32.4, RDW 13.9, Plt Count 213, MPV 9.1, Neut % (Auto) 66.2, Lymph % (Auto) 27.7, [place] % (Auto) 3.7, Eos % (Auto) 1.9, Baso % (Auto) 0.4, Neut # (Auto) 8.2 H, Lymph # (Auto) 3.4, [place] # (Auto) 0.5, Eos # (Auto) 0.2, Baso # (Auto) 0.1 04/24/20 06:05: Sodium 135 L, Potassium 4.3, Chloride 105, Carbon Dioxide 22, Anion Gap 12.3, BUN 15, Creatinine 0.80, Estimated Creat Clear 168, Estimated GFR 100, Est GFR ( Amer) 121 D, Glucose 334 H D, Calcium 9.1 04/24/20 11:47: POC Glucose 316 H* I & O for Last 24 hours: Intake & Output 04/21/20 04/22/20 04/23/20 04/24/20 23:59 23:59 23:59 23:59 Intake Total 360 / 360 720 / 720 Balance 360 / 360 720 / 720 Weight 251 lb 250 lb 7 oz - Constitutional no acute distress, chronically ill appearing - *Routine HEENT Exam Head: Present: normocephalic Eye: Present: EOMI, PERRL ENT: Present: mucous membranes moist - *Routine Neck Exam Present: supple. Absent: lymphadenopathy - *Routine Respiratory Exam Present: CTA bilaterally - *Routine Cardiovascular Exam Present: RRR - *Routine Abdominal Exam Present: soft, normoactive bowel sounds. Absent: tenderness - *Routine Extremities Exam Absent: cyanosis, clubbing, edema - *Routine Skin Exam Present: warm. Absent: rash - *Routine Neurological Exam Present: alert, oriented X3, vision grossly intact, hearing grossly intact - Routine Psychiatric Exam Present: normal affect. Absent: normal thought process, good insight, anxious, agitated Assessment and Plan (1) Angina pectoris Status: Acute Category: Medical Code(s): I20.9 - Angina pectoris, unspecified (2) Hyperglycemia due to type 2 diabetes mellitus Status: Acute Qualifiers: Diabetes mellitus mcfp insulin use: with mcfp use Qualified Code(s): E11.65 - Type 2 diabetes mellitus with hyperglycemia; Z79.4 - moth exterminator (current) use of insulin Category: Medical Code(s): E11.65 - Type 2 diabetes mellitus with hyperglycemia (3) Schizophrenia Status: Acute Qualifiers: Schizophrenia type: unspecified Qualified Code(s): F20.9 - Schizophrenia, unspecified Category: Medical Code(s): F20.9 - Schizophrenia, unspecified (4) Obesity (BMI 30.0-34.9) Status: Chronic Category: Medical Code(s): E66.9 - Obesity, unspecified (5) CAD (coronary artery disease) Status: Acute Qualifiers: Coronary Disease-Associated Artery/Lesion type: [place] artery [place] vs. transplanted heart: [place] heart Associated angina: with unspecified angina Qualified Code(s): I25.119 - Atherosclerotic heart disease of [place] coronary artery with unspecified angina pectoris Category: Medical Code(s): I25.10 - Atherosclerotic heart disease of [place] coronary artery without angina pectoris (6) Elevated left ventricular end-diastolic pressure (LVEDP) Status: Acute Category: Medical Code(s): R94.30 - Abnormal result of cardiovascular function study, unspecified (7) Diastolic dysfunction Status: Chronic Category: Medical Code(s): I51.89 - Other ill-defined heart diseases (8) HLD (hyperlipidemia) Status: Chronic Qualifiers: Hyperlipidemi
[2020-04-24 16:54] LABS: POC Glucose,Bedside 370 (70-110)
--- NOTE | 2020-04-24 18:02 | PC.NURSE ---
patient has been reminded multiple times today to use urinal for I/Os. patient states i keep forgetting , bipin continue to encourage him to use this. he has been resting off and on through out the day. appetite is good. has had no complaints.is independent. vitals are stable.
[2020-04-24 21:44] LABS: POC Glucose,Bedside 316 (70-110)
[2020-04-25] VITALS (7 sets, daily range): BP systolic 100–135; BP diastolic 62–87; PULSE 75–90; RESP 18–20; TEMP 36.4–37; O2SAT 95–98; BMI 32.3; BMI 32.4
--- NOTE | 2020-04-25 04:41 | PC.NURSE ---
pt is AxOx4, has been reminded about the need for accurate I&O's, states he forgets, has not had complaints of SOA or chest pain, remains on room air, 2100 FSBS was 316
[2020-04-25 06:13] LABS: POC Glucose,Bedside 383 (70-110)
[2020-04-25 06:38] LABS: Basophils % 0.3 % (0.1-2.0); Eosinophils # 0.2 K/mm3 (0.0-0.4); Eosinophils % 1.9 % (0.1-12.0); Hematocrit 41.6 % (42.0-52.0); Hemoglobin 13.7 g/dL (14.1-18.0); Lymphocytes # 3.6 K/mm3 (0.7-4.5); Lymphocytes % 28.3 % (10-50); Mean Corpuscular Hemoglobin 29.5 pg (27.0-31.2); Mean Corpuscular Volume 89.3 fl (80-94); Mean Platelet Volume 8.9 fl (7.4-10.4); Monocytes # 0.6 K/mm3 (0.1-1.0); Monocytes % 4.4 % (1.7-9.3); Neutrophils # 8.2 K/mm3 (1.8-7.8); Neutrophils % 65.1 % (37.0-80.0); Platelet Count 222 K/mm3 (142-424); Red Blood Count 4.66 M/mm3 (4.60-6.20); Red Cell Distribution Width 14.1 % (11.5-17.5); White Blood Count 12.6 K/mm3 (4.8-10.8)
[2020-04-25 06:44] LABS: Blood Urea Nitrogen 21 mg/dl (9-20); Calcium 9.7 mg/dl (8.4-10.2); Carbon Dioxide 24 mmol/L (22.0-30.0); Chloride 99 mmol/L (98-107); Creatinine Clearance Estimated 119 mL/min (50-200); Estimated Glomerular Filt Rate 69 ml/min (>60); GFR (African American) 84 ML/MIN (>60); Sodium 133 mmol/L (136-145)
[2020-04-25 06:59] LABS: Glucose 401 mg/dl (74-100)
--- NOTE | 2020-04-25 09:02 | HMH.ACPN2 ---
Internal Medicine - PN: Subj *Date: 04/25/20 *Time: 09:02 Interval history: pt states he is feeling well. Exam Vital signs and Labs for Last 24 Hours: Temp Pulse Resp BP Pulse Ox 97.6 F 81 18 122/87 98 04/25/20 04:00 04/25/20 04:00 04/25/20 04:00 04/25/20 04:00 04/25/20 04:00 Laboratory Results - last 24 hr 04/24/20 11:47: POC Glucose 316 H* 04/24/20 16:39: POC Glucose 370 H* 04/24/20 21:19: POC Glucose 316 H* 04/25/20 06:07: WBC 12.6 H, RBC 4.66, Hgb 13.7 L, Hct 41.6 L, MCV 89.3, MCH 29.5, MCHC 33.0, RDW 14.1, Plt Count 222, MPV 8.9, Neut % (Auto) 65.1, Lymph % (Auto) 28.3, [place] % (Auto) 4.4, Eos % (Auto) 1.9, Baso % (Auto) 0.3, Neut # (Auto) 8.2 H, Lymph # (Auto) 3.6, [place] # (Auto) 0.6, Eos # (Auto) 0.2, Baso # (Auto) 0.0 04/25/20 06:07: Sodium 133 L, Potassium 4.0, Chloride 99, Carbon Dioxide 24, Anion Gap 14.0, BUN 21 H D, Creatinine 1.10 D, Estimated Creat Clear 119, Estimated GFR 69, Est GFR ( Amer) 84 D, Glucose 401 H*, Calcium 9.7 04/25/20 06:07: POC Glucose 383 H* I & O for Last 24 hours: Intake & Output 04/22/20 04/23/20 04/24/20 04/25/20 11:59 11:59 11:59 11:59 Intake Total 840 / 840 960 / 960 Balance 840 / 840 960 / 960 Weight 240 lb 250 lb 7 oz 244 lb 2 oz - Constitutional no acute distress, chronically ill appearing - *Routine HEENT Exam Head: Present: normocephalic Eye: Present: PERRL ENT: Present: mucous membranes moist - *Routine Neck Exam Present: supple. Absent: lymphadenopathy - *Routine Respiratory Exam Present: CTA bilaterally - *Routine Cardiovascular Exam Present: RRR - *Routine Abdominal Exam Present: soft, normoactive bowel sounds. Absent: tenderness - *Routine Extremities Exam Absent: cyanosis, clubbing, edema Comments: weakness rt side hx cva - *Routine Skin Exam Present: warm. Absent: rash - *Routine Neurological Exam Present: alert, oriented X3 - Routine Psychiatric Exam Present: normal affect Assessment and Plan (1) Angina pectoris Status: Acute Category: Medical Code(s): I20.9 - Angina pectoris, unspecified (2) Hyperglycemia due to type 2 diabetes mellitus Status: Acute Qualifiers: Diabetes mellitus intermediate manager insulin use: with intermediate manager use Qualified Code(s): E11.65 - Type 2 diabetes mellitus with hyperglycemia; Z79.4 - medical terminologist (current) use of insulin Category: Medical Code(s): E11.65 - Type 2 diabetes mellitus with hyperglycemia (3) Schizophrenia Status: Acute Qualifiers: Schizophrenia type: unspecified Qualified Code(s): F20.9 - Schizophrenia, unspecified Category: Medical Code(s): F20.9 - Schizophrenia, unspecified (4) Obesity (BMI 30.0-34.9) Status: Chronic Category: Medical Code(s): E66.9 - Obesity, unspecified (5) CAD (coronary artery disease) Status: Acute Qualifiers: Coronary Disease-Associated Artery/Lesion type: [place] artery [place] vs. transplanted heart: [place] heart Associated angina: with unspecified angina Qualified Code(s): I25.119 - Atherosclerotic heart disease of [place] coronary artery with unspecified angina pectoris Category: Medical Code(s): I25.10 - Atherosclerotic heart disease of [place] coronary artery without angina pectoris (6) Elevated left ventricular end-diastolic pressure (LVEDP) Status: Acute Category: Medical Code(s): R94.30 - Abnormal result of cardiovascular function study, unspecified (7) Diastolic dysfunction Status: Chronic Category: Medical Code(s): I51.89 - Other ill-defined heart diseases (8) HLD (hyperlipidemia) Status: Chronic Qualifiers: Hyperlipidemia type: mixed hyperlipidemia Qualified Code(s): E78.2 - Mixed hyperlipidemia Category: Medical Code(s): E78.5 - Hyperlipidemia, unspecified (9) HTN (hypertension) Status: Chronic Qualifiers: Hypertension type: essential hypertension Qualified Code(s): I10 - Essential (primary) hypertension Category: Me
[2020-04-25 10:49] LABS: POC Glucose,Bedside 399 (70-110)
--- NOTE | 2020-04-25 12:32 | HMH.PNCARD ---
Subjective Date: 04/25/20 Time: 12:32 Principal diagnosis: Chest pain Interval history: 54-year-old black male at bedside eating lunch in no acute distress. Denies any chest pain, pressure or tightness. Shortness of breath is stable. Exam Vital signs and Labs for Last 24 Hours: Temp Pulse Resp BP Pulse Ox 98.2 F 86 18 134/79 96 04/25/20 08:00 04/25/20 08:00 04/25/20 08:00 04/25/20 08:00 04/25/20 08:00 Laboratory Results - last 24 hr 04/24/20 11:47: POC Glucose 316 H* 04/24/20 16:39: POC Glucose 370 H* 04/24/20 21:19: POC Glucose 316 H* 04/25/20 06:07: WBC 12.6 H, RBC 4.66, Hgb 13.7 L, Hct 41.6 L, MCV 89.3, MCH 29.5, MCHC 33.0, RDW 14.1, Plt Count 222, MPV 8.9, Neut % (Auto) 65.1, Lymph % (Auto) 28.3, [place] % (Auto) 4.4, Eos % (Auto) 1.9, Baso % (Auto) 0.3, Neut # (Auto) 8.2 H, Lymph # (Auto) 3.6, [place] # (Auto) 0.6, Eos # (Auto) 0.2, Baso # (Auto) 0.0 04/25/20 06:07: Sodium 133 L, Potassium 4.0, Chloride 99, Carbon Dioxide 24, Anion Gap 14.0, BUN 21 H D, Creatinine 1.10 D, Estimated Creat Clear 119, Estimated GFR 69, Est GFR ( Amer) 84 D, Glucose 401 H*, Calcium 9.7 04/25/20 06:07: POC Glucose 383 H* 04/25/20 10:43: POC Glucose 399 H* I & O for Last 24 hours: Intake & Output 04/23/20 04/24/20 04/25/20 04/26/20 11:59 11:59 11:59 11:59 Intake Total 840 / 840 1440 / 1440 Balance 840 / 840 1440 / 1440 Weight 240 lb 250 lb 7 oz 244 lb 2 oz - Constitutional no acute distress - *Routine HEENT Exam Head: Present: normocephalic Eye: Present: EOMI, PERRL ENT: Present: mucous membranes moist - *Routine Neck Exam Present: supple. Absent: lymphadenopathy - *Routine Respiratory Exam Present: CTA bilaterally - *Routine Cardiovascular Exam Present: RRR - *Routine Abdominal Exam Present: soft, normoactive bowel sounds. Absent: tenderness - *Routine Extremities Exam Absent: cyanosis, clubbing, edema - *Routine Skin Exam Present: warm. Absent: rash - *Routine Neurological Exam Present: alert, oriented X3 Progress Note: A&P (1) Angina pectoris Status: Acute (2) Hyperglycemia due to type 2 diabetes mellitus Status: Acute (3) Schizophrenia Status: Acute (4) Obesity (BMI 30.0-34.9) Status: Chronic (5) CAD (coronary artery disease) Status: Acute (6) Elevated left ventricular end-diastolic pressure (LVEDP) Status: Acute (7) Diastolic dysfunction Status: Chronic (8) HLD (hyperlipidemia) Status: Chronic (9) HTN (hypertension) Status: Chronic Assessment and Plan for All Diagnoses:: Blood pressure has improved with adjustment in medication. No echo performed this admission but recent echocardiogram earlier this month showed hyperdynamic left ventricular ejection fraction. This should improve with increase in beta-mirza therapy along with diuretic therapy for elevated left ventricular end-diastolic pressure at the time of cardiac catheterization earlier this month. Patient is anticipating discharge tomorrow. Medication recommendations: Amlodipine 10 mg daily Aspirin 81 mg daily Atorvastatin 40 mg daily Metoprolol succinate 150 mg daily Isosorbide mononitrate 60 mg daily Brilinta 90 mg twice daily Ranexa 500 mg twice daily Spironolactone 25 mg twice daily Furosemide 40 mg twice daily Resume home dose of Cozaar 50 mg daily Recommend a BMP in 1 week and follow-up in our office in 2 weeks
[2020-04-25 12:59] LABS: C-Peptide 2.3 ng/mL (1.1-4.4)
--- NOTE | 2020-04-25 15:15 | PC.NURSE ---
Pt has not followed encouragement of staff this shift, has wanted to stay in bed all day. Pt educated on importance of getting out of bed to chair. Pt states he's just really tired and doesn't feel like sitting up. Pt did sit up on the side of the bed and eat lunch for short period of time. Remains on room air, no s/s of resp distress. Abdomen soft, non-tender w/ active BS in all quads. No BM this shift. Voiding independently w/o difficulty. Pt educated on importance of using urinal or hat that is in the toilet for strict I&O monitoring, pt rarely does this though stating that he forgets. FSBS monitored ACHS, PO metformin started per APR. PT currently lying in bed, call mitra w/in reach.
[2020-04-25 17:11] LABS: POC Glucose,Bedside 337 (70-110)
[2020-04-25 21:12] LABS: POC Glucose,Bedside 240 (70-110)
[2020-04-26] VITALS (8 sets, daily range): BP systolic 99–132; BP diastolic 57–80; PULSE 74–91; RESP 16–18; TEMP 36.4–36.9; O2SAT 93–99; BMI 31.8
--- NOTE | 2020-04-26 05:07 | PC.NURSE ---
pt is AxOx4, has rested well t/o shift, has ambulated independently to bathroom, has been educated on the importance of letting staff monitor and record his output, states that he forgets, remains on room air, no complaints of SOA or Chest pain, 2100 FS was 240,
[2020-04-26 05:53] LABS: Basophils # 0.1 K/mm3 (0-0.2); Basophils % 0.4 % (0.1-2.0); Eosinophils # 0.2 K/mm3 (0.0-0.4); Eosinophils % 1.7 % (0.1-12.0); Hemoglobin 14.6 g/dL (14.1-18.0); Lymphocytes # 3.4 K/mm3 (0.7-4.5); Mean Corpuscular HGB Conc 33.2 g/dL (31.8-35.4); Mean Corpuscular Hemoglobin 29.8 pg (27.0-31.2); Mean Corpuscular Volume 89.8 fl (80-94); Mean Platelet Volume 8.9 fl (7.4-10.4); Monocytes # 0.7 K/mm3 (0.1-1.0); Monocytes % 5.2 % (1.7-9.3); Neutrophils # 8.7 K/mm3 (1.8-7.8); Neutrophils % 66.6 % (37.0-80.0); Platelet Count 229 K/mm3 (142-424); Red Cell Distribution Width 14.2 % (11.5-17.5); White Blood Count 13.1 K/mm3 (4.8-10.8)
[2020-04-26 06:14] LABS: POC Glucose,Bedside 329 (70-110)
[2020-04-26 07:13] LABS: Anion Gap 17.3 mEq/L (5-15); Blood Urea Nitrogen 35 mg/dl (9-20); Calcium 9.9 mg/dl (8.4-10.2); Carbon Dioxide 23 mmol/L (22.0-30.0); Chloride 98 mmol/L (98-107); Creatinine Clearance Estimated 94 mL/min (50-200); Estimated Glomerular Filt Rate 53 ml/min (>60); GFR (African American) 64 ML/MIN (>60); Glucose 310 mg/dl (74-100); Potassium 4.3 mmoL/L (3.5-5.1); Sodium 134 mmol/L (136-145)
--- NOTE | 2020-04-26 09:08 | HMH.ACPN2 ---
Internal Medicine - PN: Subj *Date: 04/27/20 *Time: 07:15 Interval history: doing better but has increased renal function and still elevated glu - Exam Vital signs and Labs for Last 24 Hours: Temp Pulse Resp BP Pulse Ox 97.7 F 78 17 117/68 99 04/26/20 08:24 04/26/20 08:24 04/26/20 08:24 04/26/20 08:24 04/26/20 08:24 Laboratory Results - last 24 hr 04/23/20 14:00: C-Peptide 2.3 04/25/20 10:43: POC Glucose 399 H* 04/25/20 16:40: POC Glucose 337 H* 04/25/20 20:48: POC Glucose 240 H 04/26/20 05:25: WBC 13.1 H, RBC 4.90, Hgb 14.6, Hct 44.0, MCV 89.8, MCH 29.8, MCHC 33.2, RDW 14.2, Plt Count 229, MPV 8.9, Neut % (Auto) 66.6, Lymph % (Auto) 26.0, [place] % (Auto) 5.2, Eos % (Auto) 1.7, Baso % (Auto) 0.4, Neut # (Auto) 8.7 H, Lymph # (Auto) 3.4, [place] # (Auto) 0.7, Eos # (Auto) 0.2, Baso # (Auto) 0.1 04/26/20 05:25: Sodium 134 L, Potassium 4.3, Chloride 98, Carbon Dioxide 23, Anion Gap 17.3 H, BUN 35 H D, Creatinine 1.40 H D, Estimated Creat Clear 94, Estimated GFR 53 L, Est GFR ( Amer) 64 D, Glucose 310 H D, Calcium 9.9 04/26/20 05:53: POC Glucose 329 H* I & O for Last 24 hours: Intake & Output 04/23/20 04/24/20 04/25/20 04/26/20 11:59 11:59 11:59 11:59 Intake Total 840 / 840 1440 / 1440 1440 / 1440 Output Total 4 / 4 Balance 840 / 840 1440 / 1440 1436 / 1436 Weight 240 lb 250 lb 7 oz 244 lb 2 oz 240 lb 6.4 oz Microbiology Reports for the Last 24 Hours: Microbiology 04/25/20 14:15 Nasopharyngeal Coronavirus COVID-19 PCR - Final - Constitutional no acute distress, obese - *Routine HEENT Exam Head: Present: normocephalic Eye: Present: EOMI, PERRL ENT: Present: mucous membranes dry - *Routine Neck Exam Present: supple - *Routine Respiratory Exam Present: CTA bilaterally - *Routine Cardiovascular Exam Present: RRR, murmur - *Routine Abdominal Exam Present: soft - *Routine Extremities Exam Absent: calf tenderness - *Routine Skin Exam Present: intact - *Routine Neurological Exam Present: alert, CN II-XII intact - Routine Psychiatric Exam Present: normal affect Assessment and Plan (1) Angina pectoris Status: Acute Category: Medical Code(s): I20.9 - Angina pectoris, unspecified (2) Hyperglycemia due to type 2 diabetes mellitus Status: Acute Qualifiers: Diabetes mellitus termite treater insulin use: with fpc use Qualified Code(s): E11.65 - Type 2 diabetes mellitus with hyperglycemia; Z79.4 - retirement (current) use of insulin Category: Medical Code(s): E11.65 - Type 2 diabetes mellitus with hyperglycemia (3) Schizophrenia Status: Acute Qualifiers: Schizophrenia type: unspecified Qualified Code(s): F20.9 - Schizophrenia, unspecified Category: Medical Code(s): F20.9 - Schizophrenia, unspecified (4) Obesity (BMI 30.0-34.9) Status: Chronic Category: Medical Code(s): E66.9 - Obesity, unspecified (5) CAD (coronary artery disease) Status: Acute Qualifiers: Coronary Disease-Associated Artery/Lesion type: [place] artery [place] vs. transplanted heart: [place] heart Associated angina: with unspecified angina Qualified Code(s): I25.119 - Atherosclerotic heart disease of [place] coronary artery with unspecified angina pectoris Category: Medical Code(s): I25.10 - Atherosclerotic heart disease of [place] coronary artery without angina pectoris (6) Elevated left ventricular end-diastolic pressure (LVEDP) Status: Acute Category: Medical Code(s): R94.30 - Abnormal result of cardiovascular function study, unspecified (7) Diastolic dysfunction Status: Chronic Category: Medical Code(s): I51.89 - Other ill-defined heart diseases (8) HLD (hyperlipidemia) Status: Chronic Qualifiers: Hyperlipidemia type: mixed hyperlipidemia Qualified Code(s): E78.2 - Mixed hyperlipidemia Category: Medical Code(s): E78.5 - Hyperlipidemia, unspecified (9) HTN (hypertension) Status: Chronic Qual
[2020-04-26 11:48] LABS: POC Glucose,Bedside 369 (70-110)
[2020-04-26 16:45] LABS: POC Glucose,Bedside 288 (70-110)
[2020-04-26 21:07] LABS: POC Glucose,Bedside 177 (70-110)
[2020-04-27] VITALS (9 sets, daily range): BP systolic 93–127; BP diastolic 51–77; PULSE 70–90; RESP 16–20; TEMP 36.6–36.9; O2SAT 89–100; BMI 31.8
--- NOTE | 2020-04-27 04:07 | PC.NURSE ---
pt has rested on and off t/o shift, no complaints this shifts, remains on room air, 2100 FSBS 177
[2020-04-27 05:51] LABS: POC Glucose,Bedside 120 (70-110)
[2020-04-27 06:59] LABS: Basophils % 0.3 % (0.1-2.0); Eosinophils # 0.2 K/mm3 (0.0-0.4); Eosinophils % 1.8 % (0.1-12.0); Hematocrit 45.7 % (42.0-52.0); Hemoglobin 15.3 g/dL (14.1-18.0); Lymphocytes # 3.9 K/mm3 (0.7-4.5); Lymphocytes % 32.2 % (10-50); Mean Corpuscular HGB Conc 33.5 g/dL (31.8-35.4); Mean Corpuscular Hemoglobin 29.4 pg (27.0-31.2); Mean Platelet Volume 8.9 fl (7.4-10.4); Monocytes # 0.6 K/mm3 (0.1-1.0); Monocytes % 4.9 % (1.7-9.3); Neutrophils # 7.4 K/mm3 (1.8-7.8); Neutrophils % 60.7 % (37.0-80.0); Platelet Count 268 K/mm3 (142-424); Red Blood Count 5.19 M/mm3 (4.60-6.20); Red Cell Distribution Width 14.1 % (11.5-17.5); White Blood Count 12.1 K/mm3 (4.8-10.8)
[2020-04-27 07:02] LABS: Chloride 102 mmol/L (98-107); Potassium 3.8 mmoL/L (3.5-5.1); Sodium 139 mmol/L (136-145)
[2020-04-27 07:05] LABS: Anion Gap 13.8 mEq/L (5-15); Blood Urea Nitrogen 41 mg/dl (9-20); Carbon Dioxide 27 mmol/L (22.0-30.0); Creatinine Clearance Estimated 71 mL/min (50-200); Estimated Glomerular Filt Rate 39 ml/min (>60); GFR (African American) 48 ML/MIN (>60)
[2020-04-27 07:06] LABS: Calcium 10.1 mg/dl (8.4-10.2); Glucose 137 mg/dl (74-100)
--- NOTE | 2020-04-27 09:21 | HMH.ACPN2 ---
Internal Medicine - PN: Subj *Date: 04/28/20 *Time: 05:19 Interval history: pt with glu improved - bun/creatine increased - pt feels better Exam Vital signs and Labs for Last 24 Hours: Temp Pulse Resp BP Pulse Ox 98.4 F 81 18 104/73 L 92 L 04/27/20 08:00 04/27/20 08:00 04/27/20 08:00 04/27/20 08:00 04/27/20 08:00 Laboratory Results - last 24 hr 04/26/20 11:30: POC Glucose 369 H* 04/26/20 16:38: POC Glucose 288 H 04/26/20 20:26: POC Glucose 177 H 04/27/20 05:28: POC Glucose 120 H 04/27/20 06:28: WBC 12.1 H, RBC 5.19, Hgb 15.3, Hct 45.7, MCV 88.0, MCH 29.4, MCHC 33.5, RDW 14.1, Plt Count 268, MPV 8.9, Neut % (Auto) 60.7, Lymph % (Auto) 32.2, [place] % (Auto) 4.9, Eos % (Auto) 1.8, Baso % (Auto) 0.3, Neut # (Auto) 7.4, Lymph # (Auto) 3.9, [place] # (Auto) 0.6, Eos # (Auto) 0.2, Baso # (Auto) 0.0 04/27/20 06:28: Sodium 139, Potassium 3.8, Chloride 102, Carbon Dioxide 27, Anion Gap 13.8, BUN 41 H, Creatinine 1.80 H D, Estimated Creat Clear 71, Estimated GFR 39 L, Est GFR ( Amer) 48 L D, Glucose 137 H, Calcium 10.1 I & O for Last 24 hours: Intake & Output 04/24/20 04/25/20 04/26/20 04/27/20 11:59 11:59 11:59 11:59 Intake Total 840 / 840 1440 / 1440 1440 / 1440 1440 / 1440 Output Total 4 / 4 Balance 840 / 840 1440 / 1440 1436 / 1436 1440 / 1440 Weight 250 lb 7 oz 244 lb 2 oz 240 lb 6.4 oz 240 lb - Constitutional no acute distress, obese - *Routine HEENT Exam Head: Present: normocephalic Eye: Present: EOMI, PERRL ENT: Present: mucous membranes dry - *Routine Neck Exam Absent: JVD - *Routine Respiratory Exam Present: decreased breath sounds - *Routine Cardiovascular Exam Present: RRR - *Routine Abdominal Exam Present: soft - *Routine Extremities Exam Absent: calf tenderness - *Routine Skin Exam Present: intact - *Routine Neurological Exam Present: alert, CN II-XII intact - Routine Psychiatric Exam Present: normal affect Assessment and Plan (1) Angina pectoris Status: Acute Category: Medical Code(s): I20.9 - Angina pectoris, unspecified (2) Hyperglycemia due to type 2 diabetes mellitus Status: Acute Qualifiers: Diabetes mellitus fci insulin use: with termite treater helper use Qualified Code(s): E11.65 - Type 2 diabetes mellitus with hyperglycemia; Z79.4 - snf (current) use of insulin Category: Medical Code(s): E11.65 - Type 2 diabetes mellitus with hyperglycemia (3) Schizophrenia Status: Acute Qualifiers: Schizophrenia type: unspecified Qualified Code(s): F20.9 - Schizophrenia, unspecified Category: Medical Code(s): F20.9 - Schizophrenia, unspecified (4) Obesity (BMI 30.0-34.9) Status: Chronic Category: Medical Code(s): E66.9 - Obesity, unspecified (5) CAD (coronary artery disease) Status: Acute Qualifiers: Coronary Disease-Associated Artery/Lesion type: [place] artery [place] vs. transplanted heart: [place] heart Associated angina: with unspecified angina Qualified Code(s): I25.119 - Atherosclerotic heart disease of [place] coronary artery with unspecified angina pectoris Category: Medical Code(s): I25.10 - Atherosclerotic heart disease of [place] coronary artery without angina pectoris (6) Elevated left ventricular end-diastolic pressure (LVEDP) Status: Acute Category: Medical Code(s): R94.30 - Abnormal result of cardiovascular function study, unspecified (7) Diastolic dysfunction Status: Chronic Category: Medical Code(s): I51.89 - Other ill-defined heart diseases (8) HLD (hyperlipidemia) Status: Chronic Qualifiers: Hyperlipidemia type: mixed hyperlipidemia Qualified Code(s): E78.2 - Mixed hyperlipidemia Category: Medical Code(s): E78.5 - Hyperlipidemia, unspecified (9) HTN (hypertension) Status: Chronic Qualifiers: Hypertension type: essential hypertension Qualified Code(s): I10 - Essential (primary) hypertension Category: Medical Code(s): I10 - [facility]
[2020-04-27 10:58] LABS: POC Glucose,Bedside 204 (70-110)
[2020-04-27 16:58] LABS: POC Glucose,Bedside 220 (70-110)
--- NOTE | 2020-04-27 18:01 | PC.NURSE ---
NO ACUTE CHANGES. PT AMBULATED T/O ROOM W/O ISSUE. VSS. CALL YODER WITHIN REACH. WILL CONT TO MONITOR.
[2020-04-27 20:17] LABS: POC Glucose,Bedside 239 (70-110)
[2020-04-28] VITALS: PULSE 80
[2020-04-28 03:29] VITALS: BP 140/79; PULSE 72; RESP 17; TEMP 36.7; O2SAT 96
[2020-04-28 04:00] VITALS: PULSE 100
[2020-04-28 05:06] VITALS: BMI 31.8
--- NOTE | 2020-04-28 05:29 | PC.NURSE ---
no acute changes since prior assessment, pt AxOx4, remains on room air, lungs CTA, ambulating independently in room and in hallway, no complaints of SOA or chest pain, 2100 FSBS 239
[2020-04-28 06:30] LABS: POC Glucose,Bedside 196 (70-110)
[2020-04-28 06:49] LABS: Basophils % 0.4 % (0.1-2.0); Eosinophils # 0.2 K/mm3 (0.0-0.4); Eosinophils % 2.1 % (0.1-12.0); Hematocrit 45.9 % (42.0-52.0); Hemoglobin 15.3 g/dL (14.1-18.0); Lymphocytes # 3.1 K/mm3 (0.7-4.5); Mean Corpuscular HGB Conc 33.4 g/dL (31.8-35.4); Mean Corpuscular Hemoglobin 29.9 pg (27.0-31.2); Mean Corpuscular Volume 89.4 fl (80-94); Mean Platelet Volume 8.9 fl (7.4-10.4); Monocytes # 0.7 K/mm3 (0.1-1.0); Monocytes % 6.2 % (1.7-9.3); Neutrophils # 6.8 K/mm3 (1.8-7.8); Neutrophils % 62.4 % (37.0-80.0); Platelet Count 228 K/mm3 (142-424); Red Blood Count 5.13 M/mm3 (4.60-6.20); White Blood Count 10.8 K/mm3 (4.8-10.8)
[2020-04-28 07:09] LABS: Anion Gap 15.6 mEq/L (5-15); Blood Urea Nitrogen 47 mg/dl (9-20); Calcium 9.5 mg/dl (8.4-10.2); Carbon Dioxide 25 mmol/L (22.0-30.0); Chloride 99 mmol/L (98-107); Creatinine Clearance Estimated 76 mL/min (50-200); Estimated Glomerular Filt Rate 42 ml/min (>60); GFR (African American) 51 ML/MIN (>60); Glucose 217 mg/dl (74-100); Potassium 4.6 mmoL/L (3.5-5.1); Sodium 135 mmol/L (136-145)
[2020-04-28 08:00] VITALS: BP 132/99; PULSE 78; PULSE 80; RESP 16; TEMP 36.3; O2SAT 97
--- NOTE | 2020-04-28 09:16 | HMH.DCSUM ---
General - General Admission date:: 04/23/20 Discharge date: 04/28/20 HPI HPI: [facility] with progressive weakness and dec po intake with chest pain and elevated glu- he was seen in the ed -yo M with past medical history significant for uncontrolled diabetes, CAD status post cardiac stenting presents the emergency department secondary to uncontrolled diabetes and chest pain. He states his pain is subxiphoid. Is been ongoing for 3 days. Is been progressively worsening. He endorses shortness of breath and nausea. Denies radiation of pain. Reports taking his medications as directed but they are not improving his blood sugars. Symptoms are not worsened by exertion. pt was admitted for eval and treatment Hospital Course Hospital Course: Laboratory Tests 04/23/20 04/23/20 04/23/20 10:12 10:12 10:12 WBC 11.2 H RBC 4.69 Hgb 14.0 L Hct 42.5 MCV 90.6 MCH 29.8 MCHC 32.9 RDW 13.9 Plt Count 237 MPV 9.1 Neut % (Auto) 63.0 Lymph % (Auto) 30.5 Powell % (Auto) 4.3 Eos % (Auto) 1.7 Baso % (Auto) 0.5 Neut # (Auto) 7.1 Lymph # (Auto) 3.4 Powell # (Auto) 0.5 Eos # (Auto) 0.2 Baso # (Auto) 0.1 VBG pH VBG pCO2 VBG pO2 VBG HCO3 VBG Total CO2 VBG O2 Saturation VBG Base Excess Sodium 137 Potassium 4.2 Chloride 106 Carbon Dioxide 21 L Anion Gap 14.2 BUN 17 Creatinine 1.00 Estimated Creat Clear 129 Estimated GFR 78 Est GFR ( Amer) 94 Glucose 560 H* POC Glucose C-Peptide Calcium 9.4 Total Bilirubin 0.4 AST 28 ALT 25 Alkaline Phosphatase 134 H Troponin I < 0.01 NT-Pro-B Natriuret Pep Total Protein 7.5 Albumin 4.2 Globulin 3.3 H Albumin/Globulin Ratio 1.3 Urine Color Urine Appearance Urine pH Ur Specific [place] Urine Protein Urine Glucose (UA) Urine Ketones Urine Blood Urine Nitrate Urine Bilirubin Urine Urobilinogen Ur Leukocyte Esterase Urine RBC Urine WBC Ur Squamous Epith Cells Urine Bacteria Acetone Level None detected Chlamy pneumoniae PCR Adenovirus (PCR) B. pertussis DNA (PCR) Coronavirus OC43 (PCR) Coronavirus HKU1 (PCR) Coronavirus 229E (PCR) SARS-CoV-2 (PCR) Coronavirus NL63 (PCR) Human Metapneumovir PCR Influenza A (H1) PCR Influ A (H1N1/09) PCR Influenza A (H3) PCR Influenza Type A (PCR) Influenza Type B (PCR) M. pneumoniae (PCR) Parainfluenza 1 (PCR) Parainfluenza 2 (PCR) Parainfluenza 3 (PCR) Parainfluenza 4 (PCR) RSV (PCR) Entero/Rhino (PCR) 04/23/20 04/23/20 04/23/20 10:12 10:15 10:19 WBC RBC Hgb Hct MCV MCH MCHC RDW Plt Count MPV Neut % (Auto) Lymph % (Auto) Powell % (Auto) Eos % (Auto) Baso % (Auto) Neut # (Auto) Lymph # (Auto) Powell # (Auto) Eos # (Auto) Baso # (Auto) VBG pH VBG pCO2 VBG pO2 VBG HCO3 VBG Total CO2 VBG O2 Saturation VBG Base Excess Sodium Potassium Chloride Carbon Dioxide Anion Gap BUN Creatinine Estimated Creat Clear Estimated GFR Est GFR ( Amer) Glucose POC Glucose 569 H* C-Peptide Calcium Total Bilirubin AST ALT Alkaline Phosphatase Troponin I NT-Pro-B Natriuret Pep 59.5 Total Protein Albumin Globulin Albumin/Globulin Ratio Urine Color Urine Appearance Urine pH Ur Specific [place] Urine Protein Urine Glucose (UA) Urine Ketones Urine Blood Urine Nitrate Urine Bilirubin Urine Urobilinogen Ur Leukocyte Esterase Urine RBC Urine WBC Ur Squamous Epith Cells Urine Bacteria Acetone Level Chlamy pneumoniae PCR Not detected Adenovirus (PCR) Not detected B. pertussis DNA (PCR) Not detected Coronavirus OC43 (PCR) No
[2020-04-28 12:00] VITALS: BP 103/70; PULSE 83; RESP 18; TEMP 36.8; O2SAT 95
[2020-04-28 12:46] LABS: POC Glucose,Bedside 237 (70-110)
[2020-04-28 15:56] VITALS: BP 125/77; PULSE 98; RESP 16; TEMP 36.8; O2SAT 94
[2020-04-28 17:06] LABS: POC Glucose,Bedside 193 (70-110)
== END 2020-04-28 17:15 | disposition home or self-care (01) ==
LOC: ER 12:13 → 2ND 12:54
PROVIDERS: Nurse Practitioner Family; Admitting Provider Emergency Medicine; Emergency Provider Family Medicine; PCP Emergency Medicine; Visit Provider Emergency Medicine
DX: R07.9 Chest pain, unspecified (principal); E11.65 Type 2 diabetes mellitus with hyperglycemia; Z79.4 Long term (current) use of insulin; I25.118 Atherosclerotic heart disease of native coronary artery with other forms of angina pectoris; N17.9 Acute kidney failure, unspecified; I11.0 Hypertensive heart disease with heart failure; I50.30 Unspecified diastolic (congestive) heart failure; I42.9 Cardiomyopathy, unspecified; Z95.0 Presence of cardiac pacemaker; F20.9 Schizophrenia, unspecified; Z95.5 Presence of coronary angioplasty implant and graft; Z79.899 Other long term (current) drug therapy
CPT/HCPCS: 36415; 71045; 80048; 80053; 81001; 82009; 82803; 82962; 83880; 84484; 84681; 85025; 87581; 87633; 87798; 93005; 96365; 99284; G0378; J2405; U0003

== ENCOUNTER 2020-06-18 14:13 | Emergency (ER) | payer BC, SELFPAY ==
[2020-06-18] VITALS (7 sets, daily range): BP systolic 133–148; BP diastolic 61–98; PULSE 71–77; RESP 16–18; TEMP 36.3–36.7; O2SAT 92–99; BMI 30.8
--- NOTE | 2020-06-18 14:22 | CT_ITS ---
PROCEDURE: CT HEAD/BRAIN WO CON CLINICAL INDICATION: fall COMPARISON: CT CT HEAD/BRAIN WO CON from 10/26/2019 TECHNIQUE: Unenhanced CT head with axial images obtained. Dose modulation, automated exposure control, and/or iterative reconstruction were used for dose reduction FINDINGS: Images are slightly degraded due to motion artifact. There is no space-occupying mass or abnormal enhancement.There is no evidence of intra or extra-axial hemorrhage. No midline shift or mass effect is noted. Focal encephalomalacia is noted in the right cerebellar hemisphere, unchanged compared to prior study, likely sequela of old infarct. Ventricles: Ex vacuo dilatation of the ventricles is present. 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 This is unchanged compared to prior study. The lawson-white differentiation is well preserved throughout, with no evidence of acute infarct. Volume: There is mild parenchymal volume loss. Scattered periventricular and deep white matter lucencies likely indicate chronic micovascular ischemic disease. Atherosclerotic calcification are present bilaterally. Osseous Osseous structures are unremarkable. Prior internal fixation of the orbital floor is noted. Sinuses: The paranasal sinuses are clear Mastoids: Mastoid air cells are clear. IMPRESSION: 1. No evidence of acute intracranial process. 2. Mild volume loss, chronic microvascular ischemic changes, and atherosclerotic disease. Dictated by: Francesca Deshpande 06/18/2020 15:20 Francesca Deshpande in [place] 06/18/2020 15:20
--- NOTE | 2020-06-18 14:24 | HMH.EDGENADL ---
ED Disposition Clinical Impression: Hyperglycemia without ketosis Disposition: Home, Self-Care Condition on Discharge: Good Instructions: DI for Hyperglycemia -- Adult Referrals: Provider,Referral, [Primary Care Provider] - 3 days Time of Disposition: 15:37 - Critical Care Critical Care Time: No Attestation: On 06/18/20, the high probability of a clinically significant, sudden or life threatening deterioration of the following system(s) required my full and direct attention, intervention and personal management. The time I documented below is in addition to time spent performing reported procedures but includes the following listed in this critical care notation. Medical Decision Making - Medical Records Medical records reviewed: Yes: I reviewed the patient's medical records. - Clem Inquiry Pt receiving controlled substance: No Vital Signs: 06/18/20 14:15 06/18/20 14:30 06/18/20 15:30 Temperature 97.3 F L Temperature Source Axillary Pulse Rate 77 74 73 Pulse Rate [Left] 71 Respiratory Rate 16 Blood Pressure 139/65 140/92 H 138/84 Blood Pressure [Right Arm] 139/95 H Blood Pressure Mean [Right Arm] 109 Blood Pressure Source [Right Arm] Automatic Cuff Blood Pressure Position [Right Arm] Sitting 02 Sat by Pulse Oximetry 94 L 92 L 96 Oxygen Delivery Method Room Air - Lab Data Lab results reviewed: Yes: I reviewed the patient's lab results. Lab Results 06/18/20 11:45: Urine Color Yellow, Urine Appearance Clear, Urine pH 5.5, Ur Specific [place] <= 1.005, Urine Protein Negative, Urine Glucose (UA) 3+, Urine Ketones Negative, Urine Blood Negative, Urine Nitrate Negative, Urine Bilirubin Negative, Urine Urobilinogen 1.0, Ur Leukocyte Esterase Negative, Urine RBC None, Urine WBC 3-5, Ur Squamous Epith Cells 3-5, Urine Bacteria Trace 06/18/20 14:15: WBC 10.4, RBC 5.16, Hgb 15.3, Hct 46.5, MCV 90.2, MCH 29.6, MCHC 32.8, RDW 14.5, Plt Count 234, MPV 9.4, Neut % (Auto) 64.2, Lymph % (Auto) 28.4, Young % (Auto) 5.1, Eos % (Auto) 1.9, Baso % (Auto) 0.4, Neut # (Auto) 6.7, Lymph # (Auto) 3.0, Young # (Auto) 0.5, Eos # (Auto) 0.2, Baso # (Auto) 0.0 06/18/20 14:15: Sodium 131 L, Potassium 4.6, Chloride 93 L, Carbon Dioxide 26, Anion Gap 16.6 H, BUN 21 H, Creatinine 1.30 H, Estimated Creat Clear 99, Estimated GFR 57 L, Est GFR ( Amer) 69, Glucose 578 H*, Calcium 9.6, Total Bilirubin 0.7, AST 32, ALT 34, Alkaline Phosphatase 174 H, Total Protein 7.8, Albumin 4.6, Globulin 3.2, Albumin/Globulin Ratio 1.4 Result diagrams: 06/18/20 14:15 06/18/20 14:15 Orders (Tests/Meds): ED MEDICATIONS Discontinued Medications Generic Name Dose Route Start Last Admin Trade Name Freq PRN Reason Stop Dose Admin Sodium Chloride 1,000 mls @ 999 mls/hr 06/18/20 14:30 06/18/20 14:27 Sod Chlor 0.9% 1000ml Bag IV 06/18/20 15:30 999 mls/hr .Q1H1M ADEN Administration Insulin Human Regular 14 unit 06/18/20 14:22 06/18/20 14:27 Insulin Human Regular 100 Units/Ml 10ml Vial SQ 06/18/20 14:23 14 unit ONCE ONE Administration - CT Data CT Scan: Head Time Received: 15:[address] Reviewed: Yes: I have viewed the radiologist's interpretation Preliminary Findings: Normal/NAD Medical Decision Narrative: 54yo M in no acute distress. Patient is very pleasant, smiling, interacting with staff. Routine labs and CT head are obtained. Patient is treated with IV fluids and insulin subcu. Patient labs are unremarkable except for a glucose of 578. Patient CT head is negative. Case discussed with Dr. Rodríguez. He request the patient be sent back to his facility and he will make medication changes from there. General Adult HPI - General Chief complaint: Hyper/Hypoglycemia Stated complaint: elevated glucose Time Seen by Provider: 06/18/20 14:24 Mode of Arrival: EMS Limitations: No Limitations Description of Symptoms (Recalled from ER Triage Doc. by RN): patient to ED via [facility] for hyperglycemia. F
[2020-06-18 14:41] LABS: Chloride 93 mmol/L (98-107); Potassium 4.6 mmoL/L (3.5-5.1); Sodium 131 mmol/L (136-145)
[2020-06-18 14:43] LABS: Alanine Aminotransferase 34 U/L (12-78); Aspartate Amino Transferase 32 U/L (17-59); Blood Urea Nitrogen 21 mg/dl (9-20); Creatinine Clearance Estimated 99 mL/min (50-200); Estimated Glomerular Filt Rate 57 ml/min (>60); GFR (African American) 69 ML/MIN (>60)
[2020-06-18 14:44] LABS: Albumin Level 4.6 g/dl (3.5-5.0); Albumin/Globulin Ratio 1.4 (1.1-1.8); Alkaline Phosphatase 174 U/L (38-126); Anion Gap 16.6 mEq/L (5-15); Bilirubin,Total 0.7 mg/dl (0.2-1.3); Calcium 9.6 mg/dl (8.4-10.2); Carbon Dioxide 26 mmol/L (22.0-30.0); Globulin 3.2 g/dL (1.3-3.2); Total Protein,Serum 7.8 g/dl (6.3-8.2)
--- NOTE | 2020-06-18 14:45 | PC.NURSE ---
LAB REPORTED A GLUCOSE OF 578. EMERGENCY PHYSICIAN MADE AWARE
[2020-06-18 14:46] LABS: Basophils % 0.4 % (0.1-2.0); Eosinophils # 0.2 K/mm3 (0.0-0.4); Eosinophils % 1.9 % (0.1-12.0); Glucose 578 mg/dl (74-100); Hematocrit 46.5 % (42.0-52.0); Hemoglobin 15.3 g/dL (14.1-18.0); Lymphocytes % 28.4 % (10-50); Mean Corpuscular HGB Conc 32.8 g/dL (31.8-35.4); Mean Corpuscular Hemoglobin 29.6 pg (27.0-31.2); Mean Corpuscular Volume 90.2 fl (80-94); Mean Platelet Volume 9.4 fl (7.4-10.4); Monocytes # 0.5 K/mm3 (0.1-1.0); Monocytes % 5.1 % (1.7-9.3); Neutrophils # 6.7 K/mm3 (1.8-7.8); Neutrophils % 64.2 % (37.0-80.0); Platelet Count 234 K/mm3 (142-424); Red Blood Count 5.16 M/mm3 (4.60-6.20); Red Cell Distribution Width 14.5 % (11.5-17.5); White Blood Count 10.4 K/mm3 (4.8-10.8)
[2020-06-18 14:49] LABS: Microscopic, Urine URINE MICROSCOPIC (MICROSCOPIC)
[2020-06-18 14:51] LABS: Appearance,Urine CLEAR (Clear); Bilirubin,Urine Negative (Negative); Blood, Urine Negative (Negative); Color,Urine YELLOW (Yellow); Glucose,Urine (UA) 3+ (Negative); Ketones,Urine Negative (Negative); Leukocyte Esterase,Urine Negative (Negative); Nitrate,Urine Negative (Negative); PH,Urine 5.5 (5.0-8.5); Protein,Urine Negative (Negative); Specific Gravity, Urine <= 1.005 (1.005-1.030)
[2020-06-18 15:00] LABS: Bacteria,Urine Trace /lpf
--- NOTE | 2020-06-18 15:32 | PC.NURSE ---
Dr chaidez speaking with Dr Rodríguez
--- NOTE | 2020-06-18 15:34 | PC.NURSE ---
MARYCARMEN INIGUEZ speaking with Dr. Rodríguez
--- NOTE | 2020-06-18 15:53 | PC.NURSE ---
notified [facility] staff pt is ready for d/c
[2020-06-18 16:02] LABS: POC Glucose,Bedside 509 (70-110)
--- NOTE | 2020-06-18 17:25 | PC.NURSE ---
Called [facility] to see when someone would be available to pick pt up, they stated that they would try to get a hold of someone to come retrieve him.
[2020-07-21 13:01] LABS: POC Glucose,Bedside 513 (70-110)
== END 2020-06-18 17:45 | disposition home or self-care (01) ==
PROVIDERS: Emergency Provider Family Medicine
DX: E11.65 Type 2 diabetes mellitus with hyperglycemia (principal); I10 Essential (primary) hypertension; E78.5 Hyperlipidemia, unspecified; I25.10 Atherosclerotic heart disease of native coronary artery without angina pectoris; Z86.73 Personal history of transient ischemic attack (TIA), and cerebral infarction without residual deficits; Z79.899 Other long term (current) drug therapy
CPT/HCPCS: 70450; 80053; 81001; 82962; 85025; 96365; 99282

== ENCOUNTER 2020-06-19 13:16 | Observation (INO) | payer BC, SELFPAY ==
[2020-06-19 13:16] VITALS: BP 144/85; PULSE 65; RESP 18; TEMP 36.6; O2SAT 98; BMI 31.4
--- NOTE | 2020-06-19 13:32 | XR_ITS ---
PROCEDURE: XR CHEST PORTABLE CLINICAL HISTORY: RIGHT SIDED CHEST PAIN COMPARISON: CT CT CHEST WO CON from 07/02/2019 CR XR CHEST AP from 10/24/2019 CR XR CHEST PORTABLE from 04/08/2020 CR XR CHEST PORTABLE from 04/23/2020 FINDINGS: The cardiomediastinal silhouette and pulmonary vascularity are within normal limits. The lungs are clear without infiltrates, suspicious nodules, or pleural effusions. No acute bony abnormalities. IMPRESSION: No acute findings. Dictated by: Francesca Deshpande 06/19/2020 14:14 Francesca Deshpande in [place] 06/19/2020 14:14
--- NOTE | 2020-06-19 13:37 | HMH.EDGENADL ---
ED Disposition Clinical Impression: Hyperglycemia, Chest pain, atypical Disposition: Admitted as Observation Condition on Discharge: Good - Critical Care Critical Care Time: No Attestation: On 06/19/20, the high probability of a clinically significant, sudden or life threatening deterioration of the following system(s) required my full and direct attention, intervention and personal management. The time I documented below is in addition to time spent performing reported procedures but includes the following listed in this critical care notation. Medical Decision Making - Medical Records Medical records reviewed: Yes: I reviewed the patient's medical records. Comment: Reviewed emergency department record from yesterday. Blood sugar was greater than 500. Given subcutaneous insulin and intravenous fluids. Blood sugar 578 on arrival, 509 at discharge. Also had a head CT scan for reported history of a fall. No mention of chest pain or pain in his side yesterday. - Clem Inquiry Pt receiving controlled substance: No Vital Signs: 06/19/20 13:16 06/19/20 14:00 06/19/20 19:00 Temperature 97.8 F Temperature Source Oral Pulse Rate 71 Pulse Rate [Right] 65 Respiratory Rate 18 Blood Pressure 128/93 H Blood Pressure [Right Arm] 144/85 H Blood Pressure Mean 104 Blood Pressure Mean [Right Arm] 104 Blood Pressure Source [Right Arm] Blood Pressure Position [Right Arm] 02 Sat by Pulse Oximetry 98 95 Oxygen Delivery Method Room Air Room Air 06/19/20 19:24 06/19/20 19:32 Temperature 97.6 F 97.8 F Temperature Source Oral Pulse Rate 68 Pulse Rate [Right] 74 Respiratory Rate 17 16 Blood Pressure 133/78 Blood Pressure [Right Arm] 126/89 Blood Pressure Mean Blood Pressure Mean [Right Arm] 101 Blood Pressure Source [Right Arm] Automatic Cuff Blood Pressure Position [Right Arm] Sitting 02 Sat by Pulse Oximetry 98 Oxygen Delivery Method Room Air Room Air - Lab Data Lab Results 06/19/20 13:24: WBC 10.1, RBC 4.82, Hgb 14.4, Hct 44.2, MCV 91.7, MCH 29.8, MCHC 32.4, RDW 14.6, Plt Count 235, MPV 9.4, Neut % (Auto) 58.8, Lymph % (Auto) 34.3, [place] % (Auto) 4.4, Eos % (Auto) 1.8, Baso % (Auto) 0.7, Neut # (Auto) 5.9, Lymph # (Auto) 3.5, [place] # (Auto) 0.4, Eos # (Auto) 0.2, Baso # (Auto) 0.1 06/19/20 13:24: Sodium 131 L, Potassium 4.6, Chloride 96 L, Carbon Dioxide 26, Anion Gap 13.6, BUN 21 H, Creatinine 1.30 H, Estimated Creat Clear 101, Estimated GFR 57 L, Est GFR ( Amer) 69, Glucose 497 H*, Calcium 9.6, Total Bilirubin 0.7, AST 27, ALT 27, Alkaline Phosphatase 170 H, Total Protein 7.4, Albumin 4.4, Globulin 3.0, Albumin/Globulin Ratio 1.5 06/19/20 13:24: Troponin I < 0.01 06/19/20 13:24: Acetone Level Small 06/19/20 13:24: Troponin I < 0.01 06/19/20 14:27: VBG pH 7.38, VBG pCO2 37.4, VBG pO2 69.8 H, VBG HCO3 21.8 L, VBG Total CO2 22.9 L, VBG O2 Saturation 94.9 H, VBG Base Excess -3.3 L 06/19/20 14:35: POC Glucose 381 H* 06/19/20 15:34: Chlamy pneumoniae PCR Not detected, Adenovirus (PCR) Not detected, B. pertussis DNA (PCR) Not detected, Coronavirus OC43 (PCR) Not detected, Coronavirus HKU1 (PCR) Not detected, Coronavirus 229E (PCR) Not detected, SARS-CoV-2 (PCR) Not detected, Coronavirus NL63 (PCR) Not detected, Human Metapneumovir PCR Not detected, Influenza A (H1) PCR Not detected, Influ A (H1N1/09) PCR Not detected, Influenza A (H3) PCR Not detected, Influenza Type A (PCR) Not detected, Influenza Type B (PCR) Not detected, M. pneumoniae (PCR) Not detected, Parainfluenza 1 (PCR) Not detected, Parainfluenza 2 (PCR) Not detected, Parainfluenza 3 (PCR) Not detected, Parainfluenza 4 (PCR) Not detected, RSV (PCR) Not detected, Entero/Rhino (PCR) Not detected 06/19/20 18:05: Troponin I < 0.01 Result diagrams: 06/19/20 13:24 06/19/20 13:24 Orders (Tests/Meds): ED MEDICATIONS Generic Name Dose Route Start Last Admin Trade Name Freq PRN Reason Stop Dose Admin Acetaminophen 650 mg
--- NOTE | 2020-06-19 13:43 | ECG_ITS ---
APPROVED REPORT Exam: Resting ECG HR:73 bpm ECG Measurements Heart Rate 73 AXES CA 176 P 49 QRSd 100 QRS 53 QT 412 T 73 QTc 453 Conclusion Normal sinus rhythm Normal ECG Electronically signed by : Pascual Storey, 06/21/2020 11:38:27
[2020-06-19 13:44] LABS: Basophils # 0.1 K/mm3 (0-0.2); Basophils % 0.7 % (0.1-2.0); Chloride 96 mmol/L (98-107); Eosinophils # 0.2 K/mm3 (0.0-0.4); Eosinophils % 1.8 % (0.1-12.0); Hematocrit 44.2 % (42.0-52.0); Hemoglobin 14.4 g/dL (14.1-18.0); Lymphocytes # 3.5 K/mm3 (0.7-4.5); Lymphocytes % 34.3 % (10-50); Mean Corpuscular HGB Conc 32.4 g/dL (31.8-35.4); Mean Corpuscular Hemoglobin 29.8 pg (27.0-31.2); Mean Corpuscular Volume 91.7 fl (80-94); Mean Platelet Volume 9.4 fl (7.4-10.4); Monocytes # 0.4 K/mm3 (0.1-1.0); Monocytes % 4.4 % (1.7-9.3); Neutrophils # 5.9 K/mm3 (1.8-7.8); Neutrophils % 58.8 % (37.0-80.0); Platelet Count 235 K/mm3 (142-424); Potassium 4.6 mmoL/L (3.5-5.1); Red Blood Count 4.82 M/mm3 (4.60-6.20); Red Cell Distribution Width 14.6 % (11.5-17.5); Sodium 131 mmol/L (136-145); White Blood Count 10.1 K/mm3 (4.8-10.8)
[2020-06-19 13:46] LABS: Blood Urea Nitrogen 21 mg/dl (9-20); Creatinine Clearance Estimated 101 mL/min (50-200); Estimated Glomerular Filt Rate 57 ml/min (>60); GFR (African American) 69 ML/MIN (>60)
[2020-06-19 13:47] LABS: Alanine Aminotransferase 27 U/L (12-78); Albumin Level 4.4 g/dl (3.5-5.0); Albumin/Globulin Ratio 1.5 (1.1-1.8); Alkaline Phosphatase 170 U/L (38-126); Anion Gap 13.6 mEq/L (5-15); Aspartate Amino Transferase 27 U/L (17-59); Bilirubin,Total 0.7 mg/dl (0.2-1.3); Calcium 9.6 mg/dl (8.4-10.2); Carbon Dioxide 26 mmol/L (22.0-30.0); Total Protein,Serum 7.4 g/dl (6.3-8.2)
[2020-06-19 13:49] LABS: Glucose 497 mg/dl (74-100)
[2020-06-19 14:00] VITALS: BP 128/93; PULSE 71; O2SAT 95
[2020-06-19 14:10] LABS: Troponin I < 0.01 ng/ml (0.00-0.034)
[2020-06-19 14:18] LABS: Acetone, Serum (Rapid) Small (None Detect)
[2020-06-19 14:35] LABS: VBG Base Excess -3.3 mmol/L (-2.4-2.3); VBG HCO3 21.8 mmol/L (23-30); VBG Oxygen Saturation 94.9 % (50-70); VBG PCO2 37.4 mmol/L (35-51); VBG PH 7.38 mmol/L (7.31-7.41); VBG PO2 69.8 mmol/L (28-40); VBG Total CO2 22.9 mmol/L (23-27)
--- NOTE | 2020-06-19 14:37 | PC.NURSE ---
REPEAT POC GLUCOSE: 381. MADE AWARE
[2020-06-19 14:44] LABS: POC Glucose,Bedside 381 (70-110)
--- NOTE | 2020-06-19 15:11 | PC.NURSE ---
Dr Bowens speaking with Dr Peter.
[2020-06-19 15:45] LABS: Troponin I < 0.01 ng/ml (0.00-0.034)
--- NOTE | 2020-06-19 15:50 | HMH.PHAVTE ---
[facility] Pharmacy VTE Monitoring - Patient Demographics Admission date: 06/19/20 Report Date: 06/19/20 Time: 15:50 Allergies/Adverse Reactions: Patient Allergies No Known Allergies Allergy (Verified 05/26/20 10:46) Height: 1.88 m Weight: 111.13 kg Patient Problems: Current Active Problems High blood sugar (Acute) Atypical chest pain (Acute) - VTE Risk Labs: VTE Related Lab Results Hgb 14.4 g/dL (14.1-18.0) 06/19/20 13:24 Hct 44.2 % (42.0-52.0) 06/19/20 13:24 Plt Count 235 K/mm3 (142-424) 06/19/20 13:24 BUN 21 mg/dl (9-20) H 06/19/20 13:24 Creatinine 1.30 mg/dl (0.66-1.25) H 06/19/20 13:24 Estimated Creat Clear 101 mL/min (50-200) 06/19/20 13:24 Clinical Trial Participant: No - Prophylaxis VTE Prophylaxis Ordered?: Yes Types of VTE Prophylaxis: TEDS Knee High
[2020-06-19 16:02] LABS: Adenovirus,PCR Not Detected (NotDetected); Bordetella Pertussis Not Detected (NotDetected); Chlamydophila Pneumoniae, PCR Not Detected (NotDetected); Coronavirus 19, PCR Not Detected (NotDetected); Coronavirus 229E Not Detected (NotDetected); Coronavirus NL63 Not Detected (NotDetected); Coronavirus OC43 Not Detected (NotDetected); Coronovirus HKU1,PCR Not Detected (NotDetected); Human Metapneumovirus Not Detected (NotDetected); Influenza A, PCR Not Detected (NotDetected); Influenza AH1, 2009 Not Detected (NotDetected); Influenza AH1, PCR Not Detected (NotDetected); Influenza AH3,PCR Not Detected (NotDetected); Influenza B, PCR Not Detected (NotDetected); Mycoplasma Pneumoniae, PCR Not Detected (NotDetected); Parainfluenza 1, PCR Not Detected (NotDetected); Parainfluenza 2, PCR Not Detected (NotDetected); Parainfluenza 3, PCR Not Detected (NotDetected); Parainfluenza 4, PCR Not Detected (NotDetected); Respiratory Syncytial Virus Not Detected (NotDetected); Rhinovirus/Enterovirus Not Detected (NotDetected)
--- NOTE | 2020-06-19 17:49 | PC.NURSE ---
Per lab covid test has 55 mins left
[2020-06-19 18:31] LABS: Troponin I < 0.01 ng/ml (0.00-0.034)
--- NOTE | 2020-06-19 19:04 | PC.NURSE ---
ATTEMPTED TO GIVE REPORT TO SECOND FLOOR NURSE AND MARK ANTHONY ADHIKARI WAS TOLD THAT THE NURSE WAS RECEIVING REPORT ON OTHER PATIENTS AND THE NURSE COULD NOT TAKE REPORT AT THIS TIME
--- NOTE | 2020-06-19 19:08 | PC.NURSE ---
REPORT GIVEN TO ART ADHIKARI SECOND FLOOR NURSE AT THIS TIME
[2020-06-19 19:24] VITALS: BP 126/89; PULSE 74; RESP 17; TEMP 36.4; O2SAT 98; BMI 31.3
--- NOTE | 2020-06-19 19:24 | PC.NURSE ---
pt arrived via wheelchair
[2020-06-19 19:32] VITALS: BP 133/78; PULSE 68; RESP 16; TEMP 36.6; O2SAT 96
--- NOTE | 2020-06-19 19:33 | HMH.HP ---
*Admission Date: 06/19/20 *Chief complaint: diabetes, chest pain *History of present illness: 54-year-old black male, resident of [facility] who is admitted with elevated glucose, and chest pain in a setting of known diabetes and known coronary disease. Patient is a tangential historian. Nursing staff at [facility] relayed elevated blood sugar readings exceeding 500. He comes in on a regimen of Glucotrol XL 5 mg daily, Metformin 500 twice daily and Lantus 30 units at bedtime. He had recently been seen by ER staff for elevated glucose, readings remained elevated despite changing his regimen. He was given 10 units of IV insulin in the emergency room. Patient is status post stent deployment in a dominant distal RCA. A drug-eluting stent was used. Patient was noted to have an elevated LVEDP consistent with diastolic dysfunction. In the emergency room he complained of right sided chest pain. When specifically questioned tonight he relays pain in his right breast. There is some gynecomastia evident, patient's regimen includes Aldactone and antipsychotics. His initial troponin was negative. He is admitted for more intense blood sugar control, and further evaluation of his chest pain. [facility] History Medical History: Reports:: Cancer, Cardiomyopathy, Coronary Artery Disease, Cerebrovascular Accident, Diabetes Mellitus Type 1, Diabetes Mellitus Type 2, Hyperlipidemia, Hypertension, Internal Pacemaker, Kidney Stones, MRSA, Seizures, Transient Ischemic Attacks (TIA) *Have you ever received a pneumonia vaccine?: No *Have you received a flu vaccine this season?: Yes Other Medical History: Reports: Anemia, Arthritis, Blood Transfusion Reaction, Other Other Surgeries: Yes: No Previous Surgery, Cardiac Catheterization, Coronary Stent, Pacemaker, Other Amputation: No Fractures: Yes (rt arm) - *Social History Smoking Status: Never smoker Tobacco Type: cigarettes # Packs/Day (cigarettes): 1 Alcohol Intake: never Substance Use Type: denies use *Occupational Status:: disabled Housing: assisted living facility Household Members: other *Travel in the last 8 weeks: None Family Hx:: No significant family history Review of Systems - Constitutional Reports fatigue, Reports lack of energy - Eyes Denies loss of vision - ENT Denies abnormal hearing - *Cardiovascular Reports chest pain, Denies irregular heart rhythm, Denies rapid, pounding, or irregular heartbeat - *Respiratory Denies chest congestion - *Gastrointestinal Reports heartburn, Denies vomiting blood, Denies black, tarry stools - *Genitourinary Reports difficulty urinating, Reports urinary frequency - *Musculoskeletal Reports muscle weakness - Integumentary/Breasts Reports breast pain, Reports breast swelling, Denies yellowing of the skin - *Neurologic Reports weakness - Psychiatric Reports mood swings - Endocrine Reports increased thirst, Reports increased urination - Hematologic/Lymphatic Denies easy bleeding - Allergic/Immunologic Denies wheezing Meds Home Medications Medication Instructions Recorded Confirmed Type Sertraline HCl [Zoloft 100mg 100 mg PO DAILY 02/15/17 06/19/20 History tablet] Tamsulosin HCl [Flomax 0.4mg 0.4 mg PO DAILY 02/15/17 06/19/20 History capsule] Isosorbide Mononitrate [Imdur 30mg 30 mg PO HS 07/02/19 06/19/20 History ER tablet] polyethylene glycoL 3350 [Miralax 17 gm PO DIRECTED PRN 07/02/19 06/19/20 History 17gm Packet] Metoprolol Succinate [Metoprolol 150 mg PO DAILY 07/03/19 06/19/20 History Succinate 50mg Tablet*] OLANZapine [Olanzapine] 20 mg PO DAILY 07/03/19 06/19/20 History tramadol 50 mg tablet 50 mg PO BID PRN #60 tab 01/08/20 06/19/20 Rx Acetaminophen [Tylenol Extra 500 mg PO Q6HP PRN 04/09/20 06/19/20 History Strength] Multivitamin 1 each PO DAILY 04/09/20 06/19/20 History Sertraline HCl [Zoloft] 50 mg PO DAILY 04/23/20 06/19/20 History haloperidoL [Haldol 5mg tablet] 5 mg PO TID
[2020-06-19 19:45] VITALS: PULSE 80
[2020-06-19 20:00] VITALS: PULSE 80
[2020-06-19 22:07] LABS: Microscopic, Urine URINE MICROSCOPIC (MICROSCOPIC)
[2020-06-19 22:10] LABS: POC Glucose,Bedside 426 (70-110)
[2020-06-19 22:11] LABS: Appearance,Urine CLEAR (Clear); Bilirubin,Urine Negative (Negative); Blood, Urine Negative (Negative); Color,Urine YELLOW (Yellow); Glucose,Urine (UA) 3+ (Negative); Ketones,Urine Negative (Negative); Leukocyte Esterase,Urine Negative (Negative); Nitrate,Urine Negative (Negative); PH,Urine 5.5 (5.0-8.5); Protein,Urine Negative (Negative); Specific Gravity, Urine 1.015 (1.005-1.030); Urobilinogen,Urine 0.2 EU/dl (0.2)
[2020-06-19 22:29] LABS: Troponin I 0.03 ng/ml (0.00-0.034)
[2020-06-19 22:32] LABS: Bacteria,Urine Trace /lpf
[2020-06-20] VITALS (9 sets, daily range): BP systolic 118–144; BP diastolic 48–84; PULSE 60–84; RESP 16–20; TEMP 36.5–36.9; O2SAT 94–97; BMI 31.4; BMI 31.5
--- NOTE | 2020-06-20 03:03 | PC.NURSE ---
A&OX3. TOLERATING RA WELL. PT STANDBY ASSIST IN ROOM. PT HAS HAD NO C/O CP/SOA/NA/VO. PT NSR ON TELE. PT HAS CONTINUED TO SHOW HYPERGLYCEMIA VIA FSBS, BUT HAS NO SYMPTOMS. TX WITH INSULIN PER APR. PT SLEEPING MAJORITY OF SHIFT. NO C/O THUS FAR, VSS WILL CONTINUE TO MONITOR.
[2020-06-20 05:43] LABS: POC Glucose,Bedside 241 (70-110)
[2020-06-20 08:04] LABS: Hemoglobin A1C > 14.0 % (4.0-6.0)
--- NOTE | 2020-06-20 08:56 | SW/DCPLANNER ---
Addendum entered by Muriel Frey 06/23/20 10:54: I have arranged [facility] [employer] for this patient. Addendum entered by Muriel Frey 06/23/20 08:34: I have informed Isidro that this patient will be stable for discharge today and PT stated that patient is independent. Isidro has stated that she does not have to come evaluate this patient and patient does NOT need an additional COVID swab prior to discharge. I will set up [employer] [employer] once discharge is complete. Original Note: This patient currently resides at [facility]. I have informed Isidro/Roxann with [facility] of care plan for this patient: medication changes/Cardiology consult. I will continue to update Roxann/Isidro with [facility].
[2020-06-20 09:13] LABS: Acetone, Serum (Rapid) None Detected (None Detect)
--- NOTE | 2020-06-20 09:17 | HMH.PHAINT ---
MEDICATION RECONCILIATION COMPLETED ON PATIENT USING MAR FROM [facility]. -BOO AKINS, LLOYDD
--- NOTE | 2020-06-20 10:58 | CT_ITS ---
PROCEDURE: CT HEAD/BRAIN WO CON CLINICAL INDICATION: Weakness on right side COMPARISON: CT CT HEAD/BRAIN WO CON from 06/18/2020 TECHNIQUE: Unenhanced CT head with axial images obtained. Dose modulation, automated exposure control, and/or iterative reconstruction were used for dose reduction FINDINGS: There is no space-occupying mass. Focal encephalomalacia is noted in the right cerebellar hemisphere, demonstrates no significant interval change compared to prior study.No evidence of intra or extra-axial hemorrhage. Ventricles:Mild ex vacuo dilatation of the ventricles is present. The gomez-white differentiation is well preserved throughout, with no evidence of acute infarct. Volume: There is mild the parenchymal volume loss. Scattered periventricular and deep white matter lucencies likely indicate chronic micovascular ischemic disease. Atherosclerotic calcification are present bilaterally. Focal fluid density lesion noted in the choroid plexus in the right occipital horn of the right lateral ventricle measuring 1.9 x 2 centimeters, unchanged compared to prior study. Osseous Osseous structures are unremarkable. Sinuses: The paranasal sinuses are clear Mastoids: Mastoid air cells are clear. IMPRESSION: 1. No evidence of acute intracranial process. 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 Hyperacute infarcts cannot be excluded on the CT scan. MRI of the brain without contrast should be considered if high clinical suspicion. 2. mild volume loss, chronic microvascular ischemic changes, and atherosclerotic disease. Dictated by: Francesca Deshpande 06/20/2020 14:59 Francesca Deshpande in [place] 06/20/2020 14:59
--- NOTE | 2020-06-20 11:20 | HMH.ACPN2 ---
Internal Medicine - PN: Subj *Date: 06/20/20 *Time: 08:00 Interval history: pt c/o of increase weakness on rt side and dropping things at personal [facility]. hx of stroke but pt states this has increased over the last few weeks Exam Vital signs and Labs for Last 24 Hours: Temp Pulse Resp BP Pulse Ox 97.9 F 74 18 125/81 96 06/20/20 08:00 06/20/20 08:00 06/20/20 08:00 06/20/20 08:00 06/20/20 08:00 Laboratory Results - last 24 hr 06/19/20 13:24: WBC 10.1, RBC 4.82, Hgb 14.4, Hct 44.2, MCV 91.7, MCH 29.8, MCHC 32.4, RDW 14.6, Plt Count 235, MPV 9.4, Neut % (Auto) 58.8, Lymph % (Auto) 34.3, Day % (Auto) 4.4, Eos % (Auto) 1.8, Baso % (Auto) 0.7, Neut # (Auto) 5.9, Lymph # (Auto) 3.5, Day # (Auto) 0.4, Eos # (Auto) 0.2, Baso # (Auto) 0.1 06/19/20 13:24: Sodium 131 L, Potassium 4.6, Chloride 96 L, Carbon Dioxide 26, Anion Gap 13.6, BUN 21 H, Creatinine 1.30 H, Estimated Creat Clear 101, Estimated GFR 57 L, Est GFR ( Amer) 69, Glucose 497 H*, Calcium 9.6, Total Bilirubin 0.7, AST 27, ALT 27, Alkaline Phosphatase 170 H, Total Protein 7.4, Albumin 4.4, Globulin 3.0, Albumin/Globulin Ratio 1.5 06/19/20 13:24: Troponin I < 0.01 06/19/20 13:24: Acetone Level Small 06/19/20 13:24: Troponin I < 0.01 06/19/20 14:27: VBG pH 7.38, VBG pCO2 37.4, VBG pO2 69.8 H, VBG HCO3 21.8 L, VBG Total CO2 22.9 L, VBG O2 Saturation 94.9 H, VBG Base Excess -3.3 L 06/19/20 14:35: POC Glucose 381 H* 06/19/20 15:34: Chlamy pneumoniae PCR Not detected, Adenovirus (PCR) Not detected, B. pertussis DNA (PCR) Not detected, Coronavirus OC43 (PCR) Not detected, Coronavirus HKU1 (PCR) Not detected, Coronavirus 229E (PCR) Not detected, SARS-CoV-2 (PCR) Not detected, Coronavirus NL63 (PCR) Not detected, Human Metapneumovir PCR Not detected, Influenza A (H1) PCR Not detected, Influ A (H1N1/09) PCR Not detected, Influenza A (H3) PCR Not detected, Influenza Type A (PCR) Not detected, Influenza Type B (PCR) Not detected, M. pneumoniae (PCR) Not detected, Parainfluenza 1 (PCR) Not detected, Parainfluenza 2 (PCR) Not detected, Parainfluenza 3 (PCR) Not detected, Parainfluenza 4 (PCR) Not detected, RSV (PCR) Not detected, Entero/Rhino (PCR) Not detected 06/19/20 18:05: Troponin I < 0.01 06/19/20 21:26: POC Glucose 426 H* 06/19/20 21:30: Troponin I 0.03 06/19/20 22:05: Urine Color Yellow, Urine Appearance Clear, Urine pH 5.5, Ur Specific [place] 1.015, Urine Protein Negative, Urine Glucose (UA) 3+, Urine Ketones Negative, Urine Blood Negative, Urine Nitrate Negative, Urine Bilirubin Negative, Urine Urobilinogen 0.2, Ur Leukocyte Esterase Negative, Urine WBC 3-5, Ur Squamous Epith Cells 3-5, Urine Bacteria Trace 06/20/20 05:06: POC Glucose 241 H 06/20/20 07:18: Hemoglobin A1c > 14.0 H 06/20/20 08:30: Acetone Level None detected I & O for Last 24 hours: Intake & Output 06/17/20 06/18/20 06/19/20 06/20/20 11:59 11:59 11:59 11:59 Intake Total 2177 / 217 Balance 2177 / 2178 Weight 237 lb 7 oz - Constitutional no acute distress, chronically ill appearing - *Routine HEENT Exam Head: Present: normocephalic Eye: Present: PERRL ENT: Present: mucous membranes moist - *Routine Neck Exam Present: supple. Absent: lymphadenopathy - *Routine Respiratory Exam Present: CTA bilaterally - *Routine Cardiovascular Exam Present: RRR - *Routine Abdominal Exam Present: soft, normoactive bowel sounds. Absent: tenderness - *Routine Extremities Exam Absent: cyanosis, clubbing, edema - *Routine Skin Exam Present: warm. Absent: rash - *Routine Neurological Exam Present: alert, oriented X3 rt side weakness - Routine Psychiatric Exam Present: normal affect Assessment and Plan (1) Atypical chest pain Status: Acute Category: Medical Code(s): R07.89 - Other chest pain (2) High blood sugar Status: Acute Category: Medical Code(s): R73.9 - Hyperglycemia, unspecified (3) BPH (benign prostatic hyperplasia) Status: Chronic Qualifier
--- NOTE | 2020-06-20 11:53 | HMH.PTEV ---
Physical Therapy Evaluation Rehab PT IP Evaluation Start: 06/20/20 11:19 Freq: ONCE Status: Active Protocol: Document 06/20/20 11:50 DARREL (Rec: 06/20/20 11:53 PHORNE [id number]) Subjective/History History History 54 yoaam adm to [facility]. He reports he walks independently at baseline. Subjective Subjective Pt with no c/o this am. Rehab PT IP Eval Objective Appearance Patient Behavior Appropriate Patient Orientation Person,Place,Time Difficulty following instructions none Speech Pattern Clear Ambulation Patient Able to Ambulate Yes Ambulation Observation IP General Gait Pattern Observation No Deviations/Normal Ambulation Distance (feet) 30 Ambulation Assistive Device None Ambulation Ability Supervision/Stand by Balance Ability to Arise Able, uses arms to help Sitting Balance Steady, safe Standing Balance Steady, wide stance Dynamic Sitting Balance Ability Good Dynamic Standing Balance Ability Good Transfers Bed Transfer Ability Supervision/Stand by Chair Transfer Ability Supervision/Stand by Sit to Stand Bed Transfer Ability Supervision/Stand by Sit to Stand Chair Transfer Ability Supervision/Stand by Rehab PT IP prob,goals,plan Problems Date of Evaluation: 06/20/20 Discharge Plan PT Discharge Plan Pt is currently at baseline for all mobility and is appropriate to return to personal jail once medically stable. G -code Required No Eval Complexity Eval Charge Codes 34486 - Moderate Complexity PHYSICIAN CERTIFICATION: I certify the specified therapy services for Chino Decker are required, authorized, and reviewed every 30 days.
--- NOTE | 2020-06-20 11:56 | HMH.OTEV ---
OT Inpatient Evaluation Rehab OT IP Evaluation Start: 06/20/20 11:19 Freq: ONCE Status: Complete Protocol: Document 06/20/20 11:50 [email or web address] (Rec: 06/20/20 11:55 [email or web address] [id number]) Rehab OT IP Assessment Subjective History *Admission Date: 06/19/20 *Chief complaint: diabetes, chest pain *History of present illness: 54-year-old black male, resident of [place] who is admitted with elevated glucose , and chest pain in a setting of known diabetes and known coronary disease. Patient is a tangential historian. Nursing staff at [place] relayed elevated blood sugar readings exceeding 500. He comes in on a regimen of Glucotrol XL 5 mg daily, Metformin 500 twice daily and Lantus 30 units at bedtime. He had recently been seen by ER staff for elevated glucose, readings remained elevated despite changing his regimen. He was given 10 units of IV insulin in the emergency room. Patient is status post stent deployment in a dominant distal RCA. A drug-eluting stent was used. Patient was noted to have an elevated LVEDP consistent with diastolic dysfunction. In the emergency room he complained of right sided chest pain. When specifically questioned tonight he relays pain in his right breast. There is some gynecomastia evident, patient' s regimen includes Aldactone and antipsychotics. His initial troponin was negative. He is admitted for more intense blood sugar control, and further evaluation of his chest pain. [facility] History Medical History: Reports:: Cancer, C
[2020-06-20 12:04] LABS: POC Glucose,Bedside 327 (70-110)
--- NOTE | 2020-06-20 12:09 | HMH.CNCARD ---
History of Present Illness Consult date: 06/20/20 Requesting physician: Kole Peter Consult reason: chest pain Chief complaint: chest pain Additional Medical History:: 1. Coronary artery disease A. [facility], ANGIOGRAPHIC RESULTS The left main artery Normal The left anterior descending artery Has a proximal smooth 20 to 30% stenosis with mid vessel 10% luminal irregularities The circumflex artery Nondominant with mild 10% luminal irregularities The right coronary artery Is a dominant vessel and has a distal hazy concentric 70% stenosis The BASS ventriculogram reveals Dilated ventricle with preserved ejection fraction 55% The left ventricular end-diastolic pressure 30 mm Hg IMPRESSION Severe single-vessel disease as described above Successful stenting of the distal dominant right coronary artery hazy 70% stenosis reduced to 0% with 1 drug-eluting stent Dilated ventricle with preserved ejection fraction accompanied by severely elevated LVEDP consistent with diastolic dysfunction PLAN 1. Dual antiplatelet therapy 2. Treatment of underlying moderate to severe diastolic dysfunction 3. Cardiac rehabilitation 4. Avoidance of tobacco products 5. LDL less than 55 6. Risk factor modification Electronically signed by : Keagan Del Rio, 04/09/2020 12:38:09 2. HTN/HHD/Hypertrophic Cardiomyopathy A. Echo, 01/2019, difficult study. Normal LV size, mild concentric LVH, EF 55 to 60% with no regional wall motion abnormality. There is late peaking systolic velocity seen in the LVOT raising the concerns for presence of dynamic obstruction. There is no obvious systolic anterior motion of the mitral valve leaflets. Mild MR and TR noted. B. Echo, 06/2019, confirming hypertrophic cardiomyopathy with ejection fraction greater than 65%. Again no evidence of JALEEL noted but evidence of dynamic obstruction related to asymmetric septal hypertrophy. C. Echo, 04/2020, Hyperdynamic function with mid-cavity obliteration. 3. Diabetes mellitus, uncontrolled A. Hgb A1c >14, 06/2020 4. Hyperlipidemia A. LDL 62, 04/2020 5. History of multiple CVAs 6. History of seizure disorder History of present illness: 54-year-old black male, resident of [place] who is admitted with elevated glucose, and chest pain in a setting of known diabetes and known coronary disease. Patient is a tangential historian. Nursing staff at [place] relayed elevated blood sugar readings exceeding 500. He comes in on a regimen of Glucotrol XL 5 mg daily, Metformin 500 twice daily and Lantus 30 units at bedtime. He had recently been seen by ER staff for elevated glucose, readings remained elevated despite changing his regimen. He was given 10 units of IV insulin in the emergency room. Patient is status post stent deployment in a dominant distal RCA. A drug-eluting stent was used. Patient was noted to have an elevated LVEDP consistent with diastolic dysfunction. In the emergency room he complained of right sided chest pain. When specifically questioned tonight he relays pain in his right breast. There is some gynecomastia evident, patient's regimen includes Aldactone and antipsychotics. His initial troponin was negative. He is admitted for more intense blood sugar control, and further evaluation of his chest pain The above per Dr. Peter The above confirmed with the patient. He also complains of orthostatic dizziness and frequent falls after standing up. Orthostatic vital signs checked today he has supine blood pressure was 128/78 mmHg and with standing this dropped to 110/70 mmHg with patient having symptoms of mild lightheadedness. He also feels like he has similar numbness and discomfort in his right arm as when he has had a prior stroke. This may be related to the low blood pressure exacerbating prior stroke symptoms. EKG this admission is sinus rhythm with no acute ST segment changes. Troponins are normal x3. Patient continues to relate some difficulty with ere
[2020-06-20 16:07] LABS: POC Glucose,Bedside 165 (70-110)
--- NOTE | 2020-06-20 16:47 | HMH.CONS ---
*Admission Date: 06/19/20 *Reason for consult:: Urinary hesitancy and penile curvature *History of present illness: Patient is a 54-year-old black male who was referred for urinary hesitancy and complaint of a band around his penis and penile curvature when he has an erection. I saw the patient back in January 2019 for incomplete bladder emptying. Patient is a resident of a local [facility] and is not a great historian. His ultrasound in the office in 2018 showed that he was emptying his bladder out well and he has been on tamsulosin since that time. His only complaint today is some urinary hesitancy at the beginning of urination. He states he has a good stream once he gets started. He was admitted for hyperglycemia and chest pain. Patient also states he had band around the circumference of his penis when he has an erection. He states that he has a curvature dorsally at close to 90 degrees with an erection. He states that he only gets partial erections. [facility] History Medical History: Reports:: Cancer, Cardiomyopathy, Coronary Artery Disease, Cerebrovascular Accident, Diabetes Mellitus Type 1, Diabetes Mellitus Type 2, Hyperlipidemia, Hypertension, Internal Pacemaker, Kidney Stones, MRSA, Seizures, Transient Ischemic Attacks (TIA) *Have you ever received a pneumonia vaccine?: No *Have you received a flu vaccine this season?: No Other Medical History: Reports: Anemia, Arthritis, Blood Transfusion Reaction, Other Other Surgeries: Yes: No Previous Surgery, Cardiac Catheterization, Coronary Stent, Pacemaker, Other Amputation: No Fractures: Yes (rt arm) - *Social History Smoking Status: Current every day smoker Tobacco Type: cigarettes # Packs/Day (cigarettes): 1 Alcohol Intake: never Substance Use Type: marijuana *Occupational Status:: disabled Housing: assisted living facility Household Members: other *Travel in the last 8 weeks: None Family Hx:: Coronary Artery Disease Review of Systems - Review of Systems Review of systems:: pertinent systems reviewed and negative unless documented below - *Neurologic Reports weakness, Denies abnormal hearing, Denies loss of vision Meds Home Medications Medication Instructions Recorded Confirmed Type Sertraline HCl [Zoloft 100mg 100 mg PO DAILY 02/15/17 06/19/20 History tablet] Tamsulosin HCl [Flomax 0.4mg 0.4 mg PO HS 02/15/17 06/19/20 History capsule] Isosorbide Mononitrate [Imdur 30mg 30 mg PO HS 07/02/19 06/19/20 History ER tablet] polyethylene glycoL 3350 [Miralax 17 gm PO DAILYP PRN 07/02/19 06/20/20 History 17gm Packet] Metoprolol Succinate [Metoprolol 150 mg PO DAILY 07/03/19 06/19/20 History Succinate 50mg Tablet*] OLANZapine [Olanzapine] 20 mg PO DAILY 07/03/19 06/19/20 History tramadol 50 mg tablet 50 mg PO BID PRN #60 tab 01/08/20 06/19/20 Rx Acetaminophen [Tylenol Extra 500 mg PO Q6HP PRN 04/09/20 06/19/20 History Strength] Multivitamin 1 each PO DAILY 04/09/20 06/19/20 History Sertraline HCl [Zoloft] 50 mg PO DAILY 04/23/20 06/19/20 History haloperidoL [Haldol 5mg tablet] 5 mg PO TID 04/23/20 06/19/20 History Insulin Glargine,Hum.rec.anlog 30 unit SQ HS 06/18/20 06/19/20 History [Lantus Insulin 100units/mL 10mL vial] Metformin HCl [Glucophage 500mg 1,000 mg PO BIDWM 06/18/20 06/19/20 History Tablet] Spironolactone [Spironolactone 25 mg PO DAILY 06/18/20 06/19/20 History 25mg Tablet] Omeprazole [Omeprazole 40mg 40 mg PO DAILY 06/19/20 06/19/20 History Capsule] Allergies Allergy/AdvReac Type Severity Reaction Status Date / Time No Known Allergies Allergy Verified 05/26/20 10:46 Exam Vital signs and Labs for Last 24 Hours: Temp Pulse Resp BP Pulse Ox 97.8 F 73 16 144/80 H 95 06/20/20 15:17 06/20/20 15:17 06/20/20 15:17 06/20/20 15:17 06/20/20 15:17 Laboratory Results - last 24 hr 06/19/20 15:34: Chlamy pneumoniae PCR Not detected, Adenovirus (PCR) Not detected, B. pertussi
--- NOTE | 2020-06-20 17:10 | PC.NURSE ---
Pt has been pleasant and cooperative this shift. A&O X4. No complaints of pain or SOA. Pt is on room air with sats. >90%. Lungs CTA. No edema noted. Skin is C/D/I. Pt ambulates with stand-by assistance to/from the bathroom and uses the toilet to void clear, yellow urine without issue. No BM this shift. FSBS results have been 327 and 165, both of which have required insulin coverage per sliding scale. 20 G peripheral IV in the LT forearm is patent and infusing NS @ 50 ML/HR. VSS. Call light within reach. Will continue to monitor.
[2020-06-20 21:10] LABS: POC Glucose,Bedside 280 (70-110)
[2020-06-21] VITALS (13 sets, daily range): BP systolic 106–151; BP diastolic 64–105; PULSE 64–107; RESP 16–18; TEMP 36.6–36.9; O2SAT 93–96; BMI 31.8
--- NOTE | 2020-06-21 04:14 | PC.NURSE ---
Pt oriented X 4 and in no acute distress. Patient required pain relief times 2 with c/o of Right sided pain. Orthostatic B/P performed at 0400. See chart for details. Patient had no c/o of chest pain throughout this shift. Glucose covered for BG 280 with both S/S and Long acting. Will continue to monitor for any acute changes.
[2020-06-21 05:17] LABS: POC Glucose,Bedside 175 (70-110)
[2020-06-21 07:22] LABS: Anion Gap 7.6 mEq/L (5-15); Blood Urea Nitrogen 14 mg/dl (9-20); Carbon Dioxide 25 mmol/L (22.0-30.0); Chloride 109 mmol/L (98-107); Creatinine Clearance Estimated 129 mL/min (50-200); Estimated Glomerular Filt Rate 78 ml/min (>60); GFR (African American) 94 ML/MIN (>60); Glucose 139 mg/dl (74-100); Potassium 3.6 mmoL/L (3.5-5.1); Sodium 138 mmol/L (136-145)
[2020-06-21 08:17] LABS: Basophils % 0.4 % (0.1-2.0); Eosinophils # 0.2 K/mm3 (0.0-0.4); Eosinophils % 2.3 % (0.1-12.0); Hematocrit 39.9 % (42.0-52.0); Hemoglobin 12.5 g/dL (14.1-18.0); Lymphocytes # 2.9 K/mm3 (0.7-4.5); Lymphocytes % 32.9 % (10-50); Mean Corpuscular HGB Conc 31.4 g/dL (31.8-35.4); Mean Corpuscular Hemoglobin 29.2 pg (27.0-31.2); Monocytes # 0.5 K/mm3 (0.1-1.0); Monocytes % 5.4 % (1.7-9.3); Neutrophils # 5.3 K/mm3 (1.8-7.8); Neutrophils % 58.9 % (37.0-80.0); Platelet Count 202 K/mm3 (142-424); Red Blood Count 4.29 M/mm3 (4.60-6.20); Red Cell Distribution Width 14.3 % (11.5-17.5); White Blood Count 8.9 K/mm3 (4.8-10.8)
[2020-06-21 08:26] LABS: Calcium 8.7 mg/dl (8.4-10.2)
--- NOTE | 2020-06-21 08:59 | HMH.ACPN2 ---
Internal Medicine - PN: Subj *Date: 06/22/20 *Time: 06:21 Interval history: pt doing better but still with weakness rt upper ext - glu ok Exam Vital signs and Labs for Last 24 Hours: Temp Pulse Resp BP Pulse Ox 97.9 F 74 17 137/89 94 L 06/21/20 07:19 06/21/20 07:19 06/21/20 07:19 06/21/20 07:19 06/21/20 07:19 Laboratory Results - last 24 hr 06/20/20 08:30: Acetone Level None detected 06/20/20 11:47: POC Glucose 327 H* 06/20/20 15:46: POC Glucose 165 H 06/20/20 20:23: POC Glucose 280 H 06/21/20 05:09: POC Glucose 175 H 06/21/20 06:13: WBC 8.9, RBC 4.29 L, Hgb 12.5 L, Hct 39.9 L, MCV 93.0, MCH 29.2, MCHC 31.4 L, RDW 14.3, Plt Count 202, MPV 9.0, Neut % (Auto) 58.9, Lymph % (Auto) 32.9, [place] % (Auto) 5.4, Eos % (Auto) 2.3, Baso % (Auto) 0.4, Neut # (Auto) 5.3, Lymph # (Auto) 2.9, [place] # (Auto) 0.5, Eos # (Auto) 0.2, Baso # (Auto) 0.0 06/21/20 06:13: Sodium 138, Potassium 3.6 D, Chloride 109 H, Carbon Dioxide 25, BUN 14 D, Creatinine 1.00 D, Glucose 139 H, Calcium 8.7 I & O for Last 24 hours: Intake & Output 06/18/20 06/19/20 06/20/20 06/21/20 11:59 11:59 11:59 11:59 Intake Total 2178 / 2178 2953 / 2953 Balance 2178 / 2178 2953 / 2953 Weight 237 lb 7 oz 240 lb 7 oz - Constitutional no acute distress, obese - *Routine HEENT Exam Head: Present: normocephalic Eye: Present: EOMI, PERRL ENT: Present: mucous membranes dry - *Routine Neck Exam Present: supple. Absent: JVD - *Routine Respiratory Exam Present: CTA bilaterally - *Routine Cardiovascular Exam Present: RRR - *Routine Abdominal Exam Present: soft - *Routine Extremities Exam Absent: calf tenderness - *Routine Skin Exam Present: intact - *Routine Neurological Exam Present: alert, oriented X3, CN II-XII intact reports dec dexterity rt upper ext - Routine Psychiatric Exam Present: normal affect Assessment and Plan (1) Atypical chest pain Status: Acute Category: Medical Code(s): R07.89 - Other chest pain (2) High blood sugar Status: Acute Category: Medical Code(s): R73.9 - Hyperglycemia, unspecified (3) BPH (benign prostatic hyperplasia) Status: Chronic Qualifiers: Lower urinary tract symptom detail: unspecified Category: Medical Code(s): N40.0 - Benign prostatic hyperplasia without lower urinary tract symptoms (4) CAD (coronary artery disease) Status: Acute Qualifiers: Coronary Disease-Associated Artery/Lesion type: [place] artery [place] vs. transplanted heart: [place] heart Associated angina: with unspecified angina Category: Medical Code(s): I25.10 - Atherosclerotic heart disease of [place] coronary artery without angina pectoris (5) Chest pain Status: Acute Qualifiers: Chest pain type: unspecified Qualified Code(s): R07.9 - Chest pain, unspecified Category: Medical Code(s): R07.9 - Chest pain, unspecified (6) Dysarthria Status: Chronic Category: Medical Code(s): R47.1 - Dysarthria and anarthria (7) Elevated left ventricular end-diastolic pressure (LVEDP) Status: Chronic Category: Medical Code(s): R94.30 - Abnormal result of cardiovascular function study, unspecified (8) Hyperglycemia due to type 2 diabetes mellitus Status: Acute Qualifiers: Diabetes mellitus long-term insulin use: with long-term use Qualified Code(s): E11.65 - Type 2 diabetes mellitus with hyperglycemia; Z79.4 - long term care administrator (current) use of insulin Category: Medical Code(s): E11.65 - Type 2 diabetes mellitus with hyperglycemia (9) Schizophrenia Status: Chronic Qualifiers: Schizophrenia type: unspecified Qualified Code(s): F20.9 - Schizophrenia, unspecified Category: Medical Code(s): F20.9 - Schizophrenia, unspecified (10) CAD (coronary artery disease) Status: Chronic Qualifiers: Coronary Disease-Associated Artery/Lesion type: [place] artery [place] vs. transplanted heart: [place] heart Associated angina: with unsta
[2020-06-21 11:55] LABS: POC Glucose,Bedside 284 (70-110)
[2020-06-21 16:36] LABS: POC Glucose,Bedside 229 (70-110)
--- NOTE | 2020-06-21 16:36 | PC.NURSE ---
Pt has been pleasant and cooperative this shift. A&O X4. No complaints of pain or SOA. Pt is on room air with sats. >90%. Lungs CTA. No edema noted. Telemetry reveals NSR. Skin is C/D/I. Pt ambulates with stand-by assistance to/from the bathroom and uses the toilet to void clear, yellow urine without issue. No BM this shift. Pt sat up in the recliner for a few hours today. FSBS results have been 284 and 229, both of which have required insulin coverage per sliding scale. 20 G peripheral IV in the LT hand is patent and infusing NS @ 50 ML/HR. VSS. Call light within reach. Will continue to monitor.
[2020-06-21 20:20] LABS: POC Glucose,Bedside 231 (70-110)
[2020-06-22] VITALS (12 sets, daily range): BP systolic 121–164; BP diastolic 65–98; PULSE 60–83; RESP 16–20; TEMP 36.4–36.9; O2SAT 94–97; BMI 32.1
--- NOTE | 2020-06-22 03:06 | PC.NURSE ---
A&OX4. PT TOLERATING RA WELL. PT UP WITH STANDBY ASSIST IN ROOM. PT DID WELL SHOWERING TONIGHT. PT HAS HAD NO C/O THUS FAR OF PAIN/NA/VO. PT AMBULATES WELL IN ROOM. MONITORING FSBS ACHS, TX WITH INSULIN PER APR. PT HAS SLEPT MAJORITY OF SHIFT, VSS WILL CONTINUE TO MONITOR.
[2020-06-22 05:21] LABS: POC Glucose,Bedside 272 (70-110)
[2020-06-22 06:59] LABS: Basophils % 0.4 % (0.1-2.0); Eosinophils # 0.2 K/mm3 (0.0-0.4); Eosinophils % 2.3 % (0.1-12.0); Hematocrit 40.2 % (42.0-52.0); Hemoglobin 12.6 g/dL (14.1-18.0); Lymphocytes # 3.1 K/mm3 (0.7-4.5); Mean Corpuscular HGB Conc 31.5 g/dL (31.8-35.4); Mean Corpuscular Hemoglobin 29.5 pg (27.0-31.2); Mean Corpuscular Volume 93.8 fl (80-94); Mean Platelet Volume 9.3 fl (7.4-10.4); Monocytes # 0.4 K/mm3 (0.1-1.0); Neutrophils # 4.8 K/mm3 (1.8-7.8); Neutrophils % 56.3 % (37.0-80.0); Platelet Count 196 K/mm3 (142-424); Red Blood Count 4.28 M/mm3 (4.60-6.20); Red Cell Distribution Width 14.3 % (11.5-17.5); White Blood Count 8.6 K/mm3 (4.8-10.8)
[2020-06-22 07:08] LABS: Anion Gap 9.9 mEq/L (5-15); Blood Urea Nitrogen 13 mg/dl (9-20); Calcium 8.8 mg/dl (8.4-10.2); Carbon Dioxide 25 mmol/L (22.0-30.0); Chloride 107 mmol/L (98-107); Creatinine Clearance Estimated 144 mL/min (50-200); Estimated Glomerular Filt Rate 88 ml/min (>60); GFR (African American) 106 ML/MIN (>60); Glucose 306 mg/dl (74-100); Potassium 3.9 mmoL/L (3.5-5.1); Sodium 138 mmol/L (136-145)
--- NOTE | 2020-06-22 09:23 | HMH.ACPN2 ---
Internal Medicine - PN: Subj *Date: 06/23/20 *Time: 06:39 Interval history: doing better and will restart diabetic meds Exam Vital signs and Labs for Last 24 Hours: Temp Pulse Resp BP Pulse Ox 97.6 F 77 20 147/81 H 96 06/22/20 07:27 06/22/20 08:00 06/22/20 08:00 06/22/20 07:27 06/22/20 08:00 Laboratory Results - last 24 hr 06/21/20 06:13: Anion Gap 7.6, Estimated Creat Clear 129, Estimated GFR 78, Est GFR ( Amer) 94 D 06/21/20 11:44: POC Glucose 284 H 06/21/20 16:23: POC Glucose 229 H 06/21/20 19:53: POC Glucose 231 H 06/22/20 05:07: POC Glucose 272 H 06/22/20 06:21: WBC 8.6, RBC 4.28 L, Hgb 12.6 L, Hct 40.2 L, MCV 93.8, MCH 29.5, MCHC 31.5 L, RDW 14.3, Plt Count 196, MPV 9.3, Neut % (Auto) 56.3, Lymph % (Auto) 36.0, [place] % (Auto) 5.0, Eos % (Auto) 2.3, Baso % (Auto) 0.4, Neut # (Auto) 4.8, Lymph # (Auto) 3.1, [place] # (Auto) 0.4, Eos # (Auto) 0.2, Baso # (Auto) 0.0 06/22/20 06:21: Sodium 138, Potassium 3.9, Chloride 107, Carbon Dioxide 25, Anion Gap 9.9, BUN 13, Creatinine 0.90, Estimated Creat Clear 144, Estimated GFR 88, Est GFR ( Amer) 106, Glucose 306 H, Calcium 8.8 I & O for Last 24 hours: Intake & Output 06/19/20 06/20/20 06/21/20 06/22/20 11:59 11:59 11:59 11:59 Intake Total 2177 / 8 2953 / 2953 1936 Balance 2178 / 8 2953 / 2953 1936 Weight 237 lb 7 oz 240 lb 7 oz 242 lb 1 oz - Constitutional no acute distress, obese - *Routine HEENT Exam Head: Present: normocephalic Eye: Present: EOMI, PERRL ENT: Present: mucous membranes dry - *Routine Neck Exam Present: supple. Absent: JVD - *Routine Respiratory Exam Present: CTA bilaterally - *Routine Cardiovascular Exam Present: RRR, murmur - *Routine Abdominal Exam Present: soft - *Routine Rectal Exam Comments: deffered - *Routine Exam Comments: deffered - *Routine Extremities Exam Absent: calf tenderness - *Routine Skin Exam Present: intact - *Routine Neurological Exam Present: alert, CN II-XII intact - Routine Psychiatric Exam Present: normal affect Assessment and Plan (1) Atypical chest pain Status: Acute Category: Medical Code(s): R07.89 - Other chest pain (2) High blood sugar Status: Acute Category: Medical Code(s): R73.9 - Hyperglycemia, unspecified (3) BPH (benign prostatic hyperplasia) Status: Chronic Qualifiers: Lower urinary tract symptom detail: unspecified Category: Medical Code(s): N40.0 - Benign prostatic hyperplasia without lower urinary tract symptoms (4) CAD (coronary artery disease) Status: Acute Qualifiers: Coronary Disease-Associated Artery/Lesion type: [place] artery [place] vs. transplanted heart: [place] heart Associated angina: with unspecified angina Category: Medical Code(s): I25.10 - Atherosclerotic heart disease of [place] coronary artery without angina pectoris (5) Chest pain Status: Acute Qualifiers: Chest pain type: unspecified Qualified Code(s): R07.9 - Chest pain, unspecified Category: Medical Code(s): R07.9 - Chest pain, unspecified (6) Dysarthria Status: Chronic Category: Medical Code(s): R47.1 - Dysarthria and anarthria (7) Elevated left ventricular end-diastolic pressure (LVEDP) Status: Chronic Category: Medical Code(s): R94.30 - Abnormal result of cardiovascular function study, unspecified (8) Hyperglycemia due to type 2 diabetes mellitus Status: Acute Qualifiers: Diabetes mellitus emt intermediate insulin use: with emt intermediate use Qualified Code(s): E11.65 - Type 2 diabetes mellitus with hyperglycemia; Z79.4 - FDC (current) use of insulin Category: Medical Code(s): E11.65 - Type 2 diabetes mellitus with hyperglycemia (9) Schizophrenia Status: Chronic Qualifiers: Schizophrenia type: unspecified Qualified Code(s): F20.9 - Schizophrenia, unspecified Category: Medical Code(s): F20.9 - Schizophrenia, unspecified (10) CAD
--- NOTE | 2020-06-22 11:23 | HMH.PHAINT ---
DISCOVERED THAT THE 1ST PAGE TO THE PATIENT'S MAR WAS NOT IN PATIENT'S CHART. CALLED [facility] TO REQUEST MAR BE FAXED TO PHARMACY TODAY. MED REC WAS CORRECTED, THEN CONTACTED DR RUIZ AND HITESH WOO TO RESTART HOME MEDICATIONS THAT WERE UPDATED.
[2020-06-22 12:06] LABS: POC Glucose,Bedside 266 (70-110)
[2020-06-22 17:00] LABS: POC Glucose,Bedside 252 (70-110)
--- NOTE | 2020-06-22 17:40 | PC.NURSE ---
Pt has been pleasant and cooperative this shift. A&O X4. No complaints of pain or SOA. Pt is on room air with sats. >90%. Lungs CTA. No edema noted. Telemetry reveals NSR. Skin is C/D/I. Pt ambulates with stand-by assistance to/from the bathroom and uses the toilet to void clear, yellow urine without issue. No BM this shift. Pt sat up in the recliner for a few hours today. FSBS results have been 266 and 252, both of which have required insulin coverage per sliding scale. 20 G peripheral IV in the LT hand is patent and infusing NS @ 50 ML/HR. VSS. Call light within reach. Will continue to monitor.
[2020-06-22 19:57] LABS: POC Glucose,Bedside 227 (70-110)
[2020-06-23] VITALS: PULSE 72
[2020-06-23 03:36] VITALS: BP 118/59; PULSE 71; RESP 18; TEMP 36.9; O2SAT 99
--- NOTE | 2020-06-23 03:43 | PC.NURSE ---
No acute changes overnight. A&O x4. Pt has had no c/o pain this shift. Lungs CTA, on room air. Pt able ot ambulate independently to BR, tolerates well. Pt appetite has been excellent, pt has eaten several snacks this shift. Bowel sounds x4, abd soft and nontender. IV patent, NS @ 50. Pt has not slept well this shift, stating he did not feel tired. VSS, call light in reach, no concerns at this time.
[2020-06-23 04:00] VITALS: PULSE 70
[2020-06-23 05:02] VITALS: BMI 32.1
[2020-06-23 06:24] LABS: POC Glucose,Bedside 173 (70-110)
[2020-06-23 07:16] LABS: Basophils % 0.3 % (0.1-2.0); Eosinophils # 0.2 K/mm3 (0.0-0.4); Eosinophils % 2.1 % (0.1-12.0); Hematocrit 40.4 % (42.0-52.0); Hemoglobin 12.7 g/dL (14.1-18.0); Lymphocytes # 3.2 K/mm3 (0.7-4.5); Lymphocytes % 38.9 % (10-50); Mean Corpuscular HGB Conc 31.4 g/dL (31.8-35.4); Mean Corpuscular Hemoglobin 29.4 pg (27.0-31.2); Mean Corpuscular Volume 93.6 fl (80-94); Mean Platelet Volume 8.6 fl (7.4-10.4); Monocytes # 0.5 K/mm3 (0.1-1.0); Monocytes % 6.1 % (1.7-9.3); Neutrophils # 4.3 K/mm3 (1.8-7.8); Neutrophils % 52.6 % (37.0-80.0); Platelet Count 192 K/mm3 (142-424); Red Blood Count 4.32 M/mm3 (4.60-6.20); Red Cell Distribution Width 14.4 % (11.5-17.5); White Blood Count 8.2 K/mm3 (4.8-10.8)
[2020-06-23 07:17] LABS: Blood Urea Nitrogen 16 mg/dl (9-20); Calcium 9.2 mg/dl (8.4-10.2); Carbon Dioxide 25 mmol/L (22.0-30.0); Chloride 108 mmol/L (98-107); Creatinine Clearance Estimated 130 mL/min (50-200); Estimated Glomerular Filt Rate 78 ml/min (>60); GFR (African American) 94 ML/MIN (>60); Glucose 197 mg/dl (74-100); Sodium 138 mmol/L (136-145)
[2020-06-23 08:00] VITALS: BP 135/76; PULSE 76; PULSE 80; RESP 19; TEMP 36.5; O2SAT 95
--- NOTE | 2020-06-23 09:16 | HMH.DCSUM ---
General - General Admission date:: 06/19/20 Discharge date: 06/23/20 HPI HPI: 54-year-old black male, resident of [facility] who is admitted with elevated glucose, and chest pain in a setting of known diabetes and known coronary disease. Patient is a tangential historian. Nursing staff at [facility] relayed elevated blood sugar readings exceeding 500. He comes in on a regimen of Glucotrol XL 5 mg daily, Metformin 500 twice daily and Lantus 30 units at bedtime. He had recently been seen by ER staff for elevated glucose, readings remained elevated despite changing his regimen. He was given 10 units of IV insulin in the emergency room. Patient is status post stent deployment in a dominant distal RCA. A drug-eluting stent was used. Patient was noted to have an elevated LVEDP consistent with diastolic dysfunction. In the emergency room he complained of right sided chest pain. When specifically questioned tonight he relays pain in his right breast. There is some gynecomastia evident, patient's regimen includes Aldactone and antipsychotics. His initial troponin was negative. He is admitted for more intense blood sugar control, and further evaluation of his chest pain. Hospital Course Hospital Course: pt has slowly improved with no chest pain or sob - he wasseen by card- HTN/HHD/Hypertrophic Cardiomyopathy A. Echo, 01/2019, difficult study. Normal LV size, mild concentric LVH, EF 55 to 60% with no regional wall motion abnormality. There is late peaking systolic velocity seen in the LVOT raising the concerns for presence of dynamic obstruction. There is no obvious systolic anterior motion of the mitral valve leaflets. Mild MR and TR noted. B. Echo, 06/2019, confirming hypertrophic cardiomyopathy with ejection fraction greater than 65%. Again no evidence of JALEEL noted but evidence of dynamic obstruction related to asymmetric septal hypertrophy. C. Echo, 04/2020, Hyperdynamic function with mid-cavity obliteration. 3. Diabetes mellitus, uncontrolled A. Hgb A1c >14, 06/2020 4. Hyperlipidemia A. LDL 62, 04/2020 5. History of multiple CVAs 6. History of seizure disorder History of present illness: 54-year-old black male, resident of [facility] who is admitted with elevated glucose, and chest pain in a setting of known diabetes and known coronary disease. Patient is a tangential historian. Nursing staff at [facility] relayed elevated blood sugar readings exceeding 500. He comes in on a regimen of Glucotrol XL 5 mg daily, Metformin 500 twice daily and Lantus 30 units at bedtime. He had recently been seen by ER staff for elevated glucose, readings remained elevated despite changing his regimen. He was given 10 units of IV insulin in the emergency room. Patient is status post stent deployment in a dominant distal RCA. A drug-eluting stent was used. Patient was noted to have an elevated LVEDP consistent with diastolic dysfunction. In the emergency room he complained of right sided chest pain. When specifically questioned tonight he relays pain in his right breast. There is some gynecomastia evident, patient's regimen includes Aldactone and antipsychotics. His initial troponin was negative. He is admitted for more intense blood sugar control, and further evaluation of his chest pain The above per Dr. Peter The above confirmed with the patient. He also complains of orthostatic dizziness and frequent falls after standing up. Orthostatic vital signs checked today he has supine blood pressure was 128/78 mmHg and with standing this dropped to 110/70 mmHg with patient having symptoms of mild lightheadedness. He also feels like he has similar numbness and discomfort in his right arm as when he has had a prior stroke. This may be related to the low blood pressure exacerbating prior stroke symptoms. EKG this admission is sinus rhythm with no acute ST segment changes. Troponins are normal x3. Patient continues to relate some difficulty
--- NOTE | 2020-06-23 10:56 | HMH.PTEV ---
Physical Therapy Evaluation Rehab PT IP Evaluation Start: 06/20/20 11:19 Freq: ONCE Status: Complete Protocol: Document 06/20/20 11:50 PHORNE (Rec: 06/20/20 11:53 PHORNE [id number]) Subjective/History History History 54 yoaam adm to [facility] with increased glucose at personal intermediate. He reports he walks independently at baseline. Subjective Subjective Pt with no c/o this am. Rehab PT IP Eval Objective Appearance Patient Behavior Appropriate Patient Orientation Person,Place,Time Difficulty following instructions none Speech Pattern Clear Ambulation Patient Able to Ambulate Yes Ambulation Observation IP General Gait Pattern Observation No Deviations/Normal Ambulation Distance (feet) 30 Ambulation Assistive Device None Ambulation Ability Supervision/Stand by Balance Ability to Arise Able, uses arms to help Sitting Balance Steady, safe Standing Balance Steady, wide stance Dynamic Sitting Balance Ability Good Dynamic Standing Balance Ability Good Transfers Bed Transfer Ability Supervision/Stand by Chair Transfer Ability Supervision/Stand by Sit to Stand Bed Transfer Ability Supervision/Stand by Sit to Stand Chair Transfer Ability Supervision/Stand by Rehab PT IP prob,goals,plan Problems Date of Evaluation: 06/20/20 Discharge Plan PT Discharge Plan Pt is currently at baseline for all mobility and is appropriate to return to personal intermediate once medically stable. G -code Required No Eval Complexity Eval Charge Codes 99155 - Moderate Complexity Rehab PT IP Evaluation Start: 06/23/20 05:14 Freq: ONCE Status: Active Protocol: Document 06/23/20 10:52 [email or web address] (Rec: 06/23/20 10:56 [email or web address] [id number]) Subjective/History History History 54-year-old black male, resident of [place] who is admitted with elevated glucose , and chest pain in a setting of known diabetes and known coronary disease. Subjective Subjective No complaints from pt Rehab PT IP Eval Objective Appearance Patient Behavior Appropriate,Cooperative Patient Orientation Person,Place,Birthday Difficulty following instructions none Speech Pattern Appropriate Ambulation Patient Able to Ambulate
[2020-06-23 11:39] VITALS: BP 119/78; PULSE 70; RESP 19; TEMP 36.7; O2SAT 97
[2020-06-23 12:22] LABS: POC Glucose,Bedside 213 (70-110)
== END 2020-06-23 14:05 | disposition home or self-care (01) ==
LOC: ER 13:51 → 2ND 15:37
PROVIDERS: Nurse Practitioner Family; Admitting Provider Family Medicine; Emergency Provider Emergency Medicine; PCP Emergency Medicine; Visit Provider Family Medicine
DX: E11.65 Type 2 diabetes mellitus with hyperglycemia (principal); I42.9 Cardiomyopathy, unspecified; F20.9 Schizophrenia, unspecified; Z79.4 Long term (current) use of insulin; Z95.5 Presence of coronary angioplasty implant and graft; Z86.73 Personal history of transient ischemic attack (TIA), and cerebral infarction without residual deficits; I25.110 Atherosclerotic heart disease of native coronary artery with unstable angina pectoris; R47.1 Dysarthria and anarthria; G40.909 Epilepsy, unspecified, not intractable, without status epilepticus; F17.210 Nicotine dependence, cigarettes, uncomplicated
CPT/HCPCS: 36415; 70450; 71045; 80048; 80053; 81001; 82009; 82803; 82962; 83036; 84484; 85025; 87581; 87633; 87798; 93005; 96365; 97161; 97162; 97165; 97166; 99284; G0378

== ENCOUNTER 2020-12-09 17:32 | Emergency (ER) | payer BC, SELFPAY ==
[2020-12-09 17:34] VITALS: BP 125/77; PULSE 94; RESP 18; TEMP 36.7; O2SAT 95; BMI 32.0
--- NOTE | 2020-12-09 17:37 | CT_ITS ---
PROCEDURE INFORMATION: Exam: CT Cervical Spine Without Contrast Exam date and time: 12/09/2020 5:37 PM Age: 55 years old Clinical indication: Injury or trauma; Blunt trauma; Patient HX: Fall with neck pain TECHNIQUE: Imaging protocol: Computed tomography images of the cervical spine without contrast. Radiation optimization: All CT scans at this facility use at least one of these dose optimization techniques: automated exposure control; mA and/or kV adjustment per patient size (includes targeted exams where dose is matched to clinical indication); or iterative reconstruction. COMPARISON: CT CERVICAL SPINE WO CON 10/26/2019 1:57 PM FINDINGS: Bones/joints: Hypertrophic changes are present involving the dens and anterior arch of C1. Discs/Spinal canal/Neural foramina: Mild disc space narrowing C6-C7 with small anterior and posterior osteophytes. Lungs: Lung apices are normal. Soft tissues: Unremarkable. IMPRESSION: No evidence of cervical spine fracture. Remainder of findings as described above.
--- NOTE | 2020-12-09 17:37 | CT_ITS ---
PROCEDURE INFORMATION: Exam: CT Head Without Contrast Exam date and time: 12/09/2020 5:37 PM Age: 55 years old Clinical indication: Injury or trauma; Blunt trauma (contusions or hematomas); Without loss of consciousness; Patient HX: Fall with no loc TECHNIQUE: Imaging protocol: Computed tomography of the head without contrast. Radiation optimization: All CT scans at this facility use at least one of these dose optimization techniques: automated exposure control; mA and/or kV adjustment per patient size (includes targeted exams where dose is matched to clinical indication); or iterative reconstruction. COMPARISON: CT HEAD/BRAIN WO CON 06/20/2020 12:00 PM FINDINGS: Brain: Prominent sulci. Patchy hypodensity of the cerebral white matter which are nonspecific but likely secondary to microangiopathic changes. Remote right cerebellar infarct. Cerebral ventricles: The ventricles are prominent secondary to diffuse volume loss/atrophy. 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 Paranasal sinuses: Visualized sinuses are unremarkable. No fluid levels. Mastoid air cells: Visualized mastoid air cells are well aerated. Bones/joints: Unremarkable. No acute fracture. Soft tissues: Unremarkable. IMPRESSION: Chronic age related changes but no evidence of acute intracranial pathology. Remainder of findings as described above.
--- NOTE | 2020-12-09 17:38 | HMH.EDGENADL ---
ED Disposition Clinical Impression: ROM (acute kidney injury) Falls Qualifiers: Encounter type: initial encounter Qualified Code(s): W19.XXXA - Unspecified fall, initial encounter Disposition: Home, Self-Care Condition on Discharge: Good Additional Instructions: Home medications as directed. Follow-up with your PCP in 1 to 2 days. Stay well-hydrated. Return emergency department for headache, visual change, injury. Referrals: Provider,Referral, [Referring] - Time of Disposition: 19:40 - Critical Care Critical Care Time: No Attestation: On , the high probability of a clinically significant, sudden or life threatening deterioration of the following system(s) required my full and direct attention, intervention and personal management. The time I documented below is in addition to time spent performing reported procedures but includes the following listed in this critical care notation. Medical Decision Making - Medical Records Medical records reviewed: Yes: I reviewed the patient's medical records. - Clem Inquiry Pt receiving controlled substance: No Vital Signs: 12/09/20 17:34 Temperature 98.1 F Temperature Source Oral Pulse Rate [Left Radial] 94 H Respiratory Rate 18 Blood Pressure [Right Arm] 125/77 Blood Pressure Mean [Right Arm] 93 Blood Pressure Source [Right Arm] Automatic Cuff Blood Pressure Position [Right Arm] Supine 02 Sat by Pulse Oximetry 95 Oxygen Delivery Method Room Air - Lab Data Lab Results 12/09/20 18:41: WBC 9.5, RBC 4.95, Hgb 14.6, Hct 46.4, MCV 93.7, MCH 29.4, MCHC 31.4 L, RDW 13.2, Plt Count 234, MPV 8.0, Neut % (Auto) 80.7 H, Lymph % (Auto) 13.0, [place] % (Auto) 5.8, Eos % (Auto) 0.1, Baso % (Auto) 0.4, Neut # (Auto) 7.7, Lymph # (Auto) 1.2, [place] # (Auto) 0.6, Eos # (Auto) 0.0, Baso # (Auto) 0.0 12/09/20 18:41: Sodium 134 L, Potassium 5.2 H, Chloride 98, Carbon Dioxide 23, Anion Gap 18.2 H, BUN 17, Creatinine 1.40 H, Estimated Creat Clear 92, Estimated GFR 52 L, Est GFR ( Amer) 63, Glucose 293 H, Calcium 9.2, Troponin I < 0.01 Result diagrams: 12/09/20 18:41 12/09/20 18:41 - ECG Data Tracing #1 I reviewed this ECG and interpreted as documented below: Normal sinus rhythm, [address] elevation depression, normal intervals, no ectopy. ECG initial impression date: 12/09/20 ECG initial impression time: 18:55 Medical Decision Narrative: 55yo M evaluated for recurrent falls today. Patient no acute distress on initial evaluation. Physical exam is unremarkable and patient moves all extremities without difficulty. Patient sent for CT of the head and C-spine. Laboratory studies are pending. EKG pending. Patient's laboratory studies are remarkable for potassium of 5.2 and a creatinine of 1.4. Patient treated with normal saline 500. Judicious fluids as he has a history of heart failure and takes Lasix daily. His EKG is unremarkable as above. CT of the head and C-spine show no acute findings. Patient is known to the staff and has frequent falls. They state this is his baseline function. As such, he is appropriate stable for discharge home. General Adult HPI - General Chief complaint: Fall Stated complaint: fall Time Seen by Provider: 12/09/20 17:38 Mode of Arrival: EMS - History of Present Illness HPI narrative: 55yo M presents the emergency department from [facility]. Patient reportedly had 3 falls today. He states this is atypical for him. He feels weak in his legs. He reports a history of 5 strokes. Uncertain when his most recent stroke was. Reports taking medications as directed. Denies any fever, chest pain, shortness of breath. Reports he is eating well going to the bathroom normally. No recent known sick contact. Denies any headache, visual change. - Related Data Home Medications Medication Instructions Recorded Confirmed Sertraline HCl [Zoloft 100mg 100 mg PO DAILY 02/15/17 12/08/20 tablet] Tamsulosin HCl [Flomax 0.4mg 0
--- NOTE | 2020-12-09 17:41 | XR_ITS ---
PROCEDURE INFORMATION: Exam: XR Lumbosacral Spine Exam date and time: 12/09/2020 5:41 PM Age: 55 years old Clinical indication: Injury or trauma; Fall; Blunt trauma (contusions or hematomas) TECHNIQUE: Imaging protocol: XR of the lumbosacral spine. Views: 2 or 3 views. COMPARISON: CR XR PELVIS 1-2V 10/26/2019 2:16 PM FINDINGS: Bones/joints: Normal. No acute fracture. Normal alignment. Soft tissues: Unremarkable. IMPRESSION: No acute findings.
--- NOTE | 2020-12-09 18:52 | ECG_ITS ---
APPROVED REPORT Exam: Resting ECG HR:99 bpm ECG Measurements Heart Rate 99 AXES CA 186 P 50 QRSd 92 QRS 65 QT 336 T 31 QTc 431 Conclusion Normal sinus rhythm Normal ECG Electronically signed by : Pascual Storey MD 12/10/2020 21:37:27
[2020-12-09 18:58] LABS: Basophils % 0.4 % (0.1-2.0); Eosinophils % 0.1 % (0.1-12.0); Hematocrit 46.4 % (42.0-52.0); Hemoglobin 14.6 g/dL (14.1-18.0); Lymphocytes # 1.2 K/mm3 (0.7-4.5); Mean Corpuscular HGB Conc 31.4 g/dL (31.8-35.4); Mean Corpuscular Hemoglobin 29.4 pg (27.0-31.2); Mean Corpuscular Volume 93.7 fl (80-94); Monocytes # 0.6 K/mm3 (0.1-1.0); Monocytes % 5.8 % (1.7-9.3); Neutrophils # 7.7 K/mm3 (1.8-7.8); Neutrophils % 80.7 % (37.0-80.0); Platelet Count 234 K/mm3 (142-424); Red Blood Count 4.95 M/mm3 (4.60-6.20); Red Cell Distribution Width 13.2 % (11.5-17.5); White Blood Count 9.5 K/mm3 (4.8-10.8)
[2020-12-09 19:02] LABS: Anion Gap 18.2 mEq/L (5-15); Blood Urea Nitrogen 17 mg/dl (9-20); Calcium 9.2 mg/dl (8.4-10.2); Carbon Dioxide 23 mmol/L (22.0-30.0); Chloride 98 mmol/L (98-107); Creatinine Clearance Estimated 92 mL/min (50-200); Estimated Glomerular Filt Rate 52 ml/min (>60); GFR (African American) 63 ML/MIN (>60); Glucose 293 mg/dl (74-100); Potassium 5.2 mmoL/L (3.5-5.1); Sodium 134 mmol/L (136-145)
[2020-12-09 19:16] LABS: Troponin I < 0.01 ng/ml (0.00-0.034)
[2020-12-09 20:01] VITALS: BP 121/75; PULSE 82; RESP 18; TEMP 36.7; O2SAT 95
== END 2020-12-09 22:54 | disposition home or self-care (01) ==
PROVIDERS: Emergency Provider Family Medicine; PCP Emergency Medicine
DX: R42 Dizziness and giddiness (principal); N17.9 Acute kidney failure, unspecified; W18.39XA Other fall on same level, initial encounter; Y92.199 Unspecified place in other specified residential institution as the place of occurrence of the external cause; I25.10 Atherosclerotic heart disease of native coronary artery without angina pectoris; I42.8 Other cardiomyopathies; E11.9 Type 2 diabetes mellitus without complications; E78.5 Hyperlipidemia, unspecified; Z86.73 Personal history of transient ischemic attack (TIA), and cerebral infarction without residual deficits; I10 Essential (primary) hypertension; Z87.891 Personal history of nicotine dependence; Z79.899 Other long term (current) drug therapy
CPT/HCPCS: 70450; 72100; 72125; 80048; 84484; 85025; 93005; 96365; 99283

== ENCOUNTER 2022-03-04 11:18 | Emergency (ER) | payer BC, SELFPAY ==
[2022-03-04 11:11] VITALS: BP 122/82; PULSE 88; RESP 18; TEMP 36.4; O2SAT 95; BMI 30.9
--- NOTE | 2022-03-04 11:11 | CT_ITS ---
FINAL REPORT TECHNIQUE: Noncontrast exam CLINICAL HISTORY: trauma, FALL X4 WEEKS AGO COMPARISON: 06/20/2020 FINDINGS: There is moderate generalized atrophy. No abnormal density is seen. Ventricles are normal. There is no hemorrhage. There is an old right cerebellar hemispheric infarct. A right choroid plexus cystic mass measuring 2 cm is unchanged. No mass effect is seen. Bone windows show no evidence of fracture. IMPRESSION: 1. No acute findings 2. 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 Reviewed, Interpreted and Dictated by Len Bustillos MD Transcribed by Kaelyn Chandler Authenticated and [facility]
--- NOTE | 2022-03-04 11:11 | XR_ITS ---
FINAL REPORT CLINICAL HISTORY: trauma, fall x4 weeks ago FINDINGS: LEFT TIBIA FIBULA 2 views were obtained. There is no acute fracture or dislocation. The joint spaces are intact. There is no soft tissue abnormality. IMPRESSION: No acute fracture Reviewed, Interpreted and Dictated by Len Bustillos MD Transcribed by Kaelyn Chandler Authenticated and [facility]
--- NOTE | 2022-03-04 11:11 | XR_ITS ---
FINAL REPORT CLINICAL HISTORY: trauma, left hip pain FINDINGS: SINGLE VIEW PELVIS: A single view of the pelvis was obtained. There is no acute fracture or dislocation. Visualized joint spaces are normally aligned. There are mild degenerative changes of both hips. Soft tissues are unremarkable. IMPRESSION: No acute bony abnormality. Reviewed, Interpreted and Dictated by Len Bustillos MD Transcribed by Kaelyn Chandler Authenticated and [facility]
--- NOTE | 2022-03-04 11:11 | XR_ITS ---
FINAL REPORT CLINICAL HISTORY: trauma, FALL X4 WKS AGO FINDINGS: LEFT ANKLE Three views of the left ankle were obtained. There is no acute fracture or dislocation. The joint spaces and mortise are intact. There is no soft tissue abnormality. IMPRESSION: No acute bony abnormality. Reviewed, Interpreted and Dictated by Len Bustillos MD Transcribed by Kaelyn Chandler Authenticated and . [facility]
--- NOTE | 2022-03-04 11:25 | PC.NURSE ---
PT IN CT
--- NOTE | 2022-03-04 11:42 | HMH.EDGENADL ---
Discharge Plan Disposition Patient Disposition: Home, Self-Care Chief Complaint: PAIN Prescriptions Prescriptions: No Action insulin glargine 100 unit/mL (3 mL) insulin pen 55 unit SQ HS sildenafil 100 mg tablet 100 mg PO DAILY PRN Rx Instructions: administer 30 minutes to 4 hours before activity tramadol 50 mg tablet 50 mg PO BID PRN (Reason: pain) Qty: 60 5RF diltiazem HCl 120 mg capsule,extended release 24hr 120 mg PO DAILY Qty: 30 1RF (DME) OneTouch Ultra Test Strip See Rx Instructions .Route Qty: 100 2RF Rx Instructions: Test twice daily or As directed (DME) lancets [OneTouch Delica Lancets] 33 gauge misc See Rx Instructions .Route Qty: 100 2RF Rx Instructions: Test sugar twice daily or As directed gabapentin 100 mg capsule 100 mg PO TID Qty: 90 5RF polyethylene glycol 3350 17 GM powder in packet 17 gm PO DAILYP PRN (Reason: Constipation) olanzapine 20 MG tablet 20 mg PO DAILY acetaminophen 500 MG tablet 500 mg PO Q6HP PRN (Reason: As Needed For Fever Or Pain) multivitamin 1 EACH tablet 1 each PO DAILY metformin 500 MG tablet 1,000 mg PO BIDWM spironolactone 25 MG tablet 25 mg PO DAILY omeprazole 40 MG capsule,delayed release(DR/EC) 40 mg PO DAILY atorvastatin 40 MG tablet 40 mg PO HS clopidogrel 75 MG tablet 75 mg PO DAILY benztropine 1 MG tablet 1 mg PO BID aspirin 81 MG tablet,chewable 81 mg PO DAILY brimonidine 5 ML drops 1 drp EYE-BOTH BID dutasteride 0.5 MG capsule 0.5 mg PO DAILY furosemide 40 MG tablet 40 mg PO DAILY glipizide 5 MG tablet 5 mg PO DAILY metoprolol succinate 50 MG tablet 75 mg PO DAILY 0RF sertraline 100 MG tablet 100 mg PO DAILY Rx Instructions: TOTAL DOSE IS 150 MG DAILY tamsulosin 0.4 MG capsule 0.4 mg PO HS sertraline 50 MG tablet 50 mg PO DAILY Rx Instructions: TOTAL DOSE IS 150 MG Referrals Follow up/Referrals: Provider,Referral, [Referring] - See instructions Clinical Impressions Clinical Impression: Fall Instructions Patient Instructions: DI for Acute Pain -- Adult Discharge ED Provider: David Blancas Adult HPI General Chief complaint: PAIN Stated complaint: FALL Time Seen by Provider: 03/04/22 11:20 Mode of Arrival: EMS Source of Information: Patient, EMS and Medical Record Limitations: No Limitations Description of Symptoms (Recalled from ER Triage Doc. by RN): c/o left leg and arm/shoulde pain after a fall 4 weeks ago. pt states he was going down the steps when he fell down 8 steps and hit his head causing his eye glass lens to fall out and he cracked his partial teeth plate. pt unsure if he had loc or not. History of Present Illness HPI narrative: 56-year-old male with history of diabetes hyperlipidemia hypertension coronary artery disease schizoaffective disorder presents from [facility] with complaint of fall down 8 steps 4 weeks ago. He says he was not evaluated anywhere at the time. Since that time he has had mainly pain in his left leg and difficulty walking. He also complains of possibly hitting his head and he is on Plavix. He says he has been stuttering however no other focal weakness numbness or tingling. Related Data Home Medications Medication Instructions Recorded Confirmed sertraline 100 mg tablet 100 mg PO DAILY Depression 02/15/17 08/18/21 tamsulosin 0.4 mg capsule 0.4 mg PO HS PROSTATE 02/15/17 08/18/21 polyethylene glycol 3350 17 gram 17 gm PO DAILYP PRN Constipation 07/02/19 08/18/21 oral powder packet olanzapine 20 mg tablet 20 mg PO DAILY mood 07/03/19 08/18/21 acetaminophen 500 mg tablet 500 mg PO Q6HP PRN As Needed For 04/09/20 08/18/21 Fever Or Pain multivitamin 1 each PO DAILY Supplement 04/09/20 08/18/21 sertraline 50 mg tablet 50 mg PO DAILY Depression 04/23/20 08/18/21 metformin 500 mg tablet 1,000 mg P
--- NOTE | 2022-03-04 11:45 | PC.NURSE ---
PT BACK FROM CT
[2022-03-04 12:02] VITALS: BP 100/69; PULSE 79; O2SAT 96
--- NOTE | 2022-03-04 12:05 | PC.NURSE ---
SPOKE WITH [facility] REGARDING TRANSPORTATION BACK THEY ARE SENDING SOMEONE TO GET HIM
[2022-03-04 12:30] VITALS: PULSE 75; O2SAT 94
[2022-03-04 13:00] VITALS: PULSE 75; O2SAT 96
[2022-03-04 13:20] VITALS: BP 110/65; PULSE 74; RESP 17; TEMP 36.6; O2SAT 97
--- NOTE | 2022-03-04 14:27 | PC.NURSE ---
2ND CALL TO [facility] THEY ADVISED ME THAT THEY JUST LEFT
== END 2022-03-04 13:20 | disposition home or self-care (01) ==
PROVIDERS: Emergency Provider Emergency Medicine; PCP Emergency Medicine
DX: M25.512 Pain in left shoulder (principal); M79.605 Pain in left leg; M79.602 Pain in left arm; W10.9XXA Fall (on) (from) unspecified stairs and steps, initial encounter; I10 Essential (primary) hypertension; I25.10 Atherosclerotic heart disease of native coronary artery without angina pectoris; E78.5 Hyperlipidemia, unspecified; E11.9 Type 2 diabetes mellitus without complications; F25.9 Schizoaffective disorder, unspecified; N19 Unspecified kidney failure; Z86.16 Personal history of COVID-19
CPT/HCPCS: 70450; 72170; 73590; 73610; 99285

== ENCOUNTER 2022-06-24 18:47 | Emergency (ER) | payer BC, SELFPAY ==
[2022-06-24] VITALS (9 sets, daily range): BP systolic 119–140; BP diastolic 79–92; PULSE 75–94; RESP 16; TEMP 36.9; O2SAT 74–96; BMI 33.5
--- NOTE | 2022-06-24 18:50 | CT_ITS ---
PROCEDURE INFORMATION: Exam: CT Head Without Contrast Exam date and time: 06/24/2022 7:00 PM Age: 56 years old Clinical indication: Injury or trauma; Fall; Blunt trauma (contusions or hematomas); Consciousness not specified; Additional info: Fall, head inj TECHNIQUE: Imaging protocol: Computed tomography of the head without contrast. Radiation optimization: All CT scans at this facility use at least one of these dose optimization techniques: automated exposure control; mA and/or kV adjustment per patient size (includes targeted exams where dose is matched to clinical indication); or iterative reconstruction. REPORTING DATA: Count of CT and Cardiac NM exams in prior 12 months: This patient has received [address] and 0 known cardiac nuclear medicine studies in the 12 months prior to the current study. COMPARISON: CT HEAD/BRAIN WO CON 04/03/2022 11:24 FINDINGS: Brain: Mild chronic brain volume loss and chronic small vessel ischemic changes. Chronic right cerebellar hemisphere infarction. Cerebral ventricles: No ventriculomegaly. Paranasal sinuses: Visualized sinuses are unremarkable. No fluid levels. Mastoid air cells: Visualized mastoid air cells are well aerated. Orbital cavities: Postsurgical changes of the right orbit. Bones/joints: Unremarkable. No acute fracture. Soft tissues: Unremarkable. IMPRESSION: No acute intracranial findings.
--- NOTE | 2022-06-24 19:01 | HMH.EDGENADL ---
Discharge Plan Disposition Patient Disposition: Home, Self-Care Chief Complaint: Fall Prescriptions Prescriptions: No Action insulin glargine 100 unit/mL (3 mL) insulin pen 55 unit SQ HS sildenafil 100 mg tablet 100 mg PO DAILY PRN Rx Instructions: administer 30 minutes to 4 hours before activity tramadol 50 mg tablet 50 mg PO BID PRN (Reason: pain) Qty: 60 5RF diltiazem HCl 120 mg capsule,extended release 24hr 120 mg PO DAILY Qty: 30 1RF (DME) OneTouch Ultra Test Strip See Rx Instructions .Route Qty: 100 2RF Rx Instructions: Test twice daily or As directed (DME) lancets [OneTouch Delica Lancets] 33 gauge misc See Rx Instructions .Route Qty: 100 2RF Rx Instructions: Test sugar twice daily or As directed gabapentin 100 mg capsule 100 mg PO TID Qty: 90 5RF polyethylene glycol 3350 17 GM powder in packet 17 gm PO DAILYP PRN (Reason: Constipation) olanzapine 20 MG tablet 20 mg PO DAILY acetaminophen 500 MG tablet 500 mg PO Q6HP PRN (Reason: As Needed For Fever Or Pain) multivitamin 1 EACH tablet 1 each PO DAILY metformin 500 MG tablet 1,000 mg PO BIDWM spironolactone 25 MG tablet 25 mg PO DAILY omeprazole 40 MG capsule,delayed release(DR/EC) 40 mg PO DAILY atorvastatin 40 MG tablet 40 mg PO HS clopidogrel 75 MG tablet 75 mg PO DAILY benztropine 1 MG tablet 1 mg PO BID aspirin 81 MG tablet,chewable 81 mg PO DAILY brimonidine 5 ML drops 1 drp EYE-BOTH BID dutasteride 0.5 MG capsule 0.5 mg PO DAILY furosemide 40 MG tablet 40 mg PO DAILY glipizide 5 MG tablet 5 mg PO DAILY metoprolol succinate 50 MG tablet 75 mg PO DAILY 0RF sertraline 100 MG tablet 100 mg PO DAILY Rx Instructions: TOTAL DOSE IS 150 MG DAILY tamsulosin 0.4 MG capsule 0.4 mg PO HS sertraline 50 MG tablet 50 mg PO DAILY Rx Instructions: TOTAL DOSE IS 150 MG Referrals Follow up/Referrals: Robbin Rodríguez MD [Primary Care Provider] - See instructions Clinical Impressions Clinical Impression: Fall, Schizophrenia, Diabetes mellitus, Abnormal gait Instructions Patient Instructions: How to Prevent Falls Discharge ED Provider: Cesar Alvarado General Adult HPI <Cesar Alvarado MD - Last Filed: 06/24/22 19:02> General Chief complaint: Fall Stated complaint: Fall Time Seen by Provider: 06/24/22 20:00 Mode of Arrival: EMS Source of Information: Patient and EMS Limitations: Physical Limitations Description of Symptoms (Recalled from ER Triage Doc. by RN): Presents via EMS d/t multiple falls including (2) today causing him to hit his head. C/o bilateral hip pain, left femur pain, and left-sided head pain. +Asa. States cause of falls are due to legs giving out. History of Present Illness HPI narrative: Patient presents to the emergency department after reportedly falling multiple times over the last 2 days. The patient states that he hit his head today. Denies any loss of consciousness. Comes in complaining of a headache. Denies any neck pain, back pain, chest pain, abdominal pain. Describes left thigh pain. Denies any lower extremity injury other than the left thigh. Denies any vomiting or diarrhea. Related Data Home Medications Medication Instructions Recorded Confirmed sertraline 100 mg tablet 100 mg PO DAILY Depression 02/15/17 08/18/21 tamsulosin 0.4 mg capsule 0.4 mg PO HS PROSTATE 02/15/17 08/18/21 polyethylene glycol 3350 17 gram 17 gm PO DAILYP PRN Constipation 07/02/19 08/18/21 oral powder packet olanzapine 20 mg tablet 20 mg PO DAILY mood 07/03/19 08/18/21 acetaminophen 500 mg tablet 500 mg PO Q6HP PRN As Needed For 04/09/20 08/18/21 Fever Or Pain multivitamin 1 each PO DAILY Supplement 04/09/20 08/18/21 sertraline 50 mg tablet 50 mg PO DAILY Depression 04/23/20 08/18/21 metformin 500 mg tablet 1,000 mg PO BIDWM Diab
--- NOTE | 2022-06-24 19:02 | XR_ITS ---
PROCEDURE INFORMATION: Exam: XR Left Femur Exam date and time: 06/24/2022 7:05 PM Age: 56 years old Clinical indication: Injury or trauma; Other: Left hip gives out and he falls frequently. Patient HX: Left hip gives out causing frequent falls. ; Additional info: Fall, leg pain TECHNIQUE: Imaging protocol: Radiologic exam of the left femur. Views: 2 views. COMPARISON: CR XR PELVIS 1-2V 04/03/2022 11:41 FINDINGS: Bones/joints: No acute fracture or dislocation. Soft tissues: Unremarkable. IMPRESSION: No acute fracture or dislocation.
[2022-06-24 21:35] LABS: Basophils % 0.3 % (0.1-2.0); Eosinophils # 0.3 K/mm3 (0.0-0.4); Eosinophils % 2.5 % (0.1-12.0); Hematocrit 42.7 % (42.0-52.0); Hemoglobin 14.1 g/dL (14.1-18.0); Lymphocytes # 2.1 K/mm3 (0.7-4.5); Lymphocytes % 17.4 % (10-50); Mean Corpuscular Hemoglobin 30.2 pg (27.0-31.2); Mean Corpuscular Volume 91.5 fl (80-94); Mean Platelet Volume 8.9 fl (7.4-10.4); Monocytes # 0.5 K/mm3 (0.1-1.0); Neutrophils # 9.2 K/mm3 (1.8-7.8); Neutrophils % 75.8 % (37.0-80.0); Platelet Count 273 K/mm3 (142-424); Red Blood Count 4.67 M/mm3 (4.60-6.20); Red Cell Distribution Width 13.9 % (11.5-17.5); White Blood Count 12.1 K/mm3 (4.8-10.8)
[2022-06-24 21:43] LABS: Chloride 98 mmol/L (98-107); Potassium 4.2 mmoL/L (3.5-5.1); Sodium 138 mmol/L (136-145)
[2022-06-24 21:46] LABS: Alanine Aminotransferase 68 U/L (12-78); Albumin Level 4.1 g/dl (3.5-5.0); Albumin/Globulin Ratio 1.3 (1.1-1.8); Alkaline Phosphatase 99 U/L (38-126); Anion Gap 16.2 mEq/L (5-15); Aspartate Amino Transferase 170 U/L (17-59); Bilirubin,Total 0.5 mg/dl (0.2-1.3); Blood Urea Nitrogen 20 mg/dl (9-20); Carbon Dioxide 28 mmol/L (22.0-30.0); Creatinine Clearance Estimated 83 mL/min (50-200); Estimated Glomerular Filt Rate 45 ml/min (>60); GFR (African American) 54 ML/MIN (>60); Globulin 3.2 g/dL (1.3-3.2); Glucose 105 mg/dl (74-100); Total Protein,Serum 7.3 g/dl (6.3-8.2)
[2022-06-24 22:04] LABS: T4 (Thyroxine) 5.9 ug/dl (5.53-11.0)
[2022-06-24 23:45] LABS: Thyroid Stimulating Hormone 1.25 uIU/mL (0.465-4.68)
[2022-06-25 00:33] VITALS: BP 125/86; PULSE 104; O2SAT 95
[2022-06-25 00:55] LABS: Appearance,Urine CLEAR (Clear); Bilirubin,Urine Negative (Negative); Blood, Urine 3+ (Negative); Color,Urine YELLOW (Yellow); Glucose,Urine (UA) Negative (Negative); Ketones,Urine Negative (Negative); Leukocyte Esterase,Urine Negative (Negative); Microscopic, Urine URINE MICROSCOPIC (MICROSCOPIC); Nitrate,Urine Negative (Negative); Protein,Urine TRACE (Negative); Specific Gravity, Urine 1.025 (1.005-1.030)
[2022-06-25 01:07] LABS: Amorphous Sediment,Urine Trace /lpf; Bacteria,Urine 1+ /lpf
--- NOTE | 2022-06-25 01:28 | PC.NURSE ---
Patient was assisted to stand and ambulated with walker approximately 60 feet to and from the ER nurses station 2nd doorway from room 6 bed. Patient is alert, states he has the walker at home, but doesn't choose to use it, and uses a cane instead. Discussed POC and safety of patient with patient and patient is insistent that he is ready to go home. VSS. Pt is alert, verbal.
--- NOTE | 2022-06-25 01:34 | PC.NURSE ---
Contacted [facility] to see if someone was available to greens picker the patient who is now discharged to transport the patient home. Was advised by [facility] that there is not anyone there that has a drivers license. Dispatch contacted to see if pd is available to transport. Dispatch is checking for available officer to transport.
--- NOTE | 2022-06-25 01:38 | PC.NURSE ---
Dispatch called to let us know that they were gonna be en route to transport patient home.
[2022-06-25 01:47] LABS: Hemoglobin A1C 6.8 % (4.0-6.0)
[2022-06-25 02:04] VITALS: BP 125/86; PULSE 102; RESP 18; TEMP 36.6; O2SAT 99
== END 2022-06-25 01:55 | disposition home or self-care (01) ==
PROVIDERS: Emergency Provider Emergency Medicine; PCP Emergency Medicine
DX: M25.551 Pain in right hip (principal); M25.552 Pain in left hip; R51.9 Headache, unspecified; Z79.82 Long term (current) use of aspirin; W19.XXXA Unspecified fall, initial encounter
CPT/HCPCS: 70450; 73552; 80053; 81001; 83036; 84436; 84443; 85025; 99284; 99285

== ENCOUNTER 2022-08-11 08:16 | Emergency (ER) | payer BC, SELFPAY ==
[2022-08-11 08:16] VITALS: BP 128/82; PULSE 82; RESP 16; TEMP 36.4; O2SAT 96; BMI 30.3
--- NOTE | 2022-08-11 08:23 | CT_ITS ---
FINAL REPORT CLINICAL HISTORY: Head trauma, fall today , hit back of head, unsure of LOC COMPARISON: 06/24/2022 FINDINGS: Axial images of the head were obtained without contrast. Coronal and sagittal reformatted images were also obtained. This study was performed with techniques to keep radiation doses as low as reasonably achievable (ALARA). Individualized dose reduction techniques using automated exposure control or adjustment of mA and/or kV according to the patient's size were employed. There is generalized age-appropriate atrophy. Periventricular low-attenuation areas are seen consistent with mild chronic ischemic changes. There is no evidence of intracranial hemorrhage or mass. There is no evidence of acute infarct. There is a remote right inferior cerebellar infarct again noted with encephalomalacia, stable since the prior CT of June 24. There is no evidence of shift of the midline structures. No skull abnormality is seen on the bone window images. IMPRESSION: Atrophy and mild periventricular chronic ischemic changes. No acute intracranial abnormality identified. 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 Reviewed, Interpreted and Dictated by Oliverio Cole III, MD Transcribed by Rafia Knox Authenticated and [facility]
--- NOTE | 2022-08-11 08:23 | CT_ITS ---
FINAL REPORT CLINICAL HISTORY: Head trauma, fall today, hit back of head, unsure of LOC COMPARISON: 12/09/2020 FINDINGS: Axial CT images of the cervical spine were obtained without contrast. Sagittal and coronal reformatted images were also obtained. This study was performed with techniques to keep radiation doses as low as reasonably achievable (ALARA). Individualized dose reduction techniques using automated exposure control or adjustment of mA and/or kV according to the patient's size were employed. Motion artifact is identified on many of the images. There is no evidence of fracture or dislocation. The bony alignment is normal. There are mild and moderate degenerative changes. There is neural foraminal narrowing and mild central canal stenosis at C6-7. No paraspinous soft tissue abnormality is seen. Limited images of the upper thorax are unremarkable. IMPRESSION: Multilevel degenerative change without acute bony abnormality. Reviewed, Interpreted and Dictated by Oliverio Cole III, MD Transcribed by Anni Marte Authenticated and [facility]
--- NOTE | 2022-08-11 08:28 | HMH.EDFALL ---
Discharge Plan Disposition Patient Disposition: Home, Self-Care Chief Complaint: Wound/Laceration Prescriptions Prescriptions: No Action insulin glargine 100 unit/mL (3 mL) insulin pen 55 unit SQ HS sildenafil 100 mg tablet 100 mg PO DAILY PRN Rx Instructions: administer 30 minutes to 4 hours before activity tramadol 50 mg tablet 50 mg PO BID PRN (Reason: pain) Qty: 60 5RF diltiazem HCl 120 mg capsule,extended release 24hr 120 mg PO DAILY Qty: 30 1RF (DME) OneTouch Ultra Test Strip See Rx Instructions .Route Qty: 100 2RF Rx Instructions: Test twice daily or As directed (DME) lancets [OneTouch Delica Lancets] 33 gauge misc See Rx Instructions .Route Qty: 100 2RF Rx Instructions: Test sugar twice daily or As directed gabapentin 100 mg capsule 100 mg PO TID Qty: 90 5RF polyethylene glycol 3350 17 GM powder in packet 17 gm PO DAILYP PRN (Reason: Constipation) olanzapine 20 MG tablet 20 mg PO DAILY acetaminophen 500 MG tablet 500 mg PO Q6HP PRN (Reason: As Needed For Fever Or Pain) multivitamin 1 EACH tablet 1 each PO DAILY metformin 500 MG tablet 1,000 mg PO BIDWM spironolactone 25 MG tablet 25 mg PO DAILY omeprazole 40 MG capsule,delayed release(DR/EC) 40 mg PO DAILY atorvastatin 40 MG tablet 40 mg PO HS clopidogrel 75 MG tablet 75 mg PO DAILY benztropine 1 MG tablet 1 mg PO BID aspirin 81 MG tablet,chewable 81 mg PO DAILY brimonidine 5 ML drops 1 drp EYE-BOTH BID dutasteride 0.5 MG capsule 0.5 mg PO DAILY furosemide 40 MG tablet 40 mg PO DAILY glipizide 5 MG tablet 5 mg PO DAILY metoprolol succinate 50 MG tablet 75 mg PO DAILY 0RF sertraline 100 MG tablet 100 mg PO DAILY Rx Instructions: TOTAL DOSE IS 150 MG DAILY tamsulosin 0.4 MG capsule 0.4 mg PO HS sertraline 50 MG tablet 50 mg PO DAILY Rx Instructions: TOTAL DOSE IS 150 MG Referrals Follow up/Referrals: Provider,Referral, [Primary Care Provider] - See instructions Clinical Impressions Clinical Impression: Abrasion of scalp Instructions Patient Instructions: DI for Laceration Repair Discharge ED Provider: Kobe Weiner [facility] General Chief Complaint: Wound/Laceration Stated Complaint: fall Time Seen by Provider: 08/11/22 08:23 Mode of Arrival: EMS Source of Information: Patient and EMS Limitations: No Limitations Description of Symptoms (Recalled from ER Triage Doc. by RN): 56 yo M presents to ED with laceration to left side of head. pt states he had a fall this morning. pt does take aspirin and plavix. pt lives at [facility]. pt c/o headache, but no other complaints. History of Present Illness HPI Narrative: 56-year-old fell into a wall striking left posterior aspect of his scalp and skull today. He was encouraged by the caretakers at his assisted living to come in having evaluation in the emergency department. Patient really has no symptoms except headache. No numbness tingling visual changes etc. He reports no altered sensorium prior to during or after the event. Related Data Home Medications Medication Instructions Recorded Confirmed sertraline 100 mg tablet 100 mg PO DAILY Depression 02/15/17 08/18/21 tamsulosin 0.4 mg capsule 0.4 mg PO HS PROSTATE 02/15/17 08/18/21 polyethylene glycol 3350 17 gram 17 gm PO DAILYP PRN Constipation 07/02/19 08/18/21 oral powder packet olanzapine 20 mg tablet 20 mg PO DAILY mood 07/03/19 08/18/21 acetaminophen 500 mg tablet 500 mg PO Q6HP PRN As Needed For 04/09/20 08/18/21 Fever Or Pain multivitamin 1 each PO DAILY Supplement 04/09/20 08/18/21 sertraline 50 mg tablet 50 mg PO DAILY Depression 04/23/20 08/18/21 metformin 500 mg tablet 1,000 mg PO BIDWM Diabetes 06/18/20 08/18/21 spironolactone 25 mg tablet 25 mg PO DAILY Fluid 06/18/20 08/18/21 omeprazole 40 mg capsule,delayed
[2022-08-11 08:30] VITALS: BP 121/82; PULSE 81; O2SAT 95
[2022-08-11 09:00] VITALS: BP 124/83; PULSE 82; O2SAT 94
[2022-08-11 09:04] LABS: Basophils % 0.3 % (0.1-2.0); Eosinophils # 0.3 K/mm3 (0.0-0.4); Eosinophils % 2.5 % (0.1-12.0); Hematocrit 41.9 % (42.0-52.0); Hemoglobin 13.2 g/dL (14.1-18.0); Lymphocytes # 2.9 K/mm3 (0.7-4.5); Lymphocytes % 24.3 % (10-50); Mean Corpuscular HGB Conc 31.5 g/dL (31.8-35.4); Mean Corpuscular Hemoglobin 29.1 pg (27.0-31.2); Mean Corpuscular Volume 92.4 fl (80-94); Mean Platelet Volume 8.2 fl (7.4-10.4); Monocytes # 0.6 K/mm3 (0.1-1.0); Monocytes % 4.7 % (1.7-9.3); Neutrophils # 8.2 K/mm3 (1.8-7.8); Neutrophils % 68.2 % (37.0-80.0); Platelet Count 301 K/mm3 (142-424); Red Blood Count 4.54 M/mm3 (4.60-6.20); Red Cell Distribution Width 14.4 % (11.5-17.5)
[2022-08-11 09:13] LABS: Alanine Aminotransferase 70 U/L (12-78); Albumin Level 4.1 g/dl (3.5-5.0); Albumin/Globulin Ratio 1.2 (1.1-1.8); Alkaline Phosphatase 88 U/L (38-126); Anion Gap 14.4 mEq/L (5-15); Aspartate Amino Transferase 94 U/L (17-59); Bilirubin,Total 0.3 mg/dl (0.2-1.3); Blood Urea Nitrogen 17 mg/dl (9-20); Calcium 8.8 mg/dl (8.4-10.2); Carbon Dioxide 23 mmol/L (22.0-30.0); Chloride 106 mmol/L (98-107); Creatinine Clearance Estimated 109 mL/min (50-200); Estimated Glomerular Filt Rate 69 ml/min (>60); GFR (African American) 83 ML/MIN (>60); Globulin 3.3 g/dL (1.3-3.2); Glucose 53 mg/dl (74-100); Potassium 4.4 mmoL/L (3.5-5.1); Sodium 139 mmol/L (136-145); Total Protein,Serum 7.4 g/dl (6.3-8.2)
[2022-08-11 09:15] VITALS: BP 124/83; PULSE 83; O2SAT 97
--- NOTE | 2022-08-11 09:41 | PC.NURSE ---
rounded on pt, pain medicine given, no other needs at this time
--- NOTE | 2022-08-11 10:26 | PC.NURSE ---
called [facility] to see about getting a ride for this pt as they were beind discharged.
[2022-08-11 11:34] VITALS: BP 124/83; PULSE 83; RESP 16; TEMP 36.7
== END 2022-08-11 11:36 | disposition home or self-care (01) ==
PROVIDERS: Emergency Provider Emergency Medicine
DX: S00.01XA Abrasion of scalp, initial encounter (principal); I25.118 Atherosclerotic heart disease of native coronary artery with other forms of angina pectoris; E11.51 Type 2 diabetes mellitus with diabetic peripheral angiopathy without gangrene; I10 Essential (primary) hypertension; E78.5 Hyperlipidemia, unspecified; F25.9 Schizoaffective disorder, unspecified; W19.XXXA Unspecified fall, initial encounter; Z79.82 Long term (current) use of aspirin; Z79.02 Long term (current) use of antithrombotics/antiplatelets
CPT/HCPCS: 70450; 72125; 80053; 85025; 96374; 99284; 99285